=== PATIENT | female | born 1940 | race Caucasian/White ===

== ENCOUNTER 2018-10-09 09:47 | Emergency (ER) | payer OTHER ==
--- NOTE | 2018-10-09 10:52 | ER ---
Nurse's Notes [facility] Name: Holli Strickland Age: 77 yrs Sex: Female : 1940 Arrival Date: 10/09/2018 Time: 09:47 Bed 20 Private MD: Truman Chance Diagnosis: Fracture of forearm Presentation: 10/09 09:56 Presenting complaint: Patient states: last night, i fell and hurt my L wrist, denies hj hitting head and LOC; reports swelling; took advil last night and this AM; applied ice since last night;. Transition of care: patient was not received from another setting of care. Onset of symptoms was October 09, 2018. Risk Assessment: Do you want to hurt yourself or someone else? Patient reports no desire to harm self or others. Initial Sepsis Screen: Does the patient meet any 2 criteria? No. Patient's initial sepsis screen is negative. Does the patient have a suspected source of infection? No. Patient's initial sepsis screen is negative. Care prior to arrival: None. 09:56 Method Of Arrival: Ambulatory 09:56 Acuity: FREDRICK 4 hj Triage Assessment: 10:00 General: Appears in no apparent distress. uncomfortable, Behavior is calm, cooperative, hj appropriate for age. Pain: Complains of pain in L wrist. Historical: - Allergies: 09:59 PENICILLINS; hj - PMHx: 09:59 Hyperlipidemia; Hypertension; Diabetes - NIDDM; hj - PSHx: 09:59 None; hj - Immunization history:: Adult Immunizations up to date. - Social history:: Smoking status: Patient/guardian denies using tobacco, Patient/guardian denies using alcohol. - Ebola Screening: : Patient negative for fever greater than or equal to 101.5 degrees Fahrenheit, and additional compatible Ebola Virus Disease symptoms Patient denies exposure to infectious person Patient denies travel to an Ebola-affected area in the 21 days before illness onset. Screenin:00 Abuse screen: Denies threats or abuse. Denies injuries from another. Nutritional hj screening: No deficits noted. Tuberculosis screening: No symptoms or risk factors identified. Fall Risk None identified. Vital Signs: 10:00 BP 164 / 92; Pulse 82; Resp 18; Temp 98.0(O); Pulse Ox 95% on R/A; Weight 77.11 kg; hj Height 5 ft. 4 in. (162.56 cm); Pain 6/10; 11:12 BP 119 / 66; Pulse 82; Resp 18; Pulse Ox 100% on R/A; hj 10:00 Body Mass Index 29.18 (77.11 kg, 162.56 cm) ED Course: 09:47 Patient arrived in ED. as 09:47 Truman Chance MD is Private Physician. as 09:56 Kilo Ibanez, RN is Primary Nurse. hj 09:58 Triage completed. hj 10:01 Arm band placed on right wrist. hj 10:01 Patient has correct armband on for positive identification. Bed in low position. Call hj light in reach. Side rails up X 1. Adult w/ patient. 10:02 Martine Somers FNP-C is [facility]. kb 10:02 Priyank Raines MD is Attending Physician. kb 10:44 Wrist Left (3 View) XRAY In Process Unspecified. EDMS 10:44 Forearm Left XRAY In Process Unspecified. EDMS 10:49 Mkie Noe MD is Referral Physician. kb 11:20 Orthoglass splint: Sugar tong splint applied on left arm. Sling applied to left arm. mh5 11:23 No provider procedures requiring assistance completed. Patient did not have IV access hj during this emergency room visit. Administered Medications: No medications were administered Outcome: 10:51 Discharge ordered by . kb 11:23 Discharged to home ambulatory, with family. hj 11:23 Condition: stable 11:23 Discharge instructions given to patient, family, Instructed on discharge instructions, follow up and referral plans. medication usage, Demonstrated understanding of instructions, follow-up care, medications, Prescriptions given X 1. 11:23 Patient left the ED. Signatures: Dispatcher [employer] EDMS Martine Somers FNP-C FNP-Ckb Martinez, Amelia as Kilo Ibanez, RN RN Irene Agarwal [facility]
--- NOTE | 2018-10-09 10:52 | EDPHYS ---
Physician Documentation [facility] Name: Holli Strickland Age: 77 yrs Sex: Female : 1940 Arrival Date: 10/09/2018 Time: 09:47 Bed 20 Private MD: Truman Chance ED Physician Priyank Raines HPI: 10/09 10:47 This 77 yrs old Female presents to ER via Ambulatory with complaints of Wrist kb Pain. 10:47 The patient or guardian reports decreased range of motion, injury, pain, swelling, kb tenderness. The complaints affect the left wrist diffusely. Context: The problem was sustained outdoors, resulted from a fall, while walking, on an outstretched hand. Onset: The symptoms/episode began/occurred yesterday. Modifying factors: The symptoms are alleviated by nothing, the symptoms are aggravated by movement. Associated signs and symptoms: The patient has no apparent associated signs or symptoms. The patient has not experienced similar symptoms in the past. The patient has not recently seen a physician. 10:48 Compartment Syndrome negative for numbness, pain, tingling. kb Historical: - Allergies: 09:59 PENICILLINS; hj - PMHx: 09:59 Hyperlipidemia; Hypertension; Diabetes - NIDDM; hj - PSHx: 09:59 None; hj - Immunization history:: Adult Immunizations up to date. - Social history:: Smoking status: Patient/guardian denies using tobacco, Patient/guardian denies using alcohol. - Ebola Screening: : Patient negative for fever greater than or equal to 101.5 degrees Fahrenheit, and additional compatible Ebola Virus Disease symptoms Patient denies exposure to infectious person Patient denies travel to an Ebola-affected area in the 21 days before illness onset. ROS: 10:46 Constitutional: Negative for fever, chills, and weight loss, Cardiovascular: Negative kb for chest pain, palpitations, and edema, Respiratory: Negative for shortness of breath, cough, wheezing, and pleuritic chest pain, Abdomen/GI: Negative for abdominal pain, nausea, vomiting, diarrhea, and constipation, Skin: Negative for injury, rash, and discoloration, Neuro: Negative for headache, weakness, numbness, tingling, and seizure. 10:46 MS/extremity: Positive for injury or acute deformity, ecchymosis, pain, swelling, tenderness, of the left wrist. Exam: 10:46 Constitutional: This is a well developed, well nourished patient who is awake, alert, kb and in no acute distress. Head/Face: Normocephalic, atraumatic. ENT: Nares patent. No nasal discharge, no septal abnormalities noted. Tympanic membranes are normal and external auditory canals are clear. Oropharynx with no redness, swelling, or masses, exudates, or evidence of obstruction, uvula midline. Mucous membranes moist. Neck: Trachea midline, no thyromegaly or masses palpated, and no cervical lymphadenopathy. Supple, full range of motion without nuchal rigidity, or vertebral point tenderness. No Meningismus. Chest/axilla: Normal chest wall appearance and motion. Nontender with no deformity. No lesions are appreciated. Cardiovascular: Regular rate and rhythm with a normal S1 and S2. No gallops, murmurs, or rubs. Normal PMI, no JVD. No pulse deficits. Respiratory: Lungs have equal breath sounds bilaterally, clear to auscultation and percussion. No rales, rhonchi or wheezes noted. No increased work of breathing, no retractions or nasal flaring. Abdomen/GI: Soft, non-tender, with normal bowel sounds. No distension or tympany. No guarding or rebound. No evidence of tenderness throughout. Skin: Warm, dry with normal turgor. Normal color with no rashes, no lesions, and no evidence of cellulitis. Neuro: Awake and alert, GCS 15, oriented to person, place, time, and situation. Cranial nerves II-XII grossly intact. Motor strength 5/5 in all extremities. Sensory grossly intact. Cerebellar exam normal. Normal gait. 10:46 Musculoskeletal/extremity: Extremities: grossly normal except: noted in the left wrist: decreased ROM, ecchymosis, pain, swelling, tenderness, ROM: limited active range of motion, in the left wrist, Circulation is intact in all extremities. Sensation intact. Vital Signs: 10:00 BP 164 / 92; Pulse 82; Resp 18; Temp 98.0(O); Pulse Ox 95% on R/A; Weight 77.11 kg; hj Height 5 ft. 4 in. (162.56 cm); Pain 6/10; 11:12 BP 119 / 66; Pulse 82; Resp 18; Pulse Ox 100% on R/A; hj 10:00 Body Mass Index 29.18 (77.11 kg, 162.56 cm) Procedures: 11:20 Splinting: Splint applied to left arm using Orthoglass splint, applied by tech. kb Examined by me, post splint application: neurovascular intact, 2+ distal pulses palpable, brisk capillary refill noted, Patient tolerated well. MDM: 10:02 Patient medically screened. kb 10:45 Data reviewed: vital signs, nurses notes. Data interpreted: Pulse oximetry: on room air kb is 95 %. Interpretation: normal. Test interpretation: by ED physician or midlevel provider: plain radiologic studies, displaced fracture of radius. Counseling: I had a detailed discussion with the patient and/or guardian regarding: the historical points, exam findings, and any diagnostic results supporting the discharge/admit diagnosis, radiology results, the need for outpatient follow up, a orthopedic surgeon, to return to the emergency department if symptoms worsen or persist or if there are any questions or concerns that arise at home. 10/09 10:04 Order name: Wrist Left (3 View) XRAY; Complete Time: 11:10 kb 10/09 10:04 Order name: Forearm Left XRAY kb 10/09 10:49 Order name: Sugar Tong Forearm Splint; Complete Time: 11:06 kb 10/09 10:49 Order name: Sling; Complete Time: 11:06 kb Administered Medications: No medications were administered Disposition: 16:59 Co-signature as Attending Physician, Priyank Raines MD. rn Disposition: 10/09/18 10:51 Discharged to Home. Impression: Fracture of forearm. - Condition is Stable. - Discharge Instructions: Forearm Fracture, Pxvt-on-Ltvc. - Prescriptions for Tylenol- Codeine #3 300-30 mg Oral Tablet - take 1 tablet by ORAL route every 6 hours As needed; 15 tablet. - Medication Reconciliation Form, Thank You Letter, Antibiotic Education, Prescription Opioid Use form. - Follow up: Emergency Department; When: As needed; Reason: Worsening of condition. Follow up: Private Physician; When: 2 - 3 days; Reason: Recheck today's complaints, Continuance of care, Re-evaluation by your physician. Follow up: Mike Noe MD; When: 1 - 2 days; Reason: Recheck today's complaints, Continuance of care, Re-evaluation by your physician. Signatures: Dispatcher [employer] EDMartine Guzman, CRANE SERVICE TECHNICIAN-C CRANE SERVICE TECHNICIAN-Ckb Priyank Raines MD MD rn Joaquin, Henry, RN RN hj Corrections: (The following items were deleted from the chart) 11:23 10:51 10/09/2018 10:51 Discharged to Home. Impression: Fracture of forearm. Condition hj is Stable. Forms are Medication Reconciliation Form, Thank You Letter, Antibiotic Education, Prescription Opioid Use. Follow up: Emergency Department; When: As needed; Reason: Worsening of condition. Follow up: Private Physician; When: 2 - 3 days; Reason: Recheck today's complaints, Continuance of care, Re-evaluation by your physician. Follow up: Mike Noe; When: 1 - 2 days; Reason: Recheck today's complaints, Continuance of care, Re-evaluation by your physician. kb
--- NOTE | 2018-10-09 11:08 | RAD REPORT ---
EXAM DESCRIPTION: RAD - Wrist Left 3 View - 10/09/2018 10:43 am CLINICAL HISTORY: PAIN Fall, pain, trauma COMPARISON: None FINDINGS: Left forearm and left wrist - multiple projections are submitted Intra-articular distal radius fracture is seen. Subtle lucency in the ulnar styloid also seen likely nondisplaced fracture. The bones are demineralized. No dislocation is evident.
--- NOTE | 2018-10-09 11:32 | RAD REPORT ---
EXAM DESCRIPTION: RAD - Forearm Left - 10/09/2018 10:43 am CLINICAL HISTORY: PAIN Fall, pain, trauma COMPARISON: None FINDINGS: Left forearm and left wrist - multiple projections are submitted Intra-articular distal radius fracture is seen. Subtle lucency in the ulnar styloid also seen likely nondisplaced fracture. The bones are demineralized. No dislocation is evident.
== END 2018-10-09 11:23 | disposition home or self-care (01) ==
LOC: ER 09:47
PROC: 2W3DX1Z Immobilization of Left Lower Arm using Splint (ICD-10-PCS; principal; 2018-10-09)
DX: S52.502A Unspecified fracture of the lower end of left radius, initial encounter for closed fracture (principal); W01.0XXA Fall on same level from slipping, tripping and stumbling without subsequent striking against object, initial encounter; Y93.01 Activity, walking, marching and hiking; Z88.0 Allergy status to penicillin; E78.5 Hyperlipidemia, unspecified; I10 Essential (primary) hypertension; E11.9 Type 2 diabetes mellitus without complications
CPT/HCPCS: 99283

== ENCOUNTER 2019-05-17 16:51 | Inpatient (IN) | payer OTHER ==
--- OUTSIDE RECORDS SUMMARY | 2019-05-17 16:53 | XMS REPORT ---
:1940 [facility] Address [address] [place] [address] [address] [place] [address] Care Team Providers Name Role Phone Unavailable Unavailable Unavailable Problems This patient has no known problems. Allergies, Adverse Reactions, Alerts This patient has no known allergies or adverse reactions. Medications This patient has no known medications.
[2019-05-17] MEDS ORDERED: NA CHLORIDE 0.9% 2,000 ML ONE (17:24)
[2019-05-17 18:12] LABS: Calcium Oxalate Crystals- Ur PRESENT (NONE SEEN); Urine Bacteria >50 /HPF (<20); Urine Culture Reflex Order REFLEXED; Urine RBC NONE SEEN /HPF (NONE SEEN)
[2019-05-17 18:13] LABS: ALT/SGPT 25 U/L (12-78); AST/SGOT 28 U/L (15-37); Albumin 3.5 g/dL (3.4-5.0); Alkaline Phosphatase 49 U/L (45-117); BUN Blood Urea Nitrogen 19 mg/dL (7-18); Bicarbonate 22 mmol/L (21-32); Bilirubin Direct 0.4 mg/dL (0-0.2); CKMB Creatine Kinase MB < 1.0 ng/mL (0.3-3.6); Creatine Phosphokinase 116 U/L (26-192); Glucose Level 161 mg/dL (74-106); Lipase 46 U/L (73-393); Potassium 3.8 mmol/L (3.5-5.1); Protein, Total 7.2 g/dL (6.4-8.2); Sodium Level 134 mmol/L (136-145); Troponin (Emerg Dept Use Only) < 0.02 ng/mL (0.0-0.045)
[2019-05-17] MEDS ORDERED: Levofloxacin 750mg IV 750 MG/150 ML BAG IV ONE (18:24)
[2019-05-17 18:31] LABS: Urine Blood 1+ (NEG); Urine Glucose NEGATIVE (NEG); Urine Protein NEGATIVE (NEG); Urine pH 5.5 (5.0-7.0)
[2019-05-17 18:35] LABS: Absolute Lymphocytes (CBC) 0.1 K/uL (0.7-4.9); Basophils % 0.2 % (0-1.3); Hematocrit 31.9 % (36.0-45.0); Lymphocytes % 2.1 % (15.3-44.8); MPV 9.7 fL (7.6-11.3); RBC Red Blood Cell Count 3.44 M/uL (3.86-4.86)
[2019-05-17] MEDS ORDERED: NA CHLORIDE 0.9% 500 ML ONE (18:35)
--- NOTE | 2019-05-17 18:40 | RAD REPORT ---
EXAM DESCRIPTION: CT - CTHCSPWOC - 05/17/2019 6:12 pm CLINICAL HISTORY: Slip and fall, head and neck injury COMPARISON: None. TECHNIQUE: Axial 5 mm thick images of the head were obtained. Axial 2 mm thick images of the cervic al spine were obtained with sagittal and coronal reconstruction images generated and reviewed. All CT scans are performed using dose optimization technique as appropriate and may include automated exposure control or mA/KV adjustment according to patient size. FINDINGS: No intracranial hemorrhage, mass, edema or acute intracranial finding. No suspicion for acute infarct ion. No extra-axial fluid collections. Mastoid air cells and paranasal sinuses are clear. No globe or orbit abnormality seen. Mild atrophy and chronic ischemic changes are present. Ventricles are in pro portion to volume wounds. Cervical bodies are normal in height. Slight anterior subluxation of C3 on C4 and C4 on C5 noted seco ndary to degenerative change. Moderate C5-6 and C6-7 disc space narrowing with mild C4-5 disc space n arrowing. No fracture or acute bony abnormality. Facet joint degenerative change and uncovertebral garcía int hypertrophy are present in the cervical spine. Significant right foraminal stenosis present on th e right at C3-4 bilateral at C4-5, C5-6 and C6-7. No paraspinal mass or hematoma. Central canal detail is inherently limited. IMPRESSION: Mild atrophy and chronic ischemic changes are present. No acute intracranial finding. Cervical spine degenerative change as detailed. No fracture or acute finding.
[2019-05-17 18:41] LABS: Protime INR 1.33
--- NOTE | 2019-05-17 18:46 | RAD REPORT ---
EXAM DESCRIPTION: RAD - Chest Single View - 05/17/2019 6:06 pm CLINICAL HISTORY: Fever, fall COMPARISON: None. TECHNIQUE: AP portable chest image was obtained 1800 hours . FINDINGS: Lungs are clear. Heart and vasculature are normal. No measurable pleural effusion and no p neumothorax. No acute bony abnormality seen. No acute aortic findings suspected. IMPRESSION: No acute cardiopulmonary process.
[2019-05-17 19:27] LABS: Blood Morphology Comment NOT SEEN (NOT SEEN); Platelet Estimate ADEQ
[2019-05-17] MEDS ORDERED: ACETAMINOPHEN 500 MG TAB ONE (19:33)
--- NOTE | 2019-05-17 19:35 | ER ---
Nurse's Notes [facility] Name: Holli Strickland Age: 78 yrs Sex: Female : 1940 Arrival Date: 05/17/2019 Time: 17:01 Bed 18 Private MD: Diagnosis: Acute cystitis;Other sepsis;Fever, unspecified Presentation: 05/17 17:02 Presenting complaint: EMS states: called out for a slip and fall, denies any injury, em denies LOC or hitting head, vomited one time after the fall, family reports frequent falling and urinary frequency, pt denies pain at this time, VSS. Transition of care: patient was not received from another setting of care. Onset of symptoms was May 17, 2019. Risk Assessment: Do you want to hurt yourself or someone else? Patient reports no desire to harm self or others. Initial Sepsis Screen: Does the patient meet any 2 criteria? HR > 90 bpm. No. Patient's initial sepsis screen is negative. Does the patient have a suspected source of infection? Yes: Dysuria/Frequency/Urgency/UTI. Care prior to arrival: None. 17:02 Method Of Arrival: EMS: [facility] em 17:15 Acuity: FREDRICK 2 iw Historical: - Allergies: 17:08 PENICILLINS; em 17:08 Omnicef; em - Home Meds: 17:08 Aspirin Oral [Active]; Crestor oral oral [Active]; em - PMHx: 17:08 Diabetes - NIDDM; Hyperlipidemia; Hypertension; em - PSHx: 17:08 None; em - Immunization history:: Adult Immunizations unknown. - Social history:: Smoking status: unknown. - Ebola Screening: : Patient negative for fever greater than or equal to 101.5 degrees Fahrenheit, and additional compatible Ebola Virus Disease symptoms Patient denies exposure to infectious person Patient denies travel to an Ebola-affected area in the 21 days before illness onset No symptoms or risks identified at this time. Screenin:12 Abuse screen: no apparent signs noted. Nutritional screening: No deficits noted. em Tuberculosis screening: No symptoms or risk factors identified. Fall Risk None identified. Assessment: 17:12 General: Appears in no apparent distress. comfortable, Behavior is calm, cooperative, iw feels hot, family reports frequent falling and being more confused than normal. Pain: Denies pain. Neuro: Level of Consciousness is awake, alert, obeys commands, Oriented to person, place, time. Cardiovascular: Capillary refill < 3 seconds Patient's skin is warm and dry. Respiratory: Airway is patent Respiratory effort is even, unlabored, Respiratory pattern is regular, symmetrical. : Parent/caregiver report the patient having urinary frequency. Derm: Skin is intact, is fragile, Skin is dry, Skin is pink, Skin temperature is hot. Musculoskeletal: Capillary refill < 3 seconds, Range of motion: intact in all extremities. 17:14 Reassessment: Code Sepsis called. iw 18:11 Reassessment: currently in CT. em 18:17 Reassessment: returned from CT, will recollect labs. em 18:32 Reassessment: Patient appears in no apparent distress at this time. Patient and/or em family updated on plan of care and expected duration. Pain level reassessed. Patient is alert, oriented x 3, equal unlabored respirations, skin warm/dry/pink. 19:15 Reassessment: Patient appears in no apparent distress at this time. Patient and/or cc3 family updated on plan of care and expected duration. Pain level reassessed. Patient is alert, oriented x 3, equal unlabored respirations, skin warm/dry/pink. Received this female patient from morning shift [facility] as a case of fall injury and sepsis; with IV cannula gauge 22 at the right ACV with ongoing IV fluid bolus; another IV cannula gauge 22 at the right hand saline locked. Patient denies pain at this time. General: Appears in no apparent distress. comfortable, Behavior is calm, cooperative, appropriate for age. Pain: Denies pain. Neuro: Level of Consciousness is awake, alert, obeys commands, Oriented to person, place, time, situation, Appropriate for age. Cardiovascular: Denies chest pain, Heart tones S1 S2 present Capillary refill < 3 seconds in bilateral fingers Patient's skin is warm and dry. Respiratory: Airway is patent Respiratory effort is even, unlabored, Respiratory pattern is regular, symmetrical, Breath sounds are clear bilaterally. GI: Abdomen is round obese, Bowel sounds present X 4 quads. Abd is soft and non tender X 4 quads. : No signs and/or symptoms were reported regarding the genitourinary system. EENT: No signs and/or symptoms were reported regarding the EENT system. Derm: Skin is intact, is fragile, Skin is pink, warm \T\ dry. normal, Bruising that is green, on right leg. Musculoskeletal: Circulation, motion, and sensation intact. Range of motion: intact in all extremities. 19:27 Reassessment: Lab staff Wade called and relayed critical result of Band count of 15%, cc3 AUTHORIZATION COORDINATOR Cruz Mayorga informed. 20:18 Reassessment: Patient appears in no apparent distress at this time. Patient and/or cc3 family updated on plan of care and expected duration. Pain level reassessed. Patient is alert, oriented x 3, equal unlabored respirations, skin warm/dry/pink. 21:15 Reassessment: Patient appears in no apparent distress at this time. Patient and/or cc3 family updated on plan of care and expected duration. Pain level reassessed. Patient is alert, oriented x 3, equal unlabored respirations, skin warm/dry/pink. Room available in 420, report called and handed over to SOREN Guevara for continuity of care and management; repeat Lactate sent to lab. 21:40 Reassessment: Patient appears in no apparent distress at this time. Patient and/or cc3 family updated on plan of care and expected duration. Pain level reassessed. Patient is alert, oriented x 3, equal unlabored respirations, skin warm/dry/pink. Patient left ER for admission vitally stable by stretcher escorted by charge histotechnologistleroy Sylvester and the patient's family. No valuables left in the patient's room. Patient denies pain at this time. Patient states feeling better. Patient states symptoms have improved. Vital Signs: 17:12 BP 119 / 58; Pulse 95; Resp 20; Temp 100.6(O); Pulse Ox 95% on R/A; Pain 0/10; em 17:18 Weight 74.84 kg (R); Height 5 ft. 4 in. (162.56 cm) (R); em 17:53 BP 126 / 65; Pulse 98; Resp 20; Pulse Ox 96% on R/A; em 18:44 BP 107 / 53; Pulse 105; Resp 22; Temp 100.6(O); Pulse Ox 96% on R/A; em 19:25 BP 121 / 67; Pulse 100; Resp 21 S; Temp 101.2(O); Pulse Ox 99% on R/A; Pain 0/10; cc3 20:30 BP 115 / 75; Pulse 109; Resp 24 S; Pulse Ox 94% on 2 lpm NC; cc3 21:20 BP 103 / 64; Pulse 103; Resp 26 S; Temp 100(O); Pulse Ox 95% on 2 lpm NC; Pain 0/10; cc3 17:18 Body Mass Index 28.32 (74.84 kg, 162.56 cm) em ED Course: 17:01 Patient arrived in ED. em 17:02 Rodrigo Castañeda LVN is Primary Nurse. em 17:02 Cruz Mayorga FNP-C is PHCP. la1 17:02 James Cuba MD is Attending Physician. la1 17:08 Arm band placed on. em 17:12 Patient has correct armband on for positive identification. Placed in gown. Bed in low em position. Call light in reach. Adult w/ patient. Pulse ox on. NIBP on. 17:15 Triage completed. iw 17:15 Maintain EMS IV. Dressing intact. Good blood return noted. Site clean \T\ dry. Gauge \T\ iw site: 20 right hand. 17:29 Missed attempt(s): 22 gauge in right antecubital area. iw 18:07 Chest Single View XRAY In Process Unspecified. EDMS 18:12 CT completed. Patient tolerated procedure well. Patient moved back from CT. mw3 18:13 CT Head C Spine In Process Unspecified. EDMS 19:31 James Cuba MD is Hospitalizing Provider. la1 19:31 David Maurice MD is Hospitalizing Provider. la1 21:40 No provider procedures requiring assistance completed. Patient admitted, IV remains in cc3 place. Administered Medications: 17:25 Drug: NS 0.9% (30 ml/kg) 30 ml/kg Route: IV; Rate: bolus; Site: right hand; em 19:38 Follow up: Response: No adverse reaction; IV Status: Completed infusion; IV Intake: cc3 2250ml 18:28 Drug: LevaQUIN 750 mg Volume: 150 ml; Route: IVPB; Infused Over: 90 mins; Site: right iw antecubital; 20:00 Follow up: Response: No adverse reaction; IV Status: Completed infusion; IV Intake: cc3 150ml 19:30 Drug: Tylenol 1000 mg Route: PO; cc3 21:20 Follow up: Response: No adverse reaction; Temperature is decreased cc3 Intake: 19:38 IV: 2250ml; Total: 2250ml. cc3 20:00 IV: 150ml; Total: 2400ml. cc3 Outcome: 19:34 Decision to Hospitalize by Provider. la1 21:40 Admitted to Tele accompanied by tech, family with patient, via stretcher, room 420, cc3 with oxygen, with chart, Report called to SOREN Guevara 21:40 Condition: stable 21:40 Instructed on the need for admit, Demonstrated understanding of instructions. 21:41 Patient left the ED. cc3 Signatures: Dispatcher [employer] Rodrigo Norris, FRUIT HARVESTER FRUIT HARVESTER Stephanie Cuevas RN RN iw Cruz Mayorga, PRODUCT STEWARD-C PRODUCT STEWARD-Cla1 Duyen Bah mw3 Tomasa Mcelroy cc3 Corrections: (The following items were deleted from the chart) 22:08 19:30 Reassessment: cc3 cc3
--- NOTE | 2019-05-17 19:35 | EDPHYS ---
Physician Documentation [facility] Name: Holli Strickland Age: 78 yrs Sex: Female : 1940 Arrival Date: 05/17/2019 Time: 17:01 Bed 18 Private MD: ED Physician James Cuba HPI: 05/17 17:16 This 78 yrs old Female presents to ER via EMS with complaints of Fall Injury. la1 17:16 Details of fall: The patient fell from a supine position. Onset: The symptoms/episode la1 began/occurred just prior to arrival. Associated injuries: The patient sustained no obvious injury. Severity of symptoms: At their worst the symptoms were moderate. The patient has not experienced similar symptoms in the past. pt was walking out of bathroom and had an unwitnessed fall, found her on the floor. Pt with low grade fever in ED, has been taking AZO at home for lower abd pain, presents drowsy, oriented x4 but slow to respond and react. . Historical: - Allergies: 17:08 PENICILLINS; em 17:08 Omnicef; em - Home Meds: 17:08 Aspirin Oral [Active]; Crestor oral oral [Active]; em - PMHx: 17:08 Diabetes - NIDDM; Hyperlipidemia; Hypertension; em - PSHx: 17:08 None; em - Immunization history:: Adult Immunizations unknown. - Social history:: Smoking status: unknown. - Ebola Screening: : Patient negative for fever greater than or equal to 101.5 degrees Fahrenheit, and additional compatible Ebola Virus Disease symptoms Patient denies exposure to infectious person Patient denies travel to an Ebola-affected area in the 21 days before illness onset No symptoms or risks identified at this time. ROS: 17:20 Constitutional: + fever Eyes: Negative for injury, pain, redness, and discharge, ENT: la1 Negative for injury, pain, and discharge, Neck: Negative for injury, pain, and swelling, Cardiovascular: Negative for chest pain, palpitations, and edema, Respiratory: Negative for shortness of breath, cough, wheezing, and pleuritic chest pain, Abdomen/GI: + for vomiting Back: Negative for injury and pain, : + for lower abd pain which pt is taking AZO for Neuro: + for "mild" headache Psych: Negative for depression, anxiety, suicide ideation, homicidal ideation, and hallucinations. 17:20 Neuro: Positive for slow to respond. Exam: 17:21 Constitutional: This is a well developed, well nourished patient who is awake, alert, la1 and in no acute distress. Head/Face: Normocephalic, atraumatic. Eyes: Pupils equal round and reactive to light, extra-ocular motions intact. Periorbital areas with no swelling, redness, or edema. ENT: Mucous membranes moist. Neck: Trachea midline, , and no cervical lymphadenopathy. Supple, full range of motion without nuchal rigidity, or vertebral point tenderness. No Meningismus. Chest/axilla: Normal chest wall appearance and motion. Nontender with no deformity. No lesions are appreciated. Cardiovascular: Regular rate and rhythm with a normal S1 and S2. No gallops, murmurs, or rubs. Normal PMI, no JVD. No pulse deficits. Respiratory: Lungs have equal breath sounds bilaterally, clear to auscultation No rales, rhonchi or wheezes noted. No increased work of breathing, no retractions or nasal flaring. Abdomen/GI: Soft, non-tender, with normal bowel sounds. No distension or tympany. No guarding or rebound. No evidence of tenderness throughout. vomit present on clothing. Back: No spinal tenderness. No costovertebral tenderness. Full range of motion. 17:21 Neuro: Orientation: to person, place, time \\T\\ situation. Mentation: able to follow commands, slow to respond, Cranial nerves: CN I not tested, extraocular movements are intact, Facial palsy and sensory deficits are absent. Speech is clear and appropriate. Tongue strength is normal, Cerebellar function: normal finger to nose testing, Sensation: is normal. 22:37 ECG was reviewed by the Attending Physician. la1 Vital Signs: 17:12 BP 119 / 58; Pulse 95; Resp 20; Temp 100.6(O); Pulse Ox 95% on R/A; Pain 0/10; em 17:18 Weight 74.84 kg (R); Height 5 ft. 4 in. (162.56 cm) (R); em 17:53 BP 126 / 65; Pulse 98; Resp 20; Pulse Ox 96% on R/A; em 18:44 BP 107 / 53; Pulse 105; Resp 22; Temp 100.6(O); Pulse Ox 96% on R/A; em 19:25 BP 121 / 67; Pulse 100; Resp 21 S; Temp 101.2(O); Pulse Ox 99% on R/A; Pain 0/10; cc3 20:30 BP 115 / 75; Pulse 109; Resp 24 S; Pulse Ox 94% on 2 lpm NC; cc3 21:20 BP 103 / 64; Pulse 103; Resp 26 S; Temp 100(O); Pulse Ox 95% on 2 lpm NC; Pain 0/10; cc3 17:18 Body Mass Index 28.32 (74.84 kg, 162.56 cm) em MDM: 17:02 Patient medically screened. la1 19:34 Data reviewed: vital signs, nurses notes. Data interpreted: Pulse oximetry: on is 100 la1 %. Interpretation: normal. Counseling: I had a detailed discussion with the patient and/or guardian regarding: the historical points, exam findings, and any diagnostic results supporting the discharge/admit diagnosis, lab results, radiology results, the need for further work-up and treatment in the hospital. ED course: Pt mentation greatly improved after fluids and antibiotics discussed case with Dr. Maurice who will see patient in hospital. 05/17 17:14 Order name: Basic Metabolic Panel; Complete Time: 18:17 la1 05/17 17:14 Order name: Blood Culture Adult (2) la1 05/17 17:14 Order name: CBC with Diff la1 05/17 17:14 Order name: Ckmb; Complete Time: 18:17 la1 05/17 17:14 Order name: CPK; Complete Time: 18:17 la05/17 17:14 Order name: Lactate; Complete Time: 18:17 la05/17 17:14 Order name: LFT's; Complete Time: 18:17 la1 05/17 17:14 Order name: Lipase; Complete Time: 18:17 la1 05/17 17:14 Order name: Procalcitonin; Complete Time: 18:45 la1 05/17 17:14 Order name: Protime (+inr); Complete Time: 18:45 la1 05/17 17:14 Order name: Ptt, Activated; Complete Time: 18:45 la1 05/17 17:14 Order name: Troponin (emerg Dept Use Only); Complete Time: 18:17 la1 05/17 17:14 Order name: Urine Microscopic Only; Complete Time: 18:17 la1 05/17 17:52 Order name: Glucose, Ancillary Testing; Complete Time: 18:17 EDMS 05/17 18:14 Order name: Urine Culture EDMS 05/17 18:17 Order name: Urine Dipstick--Ancillary (enter results); Complete Time: 18:45 eb 05/17 18:42 Order name: Manual Differential EDMS 05/17 20:49 Order name: Lactate EDMS 05/17 20:49 Order name: Urinalysis EDMS 05/17 20:49 Order name: CBC with Automated Diff EDMS 05/17 20:49 Order name: CBC with Automated Diff EDMS 05/17 20:49 Order name: Comprehensive Metabolic Panel EDMS 05/17 20:49 Order name: Comprehensive Metabolic Panel EDMS 05/17 20:49 Order name: Lactate EDMS 05/17 20:49 Order name: Lactate EDMS 05/17 20:49 Order name: Magnesium EDMS 05/17 20:49 Order name: Magnesium EDMS 05/17 20:49 Order name: Procalcitonin EDMS 05/17 20:49 Order name: Procalcitonin EDMS 05/17 20:49 Order name: Phosphorus EDMS 05/17 17:14 Order name: Cath; Complete Time: 17:52 la1 05/17 17:14 Order name: Chest Single View XRAY; Complete Time: 18:53 la1 05/17 17:14 Order name: Accucheck; Complete Time: 17:40 la1 05/17 17:14 Order name: Cardiac monitoring; Complete Time: 17:40 pr1 05/17 17:14 Order name: EKG - Nurse/Tech; Complete Time: 17:52 la1 05/17 17:14 Order name: IV Saline Lock - Large Bore; Complete Time: 17:40 la1 05/17 17:15 Order name: Labs collected and sent; Complete Time: 17:40 la05/17 17:15 Order name: O2 Per Protocol; Complete Time: 17:40 la05/17 17:15 Order name: O2 Sat Monitoring; Complete Time: 17:19 la1 05/17 17:15 Order name: Urine Dipstick-Ancillary (obtain specimen); Complete Time: 18:13 la1 05/17 17:15 Order name: CT Head C Spine; Complete Time: 18:45 la1 05/17 18:20 Order name: Misc. Order: document total amount of fluid bolus given; Complete Time: iw 19:38 05/17 20:49 Order name: Regular EDMS 05/17 20:49 Order name: Phosphorus EDMS EC:37 Rate is 98 beats/min. Rhythm is irregular, Normal Sinus Rhythm with PACs. QRS Cadet is la1 Normal. VA interval is normal. QRS interval is normal. QT interval is normal. No Q waves. T waves are Normal. No ST changes noted. Interpreted by me. Reviewed by me. Administered Medications: 17:25 Drug: NS 0.9% (30 ml/kg) 30 ml/kg Route: IV; Rate: bolus; Site: right hand; em 19:38 Follow up: Response: No adverse reaction; IV Status: Completed infusion; IV Intake: cc3 2250ml 18:28 Drug: LevaQUIN 750 mg Volume: 150 ml; Route: IVPB; Infused Over: 90 mins; Site: right iw antecubital; 20:00 Follow up: Response: No adverse reaction; IV Status: Completed infusion; IV Intake: cc3 150ml 19:30 Drug: Tylenol 1000 mg Route: PO; cc3 21:20 Follow up: Response: No adverse reaction; Temperature is decreased cc3 Disposition: 05/18 08:59 Co-signature as Attending Physician, James Cuba MD I agree with the assessment and kdr plan of care. Disposition: 05/17/19 19:34 Hospitalization ordered by David Maurice for Observation. Preliminary diagnosis are Acute cystitis, Other sepsis, Fever, unspecified. - Bed requested for Telemetry/MedSurg (observation). - Status is Observation. cc3 - Condition is Stable. - Problem is new. - Symptoms have improved. UTI on Admission? Yes Signatures: Dispatcher [employer] EDPR James Cuba MD MD [facility] Rodrigo Castañeda, SUPERVISORY GEOGRAPHER SUPERVISORY GEOGRAPHER em Stephanie Gerardo RN RN iw Cruz Mayorga, UTILITY LOCATE TECHNICIAN-C UTILITY LOCATE TECHNICIAN-Cla1 Anabella Sky, RN RN Tomasa Mcelroy cc3 Corrections: (The following items were deleted from the chart) 05/17 17:26 17:16 Head Brain Wo Cont+CT.RAD.BRZ ordered. EDMS EDMS 20:54 19:34 Hospitalization Ordered by David Maurice MD for Observation. Preliminary cg diagnosis is Acute cystitis; Other sepsis; Fever, unspecified. Bed requested for Telemetry/MedSurg (observation). Status is Observation. Condition is Stable. Problem is new. Symptoms have improved. UTI on Admission? Yes. la1 21:41 20:54 05/17/2019 19:34 Hospitalization Ordered by David Maurice MD for Observation. cc3 Preliminary diagnosis is Acute cystitis; Other sepsis; Fever, unspecified. Bed requested for Telemetry/MedSurg (observation). Status is Observation. Condition is Stable. Problem is new. Symptoms have improved. UTI on Admission? Yes. cg
[2019-05-17] MEDS ORDERED: ALPRAZOLAM 0.25 MG TABLET PO PRN (20:37)
[2019-05-17] MEDS ORDERED: ONDANSETRON 4 MG/2 ML VIAL IV PRN (20:37)
[2019-05-17] MEDS ORDERED: CEFTRIAXONE 1 GM/NS 50 ML 1 GM/50 ML BAG IV SCH (21:00)
[2019-05-17] MEDS: NA CHLORIDE 0.9% 1,000 ML IV SCH (22:02)
[2019-05-17] MEDS: CEFTRIAXONE/SWI 1gm 1 GM/10 ML SYR IV SCH (22:02)
[2019-05-18] MEDS: NA CHLORIDE 0.9% 1,000 ML IV SCH (04:51)
[2019-05-18 05:53] LABS: Absolute Lymphocytes (CBC) 0.3 K/uL (0.7-4.9); Basophils % 0.1 % (0-1.3); Hematocrit 32.8 % (36.0-45.0); MPV 10.2 fL (7.6-11.3); RBC Red Blood Cell Count 3.55 M/uL (3.86-4.86)
[2019-05-18 06:09] LABS: Albumin 2.7 g/dL (3.4-5.0); Bilirubin Total 1.2 mg/dL (0.2-1.0); Phosphorus 3.1 mg/dL (2.5-4.9); Potassium 3.6 mmol/L (3.5-5.1); Protein, Total 5.6 g/dL (6.4-8.2)
[2019-05-18 06:10] LABS: Magnesium 1.5 mg/dL (1.8-2.4)
[2019-05-18] MEDS ORDERED: Magnesium Sulfate 2gm IVPB 2 G/50 ML BAG IV ONE ×2 (06:14→09:00)
[2019-05-18 07:40] LABS: Blood Morphology Comment NOT SEEN (NOT SEEN); Platelet Estimate DECR
[2019-05-18] MEDS: ACETAMINOPHEN 500 MG TAB PO PRN ×3 (08:40→20:22)
[2019-05-18] MEDS: CEFTRIAXONE/SWI 1gm 1 GM/10 ML SYR IV SCH ×2 (08:41→20:22)
--- NOTE | 2019-05-18 08:51 | P.HP ---
Certification for Inpatient Patient admitted to: Inpatient With expected LOS: >2 Midnights Patient will require the following post-hospital care: None Practitioner: I am a practitioner with admitting privileges, knowledge of patient current condition, hospital course, and medical plan of care. Services: Services provided to patient in accordance with Admission requirements found in Title 42 Section 412.3 of the Code of Federal Regulations Patient History Date of Service: 05/17/19 Reason for admission: Urinary tract infection/possible pyelonephritis/sepsis History of Present Illness: Patient is a 78-year-old female came to the hospital with fever, tachycardia, flank tenderness, and dysuria. Patient workup revealed a urinary tract infection with sepsis. Patient procalcitonin level was elevated. Lactate was also elevated. We hydrated patient aggressively. Patient's blood cultures and urine cultures are pending. Patient was given Levaquin and Rocephin in the ER. Will continue with Rocephin IV piggyback. Will await culture results. Patient at this time is most likely sepsis with the elevation in procalcitonin level. Will continue monitoring closely on the floor. If her vitals change and she becomes hemodynamically unstable we will transfer to ICU. Allergies Penicillins Allergy (Unknown, Verified 05/17/19 23:04) Hives/Rash Home Medications: Aspirin 81 mg PO DAILY 05/17/19 Bisoprolol/Hydrochlorothiazide [Bisoprolol-Hctz 2.5-6.25 mg Tb] 1 tab PO DAILY 05/17/19 Metformin HCl 500 mg PO DAILY 05/17/19 Rosuvastatin Calcium 10 mg PO BEDTIME 05/17/19 - Past Medical/Surgical History Has patient received pneumonia vaccine in the past: Yes Diabetic: Yes -: Type 2 diabetes -: HLD -: HTN Past Surgical History: Patient denies surgical history - Family History Father Family History: Reviewed- Non-Contributory - Social History Smoking Status: Former smoker Alcohol use: No CD- Drugs: No Caffeine use: Yes Place of Residence: Home Review of Systems 10-point ROS is otherwise unremarkable Physical Examination - Vital Signs Temperature: 99.5 F Blood Pressure: 129/61 Pulse: 96 Respirations: 18 Pulse Ox (%): 91 - Physical Exam General: Alert, In no apparent distress, Oriented x3 HEENT: Atraumatic, Normocephalic, PERRLA Neck: Supple, 2+ carotid pulse no bruit, JVD not distended Respiratory: Clear to auscultation bilaterally, Normal air movement Cardiovascular: No edema, Normal pulses, Regular rate/rhythm, Normal S1 S2, No murmurs Gastrointestinal: Normal bowel sounds, Hypoactive, Soft and benign, Non- distended, No tenderness Musculoskeletal: No clubbing, No swelling, No contractures, No erythema Integumentary: No rashes Neurological: Normal gait, Normal speech, Normal strength at 5/5 x4 extr, Normal tone, Sensation intact, Cranial nerves 3-12 intact - Studies Laboratory Data (last 24 hrs) 05/18/19 05:27: Sodium 143, Potassium 3.6, BUN 22 H, Creatinine 1.24, Glucose 86 , Phosphorus 3.1, Magnesium 1.5 L, Total Bilirubin 1.2 H, AST 31, ALT 21, Alkaline Phosphatase 32 L 05/18/19 05:27: WBC 16.8 H D, Hgb 11.1 L, Hct 32.8 L, Plt Count 88 L 05/17/19 18:28: PT 15.5 H, INR 1.33, APTT 30.9 05/17/19 18:28: WBC 6.4, Hgb 10.9 L, Hct 31.9 L, Plt Count 106 L 05/17/19 17:25: Sodium 134 L, Potassium 3.8, BUN 19 H, Creatinine 1.37 H, Glucose 161 H, Total Bilirubin 2.0 H, AST 28, ALT 25, Alkaline Phosphatase 49, Lipase 46 L Assessment & Plan - Problems (Diagnosis) (1) Urinary tract infection Current Visit: Yes Status: Acute (2) Sepsis Current Visit: Yes Status: Acute (3) Hypertension Current Visit: Yes Status: Acute (4) Type 2 diabetes mellitus Current Visit: Yes Status: Acute (5) Elevated procalcitonin Current Visit: Yes Status: Acute (6) High serum lactate Current Visit: Yes Status: Acute - Plan Plan: 1. Aggressive IV hydration 2. IV antibiotic therapy 3. Monitor her lactate and procalcitonin levels 4. Strict blood pressure-monitor hemodynamics closely- and blood sugar control 5. GI and DVT prophylaxis Discharge Plan: Home Plan to discharge in: Greater than 2 days - Advance Directives Does patient have a Living Will: No Does patient have a Durable POA for Healthcare: No - Code Status/Comfort Care Code Status Assessed: Yes Code Status: Full Code Critical Care: No Time Spent Managing PTS Care (In Minutes): 46
--- NOTE | 2019-05-18 08:54 | EKG ---
Test Date: 2019-05-17 Test Time: 17:50:30 Slab Grinder: JASSI MEASUREMENT RESULTS: Intervals: Rate: 98 CT: 184 QRSD: 74 QT: 310 QTc: 395 [place]: P: 49 CT: 184 QRS: 47 T: 53 INTERPRETIVE STATEMENTS: Sinus rhythm with premature atrial complexes Low voltage QRS Borderline ECG No previous ECG available for comparison Electronically Signed On 05-18-19 08:53:51 PLAYGROUND AIDE by Ja Juarez
[2019-05-18] MEDS ORDERED: FUROSEMIDE 20 MG/ 2ML VIAL IV ONE (08:57)
[2019-05-18] MEDS ORDERED: HYDROCORTISONE SUC 100 MG INJ IV ONE (08:59)
[2019-05-18] MEDS ORDERED: POTASSIUM CL SA 10 MEQ TAB PO ONE (09:00)
[2019-05-18] MEDS ORDERED: ENOXAPARIN 40 MG/0.4 ML SQ SCH (09:00)
--- NOTE | 2019-05-18 09:00 | P.PN ---
Date of Service: 05/18/19 Patient continues to show some improvement. She is clinically feeling much better. Awaiting lab testing this morning. She is willing to go home but have explained to her that she probably has bacteremia and will need to be in hospital for 2-3 days so that she can get IV antibiotics in the hospital. Sepsis Focused Assessment - Sepsis Screen Result Severe Sepsis: Positive - Evaluation Current stage of sepsis: Severe sepsis - Vital Signs Reviewed: Yes Temperature: 99.5 F Heart rate: 110 Blood Pressure: 129/61 Respiratory Rate: 18 O2 Sat by Pulse Oximetry: 91 - Examination Date exam was performed: 05/18/19 Time exam was performed: 02:00 Heart: Regular rate/rhythm Lungs: Clear bilaterally Peripheral pulses: 3+ Normal Peripheral pulse location: Radial Capillary refill: <2 Seconds Skin examination: Normal turgor
[2019-05-18] MEDS ORDERED: LEVALBUTEROL 0.63 MG/3 ML NEB NEB ONE (09:01)
[2019-05-18] MEDS ORDERED: LEVALBUTEROL 1.25 MG/3 ML NEB ONE (09:06)
[2019-05-18] MEDS: WATER FOR INJ,STERILE 10 ML ONE ×2 (09:08→20:22)
[2019-05-18] MEDS ORDERED: GLUCAGON 1 MG/VIAL IM PRN (09:43)
[2019-05-18] MEDS ORDERED: D50W 25 GM/50 ML SYRINGE/VIAL IV PRN (09:43)
--- NOTE | 2019-05-18 09:53 | P.PN ---
Subjective Date of Service: 05/18/19 Primary Care Provider: Dr. Chance Chief Complaint: Urinary tract infection/possible pyelonephritis/sepsis Subjective: Other (Patient having some respiratory distress. Patient with increased rigors and chills. Patient with tachypnea and tachycardia. Blood pressure stable. Code yellow called. Patient assess. Patient given 20 mg IV Lasix, 50 mg hydrocortisone IV, and Xopenex breathing treatment. Patient be transferred to ICU for further evaluation and treatment.) Physical Examination - Vital Signs Temperature: 99.5 F Blood Pressure: 129/61 Pulse: 110 Respirations: 18 Pulse Ox (%): 91 - Physical Exam General: Alert, Cooperative, Moderate distress HEENT: Atraumatic Neck: Supple Respiratory: Expiratory wheezes (Bilateral), Inspiratory wheezes (Bilateral) Cardiovascular: Abnormal pulses (Sinus tachycardia) Gastrointestinal: Normal bowel sounds, No ascites, No tenderness, No masses, No rebound, No guarding Musculoskeletal: No erythema, No tenderness, No warmth Integumentary: No erythema, No warmth, No cyanosis Neurological: Normal speech, Normal strength at 5/5 x4 extr, Normal tone, Normal affect - Studies Laboratory Data (last 24 hrs) 05/18/19 05:27: Sodium 143, Potassium 3.6, BUN 22 H, Creatinine 1.24, Glucose 86 , Phosphorus 3.1, Magnesium 1.5 L, Total Bilirubin 1.2 H, AST 31, ALT 21, Alkaline Phosphatase 32 L 05/18/19 05:27: WBC 16.8 H D, Hgb 11.1 L, Hct 32.8 L, Plt Count 88 L 05/17/19 18:28: PT 15.5 H, INR 1.33, APTT 30.9 05/17/19 18:28: WBC 6.4, Hgb 10.9 L, Hct 31.9 L, Plt Count 106 L 05/17/19 17:25: Sodium 134 L, Potassium 3.8, BUN 19 H, Creatinine 1.37 H, Glucose 161 H, Total Bilirubin 2.0 H, AST 28, ALT 25, Alkaline Phosphatase 49, Lipase 46 L Medications List Reviewed: Yes Assessment & Plan Discharge Plan: Home Plan to discharge in: Greater than 2 days Physician Review Additional Text: Impression: Acute respiratory failure with hypercapnia and hypoxia likely underlying COPD Severe sepsis secondary to UTI now with bacteremia Acute renal injury likely dehydration History of hypertension Hyperlipidemia Diabetes mellitus type 2 non-insulin dependent Anemia with thrombocytopenia likely related to above Plan: Acute respiratory failure with hypercapnia and hypoxia likely underlying COPD: Patient assessed. Patient given IV Lasix 20 mg, 50 mg hydrocortisone IV, and Xopenex breathing treatment. She seems to have improved. Respiratory failure likely related to severe sepsis, chills and rigors. Patient will be transferred to ICU for close monitoring. Chest x-ray obtained. Respiratory consulted to further maintain oxygen above 93%. Patient with history of tobacco abuse but no prior history of COPD. Will start COPD medication- Pulmicort, Xopenex and Atrovent. Pulmonary consulted to further evaluate. Will check echocardiogram. Continue severe sepsis protocol and treatment. Severe sepsis secondary to UTI now with bacteremia: Blood cultures now positive. Patient on Rocephin. Pharmacy to monitor and adjust appropriately. Await urine culture results. Patient be transferred to ICU for close monitoring. Mcfarlane catheter in place for close input and output. Continue sepsis protocol. Acute renal injury likely dehydration: Continue with IV fluid hydration. Nephrology consulted to further evaluate. Will adjust IV fluids. Electrolyte protocol in place. Hold metformin. Will adjust DVT prophylaxis-Lovenox. History of hypertension: Hold blood pressure medication at this time. Hyperlipidemia: Hold medication at this time. Diabetes mellitus type 2 non-insulin dependent: Hold metformin. Will provide insulin sliding scale. Will monitor Accu-Cheks. Anemia with thrombocytopenia likely related to above: Check LDH, haptoglobin, and peripheral smear. Will monitor lab closely. Time Spent Managing Pts Care (In Minutes): 60
[2019-05-18] MEDS ORDERED: NACHLORIDE 0.45% 1,000 ML IV SCH (10:00)
[2019-05-18 10:49] LABS: Arterial Blood Carboxyhemoglob 1.2 % (0-1.5); Blood Gas Oxyhemoglobin 99.2 % (94-97); Blood O2 Saturation 99.7 % (92-98.5)
[2019-05-18 11:19] LABS: Protime INR 1.7
[2019-05-18] MEDS: INSULIN -REGULAR HUMAN 50 UNIT/0.5 ML ML SQ SCH ×3 (11:30→20:40)
--- NOTE | 2019-05-18 11:51 | RAD REPORT ---
EXAM DESCRIPTION: Alejandrina Single View05/18/2019 9:38 am CLINICAL HISTORY: Wheezing COMPARISON: May 17, 2019 FINDINGS: The lungs appear clear of acute infiltrate. The heart is normal size IMPRESSION: No acute abnormalities displayed
[2019-05-18] MEDS ORDERED: NA CHLORIDE 0.9% 1,000 ML IV ONE (13:25)
[2019-05-18] MEDS: NACHLORIDE 0.45% 1,000 ML IV SCH ×2 (13:39→22:46)
--- NOTE | 2019-05-18 15:06 | ECHO ---
HEIGHT: 5 ft 4 in WEIGHT: 172 lb 3.2 oz DATE OF STUDY: 05/18/[address]: John Iyer DO 2-DIMENSIONAL: YES M.MODE: YES DOPPLER: YES COLOR FLOW: YES TDS: NO PORTABLE: YES DEFINITY: NO BUBBLE STUDY: NO DIAGNOSIS: SEVERE SEPSIS CARDIAC HISTORY: CATHERIZATION: NO SURGERY: NO PROSTHETIC VALVE: NO PACEMAKER: NO MEASUREMENTS (cm) DIASTOLIC (NORMALS) SYSTOLIC (NORMALS) IVSd 1.2 (0.6-1.2) LA Diam 4.3 (1.9-4.0) LVEF 76% LVIDd 4.4 (3.5-5.7) LVIDs 2.5 (2.0-3.5) %FS 44% LVPWd 1.1 (0.6-1.2) Ao Diam 2.7 (2.0-3.7) 2 DIMENSIONAL ASSESSMENT: RIGHT ATRIUM: NORMAL LEFT ATRIUM: DILATED RIGHT VENTRICLE: NORMAL LEFT VENTRICLE: NORMAL TRICUSPID VALVE: NORMAL MITRAL VALVE: MITRAL ANNULAR CALCIFICTION PULMONIC VALVE: NORMAL AORTIC VALVE: NORMAL PERICARDIAL EFFUSION: NONE AORTIC ROOT: NORMAL LEFT VENTRICULAR WALL MOTION: NORMAL DOPPLER/COLOR FLOW: MILD AORTIC, MITRAL AND TRICUSPID REGURGITATION. NORMAL RIGHT VENTRICULAR SYSTOLIC PRESSURE. COMMENTS: NORMAL LEFT VENTRICULAR EJECTION FRACTION. DILATED LEFT ATRIUM. MITRAL ANNULAR CALCIFICTION. MILD AORTIC, MITRAL AND TRICUSPID REGURGITATION. TECHNOLOGIST: Jefferson VALERA
[2019-05-18] MEDS ORDERED: NA CHLORIDE 0.9% 500 ML IV ONE (15:37)
[2019-05-18] MEDS ORDERED: NOREPINEPHRINE 4 MG in D5W 250 ML IV PRN (15:37)
[2019-05-18] MEDS: LEVALBUTEROL 0.63 MG/3 ML NEB NEB PRN (16:51)
[2019-05-18] MEDS: IPRATROPIUM BROM 0.5MG/2.5ML NEB PRN (16:51)
[2019-05-18] MEDS ORDERED: WATER FOR INJ,STERILE 10 ML ONE (20:19)
[2019-05-18] MEDS: BUDESONIDE 0.25 MG/2 ML NEB NEB SCH (20:20)
[2019-05-18] MEDS: Levofloxacin500mg IV 500 MG/100 ML BAG IV SCH (20:21)
[2019-05-18] MEDS: HYDROCORTISONE SUC 100 MG INJ IV SCH (20:22)
[2019-05-18] MEDS ORDERED: BUDESONIDE 0.5 MG/2 ML NEB ONE (20:24)
--- NOTE | 2019-05-19 02:11 | CON ---
Date of Consultation: 05/18/2019 Chief Complaint: Acute kidney injury, urinary tract infection, pyelonephritis, sepsis. History Of Present Illness: Patient developed acute kidney injury. Today, she was transferred from telemetry floor to ICU because of hypotension. Lab work revealed severe leukocytosis. White count was 16.8. Chemistry showed sodium 143, potassium 3.6, chloride 110, CO2 of 23, BUN 22, creatinine 1.24. Patient was found to have elevated lactic acid level up to 5.2. Patient is started on antibiotics for urosepsis. Renal ultrasound was done and bladder ultrasound is pending. Patient is a 78-year-old woman. She came primarily because of fever, tachycardia, flank tenderness, and dysuria. She denies renal colic and denies hematuria. Workup revealed urinary tract infection. Patient is treated for sepsis and is admitted to ICU. She is started on IV fluids for hydration. After she received IV fluids, she became dyspneic and was transferred to ICU. She was given Levaquin and Rocephin in the emergency room. Patient is on IV Rocephin and cultures are pending. Procalcitonin level is elevated lactic acid level was elevated. Review of Systems: General: Denies syncope. Has fever, chills. Eyes: Denies vision changes. Ears, Nose, Mouth and Throat: Denies sore throat, earache. Respiratory: Has some shortness of breath. Denies wheezing, cough. GI: Denies nausea, vomiting. : Denies dysuria, hematuria. Musculoskeletal: Denies muscle aches or joint swelling. All other systems reviewed and all are negative. Past Medical History: Diabetes mellitus, hypertension, hyperlipidemia. Social History: Denies tobacco, alcohol, or illicit drugs. Family History: No kidney disease in the family. Physical Examination: General: Patient is awake, alert, follows commands. Eyes: Anicteric sclerae. EOMI. Ears, Nose, Mouth and Throat: Oral mucosa moist. No pallor. Neck: Supple. No bruits. Lungs: Diminished breath sounds at bases. Heart: S1, S2. No pericardial friction rub. Abdomen: Soft, benign, nontender. No rebound. No guarding. No flank tenderness. Extremities: Slight ankle edema. No clubbing. No cyanosis. Neurological: Moving extremities. Cranial nerves intact. Psychiatric: Alert and oriented x3. Normal affect. Laboratory Data: Potassium 3.6, sodium 143, BUN 32, creatinine 1.24, glucose 86 , magnesium 1.5, AP 32. WBC 16.8, hemoglobin 11.1, hematocrit 32.8, platelet count 88,000. INR is 1.33, PTT 15.5. Impression And Plan: Urinary tract infection, urosepsis, respiratory distress, hypertension, acute kidney injury with prerenal azotemia, elevated procalcitonin , lactic acidosis. Patient will continue IV hydration with normal saline. Monitor electrolytes. Hypomagnesemia. Replacement is ordered according to lab results. Monitor lactate level and procalcitonin. Patient has urosepsis. Renal ultrasound is pending to rule hydronephrosis. Diabetes mellitus. Continue insulin. Renal function will be reevaluated in the morning. Monitor fluid balance and urine output. ARABELLA/JACQUES Voice ID: [id number] Report ID: [id number]
[2019-05-19] MEDS: NACHLORIDE 0.45% 1,000 ML IV SCH (06:00)
[2019-05-19 06:04] LABS: Magnesium 2.1 mg/dL (1.8-2.4)
[2019-05-19 06:27] LABS: Absolute Lymphocytes (CBC) 1.3 K/uL (0.7-4.9); Basophils % 0.1 % (0-1.3); Hematocrit 39.5 % (36.0-45.0); Lymphocytes % 12.1 % (15.3-44.8); RBC Red Blood Cell Count 4.16 M/uL (3.86-4.86)
--- NOTE | 2019-05-19 06:56 | RAD REPORT ---
EXAM DESCRIPTION: US - Renal Ultrasound-Complete - 05/18/2019 9:29 pm CLINICAL HISTORY: UTI, sepsis COMPARISON: None. FINDINGS: The right kidney measures 11.0 x 4.6.1 cm. The left kidney measures 10.9 x 5.5 x 4.4 cm. Renal cortical thickness and echogenicity are normal. No renal mass of either kidney identifiable. No left-sided hydronephrosis. Dilatation of the pelvis and calices noted on the right. This is presumptive evidence for an obstruct ing calculus. No prior imaging available to determine if this is chronic dilatation or acute. Bladder is evaluated in separately requested exam peer IMPRESSION: Proximal dilatation of the right renal collecting system possibly due to a obstructing s tone or ureteral mass. No prior imaging available to establish baseline appearance of the right colle cting system. No left-sided hydronephrosis. No solid mass of either kidney.
--- NOTE | 2019-05-19 06:56 | RAD REPORT ---
EXAM DESCRIPTION: US - Urinary Bladder - 05/18/2019 9:29 pm CLINICAL HISTORY: UTI, sepsis COMPARISON: None. FINDINGS: Bladder is contracted around a Mcfarlane catheter. This precludes any accurate assessment of mass, wall thickening or stone.
[2019-05-19] MEDS: INSULIN -REGULAR HUMAN 50 UNIT/0.5 ML ML SQ SCH ×4 (07:30→21:00)
[2019-05-19] MEDS ORDERED: FUROSEMIDE 40 MG/4 ML VIAL IV ONE (07:32)
[2019-05-19] MEDS: HYDROCORTISONE SUC 100 MG INJ IV SCH ×2 (08:07→20:10)
[2019-05-19] MEDS: CEFTRIAXONE/SWI 1gm 1 GM/10 ML SYR IV SCH (08:07)
[2019-05-19] MEDS: BUDESONIDE 0.25 MG/2 ML NEB NEB SCH ×2 (08:18→20:40)
[2019-05-19] MEDS: LEVALBUTEROL 0.63 MG/3 ML NEB NEB PRN ×2 (08:18→15:37)
[2019-05-19] MEDS: IPRATROPIUM BROM 0.5MG/2.5ML NEB PRN ×3 (08:18→20:39)
[2019-05-19] MEDS: WATER FOR INJ,STERILE 10 ML IV SCH ×2 (08:31→20:10)
--- NOTE | 2019-05-19 08:49 | P.CNS ---
Date of Consult: 05/19/19 Primary Care Provider: Dr. Chance Chief Complaint: Shortness of breath sepsis History of Present Illness: Patient is 78 years of age admitted with sepsis he has been short of breath apparently after a fall which happen over the weekend prior to that she was doing fine suffocating ambulatory developed some urinary tract symptoms on Saturday blood cultures and urine cultures positive having some shortness of breath former smoker no prior history of obstructive airways disease no history of any cardiac problems Allergies Penicillins Allergy (Unknown, Verified 05/17/19 23:04) Hives/Rash Home Medications: Aspirin 81 mg PO DAILY 05/17/19 Bisoprolol/Hydrochlorothiazide [Bisoprolol-Hctz 2.5-6.25 mg Tb] 1 tab PO DAILY 05/17/19 Metformin HCl 500 mg PO DAILY 05/17/19 Rosuvastatin Calcium 10 mg PO BEDTIME 05/17/19 - Past Medical/Surgical History Diabetic: Yes -: Type 2 diabetes -: HLD -: HTN - Family History Father Family History: Reviewed- Non-Contributory - Social History Smoking Status: Unknown if ever smoked Alcohol use: No CD- Drugs: No Caffeine use: Yes Place of Residence: Home Review of Systems 10-point ROS is otherwise unremarkable General: Weakness Respiratory: Shortness of Breath Physical Examination Temp Pulse Resp BP Pulse Ox 98.1 F 110 H 25 H 107/67 99 05/19/19 04:00 05/19/19 08:05 05/19/19 06:00 05/19/19 08:05 05/19/19 00:00 General: Alert, Oriented x3 Neck: Supple Respiratory: Expiratory wheezes Cardiovascular: No edema, Regular rate/rhythm, Normal S1 S2 Gastrointestinal: Normal bowel sounds, Soft and benign, Non-distended Laboratory Data (last 24 hrs) 05/18/19 05:27: WBC 16.8 H D, Hgb 11.1 L, Hct 32.8 L, Plt Count 88 L - Problems (1) Sepsis Current Visit: Yes Status: Acute Plan: Patient is 78 years of age admitted with sepsis most likely from a urinary tract blood cultures and urine cultures positive for gram-negative rods most likely E coli renal insufficiency not sure whether is acute or chronic chest x- rays clear patient has a metabolic acidosis also thrombocytopenic from sepsis patient is currently not on vasopressors patient's renal ultrasound is abnormal possible urolithiasis on the right side with some evidence of obstruction patient will need a urological consultation on Rocephin and Levaquin will await culture and sensitivities Qualifiers: Sepsis type: sepsis due to unspecified organism Severe sepsis acute organ dysfunction type: acute renal failure Acute renal failure type: unspecified Severe sepsis shock status: with septic shock
--- NOTE | 2019-05-19 08:57 | RAD REPORT ---
EXAM DESCRIPTION: RAD - Chest Single View - 05/19/2019 8:40 am CLINICAL HISTORY: Dyspnea COMPARISON: May 18 TECHNIQUE: AP portable chest image was obtained 0837 hours . FINDINGS: No new mass or consolidation. Interstitial pattern is stable. Heart and vasculature are no rmal. No measurable pleural effusion and no pneumothorax. No acute bony abnormality seen. No acute ao rtic findings suspected. IMPRESSION: Stable chest from May 18
[2019-05-19] MEDS ORDERED: ASPIRIN 81 MG CHEWABLE TABLET PO SCH (09:00)
[2019-05-19] MEDS ORDERED: ENOXAPARIN 30 MG/0.3 ML SQ SCH (09:00)
[2019-05-19 09:33] LABS: Toxic Granulation 1+
[2019-05-19 09:34] LABS: Blood Morphology Comment NOT SEEN (NOT SEEN); Dohle Bodies PRESENT; Platelet Estimate DECR
--- NOTE | 2019-05-19 09:53 | RAD REPORT ---
EXAM DESCRIPTION: CT - Stone Protocol - 05/19/2019 9:06 am CLINICAL HISTORY: UTI, sepsis, hydronephrosis on ultrasound COMPARISON: Ultrasound study May 18 TECHNIQUE: Axial 5 mm thick images were obtained without oral or IV contrast. The [id number] span s the entirety of the system partially obscuring uppermost abdomen and lung bases. All CT scans are performed using dose optimization technique as appropriate and may include automated exposure control or mA/KV adjustment according to patient size. FINDINGS: Mild right-sided hydroureter present with mild to moderate pelvic and calyx dilatation. Etienne ortiz has a 5 mm obstructing calculus at the right UVJ. No other obstructing or nonobstructing calcul i on the right. No suspicious renal masses. Isodense masses and pyelonephritis are not excluded on a stone protocol CT scan. Urinary bladder is contracted around a Mcfarlane catheter. No free bladder calcul i seen. Phleboliths are seen along the pelvic floor. No significant adrenal finding. Uterus and ovaries show no suspicious findings. 3 mm nonobstructing calculus present lower pole left kidney. Right kidney is edematous relative to the left. Imaged portions of the liver, spleen and pancreas show no suspicious findings on non-contrast imaging . No gallbladder or biliary tree abnormality identified. No suspicious bowel findings. No hernia, mass or bulky lymphadenopathy noted. No free air or pneumatosis. There is stranding in the right adnexal region along the course of the right ureter believed to be related to the obstruction. Tip of the appendix extends towards this region; however, appendicitis is not suspected. No acute bone finding. Degenerative changes are present. Arterial tree calcifications are present. Minimal left pleural effusion and small right pleural effusion are present. Atelectasis is present in the inferior aspect of each lower lobe. IMPRESSION: Mild right-sided hydroureter and mild to moderate dilatation of the pelvis and calices o n the right secondary to a 5 mm obstructing stone at the right UVJ. Bladder is contracted around a Mcfarlane catheter. No bladder calculi suspected. Stranding in the right adnexa is believed to be related to the ureter rather than an ovarian or bowel process. Isodense masses and pyelonephritis are not excluded on stone protocol technique.
[2019-05-19 10:38] LABS: Arterial Blood Carboxyhemoglob 1.1 % (0-1.5); Blood Gas Oxyhemoglobin 92.4 % (94-97)
[2019-05-19] MEDS ORDERED: NA CHLORIDE 0.9% 1,000 ML ONE (13:47)
[2019-05-19] MEDS ORDERED: GENTAMICIN 100 MG/100 ML BAG 100 ML IV ONE (13:50)
[2019-05-19] MEDS ORDERED: FENTANYL CITR 100 MCG/2 ML ONE (13:54)
[2019-05-19] MEDS ORDERED: propofoL 200 MG/20 ML VIAL IV ONE (13:54)
[2019-05-19] MEDS ORDERED: ONDANSETRON 4 MG/2 ML VIAL ONE (13:55)
[2019-05-19] MEDS ORDERED: ROCURONIUM 50 MG/5 ML VIAL IV ONE (14:00)
[2019-05-19] MEDS ORDERED: SUCCINYLCHOLINE 20 MG/ML (10 ML) IV ONE (14:03)
[2019-05-19] MEDS ORDERED: Phenylephrine HCl 10 MG/ML 1 ML VIAL ONE (14:30)
--- NOTE | 2019-05-19 15:38 | RAD REPORT ---
EXAM DESCRIPTION: RAD - Cystography - 05/19/2019 3:29 pm CLINICAL HISTORY: ICD N 20.0 FINDINGS: 19 fluoroscopic spot images obtained. Fluoroscopy time 2.2 minutes Right ureter was cannulated and contrast administered. Subsequently a right ureteral stent was placed . Examination was performed by
[2019-05-19 16:04] LABS: Urine Bacteria >50 /HPF (<20)
[2019-05-19 16:05] LABS: Urine RBC >50 /HPF (NONE SEEN)
[2019-05-19 16:06] LABS: Urine Culture Reflex Order REFLEXED
--- NOTE | 2019-05-19 17:11 | PN ---
Date of Progress Note: 05/19/2019 The patient was admitted with urosepsis, acute kidney injury secondary to toxic ATN, poor perfusion A TN, obstructive uropathy. Patient had hypotension, transferred to ICU, been started on aggressive hy dration with fluid resuscitation and blood pressure started to stabilize. The patient developed some sign of overvolume. Physical Examination: Vital Signs: When I saw the patient, blood pressure 142/85, pulse of 105. Patient had good urine ou tput of 2500. Chest: Crackles bilateral. Heart: S1, S2. Systolic murmur. Abdomen: Soft, nontender. Extremities: Trace edema. Laboratory Data: WBC 10.9, H and H 13.2/39.5, platelets 46 trending down. Sodium 140, potassium 4, bicarb 17, chloride 109, BUN 25, creatinine worsening 1.5, GFR of 32. T-sat of 3.8, ferritin 491. P rocalcitonin 43. Urinalysis wbc of 10. Culture is positive for Klebsiella pneumoniae, although resi stant to nitrofurantoin and ampicillin. Current Medications: The patient on include: 1.Ceftriaxone. 2.Levaquin. 3.Breathing treatment. 4.The patient received Lasix today. 5.Zofran. 6.Hydrocortisone 50 b.i.d. 7.Insulin. 8.Lasix 40 mg daily. 9.Magnesium sulfate. Assessment And Plan: 1.Acute kidney injury, multifactorial, obstructive uropathy, toxic acute tubular necrosis, poor perf usion acute tubular necrosis, nonoliguric. No hyperkalemia. Mild acidosis. Slightly on the over vo lume side. We will hold intravenous fluid. I agree with the single dose of Lasix. We will monitor input, output. I am going to start the patient on Flomax. We will consider urology evaluation and w e will follow up. 2.Hypertension with the presence of hypotension before. Hold all blood pressure medication except t he dose that of Lasix that was given and Flomax. 3.Complicated urinary tract infection with obstructive uropathy secondary to Klebsiella pneumoniae. Continue current antibiotic with Levaquin. No need for ceftriaxone for the time being. We will fol low up. We will consider urology evaluation as above because of the obstructive. 4.Septic shock under recovery. Continue antibiotic. We will follow up. 5.Congestive heart failure exacerbation. We will follow up with [facility]. QUEENIE/MODL Voice ID: [id number] Report ID: [id number]
[2019-05-19 17:30] LABS: RBC Red Blood Cell Count 3.42 M/uL (3.86-4.86)
[2019-05-19 17:35] LABS: Urine Bacteria >50 /HPF (<20); Urine RBC >50 /HPF (NONE SEEN)
[2019-05-19 17:36] LABS: Urine Culture Reflex Order NOT NEEDED
[2019-05-19 18:11] LABS: Protime INR 1.43
--- NOTE | 2019-05-19 18:24 | EKG ---
Test Date: 2019-05-19 Test Time: 09:02:55 Vascular Manager: SESAR MEASUREMENT RESULTS: Intervals: Rate: 109 WV: 216 QRSD: 82 QT: 340 QTc: 457 [place]: P: 43 WV: 216 QRS: 41 T: 49 INTERPRETIVE STATEMENTS: Sinus tachycardia with 1st degree AV block Low voltage QRS Cannot rule out Anterior infarct, age undetermined Abnormal ECG Compared to ECG 05/17/2019 17:50:30 First degree AV block now present Myocardial infarct finding now present Sinus rhythm no longer present Atrial premature complex(es) no longer present Electronically Signed On 05-19-19 18:22:15 DEPARTMENT OF SOCIOLOGY CHAIR by Sonny Keane
--- NOTE | 2019-05-19 18:59 | CON ---
History Of Present Illness: This is a pleasant 78-year-old lady who was admitted for urosepsis a few days ago. She had right hydronephrosis. She had a stone CAT scan this morning revealing a 5 mm sto ne in the right UVJ, causing right hydroureter and hydronephrosis, most likely the source of her infe ction. She is growing Klebsiella pneumoniae infection in her urine. She is currently on IV antibiot ics. Vital signs are stable now. The plan is to place a stent on the right side for drainage and th en later on, we could remove the stone. She is currently on Levaquin and tamsulosin. She has no pre vious history of kidney stones. Her CT did reveal a 5 mm obstructing stone in the right UVJ as well as a 3 mm nonobstructing stone in the left lower pole. The right kidney was edematous compared to th e left. Allergies: PENICILLIN CAUSES HIVES AND RASH. Home Medications: Aspirin, bisoprolol/hydrochlorothiazide, metformin, rosuvastatin calcium. Past Medical History: Type 2 diabetes, hyperlipidemia, and hypertension. Past Surgical History: Denies. Family History: Noncontributory. Social History: Former smoker. No alcohol use. No drug use. She does use caffeine. Resides at [facility]. Review of Systems: Ten-point review of systems otherwise unremarkable. Physical Examination: Vital Signs: Her BP now is 130/73, heart rate 111, respiratory rate stable. HEENT: Atraumatic, normocephalic. PERRLA. Neck: Supple. Chest: Clear. Cardiovascular: S1, S2. Skin: No rashes. Musculoskeletal: No clubbing. Laboratory Data: Laboratory studies show white count now is normal. White count is 10.9, down from 16.8, H and H are 13 and 39. Coagulation status shows PT 19.4 and INR 1.7. Chemistry: Sodium 138, potassium 4.0, chloride 109, carbon dioxide 14, BUN 25, creatinine 1.6, GFR 32. Urine cultures as me ntioned, Klebsiella pneumoniae. Sensitivity shows that it is sensitive to the following antibiotics: Bactrim, Augmentin, gentamicin, cefazolin, Levaquin, meropenem, Cipro. Assessment: A 5 mm right ureterovesical junction stone causing hydroureter, hydronephrosis, and uros epsis. Patient is now stable. Plan: Go ahead and place a cysto stent to drain the collecting system and then we can deal with the stone later, either on pulling the stent, the stone may come out or versus ureteroscopy stone extract ion later. All the general information, alternatives, and risks were given. Patient wishes to proceed. Case wa s discussed with Dr. Ghosh and also anesthesiologist. The patient had 100 cc of grape juice this morn ing, 100 cc of apple juice at noon, and she tried to swallow something, but it did not go down. RERE/JACQUES Voice ID: [id number] Report ID: [id number]
[2019-05-19] MEDS: TAMSULOSIN 0.4 MG SR CAP PO SCH (20:10)
[2019-05-19] MEDS: Levofloxacin500mg IV 500 MG/100 ML BAG IV SCH (20:10)
--- NOTE | 2019-05-20 00:24 | PN ---
Date of Progress Note: 05/19/2019 Subjective: This patient was seen for the first time during this hospital admission. Her primary ca re physician is Dr. Chance. She was brought into the emergency room on 05/17/2019 when she was found on the floor by family member and was very weak. She was having fever, chills after she was brought into emergency room. She was admitted to the hospital with urinary tract infection and sepsis. She was started on IV antibiotics, ceftriaxone. Yesterday afternoon, the patient's hospitalist, Dr. Hermann mehta, contacted me to inform me that patient and her family member requested for me to take over her c are and I agreed and I did go see her last yesterday evening. Patient was transferred to ICU by Dr. Iyer during daytime. Patient had received approximately 5 L of fluid and she did not have any vaso pressor medication. When I saw her, she was getting IV fluid. She did not have any other specific c omplaints. Denies any urinary complaints at all. Denies any abdominal pain, nausea, vomiting. When I saw her, her and daughter were present at bedside. I examine her yesterday and did not se e any abnormality on her exam, except very minimum wheezing noted yesterday, not in any respiratory d istress. I did add Levaquin 500 mg IV piggyback daily as of yesterday evening; and after I saw her, I also ordered renal and bladder ultrasound. This morning, I went back to ICU to see her. She was h aving tachypnea and some wheezing. She is not coughing up any mucus. She has prior history of smoki ng, but she has not smoked in last few to several years. Intake and output records reviewed. Objective: Vital signs: Reviewed. HEENT: Unremarkable. Lungs: Bilateral scattered wheezing noted and some rales in lower lung field. Heart: Heart sounds normal. Abdomen: Soft. Bowel sounds normal. No guarding, rigidity, tenderness, or distention. Extremities: No leg edema. Laboratory Data: This morning, white count 10.9, hemoglobin 13.2, platelets 46. Yesterday, platelet s were 88 and when she was admitted, platelets were 106. Chemistry today, sodium 140, potassium 4, c hloride 109, bicarb 17, BUN 25, creatinine 1.56, glucose 81, magnesium 2.1. Procalcitonin today 43.6 3, yesterday 37.08, upon admission 2.11. Ultrasound of kidney and bladder shows proximal dilatation of right renal collecting system, which is possible due to obstructing stone in the right ureter. CA T scan of abdomen per kidney stone protocol was done this morning after I looked at this result and C AT scan also showed evidence of 5 mm stone in the right ureter at the UV junction with resulting hydr onephrosis of the right side. Blood culture and urine culture growing gram-negative rods. Impression: 1.Sepsis, organism gram-negative rods. 2.Acute kidney injury. 3.Right-sided ureteric stone with hydronephrosis. 4.Thrombocytopenia. 5.Chronic obstructive pulmonary disease. Plan: After I saw the patient this morning, STAT chest x-ray was done and Lasix 40 mg IV was ordered x1 dose. IV fluid was discontinued. We will continue 2 different antibiotics. Follow up on cultur e results. Hopefully, by tomorrow we should have final report on the cultures and then we will decid e if we need to make any changes in antibiotics or not. Patient is hemodynamically stable today. Etienne ortiz was getting Lovenox for DVT prophylaxis, but due to thrombocytopenia, we will discontinue her L ovenox and consult cloth measurer. I have ordered HIT profile. SCD will be used for DVT prophylaxis. Patient will be kept in ICU today for close monitoring; and after I saw her, she was also evaluated by vacation planner, Dr. Alva. We will continue current nebulizer treatment, and Dr. Ruiz was cons ulted and I did talk to Dr. Ruiz couple of times once after he evaluated the patient and he recommen ded emergency surgery and second time after the surgery was done. He called me and informed me that he was able to put a stent in the right ureter with some difficulty, but he was able to put the stent and establish the drainage of the right collecting system and there was lot of pus coming out of the right ureter as he reported. Patient will need second surgery in next couple of weeks or so as Dr. Ruiz has suggested. Meanwhile, patient will be kept in ICU after her surgery as per my discussion w [facility] ICU nursing staff. She is doing much better, feeling much better, and I will see her tomorrow morning for followup. BLU/MODL Voice ID: [id number] Report ID: [id number]
[2019-05-20 05:01] LABS: Absolute Lymphocytes (CBC) 0.8 K/uL (0.7-4.9); Basophils % 0.2 % (0-1.3); Hematocrit 31.5 % (36.0-45.0); Lymphocytes % 5.3 % (15.3-44.8); MPV 11.6 fL (7.6-11.3); RBC Red Blood Cell Count 3.43 M/uL (3.86-4.86)
[2019-05-20 05:15] LABS: Magnesium 2.1 mg/dL (1.8-2.4); Potassium 3.6 mmol/L (3.5-5.1)
[2019-05-20] MEDS ORDERED: POTASSIUM 25 MEQ EFFERV TAB PO ONE ×2 (07:23→10:28)
[2019-05-20] MEDS: INSULIN -REGULAR HUMAN 50 UNIT/0.5 ML ML SQ SCH ×4 (07:30→20:48)
[2019-05-20] MEDS: WATER FOR INJ,STERILE 10 ML IV SCH ×2 (08:09→20:49)
[2019-05-20] MEDS: METOPROLOL XL 25 MG TAB PO SCH (08:24)
[2019-05-20] MEDS: BUDESONIDE 0.25 MG/2 ML NEB NEB SCH ×2 (08:30→20:25)
[2019-05-20] MEDS: IPRATROPIUM BROM 0.5MG/2.5ML NEB PRN ×3 (08:30→20:25)
[2019-05-20] MEDS: LEVALBUTEROL 0.63 MG/3 ML NEB NEB PRN ×2 (08:30→15:05)
--- NOTE | 2019-05-20 10:21 | RAD REPORT ---
EXAM DESCRIPTION: RAD - Abdomen 1 View (KUB) - 05/20/2019 9:55 am CLINICAL HISTORY: kidney stone Pain COMPARISON: Stone Protocol dated 05/19/2019; Cystography dated 05/19/2019 FINDINGS: The bowel gas pattern is non-obstructive. No evidence of free air or pneumatosis. Right do uble-J stent is in place. No stone is seen along the course of the stent.
[2019-05-20] MEDS ORDERED: FUROSEMIDE 20 MG/ 2ML VIAL IV ONE (10:28)
--- NOTE | 2019-05-20 18:28 | PN ---
Date of Progress Note: 05/20/2019 The patient was admitted with acute kidney injury, septic shock secondary to obstructive uropathy, toxic ATN. Patient, after fluid resuscitation, developed slight over volume yesterday, received single dose of Lasix. Patient underwent a stent by Dr. Ruiz. Patient tolerated the procedure very well. Patient feeling much better. Physical Examination: Vital Signs: When I saw the patient, blood pressure 106/60, pulse of 100. The patient had couple of SVT, started on beta jenae. Chest: Faint crackles at the base, more on the left base. Heart: S1, S2. Systolic murmur. Tachycardic. Abdomen: Soft, nontender. Extremities: Trace edema. Laboratory Data: WBC 13.2, H and H 11/31.5, platelets of 32. Sodium 143, potassium 3.6, bicarb 25, BUN 30, creatinine down to 1.1, GFR of 47, calcium 8.4 , phos 2.1. Procalcitonin 30. Current Medications: The patient on include: 1. Levaquin. 2. Flomax. 3. Metoprolol 25 b.i.d. 4. Breathing treatment. 5. Zofran. Assessment And Plan: 1. Acute kidney injury, multifactorial, secondary to obstructive uropathy, poor perfusion, toxic acute tubular necrosis, on the recovery phase, slightly on the wet side. I am going to start the patient on low dose of Lasix again today and we will monitor the patient. 2. Over volume. As above, we will give another dose of Lasix today. 3. Complicated urinary tract infection, urosepsis, secondary to Klebsiella pneumoniae. Continue on Levaquin. Follow up with Urology and Primary. 4. Obstructive uropathy. Continue Flomax. Status post stent. The patient okay to be transferred to the floor. RAVEN Voice ID: [id number] Report ID: [id number] [id number]
--- NOTE | 2019-05-20 20:43 | PN ---
Subjective: Ms. Strickland is doing well today. She is in ICU bed 1 being transferred to the floor. Her white count was 15,200. Her platelets are low at 32,000. Creatinine is down to 1.1. Stent is in place, I believe it is working well, there is improvement in her creatinine function. Her urine output is great, 1000 cc over the last shift. Her blood culture and urine culture both grew the same above bug, Klebsiella pneumoniae. So, continue antibiotic therapy. Address thrombocytopenia issues, most likely has to do with sepsis. We will leave the Mcfarlane catheter another day or so to drain out all the infection. Thank you very much. RERE/JACQUES Voice ID: [id number] Report ID: [id number]
[2019-05-20] MEDS: Levofloxacin500mg IV 500 MG/100 ML BAG IV SCH (20:46)
[2019-05-20] MEDS: TAMSULOSIN 0.4 MG SR CAP PO SCH (20:46)
--- NOTE | 2019-05-20 21:13 | CON ---
Date of Consultation: 05/19/2019 Reason For Consultation: Thrombocytopenia. History Of Present Illness: Ms. Strickland is a 78-year-old who was hospitalized on the May 18, for urosepsis and pyelonephritis. She was brought to the emergency room by her who found her on the floor passed out at home. They gave a history of dysuria and frequency of micturition for a month or two prior to this episode at home. She denies any fever, though has had chills at home for days now. They did not seek medical attention and it appears that she did not realize that she had a urinary tract infection until she actually passed out at home. Her brought her to the emergency room where the procalcitonin level was significantly elevated as was the lactate level. The sepsis protocol was activated. She was started on Rocephin and Levaquin and received fluid boluses and transferred to the ICU for further management. The platelet count was a 106,000 in the emergency room and had steadily dropped to 46,000 this morning, hence I was consulted. There is no history of low blood counts or low platelet count in the past. She denies any anorexia, nausea, vomiting, diarrhea, or weight loss. She did have the dysuria and frequency of micturition as noted above. When she was brought to the emergency room, she was confused and dazed as per her . There is no history of TIA or stroke in the past. She denies any chest pain, cough, sputum, or shortness of breath. There is no history of bleeding from the mouth , nose, gums, or rectum. No history of past transfusion. Review of Systems: Otherwise unremarkable. Past Medical History: Significant for: 1. Diabetes mellitus type 2. 2. Hypertension. 3. Hyperlipidemia. Past Surgical History: Not significant for any major surgery. Medications: Current medications are as follows: Acetaminophen 500 mg p.o. q.4 hours p.r.n. for fever, alprazolam 0.25 mg p.o. p.r.n. at bedtime for insomnia, Pulmicort 0.25 mg nebulizer b.i.d., insulin per sliding scale, Atrovent 0.5 mg nebulizer q.6 hours p.r.n. for shortness of breath, Xopenex 0.63 mg nebulizer q.6 hours p.r.n. for shortness of breath, levofloxacin 500 mg IV q.24 hours, metoprolol 25 mg p.o. daily, Flomax 0.4 mg p.o. at bedtime. Allergies: SHE IS ALLERGIC TO PENICILLIN. Social And Family History: Significant for heart disease and diabetes. She is a former smoker who quit 6 years ago. Has more than a 80-uskx-swho history of smoking. Denies any alcohol or drug use. She is and lives with her at home. Physical Examination: General: On examination, Ms. Strickland looks chronically ill. She was resting comfortably, reading through a mask. General physical examination reveals no pallor, cyanosis, clubbing, or icterus. Vital Signs: Reveal that she has been afebrile. T-max was a 101.5 at 8 p.m. on the May 18, temperature was 98.8 earlier today, pulse is 104, respirations 24 per minute, blood pressure 118/66, she was saturating at 98%. HEENT: Examination was unremarkable. There was no evidence of oral or mucosal bleeding. Skin: Showed no evidence of petechiae, bleeding, or bruising. Lymph Node Survey: Revealed no palpable lymphadenopathy in the neck, axilla, or groin. Chest: Clear to auscultation with normal vesicular breath sounds heard bilaterally. Heart: Sounds reveal tachycardia. No gallops or murmurs were noted. Abdomen: Soft and nontender. Liver and spleen were not palpable. Bowel sounds were present. Neurologic: She was alert and oriented with no evidence of focal deficits. Extremities: Showed no significant edema. Laboratory Data: CBC from earlier today showed a white count of 10,900, hemoglobin was 13.2 g/dL, platelet count was 46,000. A manual differential shows significant bandemia with left shift, which was confirmed by the smear review done in the night, which showed left shift with toxic changes and thrombocytopenia with rare platelet clumps seen. There was no evidence of schistocytes. PT/PTT done today revealed a prolonged ProTime of 16.6 seconds, INR of 1.43, PTT was prolonged at 41.5. Fibrinogen was elevated at 789 mg/dL. D-dimer was significantly elevated at 4222. Blood cultures and urine culture have resulted positive for Klebsiella pneumoniae. Assessment And Plan: Ms. Strickland is a 78-year-old who presents with acute sepsis due to Klebsiella pneumoniae. 1. Thrombocytopenia. This is most likely due to a blunted bone marrow response to acute sepsis and possibly subclinical consumptive coagulopathy. She appears to be responding clinically to the antibiotics and hence I would expect her platelet count to start rising in the next 24 to 48 hours. Would suggest to monitor her platelet count daily and transfuse platelets if her platelet count drops to below 10,000 or there is significant bleeding and the platelet count is less than 30,000. She is asymptomatic clinically at this time hence no immediate transfusion is warranted. 2. Acute sepsis due to Klebsiella pneumoniae. She is currently on levofloxacin, which is one of the antibiotics the bacteria is sensitive to. We will continue on that and further management as per her primary care physician. She was found to have a kidney stone, which is being addressed by Urology. Thank you for asking me to see Ms. Strickland. Please do not hesitate to call me if you have any other questions. LONA/MODMarlin Voice ID: [id number] Report ID: [id number] LUZ
--- NOTE | 2019-05-21 00:58 | PN ---
Date of Progress Note: 05/20/2019 Subjective: Patient was seen this morning for followup. No new complaints, problems reported by her . She is feeling much better. Denies any shortness of breath. No abdominal pain. No nausea, no vo miting. Objective: Vital Signs: Reviewed. Overnight, she has had intermittent episodes of supraventricular tachycardia. In fact, she had another such episode this morning when I saw her with heart rate in r audrey of 140-150 and she did convert to sinus rhythm with Valsalva maneuver. Intake-output records re viewed. Vital signs reviewed. HEENT: Unremarkable. Lungs: Clear to auscultation. No rhonchi. No rales. Cardiac: Heart sounds normal. Abdomen: Soft. Bowel sounds normal. No guarding, rigidity, tenderness, distention. Extremities: No leg edema. Laboratory Data: White count 15.2, hemoglobin 11, platelets 32. Sodium 143, potassium 3.6, chloride 111, bicarb 25, BUN 30, creatinine 1.13, glucose 100, magnesium 2.1. Patient's urine culture and bl ood culture growing Klebsiella and ceftriaxone is not listed on sensitivity list, but it is sensitive to Levaquin that the patient is currently on. Impression: 1.Sepsis, organism Klebsiella. 2.Acute pyelonephritis, organism Klebsiella. 3.Right ureter stone with hydronephrosis. 4.Thrombocytopenia. 5.Supraventricular tachycardia. Plan: We will go ahead and start the patient on metoprolol 25 mg p.o. daily as of this morning. Con tinue Levaquin. 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 Patient is medically stable for transfer out of ICU to regular room and there are no signs of any bleeding anywhere with thrombocytopenia. No nee d for any platelet transfusion at this point. We will repeat blood work tomorrow. Physical therapy to help ambulate the patient. Depending on her condition and progress, possible discharge to go home over this weekend or sometime beginning next week. Details and plan of treatment discussed with the patient and her who was at bedside. BLU/MODL Voice ID: [id number] Report ID: [id number]
[2019-05-21 05:39] LABS: Absolute Lymphocytes (CBC) 0.9 K/uL (0.7-4.9); Basophils % 0.3 % (0-1.3); Hematocrit 32.6 % (36.0-45.0); Lymphocytes % 9.4 % (15.3-44.8); RBC Red Blood Cell Count 3.59 M/uL (3.86-4.86)
[2019-05-21 05:56] LABS: Magnesium 1.9 mg/dL (1.8-2.4); Potassium 3.8 mmol/L (3.5-5.1)
[2019-05-21 06:52] VITALS: BMI 28.7
[2019-05-21] MEDS: INSULIN -REGULAR HUMAN 50 UNIT/0.5 ML ML SQ SCH ×4 (07:30→21:00)
[2019-05-21] MEDS: BUDESONIDE 0.25 MG/2 ML NEB NEB SCH ×2 (07:45→20:30)
[2019-05-21] MEDS: IPRATROPIUM BROM 0.5MG/2.5ML NEB PRN (07:45)
[2019-05-21] MEDS: LEVALBUTEROL 0.63 MG/3 ML NEB NEB PRN (07:45)
[2019-05-21] MEDS: WATER FOR INJ,STERILE 10 ML IV SCH ×2 (09:00→20:23)
[2019-05-21] MEDS: METOPROLOL XL 25 MG TAB PO SCH (09:14)
[2019-05-21] MEDS: Levofloxacin500mg IV 500 MG/100 ML BAG IV SCH (20:22)
[2019-05-21] MEDS: TAMSULOSIN 0.4 MG SR CAP PO SCH (20:22)
--- NOTE | 2019-05-22 01:30 | PN ---
Date of Progress Note: 05/21/2019 Subjective: The patient was seen this morning for followup. She was feeling much better. Her husba nd was present with her at bedside. Objective: Vital Signs: Reviewed. HEENT: Unremarkable. Lungs: Clear to auscultation. No rhonchi or rales. Heart: Heart sounds normal. Abdomen: Soft, bowel sounds normal. No guarding, rigidity, tenderness, or distention. Extremities: No leg edema. Laboratory Data: White count 9.1, hemoglobin 11.4, platelets 43. Sodium 140, potassium 3.8, chlorid e 108, bicarb 27, BUN 27, creatinine 0.80, glucose 92, magnesium 1.9. Impression: 1.Sepsis. 2.Acute pyelonephritis. 3.Kidney stone. 4.Thrombocytopenia. 5.Anemia. 6.Supraventricular tachycardia. 7.Chronic obstructive pulmonary disease. Plan: We will go ahead and continue current medications, continue current antibiotic, physical thera py to help ambulate the patient. We will remove Mcfarlane catheter if okay with Dr. Ruiz. Possible dis charge to go home over the weekend or beginning of next week. Details were discussed with the kenneth ramachandran. Upon discharge, patient will take oral antibiotic, which will be Levaquin. While in the hospital , we will continue IV antibiotics. Continue metoprolol and platelet count is improving and hopefully it should continue to improve now on a daily basis and will follow up. LBU/JACQUES Voice ID: [id number] Report ID: [id number]
--- NOTE | 2019-05-22 03:44 | PN ---
Date of Progress Note: 05/21/2019 Subjective: Patient was admitted with urosepsis, septic shock, found to have pyelonephritis, complic ated UTI with obstructive uropathy, status post stenting. Patient feeling better. Physical Examination: Vital Signs: Blood pressure 121/61, pulse of 100, afebrile. Chest: Faint crackles at the base. Heart: S1, S2 regular. Abdomen: Soft, nontender. Extremities: Trace edema. Laboratory Data: WBC 9.1, H and H 11.4/32.6, platelets of 43. Sodium 140, potassium 3.8, bicarb 27, BUN 27, creatinine 0.8, calcium 9.1, phosphorus 1.9. Current Medications: The patient is on include: 1.Levaquin. 2.Flomax. 3.Metoprolol. 4.Breathing treatment. Assessment And Plan: 1.Acute kidney injury secondary to toxic acute tubular necrosis, poor perfusion, acute tubular necro sis, superimposed with obstructive uropathy, recovered, resolved. 2.Hypertension, controlled optimal. 3.Over volume, status post diuresis. We will give another dose of Lasix. 4.Obstructive uropathy, status post stenting, recovered. We will follow up with Urology. 5.Complicated urinary tract infection with urosepsis secondary to Klebsiella pneumoniae. Continue c urrent antibiotic. 6.Bacteremia secondary to urinary tract infection. Continue current antibiotic. We will follow up with primary. RAVEN Voice ID: [id number] Report ID: [id number]
[2019-05-22 05:07] LABS: Absolute Lymphocytes (CBC) 0.8 K/uL (0.7-4.9); Basophils % 0.2 % (0-1.3); Hematocrit 30.6 % (36.0-45.0); Lymphocytes % 7.9 % (15.3-44.8); MPV 10.5 fL (7.6-11.3); RBC Red Blood Cell Count 3.41 M/uL (3.86-4.86)
[2019-05-22 05:21] LABS: Magnesium 1.7 mg/dL (1.8-2.4); Potassium 3.5 mmol/L (3.5-5.1)
[2019-05-22 05:43] LABS: Blood Morphology Comment NOT SEEN (NOT SEEN); Platelet Estimate DECR; Urine White Blood Cell Casts OK
[2019-05-22] MEDS: INSULIN -REGULAR HUMAN 50 UNIT/0.5 ML ML SQ SCH ×4 (07:30→20:48)
[2019-05-22] MEDS: BUDESONIDE 0.25 MG/2 ML NEB NEB SCH ×2 (08:00→20:30)
[2019-05-22] MEDS: METOPROLOL XL 25 MG TAB PO SCH (08:28)
[2019-05-22] MEDS: WATER FOR INJ,STERILE 10 ML IV SCH ×2 (08:28→20:51)
[2019-05-22 10:47] VITALS: O2SAT 93
[2019-05-22] MEDS ORDERED: MAGNESIUM SULFATE 1 gm IVPB 1 GM/100 ML BAG IV ONE (12:00)
[2019-05-22] MEDS ORDERED: POTASSIUM CL SA 10 MEQ TAB PO ONE (12:00)
--- NOTE | 2019-05-22 12:14 | PN ---
Date of Progress Note: 05/21/2019 The patient is doing well. Her white count is down to 9.1, platelets slightly up to 43,000. Creatin ine is down to 0.8. We will go ahead and discontinue her Mcfarlane catheter today. Our recommendation i s for 2 weeks of antibiotics at home and then follow up for ureteroscopy, stone removal. RERE/JACQUES Voice ID: [id number] Report ID: [id number]
[2019-05-22] MEDS: ENSURE ENLIVE 237 ML CAN PO SCH ×2 (12:35→20:50)
--- NOTE | 2019-05-22 12:56 | P.PN ---
Subjective Date of Service: 05/22/19 Primary Care Provider: Dr. Chance Chief Complaint: Shortness of breath sepsis Subjective: Improving Pt admitted with AMS due to urosepsis today Cr down to baseline Mcfarlane removed tachycardia, cont BB Plt stable Physical Examination - Vital Signs Temperature: 97.9 F Blood Pressure: 135/73 Pulse: 91 Respirations: 20 Pulse Ox (%): 96 - Physical Exam General: In no apparent distress, Oriented x3 HEENT: Atraumatic Neck: Supple, JVD not distended Respiratory: Clear to auscultation bilaterally, Normal air movement Cardiovascular: No edema, Regular rate/rhythm, Normal S1 S2 Gastrointestinal: Normal bowel sounds, Soft and benign, Non-distended Musculoskeletal: No swelling - Studies Medications List Reviewed: Yes Assessment And Plan - Plan RICH resolved possibly due to Septic ATN HTN controlled tachycardia hx of SVT cont BB urosepsis Cont Abx renal calculi urology on charlene W/U as an OP thrombocytopenia plt stable , no active bleeding hypomagnesemia Mg and K replaced
--- NOTE | 2019-05-22 16:41 | PN ---
Ms. Strickland is doing well. She is preparing to go home today. She is afebrile. Her vital signs are s table with temperature 97.8, pulse rate 114, respiratory rate 20, BP 117/67. She will be going home on Levaquin for total of 2 weeks, see me then in the office for the planned ureteroscopy, stent extra ction, stone extraction at that time. RERE/JACQUES Voice ID: [id number] Report ID: [id number]
--- NOTE | 2019-05-22 18:35 | PN ---
Date of Progress Note: 05/22/2019 Subjective: Patient was seen this morning for followup. No new complaints or problems reported by tiffanie villarreal. Her appetite is poor. Otherwise, she is feeling much better and tells me that she is ready to go home. No nausea. No vomiting. Objective: Vital Signs: Reviewed. HEENT: Unremarkable. Lungs: Clear to auscultation. No rhonchi. No rales. Heart: Sounds normal. Abdomen: Soft. Bowel sounds normal. No guarding, rigidity, tenderness, or distention. Extremities: No leg edema. Laboratory Data: White count 9.7, hemoglobin 10.9, platelets 42. Sodium 142, potassium 3.5, chlorid e 109, bicarb 27, BUN 18, creatinine 0.68, glucose 95, magnesium 1.9. Impression: 1.Sepsis. 2.Acute pyelonephritis. 3.Supraventricular tachycardia. 4.Hypomagnesemia. 5.Anemia. Plan: We will continue current antibiotics. Ambulation was encouraged. Patient was advised to eat her 3 meals regularly as much as she can and to use nutritional supplement like Ensure 2 to 3 times a day. Potential discharge tomorrow with oral antibiotics depending on her condition. I did talk to her and asked her to try to complete it as much as she can and take nutritional supplement. BLU/MODL Voice ID: [id number] Report ID: [id number]
[2019-05-22] MEDS: IPRATROPIUM BROM 0.5MG/2.5ML NEB PRN (20:30)
[2019-05-22] MEDS: Levofloxacin500mg IV 500 MG/100 ML BAG IV SCH (20:50)
[2019-05-22] MEDS: TAMSULOSIN 0.4 MG SR CAP PO SCH (20:50)
[2019-05-23 06:31] LABS: Absolute Lymphocytes (CBC) 0.9 K/uL (0.7-4.9); Basophils % 0.3 % (0-1.3); Hematocrit 30.1 % (36.0-45.0); Lymphocytes % 9.1 % (15.3-44.8); MPV 10.7 fL (7.6-11.3); RBC Red Blood Cell Count 3.35 M/uL (3.86-4.86)
[2019-05-23] MEDS: INSULIN -REGULAR HUMAN 50 UNIT/0.5 ML ML SQ SCH (07:30)
[2019-05-23] MEDS: BUDESONIDE 0.25 MG/2 ML NEB NEB SCH (08:10)
[2019-05-23] MEDS: METOPROLOL XL 25 MG TAB PO SCH (08:57)
[2019-05-23] MEDS: ENSURE ENLIVE 237 ML CAN PO SCH (08:58)
[2019-05-23] MEDS: WATER FOR INJ,STERILE 10 ML IV SCH (09:00)
[2019-05-23 09:30] LABS: Urine White Blood Cell Casts OK
[2019-05-23 09:31] LABS: Anisocytosis 1+; Blood Morphology Comment NOTED (NOT SEEN); Platelet Estimate DECR; Platelets, Giant FEW
[2019-05-23 13:13] VITALS: BP 123/72; TEMP 98.1
--- NOTE | 2019-05-24 00:55 | DS ---
Date of Discharge: 05/23/2019 Disposition: Discharged to go home. Physical Examination: HEENT: Unremarkable. Lungs: Clear to auscultation. Heart: Heart sounds normal. Abdomen: Soft, bowel sounds normal. No guarding, rigidity, tenderness, or distention. Extremities: No leg edema. Laboratory Data: Labs done during this hospitalization: Upon admission on 05/17/2019, white count 6 .4, hemoglobin 10.9, platelets 106, 15% bands. On 05/20/2019, her platelet count was lowest at 32,00 0. Subsequently, platelets started to come up and today her white count was 9.6, hemoglobin was 10.6 , and a platelet count of 67. The patient did not require any platelet transfusion or blood transfus ion. Her last chemistry from yesterday, sodium 142, potassium 3.5, chloride 109, bicarb 27, BUN 18, creatinine 0.68, glucose 95, magnesium 1.7. Her initial creatinine 1.37, highest creatinine 1.56, la st creatinine 0.68 for this admission. Her initial procalcitonin 2.11, highest procalcitonin 43.63, last procalcitonin 6.91. Her hemoglobin A1c was 6.0. Discharge Medications And Instructions: 1.New medication includes levofloxacin 500 mg p.o. daily for 15 days, metoprolol succinate 25 mg p.o . daily, and tamsulosin 0.4 mg p.o. daily at bedtime. Patient was advised to stop aspirin and to sto p bisoprolol/hydrochlorothiazide. Continue metformin 500 mg p.o. daily and rosuvastatin 10 mg p.o. a t bedtime. 2.Follow up at my office on 05/28/2019. Call office for appointment. 3.Follow up with Dr. Ruiz a week after next. Hospital Course: This is a 78-year-old female patient, who was seen during this hospital admission f or the first time and I took over her care as of 05/19/2019. Patient was admitted to the hospital wi th urinary tract infection. Please see H and P and my note for more details. The patient was diagno sed as having sepsis and acute pyelonephritis. She grew gram-negative rods and blood culture and uri ne culture and it came up to be Klebsiella. IV antibiotic was given. Initially she was on ceftriaxo ne and I added levofloxacin. White count had gone up, that is why I added levofloxacin and after add ing levofloxacin, she started improving. I ordered a renal ultrasound and bladder ultrasound. Renal ultrasound showed about 5 mm stone in the right UV junction with hydronephrosis and Dr. Ruiz was co nsulted. Dr. Ruiz took her to surgery and he was not able to remove the stone, but he did place a s tent and noted that lot of pus was coming out of the ureter. She was kept in ICU another night and arash arora was transferred out of ICU to regular room. Hemodynamically, she was stable. She had ep isodes of SVT while she was in ICU subsequently that has resolved. Metoprolol was started for that r rubio. Echocardiogram showed normal ejection fraction. She started tolerating diet very well. Phys ical therapy was consulted, started ambulating well, and she is feeling much better now. Has remaine d afebrile and Dr. Ruiz will see her in about 2 weeks and then he will perform another procedure for stone removal and removal of stent. Final Diagnoses: 1.Sepsis, organism Klebsiella. 2.Acute pyelonephritis, organism Klebsiella. 3.Acute kidney injury, resolved. 4.Right-sided ureteric stone with hydronephrosis. 5.Thrombocytopenia. 6.Chronic obstructive pulmonary disease. 7.Hypertension. 8.Hyperlipidemia. 9.Type 2 diabetes mellitus. BLU/MODL Voice ID: [id number] Report ID: [id number]
== END 2019-05-23 12:15 | disposition home or self-care (01) | DRG 853 ==
LOC: ER 16:51 → ERHOLD 20:37 → 4TH 21:28 → OBSVTOIN 05-18 06:43 → 3RD-ICU 05-18 09:40 → 2ND 05-20 16:00
PROVIDERS: ADMIT Internal Medicine; ATTEND Hospitalist
PROC: 0T768DZ Dilation of Right Ureter with Intraluminal Device, Via Natural or Artificial Opening Endoscopic (ICD-10-PCS; principal; 2019-05-19 15:00)
DX: A41.89 Other specified sepsis (principal); J96.02 Acute respiratory failure with hypercapnia; J96.01 Acute respiratory failure with hypoxia; R65.21 Severe sepsis with septic shock; N17.0 Acute kidney failure with tubular necrosis; E87.2 Acidosis; N13.2 Hydronephrosis with renal and ureteral calculous obstruction; N10 Acute pyelonephritis; I47.1 Supraventricular tachycardia; E11.9 Type 2 diabetes mellitus without complications; E78.5 Hyperlipidemia, unspecified; I10 Essential (primary) hypertension; Z87.891 Personal history of nicotine dependence; J44.9 Chronic obstructive pulmonary disease, unspecified; E86.0 Dehydration; D64.9 Anemia, unspecified; D69.6 Thrombocytopenia, unspecified; E83.42 Hypomagnesemia; B96.1 Klebsiella pneumoniae [K. pneumoniae] as the cause of diseases classified elsewhere
CPT/HCPCS: 36415; 51600; 70450; 71045; 72125; 74018; 74176; 74430; 76377; 76770; 76857; 80048; 80053; 80076; 81003; 81015; 82550; 82553; 82607; 82728; 82805; 82947; 83010; 83036; 83540; 83605; 83615; 83690; 83735; 84100; 84145; 84466; 84484; 85025; 85044; 85379; 85384; 85610; 85652; 85730; 86140; 87040; 87077; 87086; 87088; 87186; 87205; 93005; 93306; 94640; 96361; 96365; 97110; 97112; 97116; 97161; 97530; 99285; G0378; J0330; J0696; J1580; J1650; J1720; J1940; J2370; J2405; J2704; J3010; J3475; J7030; J7040; J7060

== ENCOUNTER 2022-10-22 13:32 | Observation (INO) | payer OTHER ==
--- OUTSIDE RECORDS SUMMARY | 2022-10-22 13:36 | XMS REPORT | Continuity of Care Document ---
:1940 Author Organization [facility] t Address [address] [place] [id number] Care Team Providers Name Role Phone Unavailable Unavailable Unavailable Problems This patient has no known problems. Allergies, Adverse Reactions, Alerts This patient has no known allergies or adverse reactions. Medications This patient has no known medications. Procedures This patient has no known procedures. Results This patient has no known results.
--- NOTE | 2022-10-22 14:49 | RAD REPORT ---
EXAM DESCRIPTION: RAD - Chest Single View - 10/22/2022 2:39 pm CLINICAL HISTORY: Generalized weakness Chest pain. COMPARISON: Chest Pa And Lat (2 Views) dated 06/05/2019; Abdomen 1 View (KUB) dated 06/05/2019; Abdo men 1 View (KUB) dated 05/20/2019; Chest Single View dated 05/19/2019 FINDINGS: Portable technique limits examination quality. Slightly prominent are social lung markings could indicate a viral infection. No focal infiltrate to suggest pneumonia. The heart is normal in size. No displaced fractures.
[2022-10-22] MEDS ORDERED: MORPHINE 2 MG/ML SYR ONE (15:13)
[2022-10-22 16:14] LABS: Absolute Lymphocytes (CBC) 0.9 K/uL (0.7-4.9); Hematocrit 33.5 % (36.0-45.0); Lymphocytes % 12.7 % (15.3-44.8); MCV 72.3 fL (80-100); RBC Red Blood Cell Count 4.64 M/uL (3.86-4.86)
[2022-10-22 16:30] LABS: Albumin 3.6 g/dL (3.4-5.0); Bilirubin Total 0.9 mg/dL (0.2-1.0); Potassium 3.5 mEq/L (3.5-5.1); Protein, Total 7.8 g/dL (6.4-8.2)
[2022-10-22 18:37] LABS: Specific Gravity 1.017 (1.005-1.030); Urine Bacteria 20-50 /HPF (<20); Urine Bilirubin NEGATIVE (Negative); Urine Blood Trace (Negative); Urine Clarity Turbid (Clear); Urine Color Yellow (Yellow); Urine Crystals Unidentified Few /HPF (None Seen); Urine Glucose NEGATIVE (Negative); Urine Mucus 1+ /HPF (None Seen); Urine Protein TRACE (Negative); Urine RBC <5 /HPF (None Seen); Urine Urobilinogen Normal (Normal); Urine WBC Clump Rare /HPF (None Seen); Urine pH 6.5 (5.0-7.0)
[2022-10-22 19:02] LABS: Protime INR 1.12
--- NOTE | 2022-10-22 19:02 | RAD REPORT ---
EXAM DESCRIPTION: CT - Head Brain Wo Cont - 10/22/2022 6:51 pm CLINICAL HISTORY: PAIN Headache, drowsiness COMPARISON: No comparisons TECHNIQUE: All CT scans are performed using dose optimization technique as appropriate and may inclu de automated exposure control or mA/KV adjustment according to patient size. FINDINGS: No intracranial hemorrhage, hydrocephalus or extra-axial fluid collection.Moderate general ized brain atrophy.No areas of brain edema or evidence of midline shift. The paranasal sinuses and mastoids are clear. The calvarium is intact. IMPRESSION: No acute intracranial abnormality.
--- NOTE | 2022-10-22 19:14 | EDPHYS ---
Physician Documentation [facility] Name: Holli Strickland Age: 81 yrs Sex: Female : 1940 Arrival Date: 10/22/2022 Time: 13:32 Bed 6 Private MD: Gabriel Ghosh C ED Physician Ted Gan HPI: 10/22 15:40 This 81 yrs old Female presents to ER via Ambulatory with complaints of Weakness. ms3 15:40 81-year-old female presents with her for generalized weakness that began last ms3 night. Patient did slide out of her bed and did not strike her head. Patient denies pain at this time. Patient's states patient had a temperature of 100 last night. Patient denies coughing, burning with urination. Patient's states patient had similar symptoms 3 weeks ago and was diagnosed with anemia.. Historical: - Allergies: 13:49 Omnicef; nj1 13:49 PENICILLINS; nj1 - Home Meds: 16:46 metformin 500 mg Oral Tablet, Extended Release 24 hr daily [Active]; omeprazole 40 mg jl7 Oral capsule,delayed release (e.c.) daily [Active]; Ferate 240 mg (27 mg iron) oral tablet daily [Active]; Crestor 10 mg oral tablet daily [Active]; metoprolol succinate 25 mg oral Capsule, Sprinkle Ext Rel 24hr Dose Pack daily [Active]; - PMHx: 13:49 Diabetes - NIDDM; Hyperlipidemia; Hypertension; nj1 - Immunization history:: Client reports receiving the 2nd dose of the Covid vaccine. - Social history:: Smoking status: Patient/guardian denies using tobacco, the patient reports quitting approximately 10 years ago. ROS: 15:40 Constitutional: Negative for fever, and chills. Neck: Negative for injury, pain, and ms3 swelling, Cardiovascular: Negative for chest pain, and palpitations. Respiratory: Negative for shortness of breath, cough, wheezing, and pleuritic chest pain, Abdomen/GI: Negative for abdominal pain, nausea, vomiting, diarrhea, and constipation. 15:40 Neuro: Positive for weakness. 15:40 All other systems are negative. Exam: 15:40 Constitutional: This is a well developed, well nourished patient who is awake, alert, ms3 and in no acute distress. Head/Face: Normocephalic, atraumatic. Neck: Trachea midline, no cervical lymphadenopathy. Supple, full range of motion without nuchal rigidity, or vertebral point tenderness. No Meningismus. Chest/axilla: Normal chest wall appearance and motion. Nontender with no deformity. Cardiovascular: Regular rate and rhythm with a normal S1 and S2. No gallops, murmurs, or rubs. Normal PMI, no JVD. No pulse deficits. Respiratory: Lungs have equal breath sounds bilaterally, clear to auscultation and percussion. No rales, rhonchi or wheezes noted. No increased work of breathing, no retractions or nasal flaring. Abdomen/GI: Soft, non-tender, with normal bowel sounds. No distension or tympany. No guarding or rebound. No evidence of tenderness throughout. Skin: Warm, dry with normal turgor. Normal color with no rashes, no lesions, and no evidence of cellulitis. 15:40 Neuro: Awake and alert, GCS 15, oriented to person, place, time, and situation. Cranial nerves II-XII grossly intact. Motor strength 5/5 in all extremities. Sensory grossly intact. Cerebellar exam normal. Normal gait. 15:40 Musculoskeletal/extremity: 16:33 ECG was reviewed by the Attending Physician. ms3 Vital Signs: 13:40 BP 128 / 76; Pulse 107; Resp 16; Temp 98.6; Pulse Ox 95% on R/A; Weight 68.49 kg; nj1 Height 5 ft. 4 in. ; Pain 0/10; 16:53 BP 143 / 72; Pulse 96; Resp 15; Pulse Ox 96% ; Pain 0/10; jl7 18:45 BP 147 / 89; Pulse 90; Resp 17; Pulse Ox 95% ; jl7 21:00 BP 133 / 68; Pulse 92; Resp 16; Pulse Ox 96% on R/A; jb4 13:40 Body Mass Index 25.92 (68.49 kg, 162.56 cm) nj1 13:40 Pain Scale: Adult nj1 16:53 Pain Scale: Adult jl7 MDM: 13:50 Patient medically screened. ms3 20:13 Data reviewed: vital signs, nurses notes, lab test result(s), EKG, radiologic studies, ms3 and as a result, I will admit patient. Consideration of Admission/Observation Patient was admitted/placed on observation. Management of patient was discussed with the following: Hospitalist: Dr. Ghosh. I considered the following discharge prescriptions or medication management in the emergency department. Independent interpretation of the following test(s) in the Emergency Department EKG: See my EKG interpretation above manager monitoring: rate is 90 beats/min, Rhythm is normal sinus rhythm, regular, with no ectopy, Interpretation: normal rate, normal rhythm. Historians other than the Patient: Spouse/Significant Other: Patient's . Counseling: I had a detailed discussion with the patient and/or guardian regarding: the historical points, exam findings, and any diagnostic results supporting the discharge/admit diagnosis, lab results, radiology results, the need for further work-up and treatment in the hospital. ED course: Discussed labs, imaging with patient and her . Discussed Dr. Ghosh's recommendation for observation. They understand and agree with plan. All questions were answered.. 10/22 13:54 Order name: Blood Culture Adult (2) ms3 10/22 13:54 Order name: CBC with Diff; Complete Time: 16:28 ms3 10/22 13:54 Order name: CMP; Complete Time: 17:16 ms3 10/22 13:54 Order name: Lactate w/ 2H reflex if indic.; Complete Time: 17:16 ms3 10/22 13:54 Order name: Protime (+inr); Complete Time: 19:12 ms3 10/22 13:54 Order name: Ptt, Activated; Complete Time: 19:12 ms3 10/22 13:54 Order name: Urinalysis w/ reflexes; Complete Time: 19:12 ms3 10/22 18:41 Order name: Urine Culture EDMS 10/22 20:20 Order name: Basic Metabolic Panel EDMS 10/22 20:20 Order name: Basic Metabolic Panel EDMS 10/22 20:20 Order name: CBC with Automated Diff EDMS 10/22 20:20 Order name: CBC with Automated Diff EDMS 10/22 13:54 Order name: Chest Single View XRAY; Complete Time: 14:57 ms3 10/22 18:36 Order name: CT Head Brain wo Cont; Complete Time: 19:12 ms3 10/22 13:54 Order name: EKG; Complete Time: 13:55 ms3 10/22 20:20 Order name: CONS Physician Consult EDMS 10/22 20:20 Order name: 60g Consistent Carbohydrate (ADA 1800/1999) EDMS 10/22 13:54 Order name: Accucheck; Complete Time: 19:52 ms3 10/22 13:54 Order name: Cardiac monitoring; Complete Time: 16:22 ms3 10/22 13:54 Order name: EKG - Nurse/Tech; Complete Time: 16:22 ms3 10/22 13:54 Order name: IV Saline Lock - Large Bore; Complete Time: 19:52 ms3 10/22 13:54 Order name: Labs collected and sent; Complete Time: 16:10 ms3 10/22 13:54 Order name: O2 Per Protocol; Complete Time: 16:10 ms3 10/22 13:54 Order name: O2 Sat Monitoring; Complete Time: 16:10 ms3 10/22 13:54 Order name: Vital Signs; Complete Time: 16:10 ms3 EC:33 Rate is 88 beats/min. Rhythm is regular. QRS [place] is Normal. MI interval is normal. QRS ms3 interval is normal. Clinical impression: NSR w/ Non-specific ST/T Changes. Interpreted by me. Reviewed by me. Administered Medications: No medications were administered Disposition Summary: 10/22/22 19:13 Hospitalization Ordered Hospitalization Status: Observation ms3 Provider: Gabriel Ghosh ms3 Location: Telemetry/[facility] (observation) ms3 Condition: Stable ms3 Problem: new ms3 Symptoms: are unchanged ms3 Bed/Room Type: [place] ms3 Room Assignment: 402(10/22/22 21:02) cg Diagnosis - Altered mental status, unspecified ms3 - Weakness ms3 - Anemia, unspecified ms3 Forms: - Medication Reconciliation Form ms3 - SBAR form ms3 Signatures: Dispatcher [employer] Anabella Conteh, RN RN cg Mckinley Walter RN RN jl7 Ted Gan DO DO ms3 Gunjan Lizama RN RN nj1 Corrections: (The following items were deleted from the chart) 21:02 19:13 ms3 cg
--- NOTE | 2022-10-22 19:14 | ER ---
Nurse's Notes [facility] Name: Holli Strickland Age: 81 yrs Sex: Female : 1940 Arrival Date: 10/22/2022 Time: 13:32 Bed 6 Private MD: Gabriel Ghosh C Diagnosis: Altered mental status, unspecified;Weakness;Anemia, unspecified Presentation: 10/22 13:40 Chief complaint: Had a fall about 6pm last night "slid off the bed and slept on the [facility] floor", generalized weakness. Patient denies pain. Fever last night "100". concerned she may be anemic again, had blood transfusions a few weeks ago. Initial Sepsis Screen: Does the patient meet any 2 criteria? HR > 90 bpm. No. Patient's initial sepsis screen is negative. Does the patient have a suspected source of infection? No. Patient's initial sepsis screen is negative. Risk Assessment: Do you want to hurt yourself or someone else? Patient reports no desire to harm self or others. Onset of symptoms was October 21, 2022 at 18:00. 13:40 Method Of Arrival: Ambulatory [facility] 13:40 Acuity: FREDRICK 3 [facility] 13:40 Coronavirus screen: Vaccine status: Patient reports receiving the 2nd dose of the covid nj1 vaccine. Ebola Screen: Patient denies travel to an Ebola-affected area in the 21 days before illness onset. Historical: - Allergies: 13:49 Omnicef; nj1 13:49 PENICILLINS; nj1 - Home Meds: 16:46 metformin 500 mg Oral Tablet, Extended Release 24 hr daily [Active]; omeprazole 40 mg jl7 Oral capsule,delayed release (e.c.) daily [Active]; Ferate 240 mg (27 mg iron) oral tablet daily [Active]; Crestor 10 mg oral tablet daily [Active]; metoprolol succinate 25 mg oral Capsule, Sprinkle Ext Rel 24hr Dose Pack daily [Active]; - PMHx: 13:49 Diabetes - NIDDM; Hyperlipidemia; Hypertension; nj1 - Immunization history:: Client reports receiving the 2nd dose of the Covid vaccine. - Social history:: Smoking status: Patient/guardian denies using tobacco, the patient reports quitting approximately 10 years ago. Screenin:00 [facility] ED Fall Risk Assessment (Adult) History of falling in the last 3 months, jl7 including since admission No falls in past 3 months (0 pts) Confusion or Disorientation No (0 pts) Intoxicated or Sedated No (0 pts) Impaired Gait No (0 pts) Mobility Assist Device Used No (0 pt) Altered Elimination No (0 pt) Score/Fall Risk Level 0 - 2 = Low Risk Oriented to surroundings, Maintained a safe environment. 16:00 Abuse screen: Denies threats or abuse. Denies injuries from another. Nutritional jl7 screening: No deficits noted. Tuberculosis screening: No symptoms or risk factors identified. Assessment: 16:00 General: Appears in no apparent distress. uncomfortable, Behavior is calm, cooperative, jl7 appropriate for age. Pain: Denies pain. Neuro: Level of Consciousness is awake, alert, obeys commands, Oriented to person, place, time, situation. Cardiovascular: Patient's skin is warm and dry. Rhythm is regular. Respiratory: Airway is patent Respiratory effort is even, unlabored, Respiratory pattern is regular, symmetrical. Derm: Skin is pink, warm \\T\\ dry. 17:00 Reassessment: Patient appears in no apparent distress at this time. No changes from jl7 previously documented assessment. Patient and/or family updated on plan of care and expected duration. Pain level reassessed. Patient is alert, oriented x 3, equal unlabored respirations, skin warm/dry/pink. 18:00 Reassessment: Patient appears in no apparent distress at this time. No changes from jl7 previously documented assessment. Patient and/or family updated on plan of care and expected duration. Pain level reassessed. Pt is agitated, does not want to be admitted but reports she will stay. 19:00 Reassessment: Patient appears in no apparent distress at this time. Patient and/or jb4 family updated on plan of care and expected duration. Pain level reassessed. Patient is alert, oriented x 3, equal unlabored respirations, skin warm/dry/pink. 20:00 Reassessment: Patient appears in no apparent distress at this time. Patient and/or jb4 family updated on plan of care and expected duration. Pain level reassessed. Patient is alert, oriented x 3, equal unlabored respirations, skin warm/dry/pink. 21:00 Reassessment: Patient appears in no apparent distress at this time. Patient and/or jb4 family updated on plan of care and expected duration. Pain level reassessed. Patient is alert, oriented x 3, equal unlabored respirations, skin warm/dry/pink. Vital Signs: 13:40 BP 128 / 76; Pulse 107; Resp 16; Temp 98.6; Pulse Ox 95% on R/A; Weight 68.49 kg; nj1 Height 5 ft. 4 in. ; Pain 0/10; 16:53 BP 143 / 72; Pulse 96; Resp 15; Pulse Ox 96% ; Pain 0/10; jl7 18:45 BP 147 / 89; Pulse 90; Resp 17; Pulse Ox 95% ; jl7 21:00 BP 133 / 68; Pulse 92; Resp 16; Pulse Ox 96% on R/A; jb4 13:40 Body Mass Index 25.92 (68.49 kg, 162.56 cm) nj1 13:40 Pain Scale: Adult nj1 16:53 Pain Scale: Adult jl7 ED Course: 13:33 Patient arrived in ED. rg4 13:33 Gabriel Ghosh MD is Private Physician. rg4 13:36 Ted Gan DO is Attending Physician. ms3 13:47 Triage completed. nj1 13:50 Arm band placed on right wrist. nj1 14:40 Chest Single View XRAY In Process Unspecified. EDMS 15:08 Mckinley Walter, RN is Primary Nurse. jl7 16:00 Patient has correct armband on for positive identification. Placed in gown. Bed in low jl7 position. Call light in reach. Side rails up X2. Client placed on continuous cardiac and pulse oximetry monitoring. NIBP monitoring applied. Warm blanket given. 16:00 Missed attempt(s): 22 gauge in left forearm. Bleeding controlled, band aid applied, jl7 catheter tip intact. 16:05 Missed attempt(s): 22 gauge in left forearm. Bleeding controlled, band aid applied, jl7 catheter tip intact. 16:10 Missed attempt(s): 22 gauge in left forearm. Bleeding controlled, band aid applied, jl7 catheter tip intact. 16:15 Missed attempt(s): 22 gauge in left hand. Bleeding controlled, band aid applied, jl7 catheter tip intact. 16:23 EKG done, by ED staff, reviewed by Ted Gan DO. em1 18:53 CT Head Brain wo Cont In Process Unspecified. EDMS 19:13 Gabriel Ghosh MD is Hospitalizing Provider. ms3 19:20 Inserted saline lock: 20 gauge in right antecubital area, using aseptic technique. jb4 Blood collected. 19:20 First set of blood cultures drawn by nv. jb4 19:38 Primary Nurse role handed off by Mckinley Walter, SOREN jl7 22:57 Marco A Ledesma, RN is Primary Nurse. jb4 22:58 No provider procedures requiring assistance completed. Patient admitted, IV remains in jb4 place. Administered Medications: No medications were administered Medication: 16:53 VIS not applicable for this client. jl7 Outcome: 19:13 Decision to Hospitalize by Provider. ms3 22:58 Admitted to Tele accompanied by tech, via wheelchair, room 402, with chart. jb4 22:58 Condition: stable 22:58 Discharge instructions given to patient, family, Instructed on the need for admit, Demonstrated understanding of instructions. 22:58 Patient left the ED. jb4 Signatures: Dispatcher [employer] EDMS Zander Garces em1 Debbie Sky rg4 Marco A Ledesma, SOREN DOTY jb4 Mckinley Walter RN RN jl7 Ted Gan DO DO ms3 Gunjan Lizama, RN RN nj1 Corrections: (The following items were deleted from the chart) 13:49 13:40 Chief complaint: Had a fall about 6pm last night "slid off the bed and slept on nj1 the floor", generalized weakness. Patient denies pain. Fever last night "100". nj1 13:49 13:40 BP 128 / 76; Pulse 107bpm; Resp 16bpm; Pulse Ox 95% RA; Temp 98.6F; Pain 0/10, nj1 Adult; nj1
[2022-10-22] MEDS ORDERED: ONDANSETRON 4 MG (ODT) TAB PO PRN (20:16)
[2022-10-22] MEDS ORDERED: ACETAMINOPHEN 500 MG TAB PO PRN (20:16)
[2022-10-22] MEDS ORDERED: NA CHLORIDE 0.9% 1,000 ML IV SCH (21:00)
[2022-10-22 23:08] VITALS: O2SAT 96
[2022-10-23] MEDS ORDERED: GLUCAGON 1 MG/VIAL IM PRN (05:01)
[2022-10-23] MEDS ORDERED: D50W 25 GM/50 ML SYRINGE IV PRN (05:01)
[2022-10-23] MEDS ORDERED: D10W 125 ML IV PRN (05:07)
[2022-10-23] MEDS ORDERED: METOPROLOL XL 25 MG TAB PO SCH (06:00)
[2022-10-23] MEDS ORDERED: Levofloxacin500mg IV 500 MG/100 ML BAG IV SCH (06:00)
[2022-10-23 06:27] LABS: Absolute Lymphocytes (CBC) 0.8 K/uL (0.7-4.9); Hematocrit 32.1 % (36.0-45.0); Lymphocytes % 14.8 % (15.3-44.8); MCV 72.8 fL (80-100); MPV 8.7 fL (7.6-11.3); RBC Red Blood Cell Count 4.41 M/uL (3.86-4.86)
[2022-10-23 06:39] LABS: Potassium 3.2 mEq/L (3.5-5.1)
[2022-10-23 06:51] VITALS: BMI 25.9
[2022-10-23] MEDS: INSULIN -REGULAR HUMAN 50 UNIT/0.5 ML ML SQ SCH ×3 (07:30→16:29)
--- NOTE | 2022-10-23 07:47 | EKG ---
Test Date: 2022-10-22 Test Time: 16:21:01 Quality Assurance Assistant: GIOVANNI MEASUREMENT RESULTS: Intervals: Rate: 88 W[place]: 204 QRSD: 78 QT: 332 QTc: 401 [place]: P: 72 W[place]: 204 QRS: 55 T: 67 INTERPRETIVE STATEMENTS: Normal sinus rhythm Normal ECG Compared to ECG 06/05/2019 10:33:53 No significant changes Electronically Signed On 10-23-22 07:45:42 CDT by Sonny Keane
[2022-10-23] MEDS ORDERED: METFORMIN HCL 500 MG TAB PO SCH (08:00)
[2022-10-23 08:35] LABS: Anisocytosis 3+; Blood Morphology Comment NOTED (NOT SEEN); Hypochromasia 1+; Platelet Estimate DECR; White Blood Cell Scan OK (OK)
[2022-10-23 08:56] VITALS: TEMP 97.8
[2022-10-23] MEDS ORDERED: ENOXAPARIN 40 MG/0.4 ML SQ SCH (09:00)
[2022-10-23 16:26] VITALS: BP 146/78
[2022-10-23] MEDS ORDERED: ROSUVASTATIN 10 MG TAB PO SCH (21:00)
--- NOTE | 2022-10-23 21:15 | CON ---
Reason For Consultation: Consultation called by Dr. Ghosh because of weakness and altered mental stat us. History Of Present Illness: Ms. Strickland is an 81-year-old right-handed patient with diabetes mellitus, dyslipidemia, and hypertension who comes to [facility] after sliding out of bed a nd her says she kind of rolled out of bed, but did not impact anywhere, such as her head and had some difficulty getting up from the floor. She did have a low-grade fever up to 100, but had no apparent cough or burning with urination or discharge. The patient's noted that she had a si milar episode with severe anemia and required about 3 units of packed red blood cells at her last vis it. At the current visit, urinalysis was positive for urinary tract infection with 500 esterase, whi te blood cells greater than 50, bacteria 20 to 50, occasional budding yeast, trace protein, 2+ nitrit e, 2+ ketones and it was turbid. Her electrolytes showed hyponatremia, sodium 132, otherwise essenti ally unremarkable except for glucose 107. Liver function studies were normal. White blood cell coun t normal, hemoglobin slightly low at 10.2, and platelets slightly low at 121. INR normal at 1.12. H er head CT scan showed no acute ischemic or hemorrhagic change. There was moderate generalized brain atrophy. Since admission to the hospital, the patient has had IV fluids. She has received antibiot ics, Levaquin 500 mg every 24 hours and treated for her diabetes and dyslipidemia, as well as DVT pro phylaxis. The patient's and the patient note she was able to get up and get to the bathroom and she actually ambulated with physical therapy covering 500 feet. At the time of my evaluation, sloan begum was able to walk around in the room without an assistive device independently without loss of lisa ce. She had good emiliano, arm swing, and stride length. Allergies: OMNICEF AND PENICILLIN. Medications: Metformin 500 mg every 24 hours, omeprazole 40 mg daily, Ferate 240 mg daily, Crestor 1 0 mg daily, and metoprolol 25 mg daily. Past Medical History: As noted, noninsulin-dependent diabetes mellitus, hypertension, and dyslipidem ia. Family History: Noncontributory. Social History: No alcohol, tobacco, or IV drug use. Review of Systems: Aside from the episode of confusion and mild low-grade fever, there is no nausea or vomiting. No henry lgias or arthralgias. Despite the findings of the urinary tract infection, she had no burning or dis charge. No other positives on the systems review. Physical Examination: Vital Signs: Blood pressure 137/71, pulse 80, respiratory rate 15, temperature 97.8, and oxygen satu ration 95% on room air. Weight 151 pounds and height 5 feet 4 inches. General: Ms. Strickland is resting comfortably in bed. Her is at bedside. HEENT: She is normocephalic, atraumatic. Sclerae anicteric. Oropharynx is pink and moist. Neck: Supple. Chest: Clear. Heart: Regular. Extremities: No clubbing, cyanosis, or edema. Neurologic: She is alert and oriented to person, place, time, and situation. Follows commands appro priately. Cranial nerves show no focal deficits. Her motor, sensory, coordination, and reflex exam showed no focal deficits. Gait with good stance and right arm swing. No deficits there. Assessment: Ms. Strickland is an 81-year-old patient with [id number] diabetes mellitus, dyslip idemia, and hypertension that are controlled. She had a urinary tract infection and possibly contrib uting factor is generalized weakness and mild confusion, which has resolved. Plan: 1.Per Dr. Ghosh, she will continue with antibiotics for urinary tract infection. 2.She should continue with management of her diabetes, dyslipidemia, and hypertension per Dr. Augie giraldo nd she may benefit from an aspirin 81 mg daily. 3.After discharge, follow up with Dr. Rai in clinic in 1 month. RANDI/JACQUES Voice ID: [id number] Report ID: [id number]
--- NOTE | 2022-10-24 01:03 | SS ---
Date of Admission: 10/23/2022 Date of Discharge: 10/23/2022 Chief Complaint: Feeling weak and confusion. History Of Present Illness: This is an 81-year-old female patient who lives at home with her and was brought into emergency room yesterday by the patient's with complaints of generalized weakness and some confusion. The patient's says that yesterday she had fallen down once at home because she was weak and noted that she was a little bit confused, so he brought her to emergency room. After she was evaluated in the ER, she was admitted to the hospital. While she was in the emergency room, she still had some confusion and told her that she wanted to get out of the emergency room and go home and as she tried to get up, she fell down on the floor again. No obvious injuries. With all this, decision was made to admit her to the hospital. Allergies: TO PENICILLIN, DETAILS UNKNOWN. Medications: Metformin 500 mg daily, metoprolol succinate 25 mg p.o. daily, rosuvastatin 10 mg p.o. daily. Review of Systems: Constitutional: As mentioned above. DRY WALL SPRAYER: As mentioned above. All other systems reviewed and negative. Past Medical History: Significant for type 2 diabetes mellitus, hypertension, hyperlipidemia, COPD and anemia. Past Surgical History: Negative. Family History: Not pertinent. Social History: Negative for alcohol use, prior history of smoking, not at present time. Physical Examination: Vital Signs: This morning temperature 98.8, pulse 92, respiratory rate 16, blood pressure 157/78, and oxygen saturation 98%. Height 5 feet 4 inches, weight 151 pounds. General: Awake, alert, oriented, not in distress. HEENT: Head atraumatic, normocephalic. Conjunctivae nonerythematous. Sclerae white. Mouth, no thrush or edema noted. Ears/Nose, no mass, lesion, discharge noted. Neck: Supple. No JVD, lymph nodes, bruit, thyromegaly noted. Lungs: Bilateral good equal air entry. Clear to auscultation. No rhonchi. No rales. Heart: Normal heart sounds, no murmur or gallop. Abdomen: Soft, bowel sounds normal. No guarding, rigidity, tenderness, mass, hepatosplenomegaly, distention, or bruit noted. Extremities: No leg edema. No calf tenderness. Skin: No rash, ulcer, cellulitis. Lymphatics: No lymph node enlargement in neck, supraclavicular, infraclavicular region. Neuro: No focal neurological deficit. Chest: Unremarkable. External Genitalia: Deferred. Rectal: Deferred. Laboratory Data: Yesterday white count was 7.4, hemoglobin 10.7, and platelets 144. Today white count 5.2, hemoglobin 10.2, and platelets 121. Yesterday sodium was 132, potassium 3.5, chloride 103, bicarb 25, BUN 13, creatinine 0.78, and glucose 107. Liver function tests unremarkable. Lactic acid 1.8. Today sodium is 134, potassium 3.2, chloride 105, bicarb 27, BUN 10, creatinine 0.57, and glucose 100. Urinalysis: Leukocyte esterase 500, WBC more than 50, bacteria 20 to 50, and 2+, nitrites. Chest x-ray with prominent interstitial markings. CAT scan of the head with no acute intracranial changes. Hospital Course: After the patient was admitted to the hospital, she was started on IV fluids and IV antibiotic Levaquin was started. She got her first dose this morning and Physical Therapy was consulted and the patient ambulated very well with the physical therapy. There was no neurological deficit on exam. Dr. Rai from Neurology was consulted and Dr. Rai evaluated her and contacted me and he did not recommend any further intervention and from his point of view, the patient was ready for discharge and I did inform the patient and the patient's this morning that depending on her condition today, we can potentially discharge her to go home and if they are ready to go home day, they should go ahead and request discharge this evening and after I talked to Dr. Rai, I communicated with the nursing staff and the patient as well as her and they were ready to go home. The patient's weakness and confusion have resolved today. Discharge Medications And Instructions: 1. Continue all prior home medication. 2. Take Levaquin 500 mg daily for 1 week and prescription was sent to her pharmacy from my office. 3. Follow up at my office day after tomorrow on , which is 10/25/2022. 4. We will follow up on urine culture results and if we need to change antibiotics then we will consider to do. Final Diagnoses: 1. Toxic encephalopathy. 2. Urinary tract infection. 3. Hypokalemia. 4. Anemia. 5. Hypertension. 6. Type 2 diabetes mellitus. 7. Chronic obstructive pulmonary disease. 8. Hyperlipidemia. BLU/MODL Voice ID: [id number] Report ID: [id number]
== END 2022-10-23 16:55 | disposition home or self-care (01) ==
LOC: ER 13:32 → ERHOLD 20:58 → 4TH 22:15
PROVIDERS: ADMIT Internal Medicine; ATTEND Internal Medicine
DX: G92.9 Unspecified toxic encephalopathy (principal); N39.0 Urinary tract infection, site not specified; E87.6 Hypokalemia; D64.9 Anemia, unspecified; I10 Essential (primary) hypertension; E11.9 Type 2 diabetes mellitus without complications; J44.9 Chronic obstructive pulmonary disease, unspecified; E78.5 Hyperlipidemia, unspecified
CPT/HCPCS: 93005; 87040 ×2; 87088; 85025 ×2; 81001; 87086; 80048; 36415; 85610; 82947 ×2; 83605; 85730; 80053; 70450; 71045; 97161; 99285; J1650; J2270; J7030; G0378

== ENCOUNTER 2023-06-12 08:19 | Inpatient (IN) | payer OTHER ==
--- OUTSIDE RECORDS SUMMARY | 2023-06-12 08:22 | XMS REPORT | Continuity of Care Document ---
Author Name Unknown Address [address] [facility]. [address] [place] [address] [facility] thconnect Address [address] [facility]. [address] [place] [address] Care Team Providers Care Manager Massage Department Name Role Phone Carrie Rodríguez Attending Clinician Unavailable Payers Payer Name Policy Type Policy Number Effective Date Expirati on Date Source Allergies, Adverse Reactions, Alerts Allergy Name Allergy Type Status Severity Reaction(s) Onset Date Inactive Date Treating Clinician Comments Source Penicill ins DA Active SV RASH, HIVES 11-12 00:00: 00 [facility] are [facility] Encounters Start Date/Time End Date/Time Encounter Type Admission Type Attending Clinicians Care Facility Care Department Encounter ID Source 2022-11-14 08:48:00 2022-11-14 08:48:00 Outpatient Carrie Rodríguez HCAN REF [id number] [facility] are [facility] Results Test Description Test Time Test Comments Results Result Co mments Source FOLIC [id number] 11:31:00* Test Item Value Reference Range Interpretation Comme nts FOLIC ACID (test code = FOL) 22.45 ng/ml 6.59-20.0 H
--- NOTE | 2023-06-12 09:38 | RAD REPORT ---
EXAM DESCRIPTION: RAD - Pelvis - 06/12/2023 9:18 am CLINICAL HISTORY: Left hip pain COMPARISON: Cystography dated 05/19/2019; Abdomen 1 View (KUB) dated 06/05/2019 TECHNIQUE: Single AP view of the pelvis. FINDINGS: Mildly displaced fracture at the base of the left superior pubic ramus. Mildly displaced f racture along the mid aspect of the left inferior pubic ramus. Cortical irregularity along the superi or aspect of the humerus as well, may relate to over shadowing bowel gas or mildly displaced comminut ed fracture components. No other suspicious osseous lesions. Mild bilateral hip joint degenerative ch anges. Other pelvic joints are unremarkable. Visualized aspects of the abdomen and soft tissues are u nremarkable. IMPRESSION: Mildly displaced left superior and inferior pubic ramus fractures. Suggestion of mildly displaced fracture components of the pubic bone superiorly as well.
--- NOTE | 2023-06-12 09:39 | RAD REPORT ---
EXAM DESCRIPTION: RAD - Hip Left 2 View - 06/12/2023 9:18 am CLINICAL HISTORY: PAIN COMPARISON: No comparisons TECHNIQUE: Left hip, AP and frogleg views of the left hip. FINDINGS: There is no left hip fracture or dislocation. Left superior and inferior pubic ramus fract ures as better described on the accompanying pelvis radiographs. Sequelae of longstanding enthesopath y or trochanteric bursitis. IMPRESSION: Left superior and inferior pubic ramus fractures as better described on the accompanying pelvis radiographs.
--- NOTE | 2023-06-12 09:43 | RAD REPORT ---
EXAM DESCRIPTION: RAD - Knee Left 3 View - 06/12/2023 9:18 am CLINICAL HISTORY: PAIN COMPARISON: No comparisons TECHNIQUE: Left knee, 3 views. FINDINGS: Cortical irregularity along the lateral tibial plateau seen on the AP view only. Proximal tibial fusion plate and screws in satisfactory alignment otherwise. Moderate tricompartmental osteoar thritic changes of the knee. No Dislocation or periosteal reaction.No joint effusion seen. No suspicious soft tissue abnormality. IMPRESSION: Dye cortical irregularity of the lateral tibial plateau seen on the AP view only, may relate to sequelae of healed fracture and prior fusion, although incomplete healing or nonunion canno t be excluded.
--- NOTE | 2023-06-12 10:49 | EDPHYS ---
Physician Documentation [facility] Name: Holli Strickland Age: 82 yrs Sex: Female : 1940 Arrival Date: 06/12/2023 Time: 08:19 Bed 18 Private MD: ED Physician James Cuba HPI: 06/12 09:10 This 82 yrs old Female presents to ER via EMS with complaints of Hip Pain. kdr 09:11 Patient presents after multiple falls in the last few weeks. Patient states that she kdr has been off balance and falling. She complains of pain to her left knee and left hip. She otherwise has no complaints. The patient's is with her and also confirms the above findings and complaints.. He did not add any new information. Patient does have a ecchymotic area on her left forehead. This the patient's states is several weeks old after she fell and hit her head on the corner of a table. Patient is otherwise alert and oriented and nontoxic in not requiring emergent intervention on initial presentation. Onset: The symptoms/episode began/occurred gradually, 3 day(s) ago, at an unknown time. Patient is vague about her fall history but states the last few days she has had the pain in her left hip and knee. Severity of symptoms: At their worst the symptoms were mild in the emergency department the symptoms are unchanged. The patient has not experienced similar symptoms in the past. The patient has not recently seen a physician. Historical: - Allergies: 08:25 Omnicef; ll1 08:25 PENICILLINS; ll1 - PMHx: 08:25 Diabetes - NIDDM; Hyperlipidemia; Hypertension; ll1 - PSHx: 08:25 L knee replacement; ll1 - Immunization history:: Adult Immunizations up to date. - Social history:: Smoking status: Patient denies any tobacco usage or history of. ROS: 09:11 Constitutional: Negative for fever, chills, and weight loss, Eyes: Negative for injury, kdr pain, redness, and discharge, ENT: Negative for injury, pain, and discharge, Neck: Negative for injury, pain, and swelling, Cardiovascular: Negative for chest pain, palpitations, and edema, Respiratory: Negative for shortness of breath, cough, wheezing, and pleuritic chest pain, Abdomen/GI: Negative for abdominal pain, nausea, vomiting, diarrhea, and constipation, Back: Negative for injury and pain, : Negative for injury, bleeding, discharge, and swelling, Skin: Negative for injury, rash, and discoloration, Neuro: Negative for headache, weakness, numbness, tingling, and seizure activity. Psych: Negative for depression, anxiety, suicide ideation, homicidal ideation, and hallucinations, Allergy/Immunology: Negative for hives, rash, and allergies, Endocrine: Negative for neck swelling, polydipsia, polyuria, polyphagia, and marked weight changes, Hematologic/Lymphatic: Negative for swollen nodes, abnormal bleeding, and unusual bruising, 09:11 MS/extremity: Positive for injury or acute deformity, decreased range of motion, pain, tenderness, of the left hip and left knee, :11 Skin: Positive for ecchymosis, of the left knee, kdr Exam: :11 Constitutional: This is a well developed, well nourished patient who is awake, alert, kdr and in no acute distress. Eyes: Pupils equal round and reactive to light, extra-ocular motions intact. Lids and lashes normal. Conjunctiva and sclera are non-icteric and not injected. Cornea within normal limits. Periorbital areas with no swelling, redness, or edema. Neck: Trachea midline, no thyromegaly or masses palpated, and no cervical lymphadenopathy. Supple, full range of motion without nuchal rigidity, or vertebral point tenderness. No Meningismus. Chest/axilla: Normal chest wall appearance and motion. Nontender with no deformity. No lesions are appreciated. Cardiovascular: Regular rate and rhythm with a normal S1 and S2. No gallops, murmurs, or rubs. Normal PMI, no JVD. No pulse deficits. Respiratory: Lungs have equal breath sounds bilaterally, clear to auscultation and percussion. No rales, rhonchi or wheezes noted. No increased work of breathing, no retractions or nasal flaring. Abdomen/GI: Soft, non-tender, with normal bowel sounds. No distension or tympany. No guarding or rebound. No evidence of tenderness throughout. Back: No spinal tenderness. No costovertebral tenderness. Full range of motion. Skin: Warm, dry with normal turgor. Normal color with no rashes, no lesions, and no evidence of cellulitis. Neuro: Awake and alert, GCS 15, oriented to person, place, time, and situation. Cranial nerves II-XII grossly intact. Motor strength 5/5 in all extremities. Sensory grossly intact. Cerebellar exam normal. Normal gait. Psych: Awake, alert, with orientation to person, place and time. Behavior, mood, and affect are within normal limits. 09:11 Head/face: Noted is ecchymosis, that is mild, of the top of head and forehead, Vital Signs: 08:25 BP 168 / 95; Pulse 92; Resp 17; Temp 98.1; Pulse Ox 96% ; Weight 63.5 kg; Height 5 ft. ll1 4 in. ; Pain 9/10; 11:51 BP 131 / 86; Pulse 88; Resp 16 S; Pulse Ox 96% on R/A; kc6 08:25 Body Mass Index 24.03 (63.50 kg, 162.56 cm) ll1 08:25 Pain Scale: Adult ll1 MDM: 09:11 Data reviewed: vital signs, nurses notes, lab test result(s), radiologic studies. kdr 10:48 Patient medically screened. kdr 06/12 10:49 Order name: CBC with Diff kdr 06/12 10:49 Order name: CMP kdr 06/12 12:02 Order name: Basic Metabolic Panel EDMS 06/12 12:02 Order name: Basic Metabolic Panel EDMS 06/12 12:02 Order name: CBC with Automated Diff EDMS 06/12 12:02 Order name: CBC with Automated Diff EDMS 06/12 08:35 Order name: Pelvis XRAY; Complete Time: 09:47 kdr 06/12 08:35 Order name: Hip Left 2 View XRAY; Complete Time: 09:47 kdr 06/12 08:35 Order name: Knee Left 3 View XRAY; Complete Time: 09:47 kdr 06/12 10:49 Order name: CT Head C Spine kdr 06/12 12:02 Order name: Physical Therapy Consult EDMS 06/12 12:02 Order name: Social Service Consult EDMS Administered Medications: No medications were administered Disposition Summary: 06/12/23 10:48 Hospitalization Ordered Notes: Hospitalization Status: Observation kdr Provider: Jarocho Ghosh Condition: Fair kdr Problem: an ongoing problem kdr Symptoms: are unchanged kdr Bed/Room Type: Standard kdr Location: Telemetry/MedSurg (observation)(06/12/23 19:47) cg Room Assignment: 415(06/12/23 19:47) cg Diagnosis - Fracture of other parts of pelvis kdr - Fall on same level from slipping, tripping and stumbling with subsequent striking kdr against object Forms: - Medication Reconciliation Form kdr - SBAR form kdr - Leadership Thank You Letter kdr Signatures: Dispatcher [employer] EDMS James Cuba MD MD kdr Anabella Sky RN RN cg Gaurang Holcomb RN RN ll1 Coreen Montana RN RN kb3 Corrections: (The following items were deleted from the chart) 13:21 10:48 Telemetry/MedSurg (observation) kdr kb3 13:21 10:48 kdr kb3 19:47 13:21 RUST ER HOLD kb3 cg 19:47 13:21 ERHOLD- kb3 cg
--- NOTE | 2023-06-12 10:49 | ER ---
Nurse's Notes [facility] Name: Holli Strickland Age: 82 yrs Sex: Female : 1940 Arrival Date: 06/12/2023 Time: 08:19 Bed 18 Private MD: Diagnosis: Fracture of other parts of pelvis;Fall on same level from slipping, tripping and stumbling with subsequent striking against object Presentation: 06/12 08:25 Chief complaint: Patient states: Multiple falls over the past few days. Old bruising ll1 noted to forehead, L arm, and L knee. Reports hip pain for a few days. Coronavirus screen: Vaccine status: Patient reports receiving the 2nd dose of the covid vaccine. Client denies travel out of the [place] in the last 14 days. At this time, the client does not indicate any symptoms associated with coronavirus-19. Ebola Screen: Patient denies travel to an Ebola-affected area in the 21 days before illness onset. Initial Sepsis Screen: Does the patient meet any 2 criteria? No. Patient's initial sepsis screen is negative. Does the patient have a suspected source of infection? No. Patient's initial sepsis screen is negative. Risk Assessment: Do you want to hurt yourself or someone else? Patient reports no desire to harm self or others. Onset of symptoms was June 09, 2023. 08:25 Method Of Arrival: EMS ll1 08:25 Acuity: FREDRICK 3 ll1 Historical: - Allergies: 08:25 Omnicef; ll1 08:25 PENICILLINS; ll1 - PMHx: 08:25 Diabetes - NIDDM; Hyperlipidemia; Hypertension; ll1 - PSHx: 08:25 L knee replacement; ll1 - Immunization history:: Adult Immunizations up to date. - Social history:: Smoking status: Patient denies any tobacco usage or history of. Screenin:30 [facility] ED Fall Risk Assessment (Adult) History of falling in the last 3 months, kc6 including since admission Yes- fall prone (multiple falls) (3 pts) Confusion or Disorientation No (0 pts) Intoxicated or Sedated No (0 pts) Impaired Gait Yes (1 pt) Mobility Assist Device Used Yes (1 pt) Altered Elimination No (0 pt) Score/Fall Risk Level 3 or more points = High Risk. Abuse screen: Denies threats or abuse. Denies injuries from another. Nutritional screening: No deficits noted. Tuberculosis screening: No symptoms or risk factors identified. Assessment: 08:51 General: Appears in no apparent distress. comfortable, well groomed, well developed, kc6 Behavior is calm, cooperative, appropriate for age. Pain: Complains of pain in face and left leg left hip. Neuro: Level of Consciousness is awake, alert, obeys commands, Oriented to person, place, time, situation, Appropriate for age. Cardiovascular: Capillary refill < 3 seconds. Respiratory: Airway is patent Trachea midline Respiratory effort is even, unlabored, Respiratory pattern is regular, symmetrical. GI: No signs and/or symptoms were reported involving the gastrointestinal system. : No signs and/or symptoms were reported regarding the genitourinary system. EENT: No signs and/or symptoms were reported regarding the EENT system. Derm: Skin is pink, warm \T\ dry. Bruising that is dark purple, on face and left knee. Musculoskeletal: No signs and/or symptoms reported regarding the musculoskeletal system. Circulation, motion, and sensation intact. Capillary refill < 3 seconds, Range of motion: intact in all extremities. 09:50 Reassessment: Patient appears in no apparent distress at this time. No changes from kc6 previously documented assessment. Patient and/or family updated on plan of care and expected duration. Pain level reassessed. Patient is alert, oriented x 3, equal unlabored respirations, skin warm/dry/pink. 10:50 Reassessment: Patient appears in no apparent distress at this time. No changes from kc6 previously documented assessment. Patient and/or family updated on plan of care and expected duration. Pain level reassessed. Patient is alert, oriented x 3, equal unlabored respirations, skin warm/dry/pink. 11:50 Reassessment: Patient appears in no apparent distress at this time. No changes from kc6 previously documented assessment. Patient and/or family updated on plan of care and expected duration. Pain level reassessed. Patient is alert, oriented x 3, equal unlabored respirations, skin warm/dry/pink. 12:50 Reassessment: Patient appears in no apparent distress at this time. No changes from kc6 previously documented assessment. Patient and/or family updated on plan of care and expected duration. Pain level reassessed. Patient is alert, oriented x 3, equal unlabored respirations, skin warm/dry/pink. Vital Signs: 08:25 BP 168 / 95; Pulse 92; Resp 17; Temp 98.1; Pulse Ox 96% ; Weight 63.5 kg; Height 5 ft. ll1 4 in. ; Pain 9/10; 11:51 BP 131 / 86; Pulse 88; Resp 16 S; Pulse Ox 96% on R/A; kc6 08:25 Body Mass Index 24.03 (63.50 kg, 162.56 cm) ll1 08:25 Pain Scale: Adult ll1 ED Course: 08:23 Patient arrived in ED. kc6 08:25 Arm band placed on Patient placed in an exam room, on a stretcher. ll1 08:26 James Cuba MD is Attending Physician. kdr 08:28 Triage completed. ll1 08:29 Cindy Garcias, SOREN is Primary Nurse. kc6 08:30 Patient maintains SpO2 saturation greater than 95% on room air. kc6 08:31 Patient has correct armband on for positive identification. Bed in low position. Call kc6 light in reach. Side rails up X2. Adult w/ patient. Client placed on continuous cardiac and pulse oximetry monitoring. NIBP monitoring applied. 09:20 Pelvis XRAY In Process Unspecified. EDMS 09:20 Hip Left 2 View XRAY In Process Unspecified. EDMS 09:20 Knee Left 3 View XRAY In Process Unspecified. EDMS 10:45 Jarocho Ghosh MD is Hospitalizing Provider. kdr 11:32 Inserted saline lock: 20 gauge in right antecubital area, using aseptic technique. kc6 Blood collected. 11:46 CT Head C Spine In Process Unspecified. EDMS 12:50 No provider procedures requiring assistance completed. Patient admitted, IV remains in kc6 place. Administered Medications: No medications were administered Medication: 12:51 VIS not applicable for this client. kc6 Outcome: 10:48 Decision to Hospitalize by Provider. kdr 12:51 Admitted to ER Hold. Please see [facility] for further documentation. kc6 12:51 Condition: good 12:51 Instructed on the need for admit, 21:12 Admitted to Med/surg accompanied by tech, via stretcher, room 418, Report called to vc1 Paola< RN 21:13 Patient left the ED. vc1 Signatures: Dispatcher [employer] EDMS James Cuba, MD MD kdr Zhang, Lynsay, RN RN ll1 Beryl Lackey RN RN vc1 Cindy Garcias RN RN kc6
[2023-06-12 11:33] LABS: Absolute Lymphocytes (CBC) 0.7 K/uL (0.7-4.9); Hematocrit 42.2 % (36.0-45.0); Lymphocytes % 8.1 % (15.3-44.8); MCV 90.4 fL (80-100); MPV 9.1 fL (7.6-11.3); Platelets 123 thou/uL (152-406); RBC Red Blood Cell Count 4.66 M/uL (3.86-4.86)
[2023-06-12 11:54] LABS: Albumin 3.7 g/dL (3.4-5.0); Bilirubin Total 1.3 mg/dL (0.2-1.0); Potassium 3.8 mEq/L (3.5-5.1); Protein, Total 7.9 g/dL (6.4-8.2)
[2023-06-12] MEDS ORDERED: ONDANSETRON 4 MG/2 ML VIAL IV PRN (11:56)
--- NOTE | 2023-06-12 12:52 | RAD REPORT ---
EXAM DESCRIPTION: CT - CTHCSPWOC - 06/12/2023 11:44 am CLINICAL HISTORY: head injury COMPARISON: Head C Spine Mpr Wo Con dated 05/17/2019; Head Brain Wo Cont dated 10/22/2022 TECHNIQUE: Axial thin cut noncontrast CT images of the head were obtained. Axial thin cut noncontrast CT images of the cervical spine were obtained. Multiplanar reformatted images were generated and reviewed. All CT scans are performed using dose optimization technique as appropriate and may include automated exposure control or mA/KV adjustment according to patient size. FINDINGS: CT HEAD WITHOUT CONTRAST: No acute hemorrhage, hydrocephalus or extra-axial collection is identified.Stable ventricular caliber with mild diffuse parenchymal atrophic changes.No areas of brain edema or midline shift. The paranasal sinuses and mastoids are clear.The calvarium is intact. CT CERVICAL SPINE WITHOUT CONTRAST: No fracture or subluxation.Mild degenerative changes with minimal multilevel spondylolisthesis, and m ild disc height loss at C5-6 and C6-7. Endplate and uncovertebral joint spurring contribute to up to moderate degrees of foraminal narrowing most pronounced bilaterally at C5-6.No prevertebral soft tiss ues swelling is identified. At least 2 somewhat irregular solid right upper lobe nodules, largest me asuring 7 mm. IMPRESSION: No acute traumatic intracranial or cervical spine findings. Incidentally noted solid right upper lobe nodules, largest measuring 7 mm. These deserve additional e valuation by dedicated CT of the chest which can be performed on an outpatient basis. Otherwise stable chronic findings as above.
[2023-06-12] MEDS ORDERED: QUETIAPINE 25 MG TAB PO ONE (17:00)
[2023-06-12 19:23] VITALS: BMI 30.5
[2023-06-12] MEDS ORDERED: HALOPERIDOL LACT 5 MG/ML INJ IV PRN (19:37)
[2023-06-12] MEDS ORDERED: ONDANSETRON 4 MG (ODT) TAB PO PRN (19:38)
[2023-06-13 06:49] LABS: Hematocrit 38.5 % (36.0-45.0); Lymphocytes % 13.1 % (15.3-44.8); MCV 90.2 fL (80-100); MPV 9.5 fL (7.6-11.3); Platelets 117 thou/uL (152-406); RBC Red Blood Cell Count 4.27 M/uL (3.86-4.86)
--- NOTE | 2023-06-13 07:07 | HP ---
Date of Admission: 06/12/2023 Chief Complaint: Pelvis pain and multiple falls. History Of Present Illness: This is an 82-year-old female patient who had 3 falls in last 2 weeks and was brought into emergency room today by the patient's and has been complaining of pain in the left pelvis region since she fell down. After she was evaluated, she was diagnosed as having fracture of the left superior and inferior pubic rami and I was contacted from ER, decision was made to admit her to the hospital. Review of Systems: Musculoskeletal: As mentioned above. OPERATOR HELPER: The patient has impaired memory problem. All other systems reviewed and negative. Allergies: TO PENICILLIN, DETAILS OF REACTION NOT KNOWN. Medications: Metformin 500 mg daily, metoprolol succinate 25 mg p.o. daily, rosuvastatin 10 mg p.o. daily. Past Medical History: Significant for type 2 diabetes mellitus, hypertension, COPD, hyperlipidemia, and colon cancer. Past Surgical History: Partial resection of colon due to colon cancer, done on November 12, 2022. Family History: Sister has diabetes, hypertension, and dementia. Social history: Negative for smoking and alcohol use. Physical Examination: Vital Signs: Temperature 97.9, pulse 89, respiratory rate 17, blood pressure 189/80, oxygen saturation 100%. Height 5 feet 2 inches, weight 167 pounds. General: Awake, alert, oriented, not in distress. HEENT: Head atraumatic, normocephalic. Conjunctivae nonerythematous. Sclerae white. Mouth, no thrush or edema noted. Ears/Nose, no mass, lesion, discharge noted. Neck: Supple. No JVD, lymph nodes, bruit, thyromegaly noted. Lungs: Bilateral good equal air entry. Clear to auscultation. No rhonchi. No rales. Heart: Normal heart sounds, no murmur or gallop. Abdomen: Soft, bowel sounds normal. No guarding, rigidity, tenderness, mass, hepatosplenomegaly, distention, or bruit noted. Extremities: No leg edema. No calf tenderness. Skin: Left anterior knee has small area of skin that appears few days old, 1 to 2 cm in size. There is no open wound. Range of motion at left is normal. There is no tenderness over the left knee. Lymphatics: No lymph node enlargement in neck, supraclavicular, infraclavicular region. Neuro: No focal neurological deficit. Chest: Unremarkable. External Genitalia: Deferred. Rectal: Deferred. Laboratory Data: White count 8.7, hemoglobin 14.4, platelets 123. Sodium 137, potassium 3.8, chloride 104, bicarb 28, BUN 15, creatinine 0.89, glucose 123. Liver function tests unremarkable except total bilirubin 1.3. X-ray of the hip and pelvis shows left superior and inferior pubic rami fracture. There is no evidence of any femur fracture. Knee x-ray shows cortical irregularity of the lateral tibial plateau seen on the AP view only. This might be due to result of healed fracture and prior fusion although incomplete healing or nonunion cannot be ruled out. Presence of fusion plate and screws with satisfactory alignment. CAT scan of the head/cervical spine: No acute intracranial or cervical spine abnormality. Impression: 1. Fracture of left superior and inferior pubic rami. 2. Left knee contusion. 3. Type 2 diabetes mellitus. 4. Hypertension. 5. Hyperlipidemia. 6. Chronic obstructive pulmonary disease. 7. Overactive bladder. 8. Urge incontinence. 9. Colon cancer, transverse colon. 10. Senile dementia. Plan: We will admit the patient to the hospital for further evaluation and management of this problem. The patient is appropriate for inpatient and is expected to spend 2 midnights in the hospital. DVT prophylaxis will be given per order. We will go ahead and give pain medication for pain control. Today, after she was admitted, she had a significant episode of anxiety and agitation, and wanted to get up and get out of the hospital, but unfortunately she is not safe to go home with this recurrent multiple falls. Seroquel 25 mg p.o. x1 dose was ordered and if that does not help, then to use Haldol 1 mg IV x1 dose. It appears that after the patient took Seroquel, she responded very well and by the time I saw her in the emergency room, she was very calm and was with her at bedside, who also reported a positive response to the medication from her Seroquel. We will continue Seroquel and Haldol per order. Starting tomorrow, we will have Physical Therapy start to help ambulate her. We will try to see if we can get the patient to inpatient rehab and if she is not able to go there, then we will have to discuss different options. Obviously, the patient had multiple falls at home in last 2 weeks, so her safety is a big concern for us. All these details were discussed with the patient and the patient's . For her hypertension, we will continue metoprolol. For her diabetes management, we will continue metformin. For her hyperlipidemia, we will continue rosuvastatin. No need for further intervention on chronic medical problems, that seems to be stable at this time. Advance directive was discussed with the patient and the patient's . They have not made any decision, but they will think about it, but until different decision is made, the patient will remain Full Code. BLU/JACQUES Voice ID: [id number]
[2023-06-13 07:12] LABS: Potassium 3.8 mEq/L (3.5-5.1)
[2023-06-13] MEDS: METOPROLOL XL 25 MG TAB PO SCH (08:05)
[2023-06-13] MEDS: METFORMIN HCL 500 MG TAB PO SCH (08:05)
[2023-06-13] MEDS: HYDROCODONE/APAP 5/325 MG TAB PO PRN ×2 (12:29→17:54)
[2023-06-13] MEDS: ROSUVASTATIN 10 MG TAB PO SCH (19:59)
[2023-06-13] MEDS: QUETIAPINE 25 MG TAB PO SCH (20:01)
--- NOTE | 2023-06-14 07:19 | PN ---
Date of Progress Note: 06/13/2023 Subjective: The patient was seen this morning for followup. Her was with her at bedside. S he slept good overnight. No new complaints or problems reported. No agitation overnight and the pat ient slept well. Objective: Vital Signs: Reviewed. HEENT: Unremarkable. Lungs: Clear to auscultation. Heart: Sounds normal. Abdomen: Soft. Bowel sounds normal. No guarding, rigidity, tenderness, distention. Extremities: No leg edema. Impression: 1.Fracture, left superior and inferior pubic rami. 2.Hypertension. 3.Hyperlipidemia. 4.Type 2 diabetes mellitus. Plan: We will go ahead and continue current medications. Continue pain medication per order. Physi sharmila Therapy to work with the patient. Details were discussed with Social Service. We will try to ge t approval from insurance company for the patient to go to inpatient rehab. The patient has dementia problem and the details were discussed with , and he would like for us to see if we can get h er to inpatient rehab if insurance approves it. BLU/MODL Voice ID: [id number] Report ID: [id number]
[2023-06-14] MEDS: METFORMIN HCL 500 MG TAB PO SCH (08:38)
[2023-06-14] MEDS: ENOXAPARIN 40 MG/0.4 ML SQ SCH (08:38)
[2023-06-14] MEDS: METOPROLOL XL 25 MG TAB PO SCH (08:39)
[2023-06-14] MEDS: HYDROCODONE/APAP 5/325 MG TAB PO PRN (20:07)
[2023-06-14] MEDS: ROSUVASTATIN 10 MG TAB PO SCH (20:07)
[2023-06-14] MEDS: QUETIAPINE 25 MG TAB PO SCH (20:07)
[2023-06-15] MEDS: METOPROLOL XL 25 MG TAB PO SCH (08:18)
[2023-06-15] MEDS: ENOXAPARIN 40 MG/0.4 ML SQ SCH (08:18)
[2023-06-15] MEDS: METFORMIN HCL 500 MG TAB PO SCH (08:18)
--- NOTE | 2023-06-15 12:36 | PN ---
Date of Progress Note: 06/14/2023 Subjective: Patient was seen this morning for followup. No new complaints or problems reported by h er. She was lying in her bed, not in any distress. Her was with her at bedside. Objective: Vital Signs: Reviewed. HEENT: Unremarkable. Lungs: Clear to auscultation. Heart: Sounds normal. Abdomen: Soft. Bowel sounds normal. No guarding, rigidity, tenderness, distention. Extremities: No leg edema. Laboratory Data: No new labs today. Impression: 1.Fracture, left superior and inferior pubic rami. 2.Hypertension. 3.Hyperlipidemia. 4.Type 2 diabetes mellitus. 5.Senile dementia. Plan: We will go ahead and continue current medication. Physical Therapy to continue to work with t he patient. We will continue current home medications and pain medications per order. We are awaiti ng on insurance company's approval for patient to go to inpatient rehab and if for some reason she ge ts denied, then would like for her to go to [facility] and he has been communicating with Social Service regarding this. I will see her tomorrow for followup. BLU/MODL Voice ID: [id number] Report ID: [id number]
--- NOTE | 2023-06-15 12:51 | PN ---
Date of Progress Note: 06/15/2023 Subjective: Patient was seen this morning for followup. No new complaints or problems reported. He r was with her at bedside. Yesterday, she ambulated with Physical Therapy short distance and her pain in the left pelvis area is better. When I saw her, she was trying to exercise using her hever th legs while lying in the bed. No nausea or vomiting. No abdominal pain. Patient did not have any bowel movement since Saturday, but after I saw her, she did have 1 bowel movement as our nurse repo rted to me, after I saw her. Objective: Vital Signs: Reviewed. HEENT: Unremarkable. Lungs: Clear to auscultation. Heart: Sounds normal. Abdomen: Soft. Bowel sounds normal. No guarding, rigidity, tenderness, distention. Extremities: No leg edema. Impression: 1.Fracture, left superior and inferior pubic rami. 2.Senile dementia. 3.Hypertension. 4.Hyperlipidemia. 5.Type 2 diabetes mellitus. Plan: We will go ahead and continue current pain medication. Continue current blood pressure and ch olesterol medications per order. Patient to continue to work with Physical Therapy and we are awaiti ng on insurance company's decision regarding approval for inpatient rehab, and for some reason, if that gets denied, then wants her to go [facility]. BLU/MODL Voice ID: [id number] Report ID: [id number]
[2023-06-15] MEDS: ROSUVASTATIN 10 MG TAB PO SCH (20:46)
[2023-06-15] MEDS: QUETIAPINE 25 MG TAB PO SCH (20:46)
[2023-06-15] MEDS: ACETAMINOPHEN 500 MG TAB PO PRN (20:47)
[2023-06-16] MEDS: METOPROLOL XL 25 MG TAB PO SCH (08:45)
[2023-06-16] MEDS: METFORMIN HCL 500 MG TAB PO SCH (08:45)
[2023-06-16] MEDS: ENOXAPARIN 40 MG/0.4 ML SQ SCH (08:47)
--- NOTE | 2023-06-16 12:25 | PN ---
Date of Progress Note: 06/16/2023 Subjective: The patient was seen this morning for followup. She was lying in bed, not in distress. Her was with her at bedside. Denies any new complaints this morning. Yesterday, she did am bulate very well with physical therapy and did lot better yesterday than day before yesterday. She d id have bowel movement yesterday after I saw her. Objective: Vital Signs: Reviewed. HEENT: Unremarkable. Lungs: Clear to auscultation. Heart: Sounds normal. Abdomen: Soft. Bowel sounds normal. No guarding, rigidity, tenderness, distention. Extremities: No leg edema. Laboratory Data: There are no new labs for today. Impression: 1.Fracture, left superior and inferior pubic rami. 2.Senile dementia. 3.Hypertension. 4.Hyperlipidemia. Plan: We will continue current medications. Continue current pain medication, which is tramadol for pain control. Continue Tylenol for pain. We will continue Seroquel 25 mg at bedtime as it has help ed her very well to sleep and once she started getting adequate amount of sleep at night, her mental confusion has improved also. Have Physical Therapy continue to work with her and our plan is to poss ibly discharge her to go to inpatient rehab if the patient's insurance company will provide approval for t hat and we are waiting on it. BLU/MODL Voice ID: [id number] Report ID: [id number]
[2023-06-16] MEDS: QUETIAPINE 25 MG TAB PO SCH (20:44)
[2023-06-16] MEDS: ROSUVASTATIN 10 MG TAB PO SCH (20:44)
[2023-06-17 06:57] LABS: Hematocrit 39.2 % (36.0-45.0); Lymphocytes % 16.2 % (15.3-44.8); MCV 90.5 fL (80-100); Platelets 166 thou/uL (152-406); RBC Red Blood Cell Count 4.33 M/uL (3.86-4.86)
[2023-06-17 07:20] LABS: Albumin 3.2 g/dL (3.4-5.0); Bilirubin Total 1.8 mg/dL (0.2-1.0); Potassium 3.8 mEq/L (3.5-5.1); Protein, Total 7.2 g/dL (6.4-8.2); Thyroid Stimulating Hormone 0.809 uIU/mL (0.358-3.740)
[2023-06-17] MEDS: METOPROLOL XL 25 MG TAB PO SCH (08:11)
[2023-06-17] MEDS: ENOXAPARIN 40 MG/0.4 ML SQ SCH (08:11)
[2023-06-17] MEDS: METFORMIN HCL 500 MG TAB PO SCH (08:12)
[2023-06-17] MEDS: ACETAMINOPHEN 500 MG TAB PO PRN (08:12)
[2023-06-17] MEDS: QUETIAPINE 25 MG TAB PO SCH (20:18)
[2023-06-17] MEDS: ROSUVASTATIN 10 MG TAB PO SCH (20:18)
--- NOTE | 2023-06-18 06:16 | PN ---
Date of Progress Note: 06/17/2023 Subjective: The patient was seen this morning for followup. No new complaints or problems reported by the patient. She was lying in bed, not in any distress. Objective: Vital Signs: Reviewed. HEENT: Unremarkable. Lungs: Clear to auscultation. Heart: Sounds normal. Abdomen: Soft. Bowel sounds normal. No guarding, rigidity, tenderness, distention. Extremities: No leg edema. Impression: 1.Fracture, left superior and inferior pubic rami. 2.Hypertension. 3.Hyperlipidemia. 4.Senile dementia. Plan: We will go ahead and continue current medications for her blood pressure and cholesterol probl em. Vital signs are stable. The patient is participating well with physical therapy and has shown i mprovement with her ability to ambulate with physical therapy. We are waiting on insurance company's approval for the patient to go to inpatient rehab. If insurance company denies that, then the [facility] has selected [facility] as an alternate option. We will continue to wor k with addiction social worker on this. I will see her tomorrow for followup. BLU/MODL Voice ID: [id number] Report ID: [id number]
[2023-06-18] MEDS: ENOXAPARIN 40 MG/0.4 ML SQ SCH (07:34)
[2023-06-18] MEDS: METFORMIN HCL 500 MG TAB PO SCH (07:35)
[2023-06-18] MEDS: METOPROLOL XL 25 MG TAB PO SCH (07:36)
[2023-06-18] MEDS: TRAMADOL HCL 50 MG TAB PO PRN ×2 (07:37→15:33)
--- NOTE | 2023-06-18 20:39 | PN ---
Date of Progress Note: 06/18/2023 Subjective: The patient was seen this morning for followup. No new complaints or problems reported by the patient. She was lying in bed, not in any distress. Her was with her at bedside. [facility] is participating well with physical therapy and ambulating longer distance on a daily basis with ph ysical therapy. Her pain from pelvis fracture has improved and only uses Tylenol on a p.r.n. basis. Objective: Vital Signs: Reviewed. HEENT: Unremarkable. Lungs: Clear to auscultation. Heart: Sounds normal. Abdomen: Soft. Bowel sounds normal. No guarding, rigidity, tenderness, distention. Extremities: No leg edema. Impression: 1.Fracture, left superior and inferior pubic ramus. 2.Hypertension. 3.Hyperlipidemia. 4.Senile dementia. Plan: Considering the patient ambulating much better than before, I did discuss with the patient reg arding options of going home with Home Health and Home Physical Therapy or Outpatient Physical Therap y if insurance denied inpatient rehab, and does not feel comfortable taking her home and is r equesting shelter facility, [facility] in case if insurance denies inpatient rehab, so we will go ahead and continue to work with Social Service as after I saw her today during t he course of day today, Social Service notified me that insurance company has refused for her to go t o inpatient rehab, so we will go ahead and try to place her in a shelter facility of family's choice. I will see her tomorrow for followup. The patient is stable for discharge as soon as she is accepted to go to this facility. BLU/MODL Voice ID: [id number] Report ID: [id number]
[2023-06-18] MEDS: QUETIAPINE 25 MG TAB PO SCH (20:40)
[2023-06-18] MEDS: ROSUVASTATIN 10 MG TAB PO SCH (20:40)
[2023-06-18] MEDS: ACETAMINOPHEN 500 MG TAB PO PRN (20:41)
[2023-06-19] MEDS: METFORMIN HCL 500 MG TAB PO SCH (08:33)
[2023-06-19] MEDS: ENOXAPARIN 40 MG/0.4 ML SQ SCH (08:33)
[2023-06-19] MEDS: METOPROLOL XL 25 MG TAB PO SCH (08:33)
[2023-06-19] MEDS ORDERED: HALOPERIDOL LACT 5 MG/ML INJ IV PRN (12:43)
[2023-06-19] MEDS: QUETIAPINE 25 MG TAB PO SCH (21:18)
[2023-06-19] MEDS: ROSUVASTATIN 10 MG TAB PO SCH (21:18)
[2023-06-19] MEDS: ACETAMINOPHEN 500 MG TAB PO PRN (21:18)
[2023-06-19] MEDS: TRAMADOL HCL 50 MG TAB PO PRN (22:21)
[2023-06-19 22:47] VITALS: O2SAT 99
--- NOTE | 2023-06-20 06:34 | PN ---
Date of Progress Note: 06/19/2023 Subjective: The patient was seen this morning for followup. No new complaints or problems reported by the patient or her who was at bedside. Objective: Vital Signs: Reviewed. HEENT: Unremarkable. Lungs: Clear to auscultation. Heart: Sounds normal. Abdomen: Soft. Bowel sounds normal. No guarding, rigidity, tenderness, distention. Extremities: No leg edema. Laboratory Data: There were no new labs today. Impression: 1.Fracture, left superior and inferior pubic rami. 2.Hypertension. 3.Mild dementia. 4.Hyperlipidemia. 5.Type 2 diabetes mellitus. Plan: We will go ahead and have Physical Therapy continue to work with the patient. Continue Tyleno l as needed for pain, which seems to be helping her and she is not requiring any narcotic pain medica tion now. Social Service is working with insurance company to get approval for the patient to go to [facility]. As soon as that is arranged, the patient will be discharged. The patient is medically stable for discharge. BLU/MODL Voice ID: [id number] Report ID: [id number]
[2023-06-20] MEDS: ENOXAPARIN 40 MG/0.4 ML SQ SCH (08:39)
[2023-06-20] MEDS: ACETAMINOPHEN 500 MG TAB PO PRN (08:39)
[2023-06-20] MEDS: METOPROLOL XL 25 MG TAB PO SCH (08:40)
[2023-06-20] MEDS: METFORMIN HCL 500 MG TAB PO SCH (08:40)
[2023-06-20 12:58] VITALS: BP 128/61; TEMP 97.3
--- NOTE | 2023-06-21 00:28 | DS ---
Date of Discharge: 06/20/2023 Disposition: Discharged to go to [facility]. Physical Examination: HEENT: Unremarkable. Lungs: Clear to auscultation. Heart: Sounds normal. Abdomen: Soft. Bowel sounds normal. No guarding, rigidity, tenderness, distention. Extremities: No leg edema. Hospital Course: This is an 82-year-old pleasant female patient, who was admitted to the hospital af ter she had fallen down at home. Please see dictated H and P for more information. The patient was admitted to the hospital with fracture of left superior and inferior pubic rami. Physical Therapy wa s consulted. Initially, the patient did require some narcotic pain medication. Subsequently, it was discontinued and only Tylenol was ordered for pain control. She has done very well with physical th erapy, started to participate well. The patient's had expressed desire for her to go to [facility] rehab and Social Service was consulted. Inpatient Rehab was consulted and we did put a request for insurance company to provide approval for inpatient rehab and after few days of wait time, the [facility]'s insurance company did provide a denial for inpatient rehab benefit. So at that time, the [facility] wanted us to make arrangements for her to go to snf facility because he i nformed me that he is not able to take care of her at home and is requesting for her to go to a skill ed nursing facility for some more improvement. So, Social Service did initiate the process of skille nursing facility placement and once that got improved, today she was discharged in stable condition . Her usual home medications were continued and her chronic medical problems remained stable. Final Diagnoses: 1.Superior and inferior pubic rami. 2.Left knee contusion. 3.Type 2 diabetes mellitus. 4.Hypertension. 5.Hyperlipidemia. 6.Chronic obstructive pulmonary disease. 7.Overactive bladder. 8.Urge incontinence. 9.Colon cancer, transverse colon. 10.Senile dementia. Laboratory Data: Last blood work on June 17, 2023, sodium 135, potassium 3.8, chloride 102, bicarb 28, BUN 20, creatinine 0.88, glucose 114, total bilirubin 1.8. Rest of the liver function tests unr emarkable. Her TSH is 0.809. Last CBC from June 17, 2023, white count 6.1, hemoglobin 13.3, plate lets 166. Her initial blood work upon admission reviewed. Discharge Medications And Instructions: 1.Metformin 500 mg p.o. daily. 2.Metoprolol succinate 25 mg p.o. daily. 3.Rosuvastatin 10 mg p.o. daily. 4.Seroquel 25 mg p.o. daily at bedtime. 5.Fall precautions. 6.Consult Physical Therapy and Occupational Therapy. 7.Tylenol 500 mg 4 times a day as needed for pain. 8.Follow up at my office within 1 week after discharge from [facility]. 9.Diet: 2 g sodium, 1800 calorie ADA diet. BLU/MODL Voice ID: [id number] Report ID: [id number]
== END 2023-06-20 15:13 | disposition swing bed (61) | DRG 536 ==
LOC: ER 08:19 → ERHOLD 11:54 → OBSVTOIN 19:27 → 4TH 20:35
PROVIDERS: ADMIT Internal Medicine; ATTEND Internal Medicine
DX: S32.512A Fracture of superior rim of left pubis, initial encounter for closed fracture (principal); C18.4 Malignant neoplasm of transverse colon; S32.592A Other specified fracture of left pubis, initial encounter for closed fracture; S80.02XA Contusion of left knee, initial encounter; F03.A0 Unspecified dementia, mild, without behavioral disturbance, psychotic disturbance, mood disturbance, and anxiety; I10 Essential (primary) hypertension; E11.9 Type 2 diabetes mellitus without complications; J44.9 Chronic obstructive pulmonary disease, unspecified; N32.81 Overactive bladder; N39.41 Urge incontinence; W19.XXXA Unspecified fall, initial encounter; Y92.009 Unspecified place in unspecified non-institutional (private) residence as the place of occurrence of the external cause
CPT/HCPCS: 36415; 70450; 72125; 72170; 80048; 80053; 80061; 83735; 84443; 85025; 97110; 97116; 97161; 97165; 97530; 99285; G0378; J1650

== ENCOUNTER 2023-07-04 19:10 | Inpatient (IN) | payer OTHER ==
--- OUTSIDE RECORDS SUMMARY | 2023-07-04 19:17 | XMS REPORT | Continuity of Care Document ---
Author Name Unknown Address [address] [facility] [place] [address] [facility] Address [address] [facility] [place] [address] Care Team Providers Care Environmental Monitoring Technician Name Role Phone Zander Arambula Attending Clinician Unavailable Margarita Zhong Attending Clinician Unavailable Zander Arambula Admitting Clinician Unavailable Margarita Zhong Admitting Clinician Unavailable Payers Payer Name Policy Type Policy Number Effective Date Expirati on Date Source Allergies, Adverse Reactions, Alerts Allergy Name Allergy Type Status Severity Reaction(s) Onset Date Inactive Date Treating Clinician Comments Source Penicill ins DA Active SV RASH, HIVES 605 00:00: 00 [facility] Procedures Procedure Date / Time Performed Performing Clinicia n Source [id number] 2022-11-14 00:00:00 [facility]02 [facility] [id number] 2022-11-14 00:00:00 [facility]ESH[facility]02 [facility] [id number] 2022-11-14 00:00:00 CHESH[facility]02 [facility] Encounters Start Date/Time End Date/Time Encounter Type Admission Type Attending Clinicians Care Facility Care Department Encounter ID Source 2022-11-14 12:00:00 Inpatient Zander Castillo [facility] DAYS [id number] 3 82 [facility] 2022-11-14 12:00:00 Inpatient Zander Arambula [facility] [id number] 27 [facility] 2022-11-12 17:21:00 2022-11-17 17:13:00 Inpatient Margarita Huddleston [facility] MED [id number] [facility] are [facility] 2022-11-12 17:21:00 2022-11-17 17:13:00 Inpatient Margarita Huddleston [facility] [id number] [facility] 2022-11-14 08:48:00 2022-11-14 08:48:00 [facility] [id number] [facility] are [facility] Results Test Description Test Time Test Comments Results Result Co mments Source [id number] 04:07:00* Test Item Value Reference Range Interpretation Comme nts MAGNESIUM (test code = MAG) 1.7 mg/dL 1.6-2.6 N CBC W/MANUAL [id number] 03:47:00* Test Item Value Reference Range Interpretation Comme nts WHITE BLOOD CELL (test code = WBC) 7.5 x10 3/uL 4.8-10.8 N RED BLOOD CELL (test code = RBC) 3.69 x10 6/uL 4.20-5.40 L HEMOGLOBIN (test code = HGB) 9.3 g/dL 12.0-16.0 L HEMATOCRIT (test code = HCT) 29.7 % 37.0-47.0 L MEAN CELL VOLUME (test code = MCV) 80.5 fL 81.0-99.0 L MEAN CELL HGB (test code = MCH) 25.2 pg 27-31 L MEAN CELL HGB CONCENTRATION (test code = MCHC) 31.3 G/DL 33-36.5 L RED CELL DISTRIBUTION WIDTH (test code = RDW) 24.9 % 12.9-16.9 H PLATELET COUNT (test code = PLT) 116 x10 3/uL 150-440 L MEAN PLATELET VOLUME (test code = MPV) Test not performed fL 8.9-12.4 NEUTROPHIL % (test code = NT%) 81.7 % 42.2-75.2 H LYMPHOCYTE % (test code = LY%) 10.7 % 20.5-51.1 L MONOCYTE % (test code = MO%) 6.3 % 1.7-9.3 N EOSINOPHIL % (test code = EO%) 0.5 % 0.0-7.0 N BASOPHIL % (test code = BA%) 0.1 % 0-2.5 N NEUTROPHIL # (test code = NT#) 6.10 x10 3/uL 1.80-7.70 N LYMPHOCYTE # (test code = LY#) 0.80 x10 3/uL 1.00-4.80 L MONOCYTE # (test code = MO#) 0.47 x10 3/uL 0.00-0.80 N EOSINOPHIL # (test code = EO#) 0.04 x10 3/uL 0.00-0.45 N BASOPHIL # (test code = BA#) 0.01 x10 3/uL 0.0-0.20 N TOTAL CELLS COUNTED (test code = TCC) 100 #CELLS SEGMENTED NEUTROPHILS (test code = SEG) % 49-71 LYMPHOCYTE (test code = LYMPH) % 20-40 CBC W/AUTO [id number] 13:25:00* Test Item Value Reference Range Interpretation Comme nts WHITE BLOOD CELL (test code = WBC) 10.3 x10 3/uL 4.8-10.8 N RED BLOOD CELL (test code = RBC) 3.37 x10 6/uL 4.20-5.40 L HEMOGLOBIN (test code = HGB) 8.5 g/dL 12.0-16.0 L HEMATOCRIT (test code = HCT) 27.3 % 37.0-47.0 L MEAN CELL VOLUME (test code = MCV) 81.0 fL 81.0-99.0 N MEAN CELL HGB (test code = MCH) 25.2 pg 27-31 L MEAN CELL HGB CONCENTRATION (test code = MCHC) 31.1 G/DL 33-36.5 L RED CELL DISTRIBUTION WIDTH (test code = RDW) 27.0 % 12.9-16.9 H PLATELET COUNT (test code = PLT) 118 x10 3/uL 150-440 L NEUTROPHIL % (test code = NT%) 87.0 % 42.2-75.2 H LYMPHOCYTE % (test code = LY%) 6.8 % 20.5-51.1 L MONOCYTE % (test code = MO%) 5.4 % 1.7-9.3 N EOSINOPHIL % (test code = EO%) 0.0 % 0.0-7.0 N BASOPHIL % (test code = BA%) 0.1 % 0-2.5 N NEUTROPHIL # (test code = NT#) 8.97 x10 3/uL 1.80-7.70 H LYMPHOCYTE # (test code = LY#) 0.70 x10 3/uL 1.00-4.80 L MONOCYTE # (test code = MO#) 0.56 x10 3/uL 0.00-0.80 N EOSINOPHIL # (test code = EO#) 0.00 x10 3/uL 0.00-0.45 N BASOPHIL # (test code = BA#) 0.01 x10 3/uL 0.0-0.20 N BASIC METABOLIC [id number] 05:25:00* Test Item Value Reference Range Interpretation Comme nts SODIUM (test code = NA) 143 mmol/L 136-145 N POTASSIUM (test code = K) 3.5 mmol/L 3.5-5.1 N CHLORIDE (test code = CL) 110 mmol/l 98-107 H CARBON DIOXIDE (test code = CO2) 24 mmol/L 20-31 N GLUCOSE (test code = GLU) 109 ng/dL 74-106 H BLOOD UREA NITROGEN (test code = BUN) 6 mg/dL 9-23 L GLOMERULAR FILTRATION RATE (test code = GFR) >=60 max estimate mL/min >60 The Glomerular Filtration Rate is a calculated parameterbased on serum Creatinine, patient age and sex. GFR valuesless than 60 mL/min/1.73 square meters are indicative ofChronic Kidney Disease. Values less than 15 mL/min/1.73square meters indicate Kidney failure. The calculation forGFR is based on the CKD-EPI (2020) calculation. This formulais race indifferent and is the recommended formula for GFRby the National Kidney Foundation for Adults.The GFR will not calculate if the sex is unknown or if thepatient's age is <18 years. CREATININE (test code = CREAT) 0.40 mg/dL 0.55-1.02 L CALCIUM (test code = CA) 7.9 mg/dL 8.7-10.4 L [id number] 05:25:00* Test Item Value Reference Range Interpretation Comme nts MAGNESIUM (test code = MAG) 1.6 mg/dL 1.6-2.6 N CBC W/AUTO [id number] 05:10:00* Test Item Value Reference Range Interpretation Comme nts WHITE BLOOD CELL (test code = WBC) 9.5 x10 3/uL 4.8-10.8 N RED BLOOD CELL (test code = RBC) 3.32 x10 6/uL 4.20-5.40 L HEMOGLOBIN (test code = HGB) 8.3 g/dL 12.0-16.0 L HEMATOCRIT (test code = HCT) 27.1 % 37.0-47.0 L MEAN CELL VOLUME (test code = MCV) 81.6 fL 81.0-99.0 N MEAN CELL HGB (test code = MCH) 25.0 pg 27-31 L MEAN CELL HGB CONCENTRATION (test code = MCHC) 30.6 G/DL 33-36.5 L RED CELL DISTRIBUTION WIDTH (test code = RDW) 26.7 % 12.9-16.9 H PLATELET COUNT (test code = PLT) 110 x10 3/uL 150-440 L NEUTROPHIL % (test code = NT%) 86.6 % 42.2-75.2 H LYMPHOCYTE % (test code = LY%) 7.1 % 20.5-51.1 L MONOCYTE % (test code = MO%) 5.4 % 1.7-9.3 N EOSINOPHIL % (test code = EO%) 0.0 % 0.0-7.0 N BASOPHIL % (test code = BA%) 0.1 % 0-2.5 N NEUTROPHIL # (test code = NT#) 8.22 x10 3/uL 1.80-7.70 H LYMPHOCYTE # (test code = LY#) 0.67 x10 3/uL 1.00-4.80 L MONOCYTE # (test code = MO#) 0.51 x10 3/uL 0.00-0.80 N EOSINOPHIL # (test code = EO#) 0.00 x10 3/uL 0.00-0.45 N BASOPHIL # (test code = BA#) 0.01 x10 3/uL 0.0-0.20 N CBC W/MANUAL [id number] 08:10:00* Test Item Value Reference Range Interpretation Comme nts WHITE BLOOD CELL (test code = WBC) 12.3 x10 3/uL 4.8-10.8 H RED BLOOD CELL (test code = RBC) 3.69 x10 6/uL 4.20-5.40 L HEMOGLOBIN (test code = HGB) 9.3 g/dL 12.0-16.0 L HEMATOCRIT (test code = HCT) 30.4 % 37.0-47.0 L MEAN CELL VOLUME (test code = MCV) 82.4 fL 81.0-99.0 N MEAN CELL HGB (test code = MCH) 25.2 pg 27-31 L MEAN CELL HGB CONCENTRATION (test code = MCHC) 30.6 G/DL 33-36.5 L RED CELL DISTRIBUTION WIDTH (test code = RDW) 26.5 % 12.9-16.9 H PLATELET COUNT (test code = PLT) 126 x10 3/uL 150-440 L MEAN PLATELET VOLUME (test code = MPV) Test not performed fL 8.9-12.4 ANALYZER NOT ABLE TO CALCULATE RESULTS NEUTROPHIL % (test code = NT%) 90.8 % 42.2-75.2 H LYMPHOCYTE % (test code = LY%) 3.2 % 20.5-51.1 L MONOCYTE % (test code = MO%) 5.6 % 1.7-9.3 N EOSINOPHIL % (test code = EO%) 0.0 % 0.0-7.0 N BASOPHIL % (test code = BA%) 0.1 % 0-2.5 N NEUTROPHIL # (test code = NT#) 11.18 x10 3/uL 1.80-7.70 H LYMPHOCYTE # (test code = LY#) 0.40 x10 3/uL 1.00-4.80 L MONOCYTE # (test code = MO#) 0.69 x10 3/uL 0.00-0.80 N EOSINOPHIL # (test code = EO#) 0.00 x10 3/uL 0.00-0.45 N BASOPHIL # (test code = BA#) 0.01 x10 3/uL 0.0-0.20 N TOTAL CELLS COUNTED (test code = TCC) 100 #CELLS SEGMENTED NEUTROPHILS (test code = SEG) 84 % 49-71 H LYMPHOCYTE (test code = LYMPH) 5 % 20-40 L PLATELET ESTIMATE (test code = PLTEST) SLIGHTLY DECREASED ADEQUATE A PLATELET MORPHOLOGY (test code = PLTMORPH) NORMAL NORMAL BAND NEUTROPHIL (test code = BAND) 5 % 0-5 N MONOCYTE (test code = MON) 5 % 3-8 N METAMYELOCYTE (test code = META) 1 % 0-0 H ANISOCYTOSIS (test code = ANISO) 1+ NONE SEEN A MICROCYTOSIS (test code = MICR) 1+ NONE SEEN A - XR CHEST 1 [id number] 08:04:00 [facility] : 1940 Sex: FPatient Name: KIMBERLY STRICKLAND Unit No: [id number] EXAMS: CPT CODE: [id number] XR CHEST 1 V 55375 CHEST, SINGLE VIEW LOCATION: A1 HISTORY: Acute respiratory failure. A single view of the chest at 7:09 AM was compared to a prior exam from November 12, 2022. FINDINGS: The lungs are clear and the heart size is within normal limits. No acute findings are seen. IMPRESSION: No acute thoracic abnormality. at 0804 Reported and signed by: Jamari Buckner Jr, MD CC: Fina Garcia MD; Margarita Zhong MD; Zander Arambula MD Technologist: Tin Morocho Time: DAP (Gy m2): Air Kerma (mGy): Trscr Dt/Tm: 11/15/2022 (0804) by:Hansa Printed Date/Time: 11/15/2022 (806) Name: KIMBERLY STRICKLAND [facility] Phys: Fina Cutler MD [address] : 1940 Age: 81 Sex: [place] [address] Loc: P.0215 1 Exam Date: 11/15/2022 Status: ADM IN PH: FAX: PAGE 1 Signed Report- XR CHEST 1 [id number] 08:04:00 [facility] : 1940 Sex: FPatient Name: KIMBERLY STRICKLAND Unit No: [id number] EXAMS: CPT CODE: [id number] XR CHEST 1 V 00842 CHEST, SINGLE VIEW LOCATION: A1 HISTORY: Acute respiratory failure. A single view of the chest at 7:09 AM was compared to a prior exam from November 12, 2022. FINDINGS: The lungs are clear and the heart size is within normal limits. No acute findings are seen. IMPRESSION: No acute thoracic abnormality. at 0804 Reported and signed by: Jamari Buckner Jr, MD CC: Fina Garcia MD; Margarita Zhong MD; Zander Arambula MD Technologist: Tin Foreman Fluoro Time: DAP (Gy m2): Air Kerma (mGy): Trscr Dt/Tm: 11/15/2022 (0804) by:Hansa Printed Date/Time: 01/07/2023 (173) Name: KIMBERLY STRICKLAND [facility] Phys: Fina Flores MD [address] : 1940 Age: 81 Sex: [place] [address] [id number] Loc: P.0928 1 Exam Date: 11/15/2022 Status: DIS IN PH: FAX: PAGE 1 Signed ReportVENOUS BLOOD [id number] 06:39:00* Test Item Value Reference Range Interpretation Comme nts VENOUS BLOOD GAS PH (test code = PHV) 7.36 7.35-7.45 N VENOUS BLOOD GAS PCO2 (test code = PCO2V) 36.4 mmHg See_Comment [Automated messa ge] The system which generated this result transmitted reference range: 46. The reference range was not used to interpret this result as normal/abnormal. VENOUS BLOOD GAS PO2 (test code = PO2V) 48.5 mmHg See_Comment [Automated messa ge] The system which generated this result transmitted reference range: 40. The reference range was not used to interpret this result as normal/abnormal. VBG HCO3 (test code = HCO3V) 20 meq/L VBG BASE EXCESS (test code = FORTUNATO) -4.7 MMOL/L VENOUS BLOOD GAS O2 SAT (test code = O2SATV) 83 % See_Comment [Automated messa ge] The system which generated this result transmitted reference range: 75. The reference range was not used to interpret this result as normal/abnormal. VENOUS BLOOD GAS TYPE (test code = TYPEV) Venous VENOUS BLOOD GAS FIO2 (test code = FIO2V) 25.0 % VBG VENT MODE (test code = MODEV) BIPAP BASIC METABOLIC [id number] 06:33:00* Test Item Value Reference Range Interpretation Comme nts SODIUM (test code = NA) 142 mmol/L 136-145 N POTASSIUM (test code = K) 3.9 mmol/L 3.5-5.1 N CHLORIDE (test code = CL) 110 mmol/l 98-107 H CARBON DIOXIDE (test code = CO2) 25 mmol/L 20-31 N GLUCOSE (test code = GLU) 153 ng/dL 74-106 H BLOOD UREA NITROGEN (test code = BUN) 8 mg/dL 9-23 L GLOMERULAR FILTRATION RATE (test code = GFR) >=60 max estimate mL/min >60 The Glomerular Filtration Rate is a calculated parameterbased on serum Creatinine, patient age and sex. GFR valuesless than 60 mL/min/1.73 square meters are indicative ofChronic Kidney Disease. Values less than 15 mL/min/1.73square meters indicate Kidney failure. The calculation forGFR is based on the CKD-EPI (2020) calculation. This formulais race indifferent and is the recommended formula for GFRby the National Kidney Foundation for Adults.The GFR will not calculate if the sex is unknown or if thepatient's age is <18 years. CREATININE (test code = CREAT) 0.70 mg/dL 0.55-1.02 N CALCIUM (test code = CA) 7.8 mg/dL 8.7-10.4 L [id number] 06:33:00* Test Item Value Reference Range Interpretation Comme nts MAGNESIUM (test code = MAG) 1.7 mg/dL 1.6-2.6 N [id number] 21:51:00* Test Item Value Reference Range Interpretation Comme nts GLUBED (test code = GLUBED) 196 MG/DL 70-105 H BLOOD GAS [id number]/[id number] 21:50:00* Test Item Value Reference Range Interpretation Comme nts ARTERIAL BLOOD GAS PH (test code = PHA) 7.27 7.35-7.45 L ARTERIAL BLOOD GAS PCO2 (test code = PCO2A) 42.4 mmHg 35.0-45.0 N ARTERIAL BLOOD GAS PO2 (test code = PO2A) 121.4 mmHg 80.0-95.0 H BICARBONATE TOTAL HCO3 (test code = HCO3) 19.0 mmol/L 22.0-24.0 L BASE EXCESS (test code = DEMI) -7.4 mmol/L See_Comment L [Automated message] The system which generated this result transmitted reference range: (+/-)2.0. The reference range was not used to interpret this result as normal/abnormal. ABG O2 SATURATION (test code = SATA) 97.6 % 95.0-100.0 N ARTERIAL FIO2 (test code = FIO2A) 50.0 % ABG VENT MODE (test code = MODEA) BIPAP ALLENS TEST (test code = ALLENS) No SODIUM (POC) (test code = NA/ABG) 140 mmol/L 135-147 N POTASSIUM (POC) (test code = K/ABG) 3.57 mmol/L 3.6-5.2 L CHLORIDE (ARTERIAL) (test code = CL/ABG) 112 mmol/L 98-108 H GLUCOSE (test code = GLU/ABG) 196 mg/dL 70-104 H IONIZED CALCIUM (test code = CAIABG) 1.09 mmol/L 1.12-1.32 L POC LACTIC ACID (test code = POCLAC) 1.73 mmol/L 0.5-2.2 N TOTAL HGB (test code = THB) 9.5 g/dL 12.0-16.0 L OXYHEMOGLOBIN (test code = OOHGBT) 97.0 % 92.0-98.0 N CARBOXYHEMOGLOBIN (test code = HOHGBT) 0.3 % 0-5.0 N METHEMOGLOBIN (test code = METHGB) <0.8 % 0-1.5 N HHb (test code = HHB) 2.4 % TCO2 ARTERIAL (test code = TCO2A) 20.3 MMOL/L 24-30 L [id number] 15:14:00* Test Item Value Reference Range Interpretation Comme nts GLUBED (test code = GLUBED) 97 MG/DL 70-105 N - XR CHEST 1 [id number] 13:04:00 [facility] : 1940 Sex: FPatient Name: KIMBERLY STRICKLAND Unit No: [id number] EXAMS: CPT CODE: [id number] XR CHEST 1 V 74418 CHEST, SINGLE VIEW LOCATION: A1 HISTORY: Preoperative evaluation. A single view of the chest was obtained at 9:41 AM. No prior exams are available for comparison. FINDINGS: The lungs are clear of acute infiltrate or mass. The heart and pulmonary vasculature are within normal limits. No pleural effusion is present. No free air is identified under the diaphragm. No acute skeletal abnormality is seen. IMPRESSION: No acute thoracic abnormality. at 1304 Reported and signed by: Jamari Buckner Jr, MD CC: Zander Arambula MD Technologist: Santana Morocho Time: DAP (Gy m2): Air Kerma (mGy): Trscr Dt/Tm: 11/14/2022 (1304) by:WeslyFAMPrinted Date/Time: 11/14/2022 (1307) [facility]ander Benites MD [address] : 1940 Age: 81 Sex: [place] [address] Loc:P.SRG Exam Date: 11/14/2022 Status: PRE IN PH: FAX: PAGE 1 Signed ReportVITAMIN [id number] 11:32:00* Test Item Value Reference Range Interpretation Comme [facility] VIT[facility] B12 (test code = VITB12) 462 pg/ml 180-914 FOLIC [id number] 11:32:00* Test Item Value Reference Range Interpretation Comme [facility] FOLIC ACID (test code = FOL) 22.45 ng/ml 6.59-20.0 H VITAMIN [id number] 11:31:00* Test Item Value Reference Range Interpretation Comme [facility] VITAMIN B12 (test code = VITB12) 462 pg/ml 180-914 N FOLIC [id number] 11:31:00* Test Item Value Reference Range Interpretation Comme nts FOLIC ACID (test code = FOL) 22.45 ng/ml 6.59-20.0 H BASIC METABOLIC [id number] 06:11:00* Test Item Value Reference Range Interpretation Comme nts SODIUM (test code = NA) 141 mmol/L 136-145 N POTASSIUM (test code = K) 3.6 mmol/L 3.5-5.1 CHLORIDE (test code = CL) 107 mmol/l 98-107 N CARBON DIOXIDE (test code = CO2) 26 mmol/L 20-31 N GLUCOSE (test code = GLU) 116 ng/dL 74-106 H BLOOD UREA NITROGEN (test code = BUN) 5 mg/dL 9-23 L GLOMERULAR FILTRATION RATE (test code = GFR) >=60 max estimate mL/min >60 The Glomerular Filtration Rate is a calculated parameterbased on serum Creatinine, patient age and sex. GFR valuesless than 60 mL/min/1.73 square meters are indicative ofChronic Kidney Disease. Values less than 15 mL/min/1.73square meters indicate Kidney failure. The calculation forGFR is based on the CKD-EPI (2020) calculation. This formulais race indifferent and is the recommended formula for GFRby the National Kidney Foundation for Adults.The GFR will not calculate if the sex is unknown or if thepatient's age is <18 years. CREATININE (test code = CREAT) 0.50 mg/dL 0.55-1.02 L CALCIUM (test code = CA) 8.4 mg/dL 8.7-10.4 L FE W/TOTAL IRON BINDING [id number] 06:10:00* Test Item Value Reference Range Interpretation Comme nts IRON (test code = IRON) 19 mcg/dL 50-175 L TOTAL IRON BINDING CAPACITY (test code = TIBC) 340 mcg/dL 250-425 N IRON SATURATION (test code = FESAT) 6 % 15-50 L [id number] 06:10:00* Test Item Value Reference Range Interpretation Comme nts FERRITIN (test code = MARCELLUS) 16.7 ng/mL 10.0-291.0 N CBC W/AUTO [id number] 05:47:00* Test Item Value Reference Range Interpretation Comme nts WHITE BLOOD CELL (test code = WBC) 4.0 x10 3/uL 4.8-10.8 L RED BLOOD CELL (test code = RBC) 4.12 x10 6/uL 4.20-5.40 L HEMOGLOBIN (test code = HGB) 10.2 g/dL 12.0-16.0 L HEMATOCRIT (test code = HCT) 32.9 % 37.0-47.0 L MEAN CELL VOLUME (test code = MCV) 79.9 fL 81.0-99.0 L MEAN CELL HGB (test code = MCH) 24.8 pg 27-31 L MEAN CELL HGB CONCENTRATION (test code = MCHC) 31.0 G/DL 33-36.5 L RED CELL DISTRIBUTION WIDTH (test code = RDW) 27.1 % 12.9-16.9 H PLATELET COUNT (test code = PLT) 146 x10 3/uL 150-440 L NEUTROPHIL % (test code = NT%) 65.0 % 42.2-75.2 N LYMPHOCYTE % (test code = LY%) 23.6 % 20.5-51.1 N MONOCYTE % (test code = MO%) 9.8 % 1.7-9.3 H EOSINOPHIL % (test code = EO%) 0.5 % 0.0-7.0 N BASOPHIL % (test code = BA%) 0.8 % 0-2.5 N NEUTROPHIL # (test code = NT#) 2.59 x10 3/uL 1.80-7.70 N LYMPHOCYTE # (test code = LY#) 0.94 x10 3/uL 1.00-4.80 L MONOCYTE # (test code = MO#) 0.39 x10 3/uL 0.00-0.80 N EOSINOPHIL # (test code = EO#) 0.02 x10 3/uL 0.00-0.45 N BASOPHIL # (test code = BA#) 0.03 x10 3/uL 0.0-0.20 N RETIC [id number] 05:47:00* Test Item Value Reference Range Interpretation Comme nts RETIC CT AUTOMATED (test cod e = RETICA) 1.24 % 0.50-1.[address] ABSOLUTE (test code = RET#) 51.10 x10 3/uL 20.00-90.00 N CBC W/AUTO [id number] 12:19:00* Test Item Value Reference Range Interpretation Comme nts WHITE BLOOD CELL (test code = WBC) 4.2 x10 3/uL 4.8-10.8 L RED BLOOD CELL (test code = RBC) 4.46 x10 6/uL 4.20-5.40 N HEMOGLOBIN (test code = HGB) 11.1 g/dL 12.0-16.0 L HEMATOCRIT (test code = HCT) 35.5 % 37.0-47.0 L MEAN CELL VOLUME (test code = MCV) 79.6 fL 81.0-99.0 L MEAN CELL HGB (test code = MCH) 24.9 pg 27-31 L MEAN CELL HGB CONCENTRATION (test code = MCHC) 31.3 G/DL 33-36.5 L RED CELL DISTRIBUTION WIDTH (test code = RDW) 27.1 % 12.9-16.9 H PLATELET COUNT (test code = PLT) 152 x10 3/uL 150-440 N MEAN PLATELET VOLUME (test code = MPV) Test not performed fL 8.9-12.4 ANALYZER NOT ABLE TO CALCULATE RESULTS NEUTROPHIL % (test code = NT%) 60.2 % 42.2-75.2 N LYMPHOCYTE % (test code = LY%) 28.2 % 20.5-51.1 N MONOCYTE % (test code = MO%) 10.4 % 1.7-9.3 H EOSINOPHIL % (test code = EO%) 0.5 % 0.0-7.0 N BASOPHIL % (test code = BA%) 0.5 % 0-2.5 N NEUTROPHIL # (test code = NT#) 2.50 x10 3/uL 1.80-7.70 N LYMPHOCYTE # (test code = LY#) 1.17 x10 3/uL 1.00-4.80 N MONOCYTE # (test code = MO#) 0.43 x10 3/uL 0.00-0.80 N EOSINOPHIL # (test code = EO#) 0.02 x10 3/uL 0.00-0.45 N BASOPHIL # (test code = BA#) 0.02 x10 3/uL 0.0-0.20 N - CT CHEST [id number] 20:09:00 [facility] STR[place] : 1940 Sex: FPatient Name: KIMBERLY STRICKLAND Unit No: [id number] EXAMS: CPT CODE: [id number] CT CHEST W/CO NTRAST [id number] EXAMINATION: - CT ABD PELVIS W/CONT, - CT CHEST W/CONTRAST INDICATION: colon mass/tumor, staging COMPARISON: None available at time of dictation LOCATION: H96 TECHNIQUE: CT chest, abdomen, and pelvis was performed with IV contrast. Sagittal and coronal reformatted images were created.This exam was performed according to our departmental dose optimization program, which includes automated exposure control, adjustment of the mA and/or kV according to patient size, and/or use of iterative reconstruction technique. Unless otherwise specified, incidental findings do not require dedicated imaging follow-up. FINDINGS: CHEST: Mild centrilobular emphysema. Multiple bilateral round cir cumscribed solid lung nodules. Reference right lower lobe nodule on image 82 of series 2 measures 1.0 cm. Reference nodule in superior segment of left lower lobe on image 29 of series 2 measures 0.8 cm. No acute pulmonary abnormality, pleural effusion, or pneumothorax. Patent central airways. Mild cardiomegaly. Heavily calcified coronary arteries. Normal caliber thoracic aorta and main pulmonary artery without obvious acute abnormality on non-CTA study. No enlarged thoracic lymphadenopathy. Noacute or aggressive appearing osseous abnormality. ABDOMEN AND PELVIS: Benign hepatic cysts measure up to 1.7 cm. There are also a few subcentimeter low-attenuation lesions which are too small to characterize. Liver does not exhibit gross morphologic features of cirrhosis. Unremarkable gallbladder, pancreas, spleen, and adrenal glands. Severe multifocal scarring of right kidney. Bilateral renal calculi, largest located in the inferior left renal pole measuring 0.6 cm. No solid-appearing renal lesion or hydronephrosis. Unremarkable urinary bladder. No obvious ovarian mass. Name: KIMBERLY STRICKLAND [facility] Phys: Ashu Noe [id number] : 1940 Age: 81 Sex: [place] [id number] Loc: [id number] 1 Exam Date: 11/12/2022 Status: DIS INPH: FAX: PAGE 1 Signed Report (CONTINUED) Patient Name: KIMBERLY STRICKLAND Unit No: [id number] EXAMS: CPT CODE: [id number] CT CHEST W/CONTRAST 16519 (Continued) Appendix not visualized. Moderate severity sigmoid diverticulosis without evidence of acute diverticulitis. Focal irregular wall thickening of cecum at ileocecal valve with associated wall thickening of the terminal ileum. A few adjacent soft tissue nodules measuring up to 1.0 cm. No evidence of small bowel obstruction, ascites, or pneumoperitoneum. Normal caliber abdominal aorta. No acute or aggressive appearing osseous abnormalityidentified. IMPRESSION: Irregular wall thickening of cecum and adjacent terminal ileum may correspond to history of colon cancer. There are a few adjacent soft tissue nodules are concerning for nodalmetastatic disease. A few low-attenuation liver lesions. Largest of these are cysts. Other lesions are too small to characterize. Multiple bilateral lung nodules concerning for metastatic disease. Other findings above. at 2008 Reported and signed by: Steven Urbina M.D. CC: Technologist: Nalini Lewis CTDI: DLP: Trscr Dt/Tm: 11/12/2022 (2008) by:[email or web address] Printed Date/Time: 01/07/2023 (1730) Name: NEELKIMBERLY RASHMI [facility] Phys: Ashu Noe [address] : 1940 Age: 81 Sex: F [place], [place] [id number] Loc: P.0928 1 Exam Date: 11/12/2022 Status: DIS IN PH: FAX: PAGE 2 Signed Report- CT CHEST W/[id number] 20:09:00 [facility] KIM[facility] STR[facility] RASHMI : 1940 Sex: FPatient Name: KIMBERLY STRICKLAND Unit No: [id number] EXAMS: CPT CODE: [id number] CT CHEST W/CO NTRAST 59322 EXAMINATION: - CT ABD PELVIS W/CONT, - CT CHEST W/CONTRAST INDICATION: colon mass/tumor, staging COMPARISON: None available at time of dictation LOCATION: H96 TECHNIQUE: CT chest, abdomen, and pelvis was performed with IV contrast. Sagittal and coronal reformatted images were created.This exam was performed according to our departmental dose optimization program, which includes automated exposure control, adjustment of the mA and/or kV according to patient size, and/or use of iterative reconstruction technique. Unless otherwise specified, incidental findings do not require dedicated imaging follow-up. FINDINGS: CHEST: Mild centrilobular emphysema. Multiple bilateral round circ umscribed solid lung nodules. Reference right lower lobe nodule on image 82 of series 2 measures 1.0 cm. Reference nodule in superior segment of left lower lobe on image 29 of series 2 measures 0.8 cm. No acute pulmonary abnormality, pleural effusion, or pneumothorax. Patent central airways. Mild cardiomegaly. Heavily calcified coronary arteries. Normal caliber thoracic aorta and main pulmonary artery without obvious acute abnormality on non-CTA study. No enlarged thoracic lymphadenopathy. No acute or aggressive appearing osseous abnormality. ABDOMEN AND PELVIS: Benign hepatic cysts measure up to 1.7 cm. There are also a few subcentimeter low-attenuation lesions which are too small to characterize. Liver does not exhibit gross morphologic features of cirrhosis. Unremarkable gallbladder, pancreas, spleen, and adrenal glands. Severe multifocal scarring of right kidney. Bilateral renal calculi, largest located in the inferior left renal pole measuring 0.6 cm. No solid-appearing renal lesion or hydronephrosis. Unremarkable urinary bladder. No obvious ovarian mass. Name: KIMBERLY STRICKLAND [facility] Phys: Ashu Noe [address] : 1940 Age: 81Sex: [place] [address] Loc: P.0728 1 Exam Date: 11/12/2022 Status: ADM IN PH: FAX: PAGE 1 Signed Report (CONTINUED) Patient Name: KIMBERLY STRICKLAND Unit No: [id number] EXAMS: CPT CODE: [id number] CT CHEST W/CONTRAST 14818 (Continued) Appendix not visualized. Moderate severity sigmoid diverticulosis without evidence of acute diverticulitis. Focal irregular wall thickening of cecum at ileocecal valve with associated wall thickening of the terminal ileum. A few adjacent soft tissue nodules measuring up to 1.0 cm. No evidence of small bowel obstruction, ascites, or pneumoperitoneum. Normal caliber abdominal aorta. No acute or aggressive appearing osseous abnormality identified. IMPRESSION: Irregular wall thickening of cecum and adjacent terminal ileum may correspondto history of colon cancer. There are a few adjacent soft tissue nodules are concerning for milagro metastatic disease. A few low-attenuation liver lesions. Largest of these are cysts. Other lesions are too small to characterize. Multiple bilateral lung nodules concerning for metastatic disease. Other findings above. at 2008 Reported and signed by: Steven Urbina M.D. CC: Technologist: Nalini Lewis CTDI: DLP: Trscr Dt/Tm: 11/12/2022 (2008) by:[email or web address] Printed Date/Time: 11/12/2022 (2011) Name: KIMBERLY STRICKLAND [facility] Phys: Ashu Noe [address] : 1940 Age: 81 Sex: [place] [address] Loc: P.0728 1 Exam Date: 11/12/2022 Status: ADM IN PH: FAX: PAGE 2 Signed Report- CT ABD PELVIS W/[id number] 20:09:00 [facility] KIM[facility]LY STRICK[facility] RASHMI : 1940 Sex: FPatient Name: KIMBERLY STRICKLAND Unit No: [id number] EXAMS: CPT CODE: [id number] CT ABD PELVIS W/CONT 12205 EXAMINATION: - CT ABD PELVIS W/CONT, - CT CHEST W/CONTRAST INDICATION: colon mass/tumor, staging COMPARISON: None available at time of dictation LOCATION: 6 TECHNIQUE: CT chest, abdomen, and pelvis was performed with IV contrast. Sagittal and coronal reformatted images were created.This exam was performed according to our departmental dose optimization program, which includes automated exposure control, adjustment of the mA and/or kV according to patient size, and/or use of iterative reconstruction technique. Unless otherwise specified, incidental findings do not require dedicated imaging follow-up. FINDINGS: CHEST: Mild centrilobular emphysema. Multiple bilateral round circ umscribed solid lung nodules. Reference right lower lobe nodule on image 82 of series 2 measures 1.0 cm. Reference nodule in superior segment of left lower lobe on image 29 of series 2 measures 0.8 cm. No acute pulmonary abnormality, pleural effusion, or pneumothorax. Patent central airways. Mild cardiomegaly. Heavily calcified coronary arteries. Normal caliber thoracic aorta and main pulmonary artery without obvious acute abnormality on non-CTA study. No enlarged thoracic lymphadenopathy. No acute or aggressive appearing osseous abnormality. ABDOMEN AND PELVIS: Benign hepatic cysts measure up to 1.7 cm. There are also a few subcentimeter low-attenuation lesions which are too small to characterize. Liver does not exhibit gross morphologic features of cirrhosis. Unremarkable gallbladder, pancreas, spleen, and adrenal glands. Severe multifocal scarring of right kidney. Bilateral renal calculi, largest located in the inferior left renal pole measuring 0.6 cm. No solid-appearing renal lesion or hydronephrosis. Unremarkable urinary bladder. No obvious ovarian mass. Name: KIMBERLY STRICKLAND [facility] Phys: Ashu Noe [address] : 1940 Age: 81 Sex: [place] [address] Loc: P.0728 1 Exam Date: 11/12/2022 Status: ADM IN PH: FAX: PAGE 1 Signed Report (CONTINUED) Patient Name: KIMBERLY STRICKLAND Unit No: [id number] EXAMS:CPT CODE: [id number] CT ABD PELVIS W/CONT 21074 (Continued) Appendix not visualized. Moderate severit y sigmoid diverticulosis without evidence of acute diverticulitis. Focal irregular wall thickening of cecum at ileocecal valve with associated wall thickening of the terminal ileum. A few adjacent soft tissue nodules measuring up to 1.0 cm. No evidence of small bowel obstruction, ascites, or pneumop eritoneum. Normal caliber abdominal aorta. No acute or aggressive appearing osseous abnormality identified. IMPRESSION: Irregular wall thickening of cecum and adjacent terminal ileum may correspond to history of colon cancer. There are a few adjacent soft tissue nodules are concerning for milagro metastatic disease. A few low-attenuation liver lesions. Largest of these are cysts. Other lesions aretoo small to characterize. Multiple bilateral lung nodules concerning for metastatic disease. Other findings above. at 2008 Reported and signed by: Steven Urbina M.D. CC: Technologist: Nalini Lewis CTDI: 8.45 DLP: 603 Trscr Dt/Tm: 11/12/2022 (2008) by:[email or web address] Printed Date/Time: 11/12/2022 (2011) Name: KIMBERLY STRICKLAND [facility] Phys: Ashu Noe [address] : 1940 Age: 81 Sex: F [place], [place] [address] [id number] Loc: P.0728 1 Exam Date: 11/12/2022 Status: ADM IN PH: FAX: PAGE 2 Signed Report- CT ABD PELVIS W/[id number] 20:09:00 [facility] : 1940 Sex: FPatient Name: KIMBERLY STRICKLAND Unit No: [id number] EXAMS: CPT CODE: [id number] CT ABD PELVI S W/CONT 66054 EXAMINATION: - CT ABD PELVIS W/CONT, - CT CHEST W/CONTRAST INDICATION: colon mass/tumor, staging COMPARISON: None available at time of dictation LOCATION: H96 TECHNIQUE: CT chest, abdomen, and pelvis was performed with IV contrast. Sagittal and coronal reformatted images were created. This exam was performed according to our departmental dose optimization program, which includes automated exposure control, adjustment of the mA and/or kV according to patient size, and/or use of iterative reconstruction technique. Unless otherwise specified, incidental findings do not require dedicated imaging follow-up. FINDINGS: CHEST: Mild centrilobular emphysema. Multiple bilateral round circumscribed solid lung nodules. Reference right lower lobe nodule on image 82 of series 2 measures 1.0 cm. Reference nodule in superior segment of left lower lobe on image 29 of series 2 measures 0.8cm. No acute pulmonary abnormality, pleural effusion, or pneumothorax. Patent central airways. Mild cardiomegaly. Heavily calcified coronary arteries. Normal caliber thoracic aorta and main pulmonaryartery without obvious acute abnormality on non-CTA study. No enlarged thoracic lymphadenopathy. Noacute or aggressive appearing osseous abnormality. ABDOMEN AND PELVIS: Benign hepatic cysts measureup to 1.7 cm. There are also a few subcentimeter low-attenuation lesions which are too small to eduardo acterize. Liver does not exhibit gross morphologic features of cirrhosis. Unremarkable gallbladder,pancreas, spleen, and adrenal glands. Severe multifocal scarring of right kidney. Bilateral renal calculi, largest located in the inferior left renal pole measuring 0.6 cm. No solid-appearing renal lesion or hydronephrosis. Unremarkable urinary bladder. No obvious ovarian mass. Name: SHAVON STRICKLAND [facility] Phys: Ashu Noe [address] : 1940 Age: 81 Sex: [place] [address] Loc: P.0928 1 Exam Date: 11/12/2022 Status: DIS INPH: FAX: PAGE 1 Signed Report (CONTINUED) Patient Name: KIMBERLY STRICKLAND Unit No: [id number] EXAMS: CPT CODE: [id number] CT ABD PELVIS W/CONT 62578 (Continued) Appendix not visualized. Moderate severity sigmoid diverticulosis without evidence of acute diverticulitis. Focal irregular wall thickening of cecum at ileocecal valve with associated wall thickening of the terminal ileum. A few adjacent soft tissue nodules measuring up to 1.0 cm. No evidence of small bowel obstruction, ascites, or pneumoperitoneum. Normal caliber abdominal aorta. No acute or aggressive appearing osseous abnormality identified. IMPRESSION: Irregular wall thickening of cecum and adjacent terminal ileum may correspond to history of colon cancer. There are a few adjacent soft tissue nodules are concerning for milagro metastatic disease. A few low-attenuation liver lesions. Largest of these are cysts. Other lesions are too small to characterize. Multiple bilateral lung nodules concerning for metastatic disease. Other findings above. at 2008 Reported and signed by: Steven Urbina M.D. CC: Technologist: Nalini Lewis CTDI: 8.45 DLP: 603 Trscr Dt/Tm: 11/12/2022 (2008) by:[email or web address] Printed Date/Time: 01/07/2023 (914) Name: KIMBERLY STRICKLAND [facility] Phys: Ashu Noe [address] : 1940 Age: 81 Sex:[place] [address] Loc: P.0928 1 Exam Date: 11/12/2022 Status: DIS IN PH: FAX: PAGE 2 Signed ReportCBC W/AUTO [id number] 18:49:00* Test Item Value Reference Range Interpretation Comme nts WHITE BLOOD CELL (test code = WBC) 5.6 x10 3/uL 4.8-10.8 N RED BLOOD CELL (test code = RBC) 4.80 x10 6/uL 4.20-5.40 N HEMOGLOBIN (test code = HGB) 11.9 g/dL 12.0-16.0 L HEMATOCRIT (test code = HCT) 38.7 % 37.0-47.0 N MEAN CELL VOLUME (test code = MCV) 80.6 fL 81.0-99.0 L MEAN CELL HGB (test code = MCH) 24.8 pg 27-31 L MEAN CELL HGB CONCENTRATION (test code = MCHC) 30.7 G/DL 33-36.5 L RED CELL DISTRIBUTION WIDTH (test code = RDW) 27.4 % 12.9-16.9 H PLATELET COUNT (test code = PLT) 175 x10 3/uL 150-440 N MEAN PLATELET VOLUME (test code = MPV) Test not performed fL 8.9-12.4 NEUTROPHIL % (test code = NT%) 64.1 % 42.2-75.2 N LYMPHOCYTE % (test code = LY%) 24.5 % 20.5-51.1 N MONOCYTE % (test code = MO%) 9.5 % 1.7-9.3 H EOSINOPHIL % (test code = EO%) 1.1 % 0.0-7.0 N BASOPHIL % (test code = BA%) 0.4 % 0-2.5 N NEUTROPHIL # (test code = NT#) 3.59 x10 3/uL 1.80-7.70 N LYMPHOCYTE # (test code = LY#) 1.37 x10 3/uL 1.00-4.80 N MONOCYTE # (test code = MO#) 0.53 x10 3/uL 0.00-0.80 N EOSINOPHIL # (test code = EO#) 0.06 x10 3/uL 0.00-0.45 N BASOPHIL # (test code = BA#) 0.02 x10 3/uL 0.0-0.20 N ANISOCYTOSIS (test code = ANISO) 3+ NONE SEEN A BASIC METABOLIC [id number] 17:50:00* Test Item Value Reference Range Interpretation Comme nts SODIUM (test code = NA) 138 mmol/L 136-145 N POTASSIUM (test code = K) 5.2 mmol/L 3.5-5.1 H CHLORIDE (test code = CL) 104 mmol/l 98-107 N CARBON DIOXIDE (test code = CO2) 23 mmol/L 20-31 N GLUCOSE (test code = GLU) 101 ng/dL 74-106 N BLOOD UREA NITROGEN (test code = BUN) 10 mg/dL 9-23 N GLOMERULAR FILTRATION RATE (test code = GFR) >=60 max estimate mL/min >60 The Glomerular Filtration Rate is a calculated parameterbased on serum Creatinine, patient age and sex. GFR valuesless than 60 mL/min/1.73 square meters are indicative ofChronic Kidney Disease. Values less than 15 mL/min/1.73square meters indicate Kidney failure. The calculation forGFR is based on the CKD-EPI (2020) calculation. This formulais race indifferent and is the recommended formula for GFRby the National Kidney Foundation for Adults.The GFR will not calculate if the sex is unknown or if thepatient's age is <18 years. CREATININE (test code = CREAT) 0.90 mg/dL 0.55-1.02 N CALCIUM (test code = CA) 9.1 mg/dL 8.7-10.4 N LIVER FUNCTION [id number] 17:50:00* Test Item Value Reference Range Interpretation Comme nts TOTAL PROTEIN (test code = PROT) 8.2 mg/dL 5.7-8.2 N ALBUMIN (test code = ALB) 4.8 mg/dL 3.2-4.8 N BILIRUBIN TOTAL (test code = BILT) 0.8 mg/mL 0.3-1.2 N BILIRUBIN DIRECT (test code = BILD) 0.2 mg/dL <0.3 N SGOT/AST (test code = AST) 59 I/U <34 H SGPT/ALT (test code = ALT) 15 U/L 10-49 N ALKALINE PHOSPHATASE (test c ode = ALKP) 48.0 U/L 46-116 N [id number] 17:50:00* Test Item Value Reference Range Interpretation Comme nts LIPASE (test code = LIP) 57 U/L 12-53 H PROTHROMBIN [id number] 17:48:00* Test Item Value Reference Range Interpretation Comme nts PROTHROMBIN TIME PATIENT (test code = PTP) 12.5 SECONDS 10.3-12.9 N INTERNATIONAL NORMAL RATIO (test code = INR) 1.06 INR UNIT 0.9-1.11 N The INR is usefu l only for monitoring anticoagulant therapy.It may be unreliable in the initial phase of antigoagulationand in unstable patients. Indication for Anticoagulation Recommended INR 1. Prevention of venous thomboembolism 2.0-3.0in high-risk patients; treatment of venousthrombosis and pulmonary embolism aftera course of heparin; prevention of systemicembolism in a variety of conditions, including atrial fibrillation and prothetic tissue heart valves, 2. Prosthetic mechanical heart valves; 2.5-3.5recurrent systemic embolism. THROMBOPLASTIN TIME [id number] 17:48:00* Test Item Value Reference Range Interpretation Comme nts THROMBOPLASTIN TIME PARTIAL (test code = PTT) 34.2 SECONDS 23.8-34.8 N INTERPRETATIVE DATA:Therapeutic range: Unfractionated heparin:55 - 80 seconds Argatroban:1.5 to 3 times the baseline PTT - XR CHEST 1 [id number] 17:07:00 [facility] STR[facility] : 1940 Sex: FPatient Name: KIMBERLY STRICKLAND Unit No: [id number] EXAMS: CPT CODE: [id number] XR CHEST 1 V 72532 EXAMINATION: - XR CHEST 1 V INDICATION: preop COMPARISON: None available at time of dictation LOCATION: H96 FINDINGS: Clear lungs. No visible pleural fluid or pneumothorax. Normal cardiac silhouette. IMPRESSION: No acute radiographic abnormality. at 1707 Reported and signed by: Steven Urbina M.D. CC: Technologist: Ajit Crenshaw Fluoro Time: DAP (Gy m2): Air Kerma (mGy): Trscr Dt/Tm: 11/12/2022 (1707) by:[email or web address] Printed Date/Time: 01/07/2023 (2228) Name: KIMBERLY STRICKLAND [facility] Phys: Ashu Noe [address] : 1940 Age: 81 Sex: [place] [address] Loc: P.0928 1 Exam Date: 11/12/2022 Status: DIS IN PH: FAX: PAGE 1 Signed Report- XR CHEST 1 [id number] 17:07:00 [facility] KIMBERLY STR[facility] : 1940 Sex: FPatient Name: KIMBERLY STRICKLAND Unit No: [id number] EXAMS: CPT CODE: [id number] XR CHEST 1 V 11684 EXAMINATION: - XR CHEST 1 V INDICATION: preop COMPARISON: None available at time of dictation LOCATION: H96 FINDINGS: Clear lungs. No visible pleural fluid or pneumothorax. Normal cardiac silhouette. IMPRESSION: No acute radiographic abnormality. at 1707 Reported and signed by: Steven Urbina M.D. CC: Technologist: Ajit Morocho Time: DAP (Gy m2): Air Kerma (mGy): Trscr Dt/Tm: 11/12/2022 (1707) by:[email or web address] Printed Date/Time: 11/12/2022 (4481) Name: KIMBERLY STRICKLAND [facility] Phys: Ashu Noe [address] : 1940 Age: 81 Sex: [place] [address] Loc: P.ERS Exam Date: 11/12/2022 Status: REG ER PH: FAX: PAGE 1 Signed Report Notes Date/Time Note Provider Source 2022-12-23 22:50:00 [id number] d4+udpTSeBmbRCGg/rXGjXAS5ruq5 [id number]33:50:38029 9-0462 [facility] [address] [place] [address] PATIENT NAME: KIMBERLY STRICKLAND ADMIT DATE: 11/12/22ACCOUNT NO: [id number] ROOM NO: [facility] AGE: 82 REPORT TYPE: 360 - QUERY RESPONSE DOCUMENT SEX: F ADMITTING PHYSICIAN:Margarita Zhong MD ATTENDING PHYSICIAN:Margarita Zhong MD Provider Query QUERY TEXT: Condition General 360MD Query related questions should be directed to: Query Helpline [phone] Based on your clinical judgement, can you further clarify/ confirm acute respiratory failure, postoperative?acute respiratory distress, postoperative?Other more appropriate diagnosis? The patient's Clinical Indicators include:81 yr old female patient with colon cancer - presents for (R) hemicolectomy. Care Consult 11/15#Acute Respiratory Failure:- hx of COPD but imaging and bedside spirometry not consistent with COPD- acute respiratory distress post-operatively likely related to fluid shiftsand abdominal insufflation- ABG on BiPAP acceptable- cont BiPAP support for tonight- transition to NC in AM once mentation better- cont bronchodilators- pulmonary following Pulm PN 11/15-Patient was transferred to ICU last night after surgery due to agitation/delirium.She was put on BIPAP due to concern for hypercapnea; however ABG at the PACUshowed a PaCO2 of only 42 mmHg.She had moderate metabolic acidosis with HCO3of 19, BE (-.4). SpO2 96% on room air during my visit.She ambulated 3 laps around the nursing station.Incentive spirometry: 750 ml.CXR today: Clear. Options provided:-- Respond - Create new note now-- Dismiss - Not applicable / Not valid-- Dismiss - Clinically unable to determine / Unknown-- Assign to another provider QUERY RESPONSE: Acute Respiratory Failure, post-operative. Query created by: Liza Holcomb on 12/19/2022 1:04 PM at 2250 PATIENT NAME: KIMBERLY STRICKLAND noteP.[id number] for patient dgpxKYKRRDTLCNNDVU6320-72-19Z65:46:49 [facility] 2022-11-25 15:51:00 [id number] T+nH0hnP+yrDcBpssiNnkuxwudNfR YadIQr9evVDk7l+MMmb1UNx5eGg9600-39-73T99:51:88587 8-0041 [facility] [address] [place] [address] PATIENT NAME: KIMBERLY STRICKLAND ADMIT DATE: 11/12/22ACCOUNT NO: [id number] ROOM NO: P.0928 AGE: 81 REPORT TYPE: OPERATIVE REPORT SEX: F ADMITTING PHYSICIAN:Margarita Zhong MD ATTENDING PHYSICIAN:Margarita Zhong MD OPERATION DATE: 11/14/2022 PREOPERATIVE DIAGNOSIS: Mass of the ascending colon. POSTOPERATIVE DIAGNOSIS: Mass of the ascending colon. PROCEDURES PERFORMED:1. Laparoscopic-assisted robotic oncologic right hemicolectomy with extensivelymph node dissection and primary resection and anastomosis.2. Omentectomy. COLORECTAL SURGEON: Zander Arambula MD ANESTHESIA: General endotracheal anesthesia. SPECIMENS:1. Right colon.2. Lymph nodes.3. Omentum. INDICATIONS AND FINDINGS: The patient presents with a lesion consistent withmalignancy in the right colon, warranting surgical intervention. This was anoncologic resection with extensive resection and lymph node dissection,extensive in nature into the retroperitoneum off the tributaries of theperiaortic area. The omentum was wrapped around the area of the surgery andrequired an omentectomy as well in order to remove the disease in the omentumand ensured no evidence of malignancy in this tissue. Procedure was performedrobotic-assisted laparoscopic approach. The surgical first coat operator was presentand required to complete the procedure in a safe and minimally invasive fashion. She tolerated the procedure well without complications. DESCRIPTION OF PROCEDURE: She was taken to the operating room and afterinduction of anesthesia, placed in position, she was prepped and draped in sterile fashion. Laparoscopic access was gained with optical entry port and a total of three 8 mm robotic ports were placed and one 12 mm robotic port in the suprapubic area, which was later used for an extraction incision. Examination was performed with no evidence of metastatic disease; however, we performed an extensive lymph node dissection around the tributaries of the periaortic area into the retroperitoneum. We began at the level of the ileocolic artery, swept all the lymph nodes up off the retroperitoneum, taking care to identify and preserve the duodenum and the critical structures around that region. Wecontinued to sweep the lymph nodes off the greater curvature of the duodenum and PATIENT NAME: KIMBERLY STRICKLAND mesenteric root along the pancreatic head to the level of the ileocolicbranches, including right branch of the middle colic, sweeping all the lymphnodes off. Once that was performed, we divided the base of the ileocolic arterywith the robotic stapler. We divided the right branch of middle colic with theVessel Sealer Extend. We took the proximal dissection to the ileocolic regionacross the mesentery in addition along the transverse colon. Next, we took downthe hepatic flexure white line of Toldt and completed the completeretroperitoneal dissection. Next, we introduced the stapler, we dividedproximal across the bowel and then distal across the bowel. We resected ourspecimen with the lymph nodes. Next, we performed an intracorporealanastomosis, but it should be noted that the omentum was wrapped around thelevel of the ascending colon, required an omentectomy using the Vessel SealerExtend. We took the omentum from the greater curvature of the stomach and thenwe took it through along the gastrocolic ligament along the transverse colon.We removed this and sent as a separate specimen, called the omentum. Next, wehad to perform an intracorporeal anastomosis for bowel continuity. We alignedthe bowel in an isoperistaltic fashion. Anastomosis was initiated by makingantimesenteric enterotomies. We aligned the bowel cqgp-od-kdga and performedthe common channel of our anastomosis using one firing of the robotic staplerwith a blue load. Next to complete the anastomosis, we did a 2-layer closurewith 3-0 V-Loc suture robotically. The anastomosis was intact, tension free andviable. No evidence of any leak. Therefore, we were ready to complete ourprocedure. Next, pneumoperitoneum was released. The ports were removed. The12 mm port site was extended to the fascia and peritoneum in order to allow usto extract the omentum in order to allow us to extract the bowel and the lymphnodes. Next, we closed this with #1 PDS suture, 4-0 Monocryl and Dermabond. Needle, instrument, laparotomy count was performed and was correct. The patienttolerated the procedure well and was extubated and taken to recovery room ingood condition. Dictated By: Zander Arambula MD Date Dictated: 11/25/2022 15:51:54Date Transcribed: 11/25/2022 17:00:04MADHURI/CONSTANZA/iNkkie #: [id number] ID: [id number] and Edited by Zander Arambula MD On 11/28/22 3:58:02 PM at 0359 PATIENT NAME: KIMBERLY STRICKLAND wekiii4730-47-80R04:00:00P.[id number] lable for patient ikkgBNWZPSNOMZMPNX5703-73-50F16:59:47 [facility] 2022-11-17 14:30:00 [id number] t2PcfxzwDPlK+Cd2CI5zR4y2wDDty PFh6ln/QlSsNjkhsZiaKG25Z6g37734-07-16S93:30:00 [facility] ([facility]) Hospitalist D/C Summary REPORT #: [id number] REPORT STATUS: Signed DATE: 11/17/22 TIME: 1430 PATIENT: KIMBERLY STRICKLAND UNIT #: [id number] #: [id number] ROOM #: P.0928 BED: 1 : 40 AGE: 81 SEX: F ATTEND: Margarita Zhong MD ADM AUTHOR: Margarita Zhong MD ATTENTION EDITS and/or ADDENDA must be made in Patient Keeper for this note. Edits and ammendments created in [employer] are not visible in Patient Keeper or the legal medical record (HPF). -- PROBLEMS/PROCEDURES -- ADMISSION DATE:11/12/22 ADMITTING DIAGNOSES: - Colonic mass - Coronary artery disease - Diabetes mellitus - DVT prophylaxis - Gastroesophageal reflux disease - Hyperlipidemia - Hypertension - Hypokalemia - Hypomagnesemia - Iron deficiency anemia - Multiple lung nodules on CT DISCHARGE DATE:11/17/22 DISCHARGE DIAGNOSES: - Colonic mass - Coronary artery disease - Diabetes mellitus - DVT prophylaxis - Gastroesophageal reflux disease - Hyperlipidemia - Hypertension - Hypokalemia - Hypomagnesemia - Iron deficiency anemia - Multiple lung nodules on CT -- HOSPITAL COURSE -- HOSPITAL COURSE:Patient is an 81 year old woman with history of diabetes, hypertension,hyperlipidemia, who reports having some intermittent right sided abdomen pain.Patient states that she had a bowel movement two days ago. She reports episodesof hematochezia approximately 1 month ago, and required blood transfusions. Shehad a colonoscopy and GI workup in [place]. Patient was told she had anobstructing colon mass that was believed to be cancer. She was referred to Dr. Arambula for colorectal surgery. CT scan revealed heavily calcified coronaryarteries, soft tissue nodules concerning for milagro metastatic disease, andmultiple bilateral lung nodules concerning for metastatic disease. She reportsremote tobacco use, but denies problems with her lungs. Patient underwentrobotic assisted right hemicolectomy. Patient did well during course ofhospitalizaton. She was cleared by sx. Patient will be discharged in stablecondition. Total time spent with patient was 32 minutes. Problems:1. Colonic massA/P: Dr. Arambula consulted.s/p robotic assisted right hemicolectomyContinue postoperative care per Dr. Benjamin silveira - Scheduled po Tylenol. Celebrex prn, Tramadol prnClear liquid diet until flatusContinue IV hydration until tolerating oral intake well.2. Coronary artery diseaseA/P: CT revealed heavily calcified coronary arteries.cardiac evaluation per Dr. Cook 55-60%, Normal ECGNo additional cardiovascular testing needed.Continue beta blocker3. Multiple lung nodules on CTA/P: Dr. Butler consulted for pulmonary evaluation.CT-guided lung biopsy recommended after colon surgery.4. HypertensionA/P: Continue metoprolol xl 25 mg daily5. HyperlipidemiaA/P: Continue Rosuvastatin 10 mg daily6. Diabetes mellitusA/P: Stopped taking metforminGlucose is controlledMonitor7. Gastroesophageal reflux diseaseA/P: Continue PPI8. Iron deficiency anemiaA/P: Continue ferrous gluconate after recovery from surgeryNo IV iron supplements per CRSRepeat Hgb at noon.9. HypomagnesemiaA/P: Replete Mag Sulfate 2 gm IV x 110. HypokalemiaA/P: Replete KCl 40 meq IV x 1 Problems:1. Colonic massA/P: Dr. Arambula consulted.s/p robotic assisted right hemicolectomyfollow up with Dr. Benjamin silveira - tylenol prn Tramadol prntolerating diet 2. Coronary artery diseaseA/P: CT revealed heavily calcified coronary arteries.cardiac evaluation per Dr. Cook 55-60%, Normal ECGNo additional cardiovascular testing needed.Continue beta jenae 3. Multiple lung nodules on CTA/P: Dr. Butler consulted for pulmonary evaluation.CT-guided lung biopsy recommended after colon surgery-patient declined furthertesting. 4. HypertensionA/P: Continue metoprolol xl 25 mg daily 5. HyperlipidemiaA/P: Continue Rosuvastatin 10 mg daily 6. Diabetes mellitusA/P: Stopped taking metforminGlucose is controlled 7. Gastroesophageal reflux diseaseA/P: Continue PPI8. Iron deficiency anemiaA/P: Continue ferrous gluconate after recovery from surgeryNo IV iron supplements per CRSRepeat Hgb at noon.9. HypomagnesemiaA/P: Repleted Mag Sulfate 2 gm IV x 110. HypokalemiaA/P: Repleted KCl 40 meq IV x 1 -- DISCHARGE MEDICATIONS -- ALLERGIES:Penicillins (Severe - Allergy) -- DISCHARGE INSTRUCTIONS -- ADDTIONAL DISCHARGE INSTRUCTIONS:Emergency Instructions: The patient was instructed to present to the [facility] Department or call 911 should their symptoms return or worsen.; -- OBJECTIVE -- VITALS (11/17 06:46 - 11/18 06:46):Temperature C: 36.7Temperature source: OralPulse Rate 102 Respiratory rate: 12BP: 147/75 I/Os (11/16 07:00 - 11/17 07:00):Net 1,050.00Intake 2,450.00Output 1,400 -EXAM- GENERAL: Physical examination: General: Alert and responsive. HEENT: [place] conjunctivae, anicteric sclerae, negative jugular venous distension. Upper and lower dental implants, Mallampatic class 2, mild erythema on the pharynx and uvula. Chest: Decreased breath sounds. Heart: Regular rate and rhythm, S1 and S2 normal. Abdomen: Soft, non-distended, non-tender, normoactive bowel sounds. Extremities: No edema, no cyanosis, no tenderness. Neurologic: No gross motor or sensory deficits. Skin: No rash. Signed in PatientKeeper by Margarita Zhong MD on 11/28/22 at 14:01 at 1401ATTENTION EDITS and/or ADDENDA must be made in Patient Keeper for this note. Edits and ammendments created in [facility] are not visible in Patient Keeper or the legal medical record (HPF). [facility] #: [id number] OF REPORTDSDischarge axgnbfw4213-94-01B46:30:00P.JK-[id number] VAvailable for patient avieASARVACZUWDRCS9401-65-74W58:02:04 [facility] 2022-11-17 14:25:00 [id number] N3Ua/dm1BCQO4KCzkn8B05FAu+B/8 C3CgJ9k1ULr7Ti52V4TtsupArCH0550-52-48C68:25:00 [facility] ([facility]) Med Order Sheet REPORT #: [id number] REPORT STATUS: Signed DATE: 11/17/22 TIME: 1424 PATIENT: KIMBERLY STRICKLAND UNIT #: [id number] #: [id number] ROOM #: [facility]28 BED: 1 : 40 AGE: 81 SEX: F ATTEND: Margarita Zhong MD ADM AUTHOR: Margarita hZong MD ATTENTION EDITS and/or ADDENDA must be made in Patient Keeper for this note. Edits and ammendments created in [facility] are not visible in Patient Keeper or the legal medical record (HPF). Discharge Medication Reconciliation Hosp: traMADol Tab (Ultram Tab) Dose: 50 MG PO Q6H PRN pain/cramps, Disp: 20 tablet, Refills: 0Hosp: Discontinue: traMADol Tab (Ultram Tab) Dose: 50MG PO Q4H PRN pain scale 4-6, Disp: 30 tablet, Refills: 0 STOPPED HOSPITAL MEDICATIONSDc'd: traMADol Tab (Ultram Tab) 50MG PO Q4H PRN pain scale4-6 :25 at 1425ATTENTION EDITS and/or ADDENDA must be made in Patient Keeper for this note. Edits and ammendments created in [facility] are not visible in Patient Keeper or the legal medical record (HPF). RPT #: [id number] OF REPORTCLClinical wisz4391-13-03B23:25:00P.US-[id number] ailable for patient npokWJNSCLROOSEAUR3475-83-60R34:25:55 [facility] 2022-11-17 14:23:00 [id number] gECCoQPtAB9wl8YqFAeoixl0hi8Ly HOvRRiBJZzVnD/i3RmirGBjeizJ0665-25-99U64:23:00 [facility] ([facility]) Med Order Sheet REPORT #: [id number] REPORT STATUS: Signed DATE: 11/17/22 TIME: 1422 PATIENT: KIMBERLY STRICKLAND UNIT #: [id number] #: [id number] ROOM #: P.0928 BED: 1 : 40 AGE: 81 SEX: F ATTEND: Margarita Zhong MD ADM AUTHOR: Margarita Zhong MD ATTENTION EDITS and/or ADDENDA must be made in Patient Keeper for this note. Edits and ammendments created in [facility] are not visible in Patient Keeper or the legal medical record (HPF). Discharge Medication Reconciliation DISCHARGE MEDICATION LISTferrous gluconate tablet Dose: OralmetFORMIN Tab (Glucophage Tab) Dose: 500 MG PO DAILYMetoprolol Succinate XL Tab (Toprol XL Tab) Dose: 25 MG PO DAILYomeprazole capsule,delayed release Dose: 40 MG PO DAILYRosuvastatin Tab (Crestor Tab) Dose: 10 MG PO DAILYAcetaminophen Tab (Tylenol Tab) Dose: 650MG PO Q6HR PRN pain - not to exceed 4000 mg dailytraMADol Tab (Ultram Tab) Dose: 50MG PO Q4H PRN pain scale 4-6, Disp: 30 tablet, Refills: 0 STOPPED HOSPITAL MEDICATIONSDc'd: Acetaminophen Tab (Tylenol Tab) 650MG PO Q4H PRN pain (1-3) ortemp>100.4Dc'd: Albuterol/Ipratrop Neb Soln (Duoneb Neb Soln) 3ML Neb [id number] shortness of breath/congestionDc'd: Albuterol/Ipratrop Neb Soln (DuonebNeb Soln) 3ML Neb VUI4YJq'd: Celecoxib Cap (CeleBREX Cap) 200MG PO Q12H PRN pain scale 4-6Dc'd: Enoxaparin 40 mg/0.4 ml Inj (Lovenox 40 mg/0.4 ml Inj)40MG SubQ DAILY@0600Dc'd: Lactated Ringers 1000mL (LR 1000mL) 1000ML KVO IV Dc'd: Melatonin 3MG PO BEDTIME PRN insomniaDc'd:Ondansetron Inj (Zofran Inj) 4MG IV Q8H PRN nausea and vomitingDc'd:Simethicone Chew Tab (Mylanta Gas Chew Tab) 80MG PO Q6H PRN gasDc'd: SodiumChloride 0.9% (NS) 500ML 20 MLS/HR IV at 1423ATTENTION EDITS and/or ADDENDA must be made in Patient Keeper for this note. Edits and ammendments created in [employer] are not visible in Patient Keeper or the legal medical record (HPF). RPT #: [id number] OF REPORTCLClinical lhjn2461-56-40F11:23:00P.MV-[id number] ailable for patient jpkvPJNMEEKVLSBCJX9855-83-00F15:23:35 [facility] 2022-11-17 10:01:00 [id number] o3c8dviBdRBRouoQqZKrr0+79IWFn lzZsNUfyFc7sbEMNPKOeqqt0B7H4389-39-29F29:01:00 [facility] ([facility]) Pulmonology Progress Note REPORT #: [id number] REPORT STATUS: Signed DATE: 11/17/22 TIME: 1001 PATIENT: KIMBERLY STRICKLAND UNIT #: [id number] #: [id number] ROOM #: P.0928 BED: 1 : 40 AGE: 81 SEX: F ATTEND: Margarita Zhong MD ADM AUTHOR: Emilie Butler MD ATTENTION EDITS and/or ADDENDA must be made in Patient Keeper for this note. Edits and ammendments created in [employer] are not visible in Patient Keeper or the legal medical record (HPF). -- ASSESSMENT AND PLAN -- GENERAL ASSESSMENT:PULMONARY MEDICINE PROGRESS NOTE No SOB or cough.She remained on room air.Incentive spirometry: 750 ml. (+) Flatus this am.She will start soft diet today. ASSESSMENT AND PLAN:1. Colon cancer, s/p surgery (11/14/2022).Follow-up final operative report -> not in the computer yet as of today(11/17/2022).Awaits pathology report.Continue pain control. 2. Chronic obstructive pulmonary disease, emphysema.History of heavy tobacco use. Bedside spirometry (11/13/2022):FEV1/ FVC: 83%.FEV1 1.04 (54% predicted).FVC 1.25 L (48% predicted).Impression: No obstruction. Decreased FVC suggestive of restriction, but notconfirmed by lung volume studies. Continue Duoneb q 4 hours prn and q 6 hours scheduled.Continue incentive spirometry and acapella. 3. Bilateral pulmonary nodules, probably metastatic.I asked patient on 11/16/2022 (in the presence of her ) if she wanted topursue CT-guided lung biopsy of the pulmonary nodules.Patient declined lung biopsy at this time.She is aware that the pulmonary nodules could be malignant and could get biggerif they were malignant. 4. Essential hypertension, chronic diastolic congestive heart failure, coronaryartery disease (on CT chest) .No previous history of congestive heart failure or coronary artery disease. EKG (11/12/2022): Normal sinus rhythm. Nonspecific ST and T wave abnormality. Echo (11/13/2022):1. Left ventricle: The cavity size is normal. There is mild concentrichypertrophy. Systolic function is normal. The estimated ejection fraction is55-60%. Wall motion is normal; there are no regional wall motion abnormalities.Doppler parameters are consistent with abnormal left ventricular relaxation(grade 1 diastolic dysfunction).2. Right ventricle: The RV pressure during systole by Doppler is 23 mm Hg.3. Mitral valve: The annulus is severely calcified and moderately thickened. Continue Metoprolol po.Continue to monitor blood pressure and heart rate. 5. Anemia due to gastrointestinal blood loss from bleeding colon cancer,chronic iron deficiency anemia.Labs (11/14/2022): Fe 19, TIBC 340, Fe sat 6%, ferritin 16.7, folate 22.45,vitamin B12 462. Continue to monitor Hb and transfuse as needed.Continue IV Fe (11/16/2022). 6. Acute debility.Continue PT/ OT. 7. Continue Enoxaparin for deep venous thrombosis prophylaxis. 8. Care coordinated with RN. -- SUBJECTIVE -- PATIENT NARRATIVE:No SOB or cough.She remained on room air.Incentive spirometry: 750 ml. (+) Flatus this am.She will start soft diet today. -- OBJECTIVE -- VITALS (11/16 10:01 - 11/17 10:01):Temperature C: 36.7 (36.5 - 36.8)Temperature source: OralPulse Rate 102 (84 - 102)Respiratory rate: 12 (12 - 19)BP: 147/75 (124/70 - 159/83) I/Os (11/16 07:00 - 11/17 07:00):Net 1,050.00Intake 2,450.00Output 1,400 -EXAM- GENERAL: Physical examination: General: Alert and responsive. HEENT: [place] conjunctivae, anicteric sclerae, negative jugular venous distension. Upper and lower dental implants, Mallampatic class 2, mild erythema on the pharynx and uvula. Chest: Decreased breath sounds. Heart: Regular rate and rhythm, S1 and S2 normal. Abdomen: Soft, non-distended, non-tender, normoactive bowel sounds. Extremities: No edema, no cyanosis, no tenderness. Neurologic: No gross motor or sensory deficits. Skin: No rash. -- DATA -- MEDICATIONS SIMETHICONE 80 MG PO Q6H PRNENOXAPARIN SODIUM 40 MG SUBQ DAILY@0600ACETAMINOPHEN 650 MG PO Q4H PRNCELECOXIB 200 MG PO Q12H PRNPANTOPRAZOLE 40 MG PO DAILYIPRATROPIUM/ALBUTEROL SULFATE 3 ML NEB RTQ4H PRNMETOPROLOL SUCCINATE 25 MG PO DAILYSODIUM CHLORIDE 0.9% 500 ML IV .[id number] 650 MG PO [id number] CALCIUM 10 MG PO BEDTIMEtraMADol HCL 50 MG PO Q4H PRNRINGERS, LACTATED 1000 ML IV .R19MGZV FERRIC GLUC COMPLX/SUCROSE with/in SODIUM CHLORIDE 100 mL BAG 125 MG IVDAILYIPRATROPIUM/ALBUTEROL SULFATE 3 ML NEB [id number] 3 MG PO BEDTIME PRNONDANSETRON HCL/PF 4 MG IV Q8H PRN LABS CBC W/MANUAL DIFF (11/17/22 02:05)WHITE BLOOD CELL 7.5RED BLOOD CELL 3.69 LHEMOGLOBIN 9.3L LHEMATOCRIT 29.7L LMEAN CELL VOLUME 80.5 LMEAN CELL HGB 25.2 LMEAN CELL HGB CONCENTRATION 31.3 LRED CELL DISTRIBUTION WIDTH 24.9 HPLATELET COUNT 116L LMEAN PLATELET VOLUME TNPNEUTROPHIL % 81.7 HLYMPHOCYTE % 10.7 LMONOCYTE % 6.3EOSINOPHIL % 0.5BASOPHIL % 0.1NEUTROPHIL # 6.10LYMPHOCYTE # 0.80 LMONOCYTE # 0.47EOSINOPHIL # 0.04BASOPHIL # 0.01TOTAL CELLS COUNTED 100 MAG (11/17/22 02:05)MAGNESIUM 1.7 CBC W/AUTO DIFF (06/09/23 13:10)WHITE BLOOD CELL 10.3RED BLOOD CELL 3.37 LHEMOGLOBIN 8.5L LHEMATOCRIT 27.3L LMEAN CELL VOLUME 81.0MEAN CELL HGB 25.2 LMEAN CELL HGB CONCENTRATION 31.1 LRED CELL DISTRIBUTION WIDTH 27.0 HPLATELET COUNT 118L LNEUTROPHIL % 87.0 HLYMPHOCYTE % 6.8 LMONOCYTE % 5.4EOSINOPHIL % 0.0BASOPHIL % 0.1NEUTROPHIL # 8.97 HLYMPHOCYTE # 0.70 LMONOCYTE # 0.56EOSINOPHIL # 0.00BASOPHIL # 0.01 Signed in PatientKeeper by EMILIE BUTLER MD on 11/17/22 at 13:14 at 1314ATTENTION EDITS and/or ADDENDA must be made in Patient Keeper for this note. Edits and ammendments created in [facility] are not visible in Patient Keeper or the legal medical record (HPF). [facility] #: [id number] OF REPORTPRProgress ewly6537-38-81O75:01:00P.JE-[id number] ailable for patient sfkzNHEAYWAVYHAKKA0776-07-55O29:15:14 [facility] 2022-11-17 07:10:00 [id number] OcYuRkEvSmhVp30eJdm4fIaEkrmYM I5aQ0jQ4WZ2gDeoSsTK24DsRbv91014-97-79R01:10:00 [facility] ([facility]) Progress Note REPORT #: [id number] REPORT STATUS: Signed DATE: 11/17/22 TIME: 709 PATIENT: KIMBERLY STRICKLAND UNIT #: [id number] #: [id number] ROOM #: P.0928 BED: 1 : 40 AGE: 81 SEX: F ATTEND: Margarita Zhong MD ADM AUTHOR: Andrei Cisneros MD ATTENTION EDITS and/or ADDENDA must be made in Patient Keeper for this note. Edits and ammendments created in [employer] are not visible in Patient Keeper or the legal medical record (HPF). -- ASSESSMENT AND PLAN -- GENERAL ASSESSMENT:She reports "feeling good". She denies nausea. She denies pain. No flatus orBM yet reported. VSS, labs reveiwedHb 8.5 to 9.3 after 1U PRBC yesterday.Abdomen: nondistended, soft, appropriately tender to palpation, incisionsclean/dry/intact A/PPOD #3 from RAL right hemicolectomy1. Continue CLD until she has return of bowel function. Once passing flatus canadvance to soft diet.2. Ambulate in hallways 10x per day.3. Appropriate response to transfusion. Recheck Hgb in AM. Monitor vitals.Avoid iron supplementation in the early postoperative period.4. Anticipate discharge home once tolerating a soft diet and having bowelfunction. -- OBJECTIVE -- VITALS (11/16 07:10 - 11/17 07:10):Temperature C: 36.7 (36.5 - 36.9)Temperature source: OralPulse Rate 93 (84 - 96)Respiratory rate: 19 (12 - 19)BP: 159/77 (124/67 - 159/83) I/Os (11/16 07:00 - 11/17 07:00):Net 1,050.00Intake 2,450.00Output 1,400 -- DATA -- MEDICATIONS SIMETHICONE 80 MG PO Q6H PRNENOXAPARIN SODIUM 40 MG SUBQ DAILY@0600ACETAMINOPHEN 650 MG PO Q4H PRNCELECOXIB 200 MG PO Q12H PRN PANTOPRAZOLE 40 MG PO DAILYIPRATROPIUM/ALBUTEROL SULFATE 3 ML NEB RTQ4H PRNMETOPROLOL SUCCINATE 25 MG PO DAILYSODIUM CHLORIDE 0.9% 500 ML IV .[id number] 650 MG PO U4SQJCIJIOFRPXPU CALCIUM 10 MG PO BEDTIMEtraMADol HCL 50 MG PO Q4H PRNRINGERS, LACTATED 1000 ML IV .O48GOKZ FERRIC GLUC COMPLX/SUCROSE with/in SODIUM CHLORIDE 100 mL BAG 125 MG IVDAILYIPRATROPIUM/ALBUTEROL SULFATE 3 ML NEB OFQ9NGXDRMPSUS 3 MG PO BEDTIME PRNONDANSETRON HCL/PF 4 MG IV Q8H PRN LABS CBC W/MANUAL DIFF (11/17/22 02:05)WHITE BLOOD CELL 7.5RED BLOOD CELL 3.69 LHEMOGLOBIN 9.3L LHEMATOCRIT 29.7L LMEAN CELL VOLUME 80.5 LMEAN CELL HGB 25.2 LMEAN CELL HGB CONCENTRATION 31.3 LRED CELL DISTRIBUTION WIDTH 24.9 HPLATELET COUNT 116L LMEAN PLATELET VOLUME TNPNEUTROPHIL % 81.7 HLYMPHOCYTE % 10.7 LMONOCYTE % 6.3EOSINOPHIL % 0.5BASOPHIL % 0.1NEUTROPHIL # 6.10LYMPHOCYTE # 0.80 LMONOCYTE # 0.47EOSINOPHIL # 0.04BASOPHIL # 0.01TOTAL CELLS COUNTED 100 MAG (11/17/22 02:05)MAGNESIUM 1.7 CBC W/AUTO DIFF (11/16/22 13:10)WHITE BLOOD CELL 10.3RED BLOOD CELL 3.37 LHEMOGLOBIN 8.5L LHEMATOCRIT 27.3L LMEAN CELL VOLUME 81.0MEAN CELL HGB 25.2 LMEAN CELL HGB CONCENTRATION 31.1 LRED CELL DISTRIBUTION WIDTH 27.0 HPLATELET COUNT 118L LNEUTROPHIL % 87.0 HLYMPHOCYTE % 6.8 LMONOCYTE % 5.4EOSINOPHIL % 0.0BASOPHIL % 0.1NEUTROPHIL # 8.97 HLYMPHOCYTE # 0.70 LMONOCYTE # 0.56 EOSINOPHIL # 0.00BASOPHIL # 0.01 Signed in PatientKeeper by Andrei Cisneros MD on 11/17/22 at 07:13 at 0713ATTENTION EDITS and/or ADDENDA must be made in Patient Keeper for this note. Edits and ammendments created in [employer] are not visible in Patient Keeper or the legal medical record (HPF). [facility] #: [id number] OF REPORTPRProgress oqel2925-02-63A58:10:00P.PA-[id number] ailable for patient sawrNSKQDITVFHZWMO5979-13-61B71:14:28 [facility] 2022-11-16 10:10:00 [id number]/Adebayo +Yl1MkMQB/s7KfPLtDuR73BeJlpYB favvda+dZ1e+D3sQXkK+vFEhoPW1077-89-96H78:10:00 [facility] ([facility]) Pulmonology Progress Note REPORT #: [id number] REPORT STATUS: Signed DATE: 11/16/22 TIME: 1010 PATIENT: KIMBERLY STRICKLAND UNIT #: [id number] #: [id number] ROOM #: P.0928 BED: 1 : 40 AGE: 81 SEX: F ATTEND: Margarita Zhong MD ADM AUTHOR: Emilie Butler MD ATTENTION EDITS and/or ADDENDA must be made in Patient Keeper for this note. Edits and ammendments created in [employer] are not visible in Patient Keeper or the legal medical record (HPF). -- ASSESSMENT AND PLAN -- GENERAL ASSESSMENT:PULMONARY MEDICINE PROGRESS NOTE Patient was on room air during my visit.She ambulated 400 feet today.Incentive spirometry: 750 ml. Tolerating clear liquid diet.No flatus yet.She complained of abdominal soreness, but no nausea or vomiting. ASSESSMENT AND PLAN:1. Colon cancer, s/p surgery (11/14/2022).Follow-up final operative report.Awaits biopsy report.Continue pain control. 2. Chronic obstructive pulmonary disease, emphysema.History of heavy tobacco use. Bedside spirometry (11/13/2022):FEV1/ FVC: 83%.FEV1 1.04 (54% predicted).FVC 1.25 L (48% predicted).Impression: No obstruction. Decreased FVC suggestive of restriction, but notconfirmed by lung volume studies. Continue Duoneb q 4 hours prn and q 6 hours scheduled.Continue incentive spirometry and acapella. 3. Bilateral pulmonary nodules, probably metastatic.I asked patient today (in the presence of her ) if she wanted to pursueCT-guided lung biopsy of the pulmonary nodules.Patient declined lung biopsy at this time.She is aware that the pulmonary nodules could be malignant and could get biggerif they were malignant. 4. Essential hypertension, chronic diastolic congestive heart failure, coronaryartery disease (on CT chest) .No previous history of congestive heart failure or coronary artery disease. EKG (11/12/2022): Normal sinus rhythm. Nonspecific ST and T wave abnormality. Echo (11/13/2022):1. Left ventricle: The cavity size is normal. There is mild concentrichypertrophy. Systolic function is normal. The estimated ejection fraction is55-60%. Wall motion is normal; there are no regional wall motion abnormalities.Doppler parameters are consistent with abnormal left ventricular relaxation(grade 1 diastolic dysfunction).2. Right ventricle: The RV pressure during systole by Doppler is 23 mm Hg.3. Mitral valve: The annulus is severely calcified and moderately thickened. Continue Metoprolol po.Continue to monitor blood pressure and heart rate. 5. Anemia due to gastrointestinal blood loss from bleeding colon cancer,chronic iron deficiency anemia.Labs (11/14/2022): Fe 19, TIBC 340, Fe sat 6%, ferritin 16.7, folate 22.45,vitamin B12 462. Continue to monitor Hb and transfuse as needed.Patient never received the IV Fe (11/14/2022). I don't know why. I will re-order. 6. Continue Enoxaparin for deep venous thrombosis prophylaxis. 7. Care coordinated with RN. -- SUBJECTIVE -- PATIENT NARRATIVE:Patient was on room air during my visit.She ambulated 400 feet today.Incentive spirometry: 750 ml. Tolerating clear liquid diet.No flatus yet.She complained of abdominal soreness, but no nausea or vomiting. -- OBJECTIVE -- VITALS (11/15 10:10 - 11/16 10:10):Temperature F: 98.2Temperature C: 36.9 (36.7 - 37.1)Temperature source: OralPulse Rate 92 (81 - 96)Respiratory rate: 14 (14 - 32)BP: 130/67 (109/55 - 131/73)Blood pressure source: Monitor I/Os (11/15 07:00 - 11/16 07:00):Net 435.00Intake 2,550.00Output 2,115 -EXAM- GENERAL: Physical examination: General: Alert and responsive. HEENT: [place] conjunctivae, anicteric sclerae, negative jugular venous distension. Upper and lower dental implants, Mallampatic class 2, mild erythema on the pharynx and uvula. Chest: Decreased breath sounds. Heart: Regular rate and rhythm, S1 and S2 normal. Abdomen: Soft, non-distended, non-tender, normoactive bowel sounds. Extremities: No edema, no cyanosis, no tenderness. Neurologic: No gross motor or sensory deficits. Skin: No rash. -- DATA -- CLINCAL NOTES PT: Gait Training (11/16/22) by Joseph aCmpos Ambulation Distance: 400'...Effects of Treatment: MUCH MOBILE TODAY NO LOB PLEASANT AND HIGHLY MOTIVATED... Gait Cmt: ALSO STARTED WITH FUNCTIONAL GAIT AND BALANCE EXERCISES serves as the dischargesummary: Y Start Time: 643 Stop Time: 722 Treatment Time:(minutes) 0:39 Completed by: Joseph Campos MEDICATIONS SIMETHICONE 80 MG PO Q6H PRNENOXAPARIN SODIUM 40 MG SUBQ DAILY@0600ACETAMINOPHEN 650 MG PO Q4H PRNCELECOXIB 200 MG PO Q12H PRNPANTOPRAZOLE 40 MG PO DAILYMETOPROLOL SUCCINATE 25 MG PO DAILYACETAMINOPHEN 650 MG PO P2UZMDHHALMVYIVS CALCIUM 10 MG PO BEDTIMEtraMADol HCL 50 MG PO Q4H PRNRINGERS, LACTATED 1000 ML IV .F72RKFQJSGSASEZ/ALBUTEROL SULFATE 3 ML NEB IGL5ACQVSWVJIK 3 MG PO BEDTIME PRNONDANSETRON HCL/PF 4 MG IV Q8H PRN LABS MAG (11/16/22 03:07)MAGNESIUM 1.6 WHITE BLOOD CELL 11/16/22 13:10 10.3 11/16/22 03:07 9.5 11/15/22 04:51 12.3 11/14/22 04:22 4.0 11/13/22 11:40 4.2 11/12/22 17:22 5.6HEMOGLOBIN 11/16/22 13:10 8.5 11/16/22 03:07 8.3 11/15/22 04:51 9.3 11/14/22 04:22 10.2 11/13/22 11:40 11.1 11/12/22 17:22 11.9PLATELET COUNT 11/16/22 13:10 118 11/16/22 03:07 110 11/15/22 04:51 126 11/14/22 04:22 146 11/13/22 11:40 152 11/12/22 17:22 175 SODIUM 11/16/22 03:07 143 11/15/22 04:51 142 11/14/22 04:22 141 11/12/22 17:22 138POTASSIUM 11/16/22 03:07 3.5 11/15/22 04:51 3.9 11/14/22 04:22 3.6 11/12/22 17:22 5.2CHLORIDE 11/16/22 03:07 110 11/15/22 04:51 110 11/14/22 04:22 107 11/12/22 17:22 104CARBON DIOXIDE 11/16/22 03:07 24 11/15/22 04:51 25 11/14/22 04:22 26 11/12/22 17:22 23GLUCOSE 11/16/22 03:07 109 11/15/22 04:51 153 11/14/22 04:22 116 11/12/22 17:22 101BLOOD UREA NITROGEN 11/16/22 03:07 6 11/15/22 04:51 8 11/14/22 04:22 5 11/12/22 17:22 10GLOMERULAR FILTRATION RATE 11/16/22 03:07 >=60 max estimate 11/15/22 04:51 >=60 max estimate 11/14/22 04:22 >=60 max estimate 11/12/22 17:22 >=60 max estimateCREATININE 11/16/22 03:07 0.40 11/15/22 04:51 0.70 11/14/22 04:22 0.50 11/12/22 17:22 0.90CALCIUM 11/16/22 03:07 7.9 11/15/22 04:51 7.8 11/14/22 04:22 8.4 11/12/22 17:22 9.1 Signed in PatientKeeper by EMILIE BUTLER MD on 11/16/22 at 16:55 at 1655ATTENTION EDITS and/or ADDENDA must be made in Patient Keeper for this note. Edits and ammendments created in [facility] are not visible in Patient Keeper or the legal medical record (HPF). RPT #: [id number] OF REPORTPRProgress uyky4629-17-17G93:10:00P.IJ-[id number] ailable for patient knbkVYRSTKZGJDNSFO8925-45-02T15:56:13 [facility] 2022-11-16 10:04:00 [id number] 8hCgV7gxlLat9BwVcByDYckiDxZNc oUvPgvWFY6UTBbUoQi6mBEl7QD07765-60-70T01:04:00 [facility] ([facility]) Internal Med. Progress Note REPORT #: [id number] REPORT STATUS: Signed DATE: 11/16/22 TIME: 1004 PATIENT: KIMBERLY STRICKLAND UNIT #: [id number] #: [id number] ROOM #: P.0928 BED: 1 : 40 AGE: 82 SEX: F ATTEND: Margarita Zhong MD ADM AUTHOR: Fito Gerardo APRN ATTENTION EDITS and/or ADDENDA must be made in Patient Keeper for this note. Edits and ammendments created in [employer] are not visible in Patient Keeper or the legal medical record (HPF). -- CO-SIGNATURE -- COMMENTS:Patient seen and examined at bedside.Plan of care discussed with patient, all questions answered.Agree with the findings as detailed by Fito Gerardo APRN.Plans for the acute medical problems are enumerated below.Total time spent coordinating care > 35 mins. Signed in PatientKeeper by MARGARITA ZHONG MD on 12/29/22 at 05:53 -- ASSESSMENT AND PLAN -- PROBLEMS: 1: Colonic massA/P: Dr. Arambula consulted.s/p robotic assisted right hemicolectomyContinue postoperative care per Dr. Alexander control - Scheduled po Tylenol. Celebrex prn, Tramadol prnClear liquid diet until flatusContinue IV hydration until tolerating oral intake well. 2: Coronary artery diseaseA/P: CT revealed heavily calcified coronary arteries.cardiac evaluation per Dr. RosasEF 55-60%, Normal ECGNo additional cardiovascular testing needed.Continue beta jenae 3: Multiple lung nodules on CTA/P: Dr. Butler consulted for pulmonary evaluation.CT-guided lung biopsy recommended after colon surgery. 4: HypertensionA/P: Continue metoprolol xl 25 mg daily 5: HyperlipidemiaA/P: Continue Rosuvastatin 10 mg daily 6: Diabetes mellitusA/P: Stopped taking metforminGlucose is controlled Monitor 7: Gastroesophageal reflux diseaseA/P: Continue PPI 8: Iron deficiency anemiaA/P: Continue ferrous gluconate after recovery from surgeryNo IV iron supplements per CRSRepeat Hgb at noon. 9: HypomagnesemiaA/P: Replete Mag Sulfate 2 gm IV x 1 10: HypokalemiaA/P: Replete KCl 40 meq IV x 1 11: DVT prophylaxisA/P: Lovenox/ ambulate -- SUBJECTIVE -- PATIENT NARRATIVE:Feels well. Eager to go home.Ambulating in hallways.Tolerating clear liquid dietStill no flatusHgb decreased. Repeat level at noon. -- OBJECTIVE -- VITALS (11/15 10:04 - 11/16 10:04):Temperature F: 98.2Temperature C: 36.9 (36.7 - 37.1)Temperature source: OralPulse Rate 92 (81 - 96)Respiratory rate: 14 (14 - 32)BP: 130/67 (109/55 - 131/73)Blood pressure source: Monitor I/Os (11/15 07:00 - 11/16 07:00):Net 435.00Intake 2,550.00Output 2,115 -EXAM- GENERAL: alert and cooperative, appears comfortable. In no distress.HEAD: Normocephalic, atraumatic.EYES: PERRL, EOM intact, conjunctiva and sclera clear, without nystagmus, lids normal.EARS: normal canals, grossly normal hearing.NOSE: No deformity, no discharge, no inflammation, no lesions.MOUTH: Oropharynx without deformities or lesions, normal mucosa.NECK: No masses, no thyromegaly, no abnormal cervical nodes, trachea midline.CHEST: Grossly normal appearance.BREAST: deferred LUNGS: Clear bilaterally with normal respiratory effort.HEART: Regular rate and rhythm, normal S1, S2, no murmurs, no rubs, no gallops, no clicks.ABDOMEN: Soft, minimally tender, incisions clean and dry. Hypoactive bowel sounds.MUSCULOSKELETAL: No deformity, no scoliosis noted of thoracic or lumbar spine, joint ROM grossly normalEXTREMITIES: No clubbing, no cyanosis, no edema.NEUROLOGICAL: No focal deficits, cranial nerves II-XII grossly intact, normal sensation, normal coordination, normal muscle strength, normal tone.PULSES: Pulses normal in all extremities.RECTAL: deferredGENITOURINARY: Cobb with clear yellow urineSKIN: Intact without significant lesions, or rashes.LYMPH NODES: No significant node adenopathy.PSYCHIATRIC: Alert and oriented to time, person, place. Normal mood and affect, intact judgment and insight. -- DATA -- MEDICATIONS SIMETHICONE 80 MG PO Q6H PRNENOXAPARIN SODIUM 40 MG SUBQ DAILY@0600ACETAMINOPHEN 650 MG PO Q4H PRNCELECOXIB 200 MG PO Q12H PRNPANTOPRAZOLE 40 MG PO DAILYMETOPROLOL SUCCINATE 25 MG PO DAILYACETAMINOPHEN 650 MG PO [id number] CALCIUM 10 MG PO BEDTIMEtraMADol HCL 50 MG PO Q4H PRNRINGERS, LACTATED 1000 ML IV .Y87GRROQXDYXSAS/ALBUTEROL SULFATE 3 ML NEB DUS3ORIMSMYNNA 3 MG PO BEDTIME PRNONDANSETRON HCL/PF 4 MG IV Q8H PRN LABS BASIC METABOLIC PANEL (11/16/22 03:07)SODIUM 143POTASSIUM 3.5CHLORIDE 110H HCARBON DIOXIDE 24GLUCOSE 109H HBLOOD UREA NITROGEN 6L LGLOMERULAR FILTRATION RATE >=60 max estimateCREATININE 0.40L LCALCIUM 7.9 L MAG (11/16/22 03:07)MAGNESIUM 1.6 CBC W/AUTO DIFF (11/16/22 03:07)WHITE BLOOD CELL 9.5RED BLOOD CELL 3.32 LHEMOGLOBIN 8.3L LHEMATOCRIT 27.1L LMEAN CELL VOLUME 81.6 MEAN CELL HGB 25.0 LMEAN CELL HGB CONCENTRATION 30.6 LRED CELL DISTRIBUTION WIDTH 26.7 HPLATELET COUNT 110L LNEUTROPHIL % 86.6 HLYMPHOCYTE % 7.1 LMONOCYTE % 5.4EOSINOPHIL % 0.0BASOPHIL % 0.1NEUTROPHIL # 8.22 HLYMPHOCYTE # 0.67 LMONOCYTE # 0.51EOSINOPHIL # 0.00BASOPHIL # 0.01 Signed in PatientKeeper by Fito Gerardo APRN on 11/16/22 at 10:10 Cosigned by MARGARITA ZHONG MD on 12/29/22 at 05:53 at 0553 at 0553ATTENTION EDITS and/or ADDENDA must be made in Patient Keeper for this note. Edits and ammendments created in [employer] are not visible in Patient Keeper or the legal medical record ([facility]). RPT #: [id number] OF REPORTPRProgress [id number]:04:00P.LU-[id number] ailable for patient tcmwKQPNBBNCEQANPU2848-23-20B81:54:08 [facility] 2022-11-16 06:37:00 [id number] muOufec61xTUZWbPVvBZ6IGegySr9 0jZgeVMw4WlGl4mH4bonIhpezCx2445-55-98R55:37:00 [facility] ([facility]) General Surg. Clinical Note REPORT #: [id number] REPORT STATUS: Signed DATE: 11/16/22 TIME: 636 PATIENT: KIMBERLY STRICKLAND UNIT #: [id number] #: [id number] ROOM #: P.0928 BED: 1 : 40 AGE: 81 SEX: F ATTEND: Margarita Zhong MD ADM AUTHOR: Whitney Enriquez DO ATTENTION EDITS and/or ADDENDA must be made in Patient Keeper for this note. Edits and ammendments created in [employer] are not visible in Patient Keeper or the legal medical record ([facility]). -- NOTATION -- NOTATION:She is doing well this morning. She is tolerating clear liquids without anynausea/emesis. She is ambulating in the hallways and pain is controlled. Shehas not passed flatus or had any bm yet. VSS, labs reveiwed, Hb 8.3 today from 9.3 yesterdayAbdomen: mildly distended, soft, appropriately tender to palpation, incisionsclean/dry/intact A/PPOD #2 from right hemicolectomy1. Continue CLD until she has return of bowel function. Once passing flatus canadvance to soft diet.2. Ambulate in hallways 10x per day.3. Hb 8.3. No IV iron supplements as they can cause paralytic ileus during theperioperative period. We will recheck today at noon and consider bloodtransfusion if it continues to drop.4. Anticipate discharge home once tolerating a soft diet and having bowelfunction. Whitney Enriquez DO Signed in PatientKeeper by Whitney Enriquez DO on 11/16/22 at 06:40 at 0640ATTENTION EDITS and/or ADDENDA must be made in Patient Keeper for this note. Edits and ammendments created in [facility] are not visible in Patient Keeper or the legal medical record (HPF). [facility] #: [id number] OF REPORTCLClinical qwna6116-99-71X86:37:00P.JI-[id number] ailable for patient rlohVSOTXUMQXPKCAP7967-03-68J62:41:33 [facility] 2022-11-15 14:48:00 [id number] x1Q/76k0S3GJnRQuIeQjWFpLu+Tayler 9Fm5EDCzVeAhZXiA8eRZ/4G9aef1629-52-56O80:48:00 [facility] ([facility]) Pulmonology Progress Note REPORT #: [id number] REPORT STATUS: Signed DATE: 11/15/22 TIME: 1448 PATIENT: KIMBERLY STRICKLAND UNIT #: [id number] #: [id number] ROOM #: [facility] BED: 1 : 40 AGE: 81 SEX: F ATTEND: Margarita Zhong MD ADM AUTHOR: Emilie Butler MD ATTENTION EDITS and/or ADDENDA must be made in Patient Keeper for this note. Edits and ammendments created in [facility] are not visible in Patient Keeper or the legal medical record (HPF). -- ASSESSMENT AND PLAN -- GENERAL ASSESSMENT:PULMONARY MEDICINE PROGRESS NOTE Patient was transferred to ICU last night after surgery due to agitation/delirium.She was put on BIPAP due to concern for hypercapnea; however ABG at the PACUshowed a PaCO2 of only 42 mmHg. She had moderate metabolic acidosis with HCO3of 19, BE (-.4). SpO2 96% on room air during my visit.She ambulated 3 laps around the nursing station.Incentive spirometry: 750 ml.CXR today: Clear. She had been started on clear liquid diet. ASSESSMENT AND PLAN:1. Colon cancer, s/p surgery (11/14/2022).Follow-up operative report.Continue pain control. 2. Chronic obstructive pulmonary disease, emphysema.History of heavy tobacco use. Bedside spirometry (11/13/2022):FEV1/ FVC: 83%.FEV1 1.04 (54% predicted).FVC 1.25 L (48% predicted).Impression: No obstruction. Decreased FVC suggestive of restriction, but notconfirmed by lung volume studies. Continue Duoneb q 4 hours prn and q 6 hours scheduled.Continue incentive spirometry and acapella. 3. Bilateral pulmonary nodules, probably metastatic.I discussed with patient the need to do CT-guided lung biopsy after she hadcolon surgery.I explained the risks and benefits of doing the lung biopsy.Patient will think about it. 4. Essential hypertension, chronic diastolic congestive heart failure, coronaryartery disease (on CT chest) .No previous history of congestive heart failure or coronary artery disease. EKG (11/12/2022): Normal sinus rhythm. Nonspecific ST and T wave abnormality. Echo (11/13/2022):1. Left ventricle: The cavity size is normal. There is mild concentrichypertrophy. Systolic function is normal. The estimated ejection fraction is55-60%. Wall motion is normal; there are no regional wall motion abnormalities.Doppler parameters are consistent with abnormal left ventricular relaxation(grade 1 diastolic dysfunction).2. Right ventricle: The RV pressure during systole by Doppler is 23 mm Hg.3. Mitral valve: The annulus is severely calcified and moderately thickened. Continue Metoprolol po.Continue to monitor blood pressure and heart rate. 5. Anemia due to gastrointestinal blood loss from bleeding colon cancer,chronic iron deficiency anemia.Labs (11/14/2022): Fe 19, TIBC 340, Fe sat 6%, ferritin 16.7, folate 22.45,vitamin B12 462. Continue to monitor Hb and transfuse as needed.Continue IV Fe (11/14/2022). 6. Continue sequential compression device for deep venous thrombosisprophylaxis. 7. Care coordinated with RN. -- SUBJECTIVE -- PATIENT NARRATIVE:SpO2 96% on room air during my visit.She ambulated 3 laps around the nursing station.Incentive spirometry: 750 ml.CXR today: Clear. She had been started on clear liquid diet. -- OBJECTIVE -- VITALS (11/14 14:48 - 11/15 14:48):Temperature F: 98.2 (97.6 - 98.2)Temperature source: OralPulse Rate 91 (60 - 104)Respiratory rate: 28 (15 - 36)BP: 115/55 (96/52 - 138/80)Blood pressure source: Monitor I/Os (11/14 07:00 - 11/15 07:00):Net -580.40Intake 274.60Output 855 -EXAM- GENERAL: Physical examination: General: Alert and responsive. HEENT: [place] conjunctivae, anicteric sclerae, negative jugular venous distension. Upper and lower dental implants, Mallampatic class 2, mild erythema on the pharynx and uvula. Chest: Decreased breath sounds. Heart: Regular rate and rhythm, S1 and S2 normal. Abdomen: Soft, non-distended, non-tender, normoactive bowel sounds. Extremities: No edema, no cyanosis, no tenderness. Neurologic: No gross motor or sensory deficits. Skin: No rash. -- DATA -- MEDICATIONS CELECOXIB 200 MG PO Q12H PRNtraMADol HCL 50 MG PO Q4H PRNRINGERS, LACTATED 1000 ML IV .C47CZMDIRRALDUM/ALBUTEROL SULFATE 3 ML NEB [id number] 3 MG PO BEDTIME PRNSIMETHICONE 80 MG PO Q6H PRNENOXAPARIN SODIUM 40 MG SUBQ DAILY@0600ACETAMINOPHEN 650 MG PO Q4H PRNPANTOPRAZOLE 40 MG PO DAILYMETOPROLOL SUCCINATE 25 MG PO DAILYACETAMINOPHEN 650 MG PO [id number] CALCIUM 10 MG PO BEDTIMEONDANSETRON HCL/PF 4 MG IV Q8H PRN LABS VENOUS BLOOD GAS (11/15/22 06:37)VENOUS BLOOD GAS PH 7.36VENOUS BLOOD GAS PCO2 36.4VENOUS BLOOD GAS PO2 48.5VBG HCO3 20VBG BASE EXCESS -4.7VENOUS BLOOD GAS O2 SAT 83VENOUS BLOOD GAS TYPE VenousVENOUS BLOOD GAS FIO2 25.0VBG VENT MODE BIPAP MAG (11/15/22 04:51)MAGNESIUM 1.7 BASIC METABOLIC PANEL (11/15/22 04:51)SODIUM 142POTASSIUM 3.9CHLORIDE 110H HCARBON DIOXIDE 25GLUCOSE 153H HBLOOD UREA NITROGEN 8L LGLOMERULAR FILTRATION RATE >=60 max estimateCREATININE 0.70 CALCIUM 7.8 L CBC W/MANUAL DIFF (11/15/22 04:51)WHITE BLOOD CELL 12.3H HRED BLOOD CELL 3.69 LHEMOGLOBIN 9.3L LHEMATOCRIT 30.4L LMEAN CELL VOLUME 82.4MEAN CELL HGB 25.2 LMEAN CELL HGB CONCENTRATION 30.6 LRED CELL DISTRIBUTION WIDTH 26.5 HPLATELET COUNT 126L LMEAN PLATELET VOLUME TNPNEUTROPHIL % 90.8 HLYMPHOCYTE % 3.2 LMONOCYTE % 5.6EOSINOPHIL % 0.0BASOPHIL % 0.1NEUTROPHIL # 11.18 HLYMPHOCYTE # 0.40 LMONOCYTE # 0.69EOSINOPHIL # 0.00BASOPHIL # 0.01TOTAL CELLS COUNTED 100SEGMENTED NEUTROPHILS 84 HBAND NEUTROPHIL 5LYMPHOCYTE 5 LMONOCYTE 5METAMYELOCYTE 1 HANISOCYTOSIS 1+ HMICROCYTOSIS 1+ HPLATELET ESTIMATE SLIGHTLY DECREASED LPLATELET MORPHOLOGY NORMAL BLOOD GAS W/ELECTROLYTES (11/14/22 21:48)ARTERIAL BLOOD GAS PH 7.27 LARTERIAL BLOOD GAS PCO2 42.4ARTERIAL BLOOD GAS PO2 121.4 HBICARBONATE TOTAL HCO3 19.0 LBASE EXCESS -7.4 LABG O2 SATURATION 97.6ARTERIAL FIO2 50.0ABG VENT MODE BIPAPALLENS TEST NoSODIUM (POC) 140POTASSIUM (POC) 3.57 LCHLORIDE (ARTERIAL) 112 HGLUCOSE 196 HIONIZED CALCIUM 1.09 LPOC LACTIC ACID 1.73TOTAL HGB 9.5 LOXYHEMOGLOBIN 97.0CARBOXYHEMOGLOBIN 0.3METHEMOGLOBIN <0.8HHb 2.4TCO2 ARTERIAL 20.3 L GLU BED (11/14/22 21:40)GLUBED 196 H GLU BED (11/14/22 15:03)GLUBED 97 Signed in PatientKeeper by EMILIE BUTLER MD on 11/15/22 at 17:13 at 1713ATTENTION EDITS and/or ADDENDA must be made in Patient Keeper for this note. Edits and ammendments created in [facility] are not visible in Patient Keeper or the legal medical record (HPF). RPT #: [id number] OF REPORTPRProgress [id number]:48:00P.QL-[id number] ailable for patient uspqYTPKTVHVASLOVZ9925-37-66A57:14:43 [facility] 2022-11-15 09:11:00 [id number]/Tge/ NwKxCvL5qMyFpw7tO/EW7SB1GXcmn 7FmogF5g0iB/CDjkEb5x+iw5e1D8899-34-52V67:11:00 [facility] ([facility]) Internal Med. Progress Note REPORT #: [id number] REPORT STATUS: Signed DATE: 11/15/22 TIME: 910 PATIENT: KIMBERLY STRICKLAND UNIT #: [id number] #: [id number] ROOM #: P.0928 BED: 1 : 40 AGE: 82 SEX: F ATTEND: Margarita Zhong MD ADM AUTHOR: Fito Gerardo APRN ATTENTION EDITS and/or ADDENDA must be made in Patient Keeper for this note. Edits and ammendments created in [employer] are not visible in Patient Keeper or the legal medical record (HPF). -- CO-SIGNATURE -- COMMENTS:Patient seen and examined at bedside.Plan of care discussed with patient, all questions answered.Agree with the findings as detailed by Fito Gerardo APRN.Plans for the acute medical problems are enumerated below.Total time spent coordinating care > 35 mins. Signed in PatientKeeper by MARGARITA ZHONG MD on 12/29/22 at 05:52 -- ASSESSMENT AND PLAN -- PROBLEMS: 1: Colonic massA/P: Dr. Arambula consulted.s/p robotic assisted right hemicolectomyContinue postoperative care per Dr. Alexander control - Scheduled po Tylenol. Celebrex prn, Tramadol prnClear liquid diet until flatusContinue IV hydration until tolerating oral intake well. 2: Coronary artery diseaseA/P: CT revealed heavily calcified coronary arteries.cardiac evaluation per Dr. RosasEF 55-60%, Normal ECGNo additional cardiovascular testing needed.Continue beta jenae 3: Multiple lung nodules on CTA/P: Dr. Butler consulted for pulmonary evaluation.CT-guided lung biopsy recommended after colon surgery. 4: HypertensionA/P: Continue metoprolol xl 25 mg daily 5: HyperlipidemiaA/P: Continue Rosuvastatin 10 mg daily 6: Diabetes mellitusA/P: Stopped taking metforminGlucose is controlled Monitor 7: Gastroesophageal reflux diseaseA/P: Continue PPI 8: Iron deficiency anemiaA/P: Continue ferrous gluconate after recovery from surgery 9: HypomagnesemiaA/P: Replete Mag Sulfate 2 gm IV x 1 10: DVT prophylaxisA/P: Lovenox/ ambulate -- SUBJECTIVE -- PATIENT NARRATIVE:POD#1 s/p robotic right hemicolectomyDoing better. No agitation. Off BiPAPPain is controlled.Tolerating clear liquidsNo flatus yet. -- OBJECTIVE -- VITALS (11/14 09:11 - 11/15 09:11):Temperature F: 97.6 (97.6 - 97.7)Temperature source: AxillaryPulse Rate 74 (60 - 104)Respiratory rate: 18 (17 - 29)BP: 106/56 (106/56 - 138/80)Blood pressure source: Monitor I/Os (/ 07:00 - 11/15 07:00):Net -580.40Intake 274.60Output 855 -EXAM- GENERAL: alert and cooperative, appears comfortable. In no distress.HEAD: Normocephalic, atraumatic.EYES: PERRL, EOM intact, conjunctiva and sclera clear, without nystagmus, lids normal.EARS: normal canals, grossly normal hearing.NOSE: No deformity, no discharge, no inflammation, no lesions.MOUTH: Oropharynx without deformities or lesions, normal mucosa.NECK: No masses, no thyromegaly, no abnormal cervical nodes, trachea midline.CHEST: Grossly normal appearance.BREAST: deferredLUNGS: Clear bilaterally with normal respiratory effort.HEART: Regular rate and rhythm, normal S1, S2, no murmurs, no rubs, no gallops, no clicks.ABDOMEN: Soft, minimally tender, incisions clean and dry. Normoactive bowel sounds. MUSCULOSKELETAL: No deformity, no scoliosis noted of thoracic or lumbar spine, joint ROM grossly normalEXTREMITIES: No clubbing, no cyanosis, no edema.NEUROLOGICAL: No focal deficits, cranial nerves II-XII grossly intact, normal sensation, normal coordination, normal muscle strength, normal tone.PULSES: Pulses normal in all extremities.RECTAL: deferredGENITOURINARY: Cobb with clear yellow urineSKIN: Intact without significant lesions, or rashes.LYMPH NODES: No significant node adenopathy.PSYCHIATRIC: Alert and oriented to time, person, place. Normal mood and affect, intact judgment and insight. -- DATA -- MEDICATIONS CELECOXIB 200 MG PO Q12H PRNACETAMINOPHEN 1000 MG IV V7SJrzgXKHuw HCL 50 MG PO Q4H PRNRINGERS, LACTATED 1000 ML IV .D14USUOTFUHIFIH/ALBUTEROL SULFATE 3 ML NEB [id number] 3 MG PO BEDTIME PRNIPRATROPIUM/ALBUTEROL SULFATE 3 ML NEB PACU ONCE PRNERTAPENEM SODIUM with/in SODIUM CHLORIDE 50 mL BAG 1 GM IV PREOP ONCESIMETHICONE 80 MG PO Q6H PRNENOXAPARIN SODIUM 40 MG SUBQ DAILY@0600ACETAMINOPHEN 650 MG PO Q4H PRNPANTOPRAZOLE 40 MG PO DAILYMETOPROLOL SUCCINATE 25 MG PO DAILYACETAMINOPHEN 650 MG PO [id number] CALCIUM 10 MG PO BEDTIMEdexmedeTOMidine HCL with/in SODIUM CHLORIDE 0.9% 1000 MCG IV TITRATEONDANSETRON HCL/PF 4 MG IV Q8H PRN LABS VENOUS BLOOD GAS (11/15/22 06:37)VENOUS BLOOD GAS PH 7.36VENOUS BLOOD GAS PCO2 36.4VENOUS BLOOD GAS PO2 48.5VBG HCO3 20VBG BASE EXCESS -4.7VENOUS BLOOD GAS O2 SAT 83VENOUS BLOOD GAS TYPE VenousVENOUS BLOOD GAS FIO2 25.0VBG VENT MODE BIPAP MAG (11/15/22 04:51)MAGNESIUM 1.7 BASIC METABOLIC PANEL (11/15/22 04:51)SODIUM 142POTASSIUM 3.9CHLORIDE 110H HCARBON DIOXIDE 25GLUCOSE 153H HBLOOD UREA NITROGEN 8L LGLOMERULAR FILTRATION RATE >=60 max estimate CREATININE 0.70CALCIUM 7.8 L CBC W/MANUAL DIFF (11/15/22 04:51)WHITE BLOOD CELL 12.3H HRED BLOOD CELL 3.69 LHEMOGLOBIN 9.3L LHEMATOCRIT 30.4L LMEAN CELL VOLUME 82.4MEAN CELL HGB 25.2 LMEAN CELL HGB CONCENTRATION 30.6 LRED CELL DISTRIBUTION WIDTH 26.5 HPLATELET COUNT 126L LMEAN PLATELET VOLUME TNPNEUTROPHIL % 90.8 HLYMPHOCYTE % 3.2 LMONOCYTE % 5.6EOSINOPHIL % 0.0BASOPHIL % 0.1NEUTROPHIL # 11.18 HLYMPHOCYTE # 0.40 LMONOCYTE # 0.69EOSINOPHIL # 0.00BASOPHIL # 0.01TOTAL CELLS COUNTED 100SEGMENTED NEUTROPHILS 84 HBAND NEUTROPHIL 5LYMPHOCYTE 5 LMONOCYTE 5METAMYELOCYTE 1 HANISOCYTOSIS 1+ HMICROCYTOSIS 1+ HPLATELET ESTIMATE SLIGHTLY DECREASED LPLATELET MORPHOLOGY NORMAL BLOOD GAS W/ELECTROLYTES (11/14/22 21:48)ARTERIAL BLOOD GAS PH 7.27 LARTERIAL BLOOD GAS PCO2 42.4ARTERIAL BLOOD GAS PO2 121.4 HBICARBONATE TOTAL HCO3 19.0 LBASE EXCESS -7.4 LABG O2 SATURATION 97.6ARTERIAL FIO2 50.0ABG VENT MODE BIPAPALLENS TEST NoSODIUM (POC) 140POTASSIUM (POC) 3.57 LCHLORIDE (ARTERIAL) 112 HGLUCOSE 196 HIONIZED CALCIUM 1.09 LPOC LACTIC ACID 1.73TOTAL HGB 9.5 LOXYHEMOGLOBIN 97.0CARBOXYHEMOGLOBIN 0.3METHEMOGLOBIN <0.8HHb 2.4TCO2 ARTERIAL 20.3 L GLU BED (11/14/22 21:40)GLUBED 196 H GLU BED (11/14/22 15:03)GLUBED 97 Signed in PatientKeeper by Fito Gerardo APRN on 11/15/22 at 09:25 Cosigned by MARGARITA ZHONG MD on 12/29/22 at 05:52 at 0552 at 0552ATTENTION EDITS and/or ADDENDA must be made in Patient Keeper for this note. Edits and ammendments created in [facility] are not visible in Patient Keeper or the legal medical record (HPF). [facility] #: [id number] OF REPORTPRProgress hynl7309-87-43Q08:11:00P.QC-[id number] ailable for patient zhidSMOKBKMTDKSHDR2140-23-62V67:53:09 [facility] 2022-11-15 07:22:00 [id number] Gb8PCg9digwKSEBFEXOVuj634/w9b kcZXf2t0qTAmBLzPw8Tpf8/rdZb4333-00-41P20:22:00 [facility] ([facility]) General Surg. Clinical Note REPORT #: [id number] REPORT STATUS: Signed DATE: 11/15/22 TIME: 721 PATIENT: KIMBERLY STRICKLAND UNIT #: [id number] #: [id number] ROOM #: P.0215 BED: 1 : 40 AGE: 81 SEX: F ATTEND: Margarita Zhong MD ADM AUTHOR: Whitney Enriquez DO ATTENTION EDITS and/or ADDENDA must be made in Patient Keeper for this note. Edits and ammendments created in [facility] are not visible in Patient Keeper or the legal medical record ([facility]). -- NOTATION -- NOTATION:She is doing better today. She is not confused this morning and not restrained.She is currently on BIPAP and has no respiratory distress. She has not had anyliquids yet and is not passing flatus. She has not ambulated since surgery. VSS, labs reviewedHEENT: on BIPAP, tolerating wellAbdomen: soft, nontender, nondistended, incisions clean/dry/intactGU: cobb in place with clear yellow urine in bag A/PPOD#1 from robotic right hemicolectomy1. Discontinue BIPAP and wean oxygen as tolerated. Avoid BIPAP in future.Appreciate pulmonology and critical care recommendations.2. Discontinue cobb catheter. Void check in 6 hours.3. CLD. Await return of bowel function to advance.4. Avoid narcotics where possible.5. Ambulate in hallways 10x per day.6. Anticipate discharge in 24-48hrs. Whitney Enriquez DO Signed in PatientKeeper by Whitney Enriquez DO on 11/15/22 at 07:26 at 0726ATTENTION EDITS and/or ADDENDA must be made in Patient Keeper for this note. Edits and ammendments created in [facility] are not visible in Patient Keeper or the legal medical record (HPF). [facility] #: [id number] OF REPORTCLClinical [id number]:22:00P.GM-[id number] ailable for patient vceuPVQPLIJICERTEA6420-43-07Q46:27:11 [facility] 2022-11-15 00:35:00 [id number] [id number] lE+D31nfEjJkRiGrTZcIxdeVw4l4308-11-09A10:35:00 [facility] Consultation REPORT #: [id number] REPORT STATUS: Signed DATE: 11/15/22 TIME: 34 PATIENT: KIMBERLY STRICKLAND UNIT #: [id number] #: [id number] ROOM #: P.0215 BED: 1 : 40 AGE: 81 SEX: F ATTEND: Margarita Zhong MD ADM AUTHOR: Ayush Brumfield MD ATTENTION EDITS and/or ADDENDA must be made in Patient Keeper for this note. Edits and ammendments created in [employer] are not visible in Patient Keeper or the legal medical record (HPF). -- ASSESSMENT AND PLAN -- GENERAL ASSESSMENT:81 y/o female with PMHx of DM2, HTN, HLD, reported hx of COPD who was recentlydiagnosed with right colonic obstructing mass consistent with colon CA. Patientapparently was having symptoms of constipation and subsequently developed GIbleed. She underwent colonoscopy which showed colonic mass and she was referredto Dr. Arambula for surgical evaluation. She presented to ER at [facility] with rightlower quadrant abdominal pain and further evaluation of colonic mass. AdmissionHb was 11.9, PLTs: 175, no electrolyte or LFT abnormalities. Noted to have lowIron levels and reduced % saturation. She was admitted to the hospitalistservice by Dr. Zhong and Dr. Arambula consulted. CT of chest, abdomen and Pelviswas performed. CT showed calcified coronary arteries, lung nodules (consistentwith metastatic disease) and right ileo-cecal mass. She underwent cardiac andpulmonary evaluation pre-operatively and was not felt to be high risk forsurgery. Today, she underwent robotic assisted right hemicolectomy. EBL was 250mL, goodUOP and received 2500mL of crystalloids. No blood transfusion needs. She wasextubated and transferred to PACU. She was placed on BiPAP empiricallysecondary to concerns for CO2 retention post-procedure. She was also noted nadiya very restless and agitated. She was given a bolus dosing of precedex forcontrol of agitation. ICU admission was requested for ongoing agitation andneed for precedex. ABG showed 7.27/42/121 on BiPAP in PACU. PLAN: NEURO:# Acute Encephalopathy:- likely effect of anesthetics- no focal deficits- cont precedex for agitation control- gradually wean down as tolerated- monitor neuro status- CT brain if neuro status does not improve CVS:# CAD- based on imaging- tolerated surgery without significant hemodynamic effects- monitor vitals RESP: # Acute Respiratory Failure:- hx of COPD but imaging and bedside spirometry not consistent with COPD- acute respiratory distress post-operatively likely related to fluid shiftsand abdominal insufflation- ABG on BiPAP acceptable- cont BiPAP support for tonight- transition to NC in AM once mentation better- cont bronchodilators- pulmonary following GI:- S/p partial colectomy with end to end anastomosis- keep NPO- follow surgical recommendations for timing of starting oral intake /RENAL:- no acute issues- good UOP- keep fluids KVO for now- monitor and replace lytes PRN ENDO:- follow sugars- SSI coverage HEME/ID:- CBC within limits- no transfusion requirements- valery-op abx per surgical team- follow cbc CODE STATUS: FULLPOA: HusbandMedications reviewed PROPHY:VTE: SCDs and LovenoxGI: PPI Care plan d/w at bedside. ICU care for patient requiring BiPAP andprecedex. -- HISTORY -- CONSULT REQUESTED BY:Margarita Zhong MD DATE/TIME AT BEDSIDE:2022-11-15 00:15 REASON FOR CONSULT:post-operative agitation CHIEF COMPLAINT:colonic mass HPI:Patient is a 81 y/o female with PMHx of DM2, HTN, HLD, reported hx of COPD whowas recently diagnosed with right colonic obstructing mass consistent withcolon CA. Patient apparently was having symptoms of constipation and subsequently developed GI bleed. She underwent colonoscopy which showed colonicmass and she was referred to Dr. Arambula for surgical evaluation. She presented toER at [facility] with right lower quadrant abdominal pain and further evaluationof colonic mass. Admission Hb was 11.9, PLTs: 175, no electrolyte or LFTabnormalities. Noted to have low Iron levels and reduced % saturation. She wasadmitted to the hospitalist service by Dr. Zhong and Dr. Arambula consulted. CTof chest, abdomen and Pelvis was performed. CT showed calcified coronaryarteries, lung nodules (consistent with metastatic disease) and rightileo-cecal mass. She underwent cardiac and pulmonary evaluation pre-operativelyand was not felt to be high risk for surgery. Today, she underwent robotic assisted right hemicolectomy. EBL was 250mL, goodUOP and received 2500mL of crystalloids. No blood transfusion needs. She wasextubated and transferred to PACU. She was placed on BiPAP empiricallysecondary to concerns for CO2 retention post-procedure. She was also noted nadiya very restless and agitated. She was given a bolus dosing of precedex forcontrol of agitation. ICU admission was requested for ongoing agitation andneed for precedex. ABG showed 7.27/42/121 on BiPAP in PACU. On arrival to ICU, patient is restless but redirectable. She is started onPrecedex gtts with good response an remained on BiPAP. No additional historyfrom patient due to restlessness. Unable to provide ROS. at bedside. PAST MEDICAL HISTORY:diabetes, hypertension, hyperlipidemia PAST SURGICAL HISTORY:L leg ORIF with bone graft FAMILY HISTORY:Unable to obtain due to mental status -SOCIAL HISTORY- -TOBACCO USE- DETAILS/COMMENTS:Remote tobacco use -VAPING/INHALED SOLVENTS- DETAILS/COMMENTS:None -ALCOHOL USE- DETAILS/COMMENTS:None -DRUG USE- DETAILS/COMMENTS:None MARITAL STATUS: -- SUBJECTIVE -- -REVIEW OF SYSTEMS- COMMENT: ROS is limited by patient being somnolent and on BiPAP -- OBJECTIVE -- VITALS (11/14 00:35 - 11/15 00:35):Temperature C: 36.3 (36.3 - 36.5)Temperature source: OralPulse Rate 74 (74 - 104)Respiratory rate: 20 (17 - 26)BP: 124/58 (123/58 - 138/87)Blood pressure source: Monitor I/Os (11/13 07:00 - 11/14 07:00):Net 348.00Intake 650.00Output 302 -EXAM- GENERAL: Well developed, obese, elderly female on BiPAP. SomnolentHEAD: Normocephalic, atraumatic.EYES: PERRL, conjunctiva and sclera clear, without nystagmus, lids normal.NOSE: No deformity, no dischargeMOUTH: BiPAP mask in place.NECK: No masses, no thyromegaly, no abnormal cervical nodes, trachea midline.LUNGS: Clear bilaterally with normal respiratory effort.HEART: Regular rate and rhythm, normal S1, S2, no murmurs, no rubs, no gallops, no clicks.ABDOMEN: Surgical scars noted. Abdomen is soft, non-tender, no masses noted.MUSCULOSKELETAL: No deformity.EXTREMITIES: No clubbing, no cyanosis, no edema.NEUROLOGICAL: Somnolent. Moving all extremities equally.PULSES: Pulses normal in all extremities.SKIN: Intact without significant lesions, or rashes.LYMPH NODES: No significant cervical node adenopathy. -- DATA -- MEDICATIONS CELECOXIB 200 MG PO Q12H PRNACETAMINOPHEN 1000 MG IV [id number] HCL 50 MG PO Q4H PRNRINGERS, LACTATED 1000 ML IV .T08GSOEDDFT, LACTATED 1000 ML IV .[id number]/ALBUTEROL SULFATE 3 ML NEB RTQ4H PRNIPRATROPIUM/ALBUTEROL SULFATE 3 ML NEB [id number] 3 MG PO BEDTIME PRNIPRATROPIUM/ALBUTEROL SULFATE 3 ML NEB PACU ONCE PRNERTAPENEM SODIUM with/in SODIUM CHLORIDE 50 mL BAG 1 GM IV PREOP ONCESIMETHICONE 80 MG PO Q6H PRNENOXAPARIN SODIUM 40 MG SUBQ DAILY@0600 ACETAMINOPHEN 650 MG PO Q4H PRNPANTOPRAZOLE 40 MG PO DAILYSOD FERRIC GLUC COMPLX/SUCROSE with/in SODIUM CHLORIDE 100 mL BAG 125 MG IVDAILY@1700METOPROLOL SUCCINATE 25 MG PO DAILYACETAMINOPHEN 650 MG PO [id number] CALCIUM 10 MG PO BEDTIMEdexmedeTOMidine HCL with/in SODIUM CHLORIDE 0.9% 1000 MCG IV TITRATEONDANSETRON HCL/PF 4 MG IV Q8H PRN LABS BLOOD GAS W/ELECTROLYTES (11/14/22 21:48)ARTERIAL BLOOD GAS PH 7.27 LARTERIAL BLOOD GAS PCO2 42.4ARTERIAL BLOOD GAS PO2 121.4 HBICARBONATE TOTAL HCO3 19.0 LBASE EXCESS -7.4 LABG O2 SATURATION 97.6ARTERIAL FIO2 50.0ABG VENT MODE BIPAPALLENS TEST NoSODIUM (POC) 140POTASSIUM (POC) 3.57 LCHLORIDE (ARTERIAL) 112 HGLUCOSE 196 HIONIZED CALCIUM 1.09 LPOC LACTIC ACID 1.73TOTAL HGB 9.5 LOXYHEMOGLOBIN 97.0CARBOXYHEMOGLOBIN 0.3METHEMOGLOBIN <0.8HHb 2.4TCO2 ARTERIAL 20.3 L GLU BED (11/14/22 21:40)GLUBED 196 H GLU BED (11/14/22 15:03)GLUBED 97 FERRITIN (11/14/22 04:22)FERRITIN 16.7 RETIC COUNT (11/14/22 04:22)HEMATOCRIT 32.[address] AUTOMATED 1.24RETIC [address] ABSOLUTE 51.10 FE W/TOTAL IRON BINDING CAP (11/14/22 04:22)IRON 19 LTOTAL IRON BINDING CAPACITY 340IRON SATURATION 6 L BASIC METABOLIC PANEL (11/14/22 04:22)SODIUM 141POTASSIUM 3.6D DCHLORIDE 107CARBON DIOXIDE 26GLUCOSE 116H H BLOOD UREA NITROGEN 5L LGLOMERULAR FILTRATION RATE >=60 max estimateCREATININE 0.50L LCALCIUM 8.4 L CBC W/AUTO DIFF (11/14/22 04:22)WHITE BLOOD CELL 4.0L LRED BLOOD CELL 4.12 LHEMOGLOBIN 10.2L LHEMATOCRIT 32.9L LMEAN CELL VOLUME 79.9 LMEAN CELL HGB 24.8 LMEAN CELL HGB CONCENTRATION 31.0 LRED CELL DISTRIBUTION WIDTH 27.1 HPLATELET COUNT 146L LNEUTROPHIL % 65.0LYMPHOCYTE % 23.6MONOCYTE % 9.8 HEOSINOPHIL % 0.5BASOPHIL % 0.8NEUTROPHIL # 2.59LYMPHOCYTE # 0.94 LMONOCYTE # 0.39EOSINOPHIL # 0.02BASOPHIL # 0.03 FOLIC ACID (11/14/22 04:21)FOLIC ACID 22.45 H VITB12 (11/14/22 04:21)VITAMIN B12 462 VITB12 (11/14/22 04:21)VITAMIN B12 462 FOLIC ACID (11/14/22 04:21)FOLIC ACID 22.45 H TEST RESULTS XR CHEST 1 V (11/12/22 17:00)FINDINGS: Clear lungs. No visible pleural fluid or pneumothorax. Normal cardiac silhouette. CT CHEST W/CONTRAST (11/12/22 19:30)IMPRESSION: Irregular wall thickening of cecum and adjacent terminal ileum maycorrespond to history of colon cancer. There are a few adjacent softtissue nodules are concerning for milagro metastatic disease. A few low-attenuation liver lesions. Largest of these are cysts.Other lesions are too small to characterize. Multiple bilateral lung nodules concerning for metastatic disease. Other findings above. -- QUALITY -- -ADVANCED CARE PLAN >65- PATIENT HAS AN ADVANCE CARE PLAN:No PATIENT HAS A SURROGATE DECISION MAKER:Yes -VTE PROPHYLAXIS -GENERAL- Yes TYPE OF VTELovenox -- ATTESTATION -- TIME SPENT ON PATIENT CARE: - Critical care: time spent apart from any procedure 35 minutes Signed in PatientKeeper by Ayush Brumfield MD on 11/15/22 at 01:42 at 0142ATTENTION EDITS and/or ADDENDA must be made in Patient Keeper for this note. Edits and ammendments created in [employer] are not visible in Patient Keeper or the legal medical record (HPF). RPT #: [id number] OF REPORTTALlyzjiepfrlj3353-46-74X68:35:00P.PK-NO [id number] for patient egmmZJTKTUTGFKXMOH2933-73-35G44:43:03 [facility] 2022-11-14 23:01:00 [id number]/Al AnoE7rjonHxdSGc6tINvQFwZ+AXBk 1rUC9du3lGyevAJI+Oad4GYhei33080-77-27C27:01:00 [facility] ([facility])Anesthesia Progress NoteREPORT#:[id number] REPORT STATUS: SignedDATE:11/14/22 TIME: 2301 PATIENT: KIMBERLY STRICKLAND UNIT #: [id number]#: [id number] ROOM: [facility] BED: 1DOB: [birth year] AGE: 81 SEX: F ATTEND: Margarita Zhong AUTHOR: Kellie Cerda MD * ALL edits or amendments must be made on the electronic/computer document * Anesthesia Progress NoteFree Text A P:PT WITH MULTIPLE COMORBIDITY FROM CARDIAC AND PULMONARY STAND POINTS.FVC IS 1.25 L(48%), FEV 1 .04 L(54%). HX OF REMOTE HEAVY SMOKER, MULTIPLE PULMONARY NODULES.CALCIFICATION OF CORONARY ARTERY, HTN, DM. DIFFICULT INTUBATION IN OR WITH MULTIPLE ATTEMPTS PT COMBATIVE IN PACU, ALERT TO PLACE , BUT NOT ANYTHING ELSE. WOULD ATTEMPT TO PULL OFF MONITORS. WAS PLACED ON BIPAP TO PREVENT HYPERCAPNIA. PRECEDEX 20/10/10 MCG, HALDOL 2 MG, VERSED 2 MG FAIL TO CALM PT DOWN. ABG RULED OUT REVERSIBLE ORGANIC CAUSES. DISCUSSED WITH PRIMARY CARE / REGIONAL CRA . GIVEN HER AGE AND MULTIPLE COMORBIDITIES . ADMIT HER TO ICU FOR CLOSE MONITORNING SINCE SHE COULD DETERIORATE QUICKLY. Urinary cath status: day 1 at 2311 RPT #:[id number] OF REPORTPRProgress [id number]:01:00P.[id number] able for patient eviwDUENHLTKESBLVO1715-73-29L89:12:04 [facility] 2022-11-14 10:03:00 [id number] 23Tf1kL2OIakF1hTEbrV2yGSt3O5D VqP3xMqyFc8aOl9ag+6We/jU61r5704-24-51R36:03:00 [facility] ([facility]) Internal Med. Progress Note REPORT #: [id number] REPORT STATUS: Signed DATE: 11/14/22 TIME: 1003 PATIENT: KIMBERLY STRICKLAND UNIT #: [id number] #: [id number] ROOM #: P.0928 BED: 1 : 40 AGE: 82 SEX: F ATTEND: Margarita Zhong MD ADM AUTHOR: Fito Gerardo APRN ATTENTION EDITS and/or ADDENDA must be made in Patient Keeper for this note. Edits and ammendments created in [employer] are not visible in Patient Keeper or the legal medical record (HPF). -- CO-SIGNATURE -- COMMENTS:Patient seen and examined at bedside.Plan of care discussed with patient, all questions answered.Agree with the findings as detailed by Fito Gerardo APRN.Plans for the acute medical problems are enumerated below.Total time spent coordinating care > 35 mins. Signed in PatientKeeper by MARGARITA ZHONG MD on 12/29/22 at 05:51 -- ASSESSMENT AND PLAN -- PROBLEMS: 1: Colonic massA/P: Dr. Arambula consulted.Plan for robotic assisted right hemicolectomy, possible ostomy today. 2: Coronary artery diseaseA/P: CT revealed heavily calcified coronary arteries.cardiac evaluation per Dr. RosasEF 55-60%, Normal ECGNo additional cardiovascular testing needed.Continue beta jenae 3: Multiple lung nodules on CTA/P: Dr. Butelr consulted for pulmonary evaluation.CT-guided lung biopsy recommended after colon surgery. 4: HypertensionA/P: Continue metoprolol xl 25 mg daily 5: HyperlipidemiaA/P: Continue Rosuvastatin 10 mg daily 6: Diabetes mellitusA/P: Stopped taking metforminGlucose is controlledMonitor 7: Gastroesophageal reflux diseaseA/P: Continue PPI 8: Iron deficiency anemiaA/P: Continue ferrous gluconate after recovery from surgery 9: DVT prophylaxisA/P: SCDs/Lovenox after surgery, once hemostasis is achieved. -- SUBJECTIVE -- PATIENT NARRATIVE:No new complaints.Iron studies low.Seen by cardiology. No further CV testing needed.Plan for robotic assisted right hemicolectomy, possible ostomy today. -- OBJECTIVE -- VITALS (11/13 10:03 - 11/14 10:03):Temperature C: 36.3 (36.3 - 36.8)Temperature source: OralPulse Rate 81 (79 - 94)Respiratory rate: 17 (17 - 18)BP: 138/87 (117/71 - 146/87) I/Os (11/13 07:00 - 11/14 07:00):Net 348.00Intake 650.00Output 302 -EXAM- GENERAL: alert and cooperative, appears comfortable. In no distress.HEAD: Normocephalic, atraumatic.EYES: PERRL, EOM intact, conjunctiva and sclera clear, without nystagmus, lids normal.EARS: normal canals, grossly normal hearing.NOSE: No deformity, no discharge, no inflammation, no lesions.MOUTH: Oropharynx without deformities or lesions, normal mucosa..NECK: No masses, no thyromegaly, no abnormal cervical nodes, trachea midline.CHEST: Grossly normal appearance.BREAST: deferredLUNGS: Clear bilaterally with normal respiratory effort.HEART: Regular rate and rhythm, normal S1, S2, no murmurs, no rubs, no gallops, no clicks.ABDOMEN: Soft, non-tender, no organomegaly, no masses noted.MUSCULOSKELETAL: No deformity, no scoliosis noted of thoracic or lumbar spine, joint ROM grossly normal, normal gait and station.EXTREMITIES: No clubbing, no cyanosis, no edema.NEUROLOGICAL: No focal deficits, cranial nerves II-XII grossly intact, normal sensation, normal coordination, normal muscle strength, normal tone.PULSES: Pulses normal in all extremities.RECTAL: deferredGENITOURINARY: deferred SKIN: Intact without significant lesions, or rashes.LYMPH NODES: No significant node adenopathy.PSYCHIATRIC: Alert and oriented to time, person, place. Normal mood and affect, intact judgment and insight. -- DATA -- MEDICATIONS SIMETHICONE 80 MG PO Q6H PRNACETAMINOPHEN 650 MG PO Q4H PRNIPRATROPIUM/ALBUTEROL SULFATE 3 ML NEB RTQ4H PRNPANTOPRAZOLE 40 MG PO DAILYIPRATROPIUM/ALBUTEROL SULFATE 3 ML NEB KXE1MCNATKSASM 3 MG PO BEDTIME PRNMETOPROLOL SUCCINATE 25 MG PO DAILYROSUVASTATIN CALCIUM 10 MG PO BEDTIMEONDANSETRON HCL/PF 4 MG IV Q6H PRNRINGERS, LACTATED 1000 ML IV .Q10H LABS FERRITIN (11/14/22 04:22)FERRITIN 16.7 RETIC COUNT (11/14/22 04:22)HEMATOCRIT 32.[address] AUTOMATED [address].24RET[address] ABSOLUTE 51.10 FE W/TOTAL IRON BINDING CAP (11/14/22 04:22)IRON 19 LTOTAL IRON BINDING CAPACITY 340IRON SATURATION 6 L BASIC METABOLIC PANEL (11/14/22 04:22)SODIUM 141POTASSIUM 3.6D DCHLORIDE 107CARBON DIOXIDE 26GLUCOSE 116H HBLOOD UREA NITROGEN 5L LGLOMERULAR FILTRATION RATE >=60 max estimateCREATININE 0.50L LCALCIUM 8.4 L CBC W/AUTO DIFF (11/14/22 04:22)WHITE BLOOD CELL 4.0L LRED BLOOD CELL 4.12 LHEMOGLOBIN 10.2L LHEMATOCRIT 32.9L LMEAN CELL VOLUME 79.9 LMEAN CELL HGB 24.8 LMEAN CELL HGB CONCENTRATION 31.0 LRED CELL DISTRIBUTION WIDTH 27.1 HPLATELET COUNT 146L LNEUTROPHIL % 65.0LYMPHOCYTE % 23.6MONOCYTE % 9.8 HEOSINOPHIL % 0.5 BASOPHIL % 0.8NEUTROPHIL # 2.59LYMPHOCYTE # 0.94 LMONOCYTE # 0.39EOSINOPHIL # 0.02BASOPHIL # 0.03 CBC W/AUTO DIFF (11/13/22 11:40)WHITE BLOOD CELL 4.2L LRED BLOOD CELL 4.46HEMOGLOBIN 11.1L LHEMATOCRIT 35.5L LMEAN CELL VOLUME 79.6 LMEAN CELL HGB 24.9 LMEAN CELL HGB CONCENTRATION 31.3 LRED CELL DISTRIBUTION WIDTH 27.1 HPLATELET COUNT 152MEAN PLATELET VOLUME TNPNEUTROPHIL % 60.2LYMPHOCYTE % 28.2MONOCYTE % 10.4 HEOSINOPHIL % 0.5BASOPHIL % 0.5NEUTROPHIL # 2.50LYMPHOCYTE # 1.17MONOCYTE # 0.43EOSINOPHIL # 0.02BASOPHIL # 0.02 Signed in PatientKeeper by Fito Gerardo APRN on 11/14/22 at 14:42 Cosigned by MARGARITA ZHONG MD on 12/29/22 at 05:51 at 0551 at 0551ATTENTION EDITS and/or ADDENDA must be made in Patient Keeper for this note. Edits and ammendments created in [facility] are not visible in Patient Keeper or the legal medical record (HPF). RPT #: [id number] OF REPORTPRProgress cxyk6276-35-32L15:03:00P.QQ-[id number] ailable for patient nuiqUWLAFTMDDTHNSH6042-95-43A61:51:38 [facility] 2022-11-14 08:58:00 [id number] RLoMNYVKNDHjS2xaFKrjw4c1lIsSK iP4nISKbXmqBUsI9191NNAUIht59369-71-62L12:58:00 [facility] ([facility]) Pulmonology Progress Note REPORT #: [id number] REPORT STATUS: Signed DATE: 11/14/22 TIME: 857 PATIENT: KIMBERLY STRICKLAND UNIT #: [id number] #: [id number] ROOM #: P.0730 BED: 1 : 40 AGE: 81 SEX: F ATTEND: Margarita Zhong MD ADM AUTHOR: Emilie Butler MD ATTENTION EDITS and/or ADDENDA must be made in Patient Keeper for this note. Edits and ammendments created in [employer] are not visible in Patient Keeper or the legal medical record (HPF). -- ASSESSMENT AND PLAN -- GENERAL ASSESSMENT:PULMONARY MEDICINE PROGRESS NOTE SpO2 99% on room air.She and her wanted to know what time is her surgery.Unfortunately, I did not know the answer. ASSESSMENT AND PLAN:1. Colon cancer.For surgical intervention today. 2. Chronic obstructive pulmonary disease, emphysema.History of heavy tobacco use. Bedside spirometry (11/13/2022):FEV1/ FVC: 83%.FEV1 1.04 (54% predicted).FVC 1.25 L (48% predicted).Impression: No obstruction. Decreased FVC suggestive of restriction, but notconfirmed by lung volume studies. Continue Duoneb q 4 hours prn and q 6 hours scheduled.Continue incentive spirometry and acapella. 3. Bilateral pulmonary nodules, probably metastatic.I discussed with patient the need to do CT-guided lung biopsy after she hadcolon surgery.I explained the risks and benefits of doing the lung biopsy.Patient will think about it. 4. Essential hypertension, chronic diastolic congestive heart failure, coronaryartery disease (on CT chest) .No previous history of congestive heart failure or coronary artery disease. EKG (11/12/2022): Normal sinus rhythm. Nonspecific ST and T wave abnormality. Echo (11/13/2022):1. Left ventricle: The cavity size is normal. There is mild concentrichypertrophy. Systolic function is normal. The estimated ejection fraction is 55-60%. Wall motion is normal; there are no regional wall motion abnormalities.Doppler parameters are consistent with abnormal left ventricular relaxation(grade 1 diastolic dysfunction).2. Right ventricle: The RV pressure during systole by Doppler is 23 mm Hg.3. Mitral valve: The annulus is severely calcified and moderately thickened. Continue Metoprolol po.Continue to monitor blood pressure and heart rate. 5. Anemia due to gastrointestinal blood loss from bleeding colon cancer,chronic iron deficiency anemia.Labs (11/14/2022): Fe 19, TIBC 340, Fe sat 6%, ferritin 16.7, folate 22.45,vitamin B12 462. Continue to monitor Hb and transfuse as needed.Start IV Fe (11/14/2022). 6. Continue sequential compression device for deep venous thrombosisprophylaxis. 7. Care coordinated with RN. -- SUBJECTIVE -- PATIENT NARRATIVE:SpO2 99% on room air.She and her wanted to know what time is her surgery.Unfortunately, I did not know the answer. -- OBJECTIVE -- VITALS (11/13 08:58 - 11/14 08:58):Temperature C: 36.3 (36.3 - 36.8)Temperature source: OralPulse Rate 81 (79 - 94)Respiratory rate: 17 (17 - 18)BP: 138/87 (117/71 - 146/87) I/Os (11/13 07:00 - 11/14 07:00):Net 348.00Intake 650.00Output 302 -EXAM- GENERAL: Physical examination: General: Alert and responsive. HEENT: [place] conjunctivae, anicteric sclerae, negative jugular venous distension. Upper and lower dental implants, Mallampatic class 2, mild erythema on the pharynx and uvula. Chest: Decreased breath sounds. Heart: Regular rate and rhythm, S1 and S2 normal. Abdomen: Soft, non-distended, non-tender, normoactive bowel sounds. Extremities: No edema, no cyanosis, no tenderness. Neurologic: No gross motor or sensory deficits. Skin: No rash. -- DATA -- MEDICATIONS SIMETHICONE 80 MG PO Q6H PRNACETAMINOPHEN 650 MG PO Q4H PRNIPRATROPIUM/ALBUTEROL SULFATE 3 ML NEB RTQ4H PRNPANTOPRAZOLE 40 MG PO DAILYIPRATROPIUM/ALBUTEROL SULFATE 3 ML NEB FEP7ICAXWVYLOG 3 MG PO BEDTIME PRNMETOPROLOL SUCCINATE 25 MG PO DAILYROSUVASTATIN CALCIUM 10 MG PO BEDTIMEONDANSETRON HCL/PF 4 MG IV Q6H PRNRINGERS, LACTATED 1000 ML IV .Q10H LABS FERRITIN (11/14/22 04:22)FERRITIN 16.7 RETIC COUNT (11/14/22 04:22)HEMATOCRIT 32.[address] AUTOMATED [address] ABSOLUTE 51.10 FE W/TOTAL IRON BINDING CAP (11/14/22 04:22)IRON 19 LTOTAL IRON BINDING CAPACITY 340IRON SATURATION 6 L BASIC METABOLIC PANEL (11/14/22 04:22)SODIUM 141POTASSIUM 3.6D DCHLORIDE 107CARBON DIOXIDE 26GLUCOSE 116H HBLOOD UREA NITROGEN 5L LGLOMERULAR FILTRATION RATE >=60 max estimateCREATININE 0.50L LCALCIUM 8.4 L CBC W/AUTO DIFF (11/14/22 04:22)WHITE BLOOD CELL 4.0L LRED BLOOD CELL 4.12 LHEMOGLOBIN 10.2L LHEMATOCRIT 32.9L LMEAN CELL VOLUME 79.9 LMEAN CELL HGB 24.8 LMEAN CELL HGB CONCENTRATION 31.0 LRED CELL DISTRIBUTION WIDTH 27.1 HPLATELET COUNT 146L LNEUTROPHIL % 65.0LYMPHOCYTE % 23.6MONOCYTE % 9.8 HEOSINOPHIL % 0.5BASOPHIL % 0.8NEUTROPHIL # 2.59 LYMPHOCYTE # 0.94 LMONOCYTE # 0.39EOSINOPHIL # 0.02BASOPHIL # 0.03 CBC W/AUTO DIFF (11/13/22 11:40)WHITE BLOOD CELL 4.2L LRED BLOOD CELL 4.46HEMOGLOBIN 11.1L LHEMATOCRIT 35.5L LMEAN CELL VOLUME 79.6 LMEAN CELL HGB 24.9 LMEAN CELL HGB CONCENTRATION 31.3 LRED CELL DISTRIBUTION WIDTH 27.1 HPLATELET COUNT 152MEAN PLATELET VOLUME TNPNEUTROPHIL % 60.2LYMPHOCYTE % 28.2MONOCYTE % 10.4 HEOSINOPHIL % 0.5BASOPHIL % 0.5NEUTROPHIL # 2.50LYMPHOCYTE # 1.17MONOCYTE # 0.43EOSINOPHIL # 0.02BASOPHIL # 0.02 Signed in PatientKeeper by EMILIE BUTLER MD on 11/14/22 at 21:57 at 2157ATTENTION EDITS and/or ADDENDA must be made in Patient Keeper for this note. Edits and ammendments created in [facility] are not visible in Patient Keeper or the legal medical record (HPF). [facility] #: [id number] OF REPORTPRProgress [id number]:58:00P.RC-[id number] ailable for patient jkbvQFKRPNXBKFNQAQ9420-80-04G76:58:42 [facility] 2022-11-14 08:27:00 [id number] FpMdqhL5yuYzpqaR4Sya4HBJdPj/F ZQ/khX5699xYVlmowUL5SBHdO1D1544-77-62T72:27:00 [facility] ([facility]) Cardiology Progress Notes REPORT #: [id number] REPORT STATUS: Signed DATE: 11/14/22 TIME: 826 PATIENT: KIMBERLY STRICKLAND UNIT #: [id number] #: [id number] ROOM #: [facility]30 BED: 1 : 40 AGE: 81 SEX: F ATTEND: Margarita Zhong MD ADM AUTHOR: Rickey Rosas MD ATTENTION EDITS and/or ADDENDA must be made in Patient Keeper for this note. Edits and ammendments created in [employer] are not visible in Patient Keeper or the legal medical record (HPF). -- ASSESSMENT AND PLAN -- HOSPITAL COURSE TO DATE:She requires surgery to address an obstructing colon mass. At 81, she hasevidence of calcific CAD for which she is treated medically. She has no anginaor heart failure with acceptable functional capacity, a normal cardiac exam cristofer normal ECG. She has chronic disease that is stable and controlled with amedical regimen that includes a beta jenae. Therefore, she has no increasedrisk of cardiovascular complication after surgery/GETA. There is no indicationto delay surgery for additional cardiovascular testing or change in medicalmanagement. GENERAL ASSESSMENT:I reviewed her echocardiogram. 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 She has hypertensive heart disease and is wellcompensated. No change in recommendations and I will follow up as needed.Rickey [id number] -- SUBJECTIVE -- CHIEF COMPLAINT:81 woman planning hemicolectomy -- OBJECTIVE -- VITALS (11/13 08:27 - 11/14 08:27):Temperature C: 36.3 (36.3 - 36.8)Temperature source: OralPulse Rate 81 (79 - 94)Respiratory rate: 17 (16 - 18)BP: 138/87 (117/71 - 146/87) I/Os (11/13 07:00 - 11/14 07:00):Net 348.00Intake 650.00Output 302 -- DATA -- MEDICATIONS SIMETHICONE 80 MG PO Q6H PRNACETAMINOPHEN 650 MG PO Q4H PRNIPRATROPIUM/ALBUTEROL SULFATE 3 ML NEB RTQ4H PRNPANTOPRAZOLE 40 MG PO DAILYIPRATROPIUM/ALBUTEROL SULFATE 3 ML NEB VAL0YOBIHXZXSA 3 MG PO BEDTIME PRNMETOPROLOL SUCCINATE 25 MG PO DAILYROSUVASTATIN CALCIUM 10 MG PO BEDTIMEONDANSETRON HCL/PF 4 MG IV Q6H PRNRINGERS, LACTATED 1000 ML IV .Q10H LABS FERRITIN (11/14/22 04:22)FERRITIN 16.7 RETIC COUNT (11/14/22 04:22)HEMATOCRIT 32.[address]24RET[address] ABSOLUTE 51.10 FE W/TOTAL IRON BINDING CAP (11/14/22 04:22)IRON 19 LTOTAL IRON BINDING CAPACITY 340IRON SATURATION 6 L BASIC METABOLIC PANEL (11/14/22 04:22)SODIUM 141POTASSIUM 3.6D DCHLORIDE 107CARBON DIOXIDE 26GLUCOSE 116H HBLOOD UREA NITROGEN 5L LGLOMERULAR FILTRATION RATE >=60 max estimateCREATININE 0.50L LCALCIUM 8.4 L CBC W/AUTO DIFF (11/14/22 04:22)WHITE BLOOD CELL 4.0L LRED BLOOD CELL 4.12 LHEMOGLOBIN 10.2L LHEMATOCRIT 32.9L LMEAN CELL VOLUME 79.9 LMEAN CELL HGB 24.8 LMEAN CELL HGB CONCENTRATION 31.0 LRED CELL DISTRIBUTION WIDTH 27.1 HPLATELET COUNT 146L LNEUTROPHIL % 65.0LYMPHOCYTE % 23.6MONOCYTE % 9.8 HEOSINOPHIL % 0.5BASOPHIL % 0.8NEUTROPHIL # 2.59LYMPHOCYTE # 0.94 LMONOCYTE # 0.39EOSINOPHIL # 0.02BASOPHIL # 0.03 CBC W/AUTO DIFF (11/13/22 11:40)WHITE BLOOD CELL 4.2L L RED BLOOD CELL 4.46HEMOGLOBIN 11.1L LHEMATOCRIT 35.5L LMEAN CELL VOLUME 79.6 LMEAN CELL HGB 24.9 LMEAN CELL HGB CONCENTRATION 31.3 LRED CELL DISTRIBUTION WIDTH 27.1 HPLATELET COUNT 152MEAN PLATELET VOLUME TNPNEUTROPHIL % 60.2LYMPHOCYTE % 28.2MONOCYTE % 10.4 HEOSINOPHIL % 0.5BASOPHIL % 0.5NEUTROPHIL # 2.50LYMPHOCYTE # 1.17MONOCYTE # 0.43EOSINOPHIL # 0.02BASOPHIL # 0.02 Signed in PatientKeeper by Rickey Rosas MD on 11/14/22 at 08:29 at 0829ATTENTION EDITS and/or ADDENDA must be made in Patient Keeper for this note. Edits and ammendments created in [facility] are not visible in Patient Keeper or the legal medical record (HPF). [facility] #: [id number] OF REPORTPRProgress qeee2589-97-45M40:27:00P.II-[id number] ailable for patient frgrDEQSCIDAKXGJNM5664-19-11Y48:30:16 [facility] 2022-11-14 07:04:00 [id number] aaSTfKhYm9h1yxhTvASBTxez6TMjJ 5HdRpXgT+JrCo1PnDs/VVznF/K80548-80-68D38:04:00 [facility] ([facility]) General Surg. Clinical Note REPORT #: [id number] REPORT STATUS: Signed DATE: 11/14/22 TIME: 703 PATIENT: KIMBERLY STRICKLAND UNIT #: [id number] #: [id number] ROOM #: [facility]30 BED: 1 : 40 AGE: 81 SEX: F ATTEND: Margarita Zhong MD ADM AUTHOR: Whitney Enriquez DO ATTENTION EDITS and/or ADDENDA must be made in Patient Keeper for this note. Edits and ammendments created in [facility] are not visible in Patient Keeper or the legal medical record ([facility]). -- NOTATION -- NOTATION:She is doing well this morning. She had some bowel movements yesterday and ispassing flatus. She denies any nausea/emesis and has not had any rectalbleeding. She was seen by cardiology and they stated that she needed no furtherworkup in order to undergo surgery. ECHO showed EF of 55-60%. VSS, labs reviewedAbdomen: soft, nontender, nondistended, no rebound, no guarding A/P1. 81 yo F with obstructing cecal mass. Plan is for surgery today for roboticassisted right hemicolectomy, possible ostomy.2. All questions about surgery were answered for the patient and her . Whitney Enriquez DO Signed in PatientKeeper by Whitney Enriquez DO on 11/14/22 at 07:07 at 0707ATTENTION EDITS and/or ADDENDA must be made in Patient Keeper for this note. Edits and ammendments created in [employer] are not visible in Patient Keeper or the legal medical record (HPF). [facility] #: [id number] OF REPORTCLClinical tmyp4788-68-04I38:04:00P.PJ-[id number] ailable for patient abweNEUQVXNCCNBDVS0407-14-00O60:07:46 [facility] 2022-11-13 16:48:00 [id number]+xE Ih5VLgOnwPpC7HTcONTfSqviR9aaL Y0VvasHGhzEJGxwWy3eI4lNqhry0226-82-56T96:48:93111 6-[address] [address]RMHWFOR NAME: KIMBERLY STRICKLAND ADMIT DATE: 11/12/22ACCOUNT NO: [id number] ROOM NO: P.0728 AGE: 81 REPORT TYPE: eECHOCARDIOGRAM REPORT SEX: F ADMITTING PHYSICIAN: Margarita Zhong MD ATTENDING PHYSICIAN: Margarita Zhong MD *[facility] [place], [place] [address]Xewqe Transthoracic Echocardiogram Patient: Kimberly StricklandStudy Date: 11/13/2022 BP: 131 / 69 Location: [facility]: [id number] : 1940 Age: 81 Height: 64 in / 162.6 cmAccession#: [id number] Gender: F Weight: 144.7 lb / 65.8 kgBMI/BSA: 24.9 kg/m 2 / 1.71 m 2 *Ordering Physician: * Margarita ZhongInterpreting Physician: Norma Rosas M.D. Indications: Preop cardiac evaluation. Study data: Transthoracic echocardiogram. Procedure:Transthoracic echocardiography was performed. Images were obtainedusing a New[employer] E 90 Portable cardiac ultrasound machine. Imagequality was good. Complete 2D, complete spectral Doppler, andcolor Doppler. Location: Bedside. Patient status: Inpatient.Patient room number: 728. Study status: Routine. Rhythm: Normalsinus rhythm. Findings Left ventricle: The cavity size is normal. There is mildconcentric hypertrophy. Systolic function is normal. The estimatedejection fraction is 55-60%. Wall motion is normal; there are noregional wall motion abnormalities. Doppler parameters areconsistent with abnormal left ventricular relaxation (grade 1 PATIENT NAME: KIMBERLY STRICKLAND diastolic dysfunction).Right ventricle: The cavity size is normal. Systolic function isnormal.Ventricular septum: The outflow septum has a sigmoid appearance.Left atrium: The atrium is at the upper limits of normal in size.Right atrium: The atrium is normal in size.Aorta: Aortic root: The aortic root is normal in size.Aortic valve: The valve is structurally normal. The valve istrileaflet. There is no evidence of stenosis. There is noregurgitation.Mitral valve: The annulus is severely calcified and moderatelythickened. There is no evidence of stenosis. There is noregurgitation.Tricuspid valve: The valve is structurally normal. There is noregurgitation.Pulmonic valve: The valve is structurally normal. There is noregurgitation.Pericardium: There is no pericardial effusion.Pulmonary arteries:The main pulmonary artery is normal-sized.Systemic veins:Inferior vena cava: The vessel is normal in size. Measurements Left ventricle Value Ref CHRIS, LAX 4.9 cm 3.8 - 5.2 ESD, LAX 2.5 cm 2.2 - 3.5 ESD/bsa, LAX 1.4 cm/m 2 1.3 - 2.1 FS, LAX 49 % 27 - 45 PW, ED 1.0 cm 0.6 - 0.9 PW, ES 1.8 cm ------- IVS/PW, ED 1.18 ------- PW/ID, ED 0.2 ------- Mass 191 g 66 - 150 Mass/bsa 112 g/m 2 44 - 88 E', lat greg, TDI 4.9 cm/sec >=10.0 E/e', lat greg, TDI 14 ------- E', med greg, TDI 3.8 cm/sec >=7.0 E/e', med greg, TDI 18 ------- E', avg, TDI 4.4 cm/sec ------- E/e', avg, TDI 15 <=14 LVOT Value Ref Diam, S 1.94 cm ------- Area 2.9 cm 2 ------- Peak tiki, S 1.06 m/sec ------- Mean tiki, S 0.7 m/sec ------- PATIENT NAME: KIMBERLY STRICKLAND VTI, S 25.2 cm ------- SV 74 ml ------- SV/bsa 43 ml/m 2 ------- Ventricular septum Value Ref IVS, ED 1.1 cm 0.6 - 0.9 IVS, ES 1.8 cm ------- Right ventricle Value Ref CHRIS, LAX 3.2 cm ------- Pressure, S 23 mm Hg ------- Left atrium Value Ref AP dim ES, LAX 5.1 cm 2.7 - 3.8 Vol, ES, 2-p 58 ml ------- Vol/bsa, ES, 2-p 34 ml/m 2 16 - 34 LA/Ao root ratio 1.63 ------- Aortic valve Value Ref Peak v, S 1.42 m/sec ------- Mean v, S 0.99 m/sec ------- VTI, S 30.3 cm ------- Mean grad, S 4.5 mm Hg ------- Peak grad, S 8.1 mm Hg ------- LVOT/AV, VTI ratio 0.83 ------- ELIZABETH, VTI 2.45 cm 2 ------- LVOT/AV, Vpeak 0.75 ------- ratio Mitral valve Value Ref Peak E 0.67 m/sec ------- Peak A 1.24 m/sec ------- Mean v, D 0.73 m/sec ------- VTI leaflet coapt 39.4 cm ------- Decel time 352 ms ------- PHT 102 ms ------- Mean grad, D 2.6 mm Hg ------- Peak grad, D 1.8 mm Hg ------- Peak E/A ratio 0.54 ------- Pulmonic valve Value Ref OH peak v 1.2 m/sec ------- Tricuspid valve Value Ref TR peak v 2.24 m/sec <=2.8 Peak RV-RA grad, S 20 mm Hg ------- Max TR tiki 2.24 m/sec ------- Aortic root Value Ref Root diam 3.1 cm <3.9 Root diam, ED MM 5.13 cm ------- PATIENT NAME: KIMBERLY STRICKLAND Pulmonary artery Value Ref Pressure, S 23.1 mm Hg ------- Systemic veins Value Ref Estimated CVP 3 mm Hg ------- Conclusions Summary: 1. Left ventricle: The cavity size is normal. There is mild concentric hypertrophy. Systolic function is normal. The estimated ejection fraction is 55-60%. Wall motion is normal; there are no regional wall motion abnormalities. Doppler parameters are consistent with abnormal left ventricular relaxation (grade 1 diastolic dysfunction).2. Right ventricle: The RV pressure during systole by Doppler is 23 mm Hg.3. Mitral valve: The annulus is severely calcified and moderately thickened. Impressions: Hypertensive heart disease. Prepared andelectronically signed by Rickey Rosas M.D.11/13/2022 16:48 at 1648 PATIENT NAME: KIMBERLY STRICKLAND :48:0 0P.[id number] for patient vckwIEWYSKEWUBIBON8003-40-54Q54:49:29 [facility] 2022-11-13 15:56:00 [id number] MI6bmmiRSGs8+ltKEVT2MuVMqQD7B CE9G3p4eDunKRNoI2iRHd4uszSH7656-84-16C72:56:00 [facility] ([facility]) Cardiology Consultation REPORT #: [id number] REPORT STATUS: Signed DATE: 11/13/22 TIME: 1555 PATIENT: KIMBERLY STRICKLAND UNIT #: [id number] #: [id number] ROOM #: P.0728 BED: 1 : 40 AGE: 81 SEX: F ATTEND: Margarita Zhong MD ADM AUTHOR: Rickey Rosas MD ATTENTION EDITS and/or ADDENDA must be made in Patient Keeper for this note. Edits and ammendments created in [facility] are not visible in Patient Keeper or the legal medical record ([facility]). -- ASSESSMENT AND PLAN -- GENERAL ASSESSMENT:She requires surgery to address an obstructing colon mass. At 81, she hasevidence of calcific CAD for which she is treated medically. She has no anginaor heart failure with acceptable functional capacity, a normal cardiac exam cristofer normal ECG. She has chronic disease that is stable and controlled with amedical regimen that includes a beta jenae. Therefore, she has no increasedrisk of cardiovascular complication after surgery/GETA. There is no indicationto delay surgery for additional cardiovascular testing or change in medicalmanagement. Rickey [id number] -- HISTORY -- CHIEF COMPLAINT:81 woman HPI:She experienced melena, saw her PCP and had a Hgb of 5.8. She had no angina.Evaluation found an obstructing colon mass that was believed to be cancer. Shewas referred to Dr. Arambula for colorectal surgery. Until very recently, sheparticipated in mowing her yard and engaged in >4 MET activity withoutlimitation or angina.she has no history of heart disease or cardiac murmur. She smoked about 20py,quitting about 10 years ago. PAST MEDICAL HISTORY:diabetes, hypertension, hyperlipidemia PAST SURGICAL HISTORY:L leg ORIF with bone graft -- ALLERGIES/HOME MEDS -- ALLERGIES:Penicillins (Severe - Allergy) HOME MEDICATIONS: ferrous gluconate tablet OralmetFORMIN Tab (Glucophage Tab) 500 MG PO DAILYMetoprolol Succinate XL Tab (Toprol XL Tab) 25 MG PO DAILYomeprazole capsule,delayed release 40 MG PO DAILYRosuvastatin Tab (Crestor Tab) 10 MG PO DAILY -- SUBJECTIVE -- -REVIEW OF SYSTEMS- COMMENT: a 12 point review of systems was completed with all pertinent change included in the HPI. -- OBJECTIVE -- VITALS (11/12 15:56 - 11/13 15:56):Temperature F: 98.5 (97.3 - 98.5)Temperature C: 36.7 (36.6 - 36.9)Temperature source: OralPulse Rate 87 (67 - 89)Respiratory rate: 16 (16 - 17)BP: 135/81 (123/75 - 167/86)Blood pressure source: Monitor I/Os (11/12 07:00 - 11/13 07:00):Net 1,050.00Intake 1,050.00 -EXAM- OTHER: General: adult, in bed comfortable HNT: normal head anatomy.no cataracts, normal sclerae, pupils are equal and normal. normal oral mucosae with old tooth fractures at the gum line. Normal external ears and hair distribution. Neck: No lymphadenopathy or mass. airway midline with thyroid normal Chest: Chest wall is normal. Breath sounds are diminished left base with scant rales but no wheezing. Back: mild kyphosis. No scoliosis. Cardiovascular: Rhythm is regular JVP normal height Pulses Carotid pulses are normal without bruit Radial pulses are normal without subclavian bruit Foot pulses are DPx2 PMI The PMI is impalpable. Valve sounds The first sound is normal. The second sound is single Murmur There is no murmur Filling sound No filling sound is present Abdomen The abdomen is obese, soft and not tender.. Bowel sounds are normal. There is no palpable organomegaly. Extrem. There is no edema. Joints are normal. There is no adenopathy. Skin There is no rash or skin change. Varices are absent. Normal skin texture. Neuro In a limited exam, Oriented to person, place and time. Speech and understanding are normal. . Psych Cooperative -- DATA -- MEDICATIONS morphine SULFATE 4 MG IV Q4H PRNSIMETHICONE 80 MG PO Q6H PRNACETAMINOPHEN 650 MG PO Q4H PRNMAGNESIUM HYDROXIDE 60 ML PO ONCEPANTOPRAZOLE 40 MG PO DAILYMETOPROLOL SUCCINATE 25 MG PO DAILYROSUVASTATIN CALCIUM 10 MG PO BEDTIMERINGERS, LACTATED 1000 ML IV .[id number]/ALBUTEROL SULFATE 3 ML NEB RTQ4H PRNIPRATROPIUM/ALBUTEROL SULFATE 3 ML NEB [id number] 3 MG PO BEDTIME PRNONDANSETRON HCL/PF 4 MG IV Q6H PRN LABS CBC W/AUTO DIFF (11/13/22 11:40)WHITE BLOOD CELL 4.2L LRED BLOOD CELL 4.46HEMOGLOBIN 11.1L LHEMATOCRIT 35.5L LMEAN CELL VOLUME 79.6 LMEAN CELL HGB 24.9 LMEAN CELL HGB CONCENTRATION 31.3 LRED CELL DISTRIBUTION WIDTH 27.1 HPLATELET COUNT 152MEAN PLATELET VOLUME TNPNEUTROPHIL % 60.2LYMPHOCYTE % 28.2MONOCYTE % 10.4 HEOSINOPHIL % 0.5BASOPHIL % 0.5NEUTROPHIL # 2.50LYMPHOCYTE # 1.17MONOCYTE # 0.43EOSINOPHIL # 0.02BASOPHIL # 0.02 CBC W/AUTO DIFF (11/12/22 17:22)WHITE BLOOD CELL 5.6RED BLOOD CELL 4.80HEMOGLOBIN 11.9L LHEMATOCRIT 38.7MEAN CELL VOLUME 80.6 LMEAN CELL HGB 24.8 LMEAN CELL HGB CONCENTRATION 30.7 LRED CELL DISTRIBUTION WIDTH 27.4 HPLATELET COUNT 175MEAN PLATELET VOLUME TNPNEUTROPHIL % 64.1LYMPHOCYTE % 24.5 MONOCYTE % 9.5 HEOSINOPHIL % 1.1BASOPHIL % 0.4NEUTROPHIL # 3.59LYMPHOCYTE # 1.37MONOCYTE # 0.53EOSINOPHIL # 0.06BASOPHIL # 0.02ANISOCYTOSIS 3+ H BASIC METABOLIC PANEL (11/12/22 17:22)SODIUM 138POTASSIUM 5.2H HCHLORIDE 104CARBON DIOXIDE 23GLUCOSE 101BLOOD UREA NITROGEN 10GLOMERULAR FILTRATION RATE >=60 max estimateCREATININE 0.90CALCIUM 9.1 LIP (11/12/22 17:22)LIPASE 57 H LIVER FUNCTION PANEL (11/12/22 17:22)TOTAL PROTEIN 8.2ALBUMIN 4.8BILIRUBIN TOTAL 0.8BILIRUBIN DIRECT 0.2SGOT/AST 59 HSGPT/ALT 15ALKALINE PHOSPHATASE 48.0 PTT (11/12/22 17:22)THROMBOPLASTIN TIME PARTIAL 34.2 PROTHROMBIN TIME (11/12/22 17:22)PROTHROMBIN TIME PATIENT 12.5INTERNATIONAL NORMAL RATIO 1.06 Signed in PatientKeeper by Rickey Rosas MD on 11/13/22 at 16:17 at 1617ATTENTION EDITS and/or ADDENDA must be made in Patient Keeper for this note. Edits and ammendments created in [employer] are not visible in Patient Keeper or the legal medical record (HPF). RPT #: [id number] OF REPORTHQXjagosucejas4435-48-59F48:56:00P.PK-NO [id number] for patient jicxCKOFFJORBSPTVC4273-47-54F30:17:58 [facility] 2022-11-13 15:37:00 [id number]/RT kMGNhby1qxAVdzL+TlbdA6uNTRnUE 2RGJ+yELHUMpEkaY4ysA1ygast48892-17-11T66:37:00 [facility] ([facility] Pulmonology Clinical Note REPORT #: [id number] REPORT STATUS: Signed DATE: 11/13/22 TIME: 1537 PATIENT: KIMBERLY STRICKLAND UNIT #: [id number] #: [id number] ROOM #: P.0728 BED: 1 : 40 AGE: 81 SEX: F ATTEND: Margarita Zhong MD ADM AUTHOR: Emilie Butler MD ATTENTION EDITS and/or ADDENDA must be made in Patient Keeper for this note. Edits and ammendments created in [facility] are not visible in Patient Keeper or the legal medical record (HPF). -- DATA -- ADDITIONAL COMMENTS:Bedside spirometry (11/13/2022):FEV1/ FVC: 83%.FEV1 1.04 (54% predicted).FVC 1.25 L (48% predicted). Impression: No obstruction. Decreased FVC suggestive of restriction, but notconfirmed by lung volume studies. Patient was complaining that she did not want to do the above test. ABG pending. Patient does not have significant COPD based on her spirometry. Signed in PatientKeeper by EMILIE BUTLER MD on 11/13/22 at 15:42 at 1542ATTENTION EDITS and/or ADDENDA must be made in Patient Keeper for this note. Edits and ammendments created in [employer] are not visible in Patient Keeper or the legal medical record (HPF). RPT #: [id number] OF REPORTCLClinical mwjy4632-25-74K11:37:00P.JR-[id number] ailable for patient hcswADANBHRMPDGZXY8630-76-02X39:43:44 [facility] 2022-11-13 11:44:00 [id number] jEscGRuN61xxPqDUSyhzseF3VCNfc hTW4PnvKVw5EzUShx1s8ghnsEcE6230-90-87Y13:44:00 [facility] ([facility]) Pulmonology Consultation REPORT #: [id number] REPORT STATUS: Signed DATE: 11/13/22 TIME: 1144 PATIENT: KIMBERLY STRICKLAND UNIT #: [id number] #: [id number] ROOM #: P.0728 BED: 1 : 40 AGE: 81 SEX: F ATTEND: Margarita Zhong MD ADM AUTHOR: Emilie Butler MD ATTENTION EDITS and/or ADDENDA must be made in Patient Keeper for this note. Edits and ammendments created in [employer] are not visible in Patient Keeper or the legal medical record (HPF). -- ASSESSMENT AND PLAN -- GENERAL ASSESSMENT:PULMONARY MEDICINE CONSULTATION NOTE SpO2 99% on room air. ASSESSMENT AND PLAN:1. Colon cancer.For surgical intervention tomorrow. 2. Chronic obstructive pulmonary disease, emphysema.History of heavy tobacco use. I ordered arterial blood gas and pulmonary function test.Patient has very good exercise capacity at baseline. Her risk for pulmonarycomplication with surgery is most likely mild to moderate.I will start her on Duoneb q 4 hours prn and q 6 hours scheduled.Start incentive spirometry and acapella. 3. Bilateral pulmonary nodules, probably metastatic.I discussed with patient the need to do CT-guided lung biopsy after she hadcolon surgery.I explained the risks and benefits of doing the lung biopsy.Patient will think about it. 4. Essential hypertension, coronary artery disease (on CT chest) .No previous history of congestive heart failure or coronary artery disease. EKG (11/12/2022): Normal sinus rhythm. Nonspecific ST and T wave abnormality. Continue Metoprolol po.Continue to monitor blood pressure and heart rate.Echo pending. 5. Anemia due to gastrointestinal blood loss from bleeding colon cancer, irondeficiency anemia.Continue to monitor Hb and transfuse as needed.Continue ferrous gluconate.I will check Fe, B12, and folate. 6. Continue sequential compression device for deep venous thrombosis prophylaxis. 7. Care coordinated with RN and RT. -- HISTORY -- HPI:This is an 81-year-old female with diabetes, hypertension, who was recentlydiagnosed with colon cancer by colonoscopy. She was admitted to [facility] for surgical intervention by Dr. Zander Arambula. We are consulted forpulmonary evaluation. Patient denied having been diagnosed with asthma or chronic obstructivepulmonary disease. She was a heavy smoker and quit 10 years ago. She hadbeen a very physically active person up until two months ago, when she hadhematochezia leading to a drop of her hemoglobin to 5.8 g/dL, requiring 3 unitsof packed red blood cell transfusion. She was independent on all activities ofdaily living. She was mowing her lawn up until two months ago. She could dohousehold chores and her laundry. She denied chronic cough or chest pain. Her CT scan of the chest with contrast (11/12/2022) showed:Mild centrilobular emphysema.Multiple bilateral round circumscribed solid lung nodules (measuring up to 1cm), concerning for metastatic disease.No acute pulmonary abnormality, pleural effusion, or pneumothorax.Patent central airways.Mild cardiomegaly. Heavily calcified coronary arteries. Normal caliber thoracicaorta and main pulmonary artery without obvious acute abnormality on non-CTAstudy.No enlarged thoracic lymphadenopathy.No acute or aggressive appearing osseous abnormality. PAST MEDICAL HISTORY: Colon cancer (diagnosed 09/2022).Diabetes.Essential hypertension.Hypercholesterolemia.She denied any history of congestive heart failure or coronary artery disease.Her previous colonoscopy was > 10 years ago. It was negative at that time.Bilateral cataract. PAST SURGICAL HISTORY: Left leg surgery for left leg injury after a fall ( 10 years ago). She wastaking down the [place]. When she climbed down the ladder, she missedthe last step and fell. IMMUNIZATION STATUS:She received Pfizer COVID vaccine and booster. She is up-to-date with fluvaccine and pneumovaccine. FAMILY HISTORY:Diabetes and hypertension. -SOCIAL HISTORY- -TOBACCO USE- DETAILS/COMMENTS:She started smoking cigarettes when she was a teenager. She smoked 1-2 packsper day. She quit tobacco more than 10 years ago. 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 Shelives with her . Two children. One son at age 27, when he [place]by [place] [employer] [place]. -- ALLERGIES/HOME MEDS -- ALLERGIES:Penicillins (Severe - Allergy) HOME MEDICATIONS:ferrous gluconate tablet OralmetFORMIN Tab (Glucophage Tab) 500 MG PO DAILYMetoprolol Succinate XL Tab (Toprol XL Tab) 25 MG PO DAILYomeprazole capsule,delayed release 40 MG PO DAILYRosuvastatin Tab (Crestor Tab) 10 MG PO DAILY -- SUBJECTIVE -- -REVIEW OF SYSTEMS- GENERAL: Negative for fever. Positive 10-15 lbs weight loss since September 10-15 lbs. No loss of appetite. She denied fatigue and malaise. In fact, she said she has trouble staying in bed. "I am always active."EYES: Negative for blurry vision. No diplopia. She wears contact lens (not today).EARS/NOSE/THROAT: Negative for sore throat. No otalgia. No rhinorrhea.RESPIRATORY: Negative for dyspnea or wheeze. No cough.CARDIOVASCULAR: Negative for chest pain or palpitations. No extremity swelling.GASTROINTESTINAL: Positive for intermittent right sided abdominal discomfort. Negative for nausea. No emesis. No diarrhea. Positive constipation. positive hematochezia. No heartburn.GENITOURINARY: Negative for dysuria, frequency, or urgency. No gross hematuria.MUSCULOSKELETAL: Negative for joint stiffness, pain, or arthralgias.SKIN: Negative for rashes. No pruritus.NEUROLOGICAL: Negative for headache. No vertigo. Denies paresthesias.PSYCHIATRIC: Negative for specific complaints.ENDOCRINE: Negative for cold intolerance, heat intolerance, polyphagia, polydipsia, polyuria.HEMATALOGIC / LYMPHORETICULAR: Negative for excessive bleeding, unusual masses.ALLERGIC / IMMUNOLOGIC: positive sinus congestion once in a while. -- OBJECTIVE -- VITALS (11/12 11:44 - 11/13 11:44):Temperature F: 98.5 (97.3 - 98.5)Temperature C: 36.7 (36.6 - 36.9)Temperature source: Oral Pulse Rate 87 (67 - 89)Respiratory rate: 16 (16 - 17)BP: 135/81 (123/75 - 167/86)Blood pressure source: Monitor I/Os (11/12 07:00 - 11/13 07:00):Net 1,050.00Intake 1,050.00 -EXAM- GENERAL: Physical examination: General: Alert and responsive. HEENT: [place] conjunctivae, anicteric sclerae, negative jugular venous distension. Upper and lower dental implants, Mallampatic class 2, mild erythema on the pharynx and uvula. Chest: Decreased breath sounds. Heart: Regular rate and rhythm, S1 and S2 normal. Abdomen: Soft, non-distended, non-tender, normoactive bowel sounds. Extremities: No edema, no cyanosis, no tenderness. Neurologic: No gross motor or sensory deficits. Skin: No rash. -- DATA -- MEDICATIONS morphine SULFATE 4 MG IV Q4H PRNSIMETHICONE 80 MG PO Q6H PRNACETAMINOPHEN 650 MG PO Q4H PRNMAGNESIUM HYDROXIDE 60 ML PO ONCEPANTOPRAZOLE 40 MG PO DAILYMETOPROLOL SUCCINATE 25 MG PO DAILYROSUVASTATIN CALCIUM 10 MG PO BEDTIMEIPRATROPIUM/ALBUTEROL SULFATE 3 ML NEB RTQ4H PRNIPRATROPIUM/ALBUTEROL SULFATE 3 ML NEB [id number] 3 MG PO BEDTIME PRNONDANSETRON HCL/PF 4 MG IV Q6H PRN LABS CBC W/AUTO DIFF (11/12/22 17:22)WHITE BLOOD CELL 5.6RED BLOOD CELL 4.80HEMOGLOBIN 11.9L LHEMATOCRIT 38.7MEAN CELL VOLUME 80.6 LMEAN CELL HGB 24.8 LMEAN CELL HGB CONCENTRATION 30.7 LRED CELL DISTRIBUTION WIDTH 27.4 HPLATELET COUNT 175MEAN PLATELET VOLUME TNPNEUTROPHIL % 64.1LYMPHOCYTE % 24.5MONOCYTE % 9.5 H EOSINOPHIL % 1.1BASOPHIL % 0.4NEUTROPHIL # 3.59LYMPHOCYTE # 1.37MONOCYTE # 0.53EOSINOPHIL # 0.06BASOPHIL # 0.02ANISOCYTOSIS 3+ H BASIC METABOLIC PANEL (11/12/22 17:22)SODIUM 138POTASSIUM 5.2H HCHLORIDE 104CARBON DIOXIDE 23GLUCOSE 101BLOOD UREA NITROGEN 10GLOMERULAR FILTRATION RATE >=60 max estimateCREATININE 0.90CALCIUM 9.1 LIP (11/12/22 17:22)LIPASE 57 H LIVER FUNCTION PANEL (11/12/22 17:22)TOTAL PROTEIN 8.2ALBUMIN 4.8BILIRUBIN TOTAL 0.8BILIRUBIN DIRECT 0.2SGOT/AST 59 HSGPT/ALT 15ALKALINE PHOSPHATASE 48.0 PTT (11/12/22 17:22)THROMBOPLASTIN TIME PARTIAL 34.2 PROTHROMBIN TIME (11/12/22 17:22)PROTHROMBIN TIME PATIENT 12.5INTERNATIONAL NORMAL RATIO 1.[address] ABD amp;PELVIS W/CONT (11/12/22 19:30)IMPRESSION: Irregular wall thickening of cecum and adjacent terminal ileum maycorrespond to history of colon cancer. There are a few adjacent softtissue nodules are concerning for milagro metastatic disease. A few low-attenuation liver lesions. Largest of these are cysts.Other lesions are too small to characterize. Multiple bilateral lung nodules concerning for metastatic disease. Other findings above. CT CHEST W/CONTRAST (11/12/22 19:30)IMPRESSION: Irregular wall thickening of cecum and adjacent terminal ileum maycorrespond to history of colon cancer. There are a few adjacent softtissue nodules are concerning for milagro metastatic disease. A few low-attenuation liver lesions. Largest of these are cysts.Other lesions are too small to characterize. Multiple bilateral lung nodules concerning for metastatic disease. Other findings above. Signed in PatientKeeper by EMILIE BUTLER MD on 11/13/22 at 15:25 at 1525ATTENTION EDITS and/or ADDENDA must be made in Patient Keeper for this note. Edits and ammendments created in [employer] are not visible in Patient Keeper or the legal medical record (HPF). RPT #: [id number] OF REPORTKPZysqknaupwev5933-14-62K78:44:00P.PK-NO [id number] for patient pasfCCDLXVHOCDHZIQ0737-66-11R07:25:54 [facility] 2022-11-13 10:50:00 [id number] KbZZHGx+UxiGJrYK+ngKEL9luZZKc 7TUnK0QfCdY6m52Mw7116hNfT3Q8289-63-38X97:50:00 [facility] ([facility]) Med Order Sheet REPORT #: [id number] REPORT STATUS: Signed DATE: 11/13/22 TIME: 1050 PATIENT: KIMBERLY STRICKLAND UNIT #: [id number] #: [id number] ROOM #: P.0728 BED: 1 : 40 AGE: 81 SEX: F ATTEND: Margarita Zhong MD ADM AUTHOR: Fito Gerardo APRN ATTENTION EDITS and/or ADDENDA must be made in Patient Keeper for this note. Edits and ammendments created in [facility] are not visible in Patient Keeper or the legal medical record (HPF). Admission Medication Reconciliation -- CONTINUED / CHANGED HOME MEDICATIONS -- Home: Metoprolol Succinate XL Tab (Toprol XL Tab) 25 MG PO DAILYHosp: Metoprolol Succinate XL Tab (Toprol XL Tab) 25 MG PO DAILY Home: omeprazole capsule,delayed release 40 MG PO DAILYHosp: omeprazole capsule,delayed release 40 MG PO DAILY Home: Rosuvastatin Tab (Crestor Tab) 10 MG PO DAILYHosp: Rosuvastatin Tab (Crestor Tab) 10 MG PO DAILY -- STOPPED HOME MEDICATIONS -- Home: ferrous gluconate tablet Oral Home: metFORMIN Tab (Glucophage Tab) 500 MG PO DAILY at 1050ATTENTION EDITS and/or ADDENDA must be made in Patient Keeper for this note. Edits and ammendments created in [employer] are not visible in Patient Keeper or the legal medical record (HPF). RPT #: [id number] OF REPORTCLClinical vgrr0737-30-78G24:50:00P.AO-[id number] ailable for patient ifdiDOWPHUNEERWFOR7812-21-42F41:50:34 [facility] 2022-11-13 09:54:00 [id number] x/vZhzRZn3Hdf/NzixdfWThFRyeue wv4x0WymGNI1dzWxK1924QzYMef2566-44-83A55:54:00 [facility] ([facility]) Internal Med. H P REPORT #: [id number] REPORT STATUS: Signed DATE: 11/13/22 TIME: 953 PATIENT: KIMBERLY STRICKLAND UNIT #: [id number] #: [id number] ROOM #: P.0928 BED: 1 : 40 AGE: 82 SEX: F ATTEND: Margarita Zhong MD ADM AUTHOR: Fito Gerardo APRN ATTENTION EDITS and/or ADDENDA must be made in Patient Keeper for this note. Edits and ammendments created in [employer] are not visible in Patient Keeper or the legal medical record (HPF). -- CO-SIGNATURE -- COMMENTS:Patient seen and examined at bedside.Plan of care discussed with patient, all questions answered.Agree with the findings as detailed by Fito Gerardo APRN.Plans for the acute medical problems are enumerated below.Total time spent coordinating care > 35 mins. Signed in PatientKeeper by MARGARITA ZHONG MD on 12/29/22 at 06:36 -- HISTORY -- ADMISSION DATE:2022-11-12 PRIMARY CARE PROVIDER:Zander Arambula MD CHIEF COMPLAINT:medical management HPI:Patient is an 81 year old woman with history of diabetes, hypertension,hyperlipidemia, who reports having some intermittent right sided abdomen pain.Patient states that she had a bowel movement two days ago. She reports episodesof hematochezia approximately 1 month ago, and required blood transfusions. Shehad a colonoscopy and GI workup in [place]. Patient was told she had anobstructing colon mass that was believed to be cancer. She was referred to for colorectal surgery. CT scan revealed heavily calcified coronaryarteries, soft tissue nodules concerning for milagro metastatic disease, andmultiple bilateral lung nodules concerning for metastatic disease. She reportsremote tobacco use, but denies problems with her lungs. Patient is admitted forfurther evaluation prior to planned surgery tomorrow. PAST MEDICAL HISTORY:diabetes, hypertension, hyperlipidemia, PAST SURGICAL HISTORY:denies FAMILY HISTORY:Diabetes, hypertension. Denies familial history of cancer -SOCIAL HISTORY- MARITAL STATUS: ADDITIONAL SOCIAL HISTORY:Remote tobacco use. Denies alcohol or illicit drug use. -- ALLERGIES/HOME MEDS -- ALLERGIES:Penicillins (Severe - Allergy) HOME MEDICATIONS:ferrous gluconate tablet OralmetFORMIN Tab (Glucophage Tab) 500 MG PO DAILYMetoprolol Succinate XL Tab (Toprol XL Tab) 25 MG PO DAILYomeprazole capsule,delayed release 40 MG PO DAILYRosuvastatin Tab (Crestor Tab) 10 MG PO DAILY -- SUBJECTIVE -- -REVIEW OF SYSTEMS- GENERAL: Negative for fever, malaise, fatigue.EYES: Negative for blurry vision. No diplopia.EARS/NOSE/THROAT: Negative for sore throat. No otalgia. No rhinorrhea.RESPIRATORY: Negative for dyspnea or wheeze. No cough.CARDIOVASCULAR: Negative for chest pain or palpitations. No extremity swelling.GASTROINTESTINAL: Positive for intermittent abdominal pain. No nausea. No emesis. Positive for constipation. Positive to GI bleeding 1 month ago.GENITOURINARY: Negative for dysuria, frequency, or urgency. No gross hematuria.MUSCULOSKELETAL: Negative for joint stiffness, pain, or arthralgias.SKIN: Negative for rashes. No pruritus.NEUROLOGICAL: Negative for headache. No vertigo. Denies paresthesias.PSYCHIATRIC: Negative for specific complaints.ENDOCRINE: Negative for cold intolerance, heat intolerance, polyphagia, polydipsia, polyuria, weight change, fatigue.HEMATALOGIC / LYMPHORETICULAR: Negative for excessive bleeding at present, but GI bleeding 1 month ago.ALLERGIC / IMMUNOLOGIC: Negative for heat/cold intolerance, polydipsia, or polyuria. -- OBJECTIVE -- VITALS (11/12 09:54 - 11/13 09:54):Temperature F: 98.5 (97.3 - 98.5)Temperature C: 36.7 (36.6 - 36.9)Temperature source: OralPulse Rate 87 (67 - 89)Respiratory rate: 16 (16 - 17)BP: 135/81 (123/75 - 167/86)Blood pressure source: Monitor I/Os (11/12 07:00 - 11/13 07:00): Net 1,050.00Intake 1,050.00 -EXAM- GENERAL: alert and cooperative, appears comfortable. In no distress.HEAD: Normocephalic, atraumatic.EYES: PERRL, EOM intact, conjunctiva and sclera clear, without nystagmus, lids normal.EARS: normal canals, grossly normal hearing.NOSE: No deformity, no discharge, no inflammation, no lesions.MOUTH: Oropharynx without deformities or lesions, normal mucosa..NECK: No masses, no thyromegaly, no abnormal cervical nodes, trachea midline.CHEST: Grossly normal appearance.BREAST: deferredLUNGS: Clear bilaterally with normal respiratory effort.HEART: Regular rate and rhythm, normal S1, S2, no murmurs, no rubs, no gallops, no clicks.ABDOMEN: Soft, non-tender, no organomegaly, no masses noted.MUSCULOSKELETAL: No deformity, no scoliosis noted of thoracic or lumbar spine, joint ROM grossly normal, normal gait and station.EXTREMITIES: No clubbing, no cyanosis, no edema.NEUROLOGICAL: No focal deficits, cranial nerves II-XII grossly intact, normal sensation, normal coordination, normal muscle strength, normal tone.PULSES: Pulses normal in all extremities.RECTAL: deferredGENITOURINARY: deferredSKIN: Intact without significant lesions, or rashes.LYMPH NODES: No significant node adenopathy.PSYCHIATRIC: Alert and oriented to time, person, place. Normal mood and affect, intact judgment and insight. -- DATA -- LABS CBC W/AUTO DIFF (11/12/22 17:22)WHITE BLOOD CELL 5.6RED BLOOD CELL 4.80HEMOGLOBIN 11.9L LHEMATOCRIT 38.7MEAN CELL VOLUME 80.6 LMEAN CELL HGB 24.8 LMEAN CELL HGB CONCENTRATION 30.7 LRED CELL DISTRIBUTION WIDTH 27.4 HPLATELET COUNT 175MEAN PLATELET VOLUME TNPNEUTROPHIL % 64.1LYMPHOCYTE % 24.5MONOCYTE % 9.5 HEOSINOPHIL % 1.1BASOPHIL % 0.4NEUTROPHIL # 3.59 LYMPHOCYTE # 1.37MONOCYTE # 0.53EOSINOPHIL # 0.06BASOPHIL # 0.02ANISOCYTOSIS 3+ H BASIC METABOLIC PANEL (11/12/22 17:22)SODIUM 138POTASSIUM 5.2H HCHLORIDE 104CARBON DIOXIDE 23GLUCOSE 101BLOOD UREA NITROGEN 10GLOMERULAR FILTRATION RATE >=60 max estimateCREATININE 0.90CALCIUM 9.1 LIP (11/12/22 17:22)LIPASE 57 H LIVER FUNCTION PANEL (11/12/22 17:22)TOTAL PROTEIN 8.2ALBUMIN 4.8BILIRUBIN TOTAL 0.8BILIRUBIN DIRECT 0.2SGOT/AST 59 HSGPT/ALT 15ALKALINE PHOSPHATASE 48.0 PTT (11/12/22 17:22)THROMBOPLASTIN TIME PARTIAL 34.2 PROTHROMBIN TIME (11/12/22 17:22)PROTHROMBIN TIME PATIENT 12.5INTERNATIONAL NORMAL RATIO 1.06 -- ASSESSMENT AND PLAN -- PROBLEMS: 1: Colonic massA/P: Dr. Arambula consulted.Surgery planned tomorrow. 2: Coronary artery diseaseA/P: CT revealed heavily calcified coronary arteries.Consult Dr. Rosas for preop cardiac evaluation 3: Multiple lung nodules on CTA/P: Consult Dr. Butler for pulmonary evaluation. 4: HypertensionA/P: Continue metoprolol xl 25 mg daily 5: HyperlipidemiaA/P: Continue Rosuvastatin 10 mg daily 6: Diabetes mellitusA/P: Stopped taking metforminGlucose is controlled Monitor 7: Gastroesophageal reflux diseaseA/P: Continue PPI 8: DVT prophylaxisA/P: SCDs Signed in PatientKeeper by Fito Gerardo APRN on 11/13/22 at 10:48 Cosigned by MARGARITA ZHONG MD on 12/29/22 at 06:36 at 0636 at 0636ATTENTION EDITS and/or ADDENDA must be made in Patient Keeper for this note. Edits and ammendments created in [employer] are not visible in Patient Keeper or the legal medical record (HPF). [facility] #: [id number] OF REPORTHPHistory and physical wzbqqvzwthe8668-94-63V79:54:00P.XE-[id number] 079AVAvailable for patient kfoaMUQSDYNWUOQBMF2460-69-35V57:36:59 [facility] 2022-11-13 07:02:00 [id number]7qW ckP2CgwmH5+tzi0F998+JAVqE2g8182-94-66A06:02:00 [facility] ([facility]) General Surg. Clinical Note REPORT #: [id number] REPORT STATUS: Signed DATE: 11/13/22 TIME: 07 PATIENT: KIMBERLY STRICKLAND UNIT #: [id number] #: [id number] ROOM #: P.0728 BED: 1 : 40 AGE: 81 SEX: F ATTEND: Margarita Zhong MD ADM AUTHOR: Whitney Enriqeuz DO ATTENTION EDITS and/or ADDENDA must be made in Patient Keeper for this note. Edits and ammendments created in [facility] are not visible in Patient Keeper or the legal medical record (HPF). -- NOTATION -- NOTATION:She is doing well today. She states that she had a bowel movement two days agoand is passing flatus. She has some pain on the right side of her abdomen, butit is tolerable. She denies an extensive smoking history or problems with herlungs. She is tolerating clear liquids without any nausea/emesis. VSS, labs reviewedAbdomen: soft, nontender, nondistended, no rebound, no guarding A/P1. She has a right sided obstructing colon mass. Will review CT with radiologytoday and plan for surgery tomorrow.2. Cardiology consult for cardiac clearance before surgery tomorrow.3. CLD today, npo [place]. 2 doses of milk of magnesia at 1700 today for prep.4. Appreciate medicine team recommendations. Whitney Enriquez DO Signed in PatientKeeper by Whitney Enriquez DO on 11/13/22 at 07:07 at 0707ATTENTION EDITS and/or ADDENDA must be made in Patient Keeper for this note. Edits and ammendments created in [facility] are not visible in Patient Keeper or the legal medical record (HPF). [facility] #: [id number] OF REPORTCLClinical tbqx9209-78-82U20:02:00P.TU-[id number] ailable for patient qbaaYOHDLUOCKEIEWO7818-59-94K54:07:41 [facility] 2022-11-12 17:22:00 [id number] OqFqCn6IWJzaKw16gyYU7aj3/p6O7 oaW2U4P0usfsSnkmrNGX0rYpVPD4224-22-62B12:22:47979 7-0006 [facility] [address] [place], [place] [address]KBUINJW NAME: KIMBRELY STRICKLAND ADMIT DATE: 11/12/22ACCOUNT NO: [id number] ROOM NO: [facility] AGE: 81 REPORT TYPE: eELECTROCARDIOGRAM SEX: F ADMITTING PHYSICIAN: Margarita Zhong MD ATTENDING PHYSICIAN: Margarita Zhong MD Order:[id number] Reason : Test Date/Time Stamp:SatNov 12 2022 17:22:15Blood Pressure : / mmHGVent. Rate : 074 BPM Atrial Rate : 074 BPM P-R Int : 206 ms QRS Dur : 076 ms QT Int : 380 ms P-R-T Axes : 051 036 050 degrees QTc Int : 421 ms Normal sinus rhythmNormal ECGConfirmed by ALEXA FRYE, RICKEY Fonseca ([id number]) on 11/14/2022 8:45:39 AM Referred By: Self Referred Confirmed by:RICKEY ROSAS MD at 0845 PATIENT NAME: KIMBERLY STRICKLAND .[id number] AVAvailable for patient shynJDDQAWZVTACEWC4590-06-96B05:46:07 [facility] 2022-11-12 16:58:00 [id number] +tOgWJS6BRP4X7KDL9fPvYLn6iNyU v/LDN5YLE9GBcTaMUNCH4h2cUPP3503-42-12A83:58:00 [facility] ([facility])EMERGENCY PROVIDER REPORTREPORT#:[id number] REPORT STATUS: SignedDATE:11/12/22 TIME: 1657 PATIENT: KIMBERLY STRICKLAND UNIT #: [id number]#: [id number] ROOM: [facility] BED: 8AGE: 81 SEX: F PCP PHYS: Zander Arambula MDSERVICE AUTHOR: Ashu Stover MD * ALL edits or amendments must be made on the electronic/computer document * HPI-General Illness Free Text HPI NotesFree Text HPI NotesPatient walked in after driving in from out of town. Patient states she is Samy Somers. Patient states she had recent colonoscopy and GI work-up. She has been dealing with constipation over the last 2 months. The patient states she been taking laxatives without relief. Denies any pain or vomiting. No GI bleeding. Denies any prior abdominal surgeries. Patient was told she had a colon mass that was believed to be cancer. She was then referred to a colorectal surgeon here in [place] and was advised to come immediately to [place] due to his possible obstructive symptoms. GeneralInitial Greet Date/Time 11/12/221651 PresentationChief Complaint __ (colon mass) Review of Systems Review of SystemsConstitutionalDenies: Chills, Fever. RespiratoryDenies: Cough, non-productive, Cough, productive, Dyspnea on exertion, Hemoptysis, Pleuritic pain, Shortness of breath. CardiovascularDenies: Chest pain, Palpitations. GIReports: Constipation. Denies: Abdominal pain, Hematochezia, Nausea, Vomiting. NeurologicDenies: Headache, Lightheaded. Past Medical History - AdultStated Complaint POSS. COLON CANCER DXAllergiesCoded Allergies:Penicillins (Severe, RASH, HIVES 11/12/22) Review of Nursing Notes Rapid assess notes rev Physical Exam Vital SignsVital SignsFirst Documented: Result Date Time Pulse Ox 99 11/12 1647 B/P 167/76 11/12 1647 B/P Mean 106 11/12 1647 O2 Delivery Room air 11/12 1647 Temp 36.8 11/12 1647 Pulse 89 11/12 1647 Resp 17 11/12 164 Last Documented: Result Date Time Pulse Ox 99 11/12 1650 B/P 160/86 11/12 1650 B/P Mean 110 11/12 1650 Temp 36.3 / 1650 Pulse 89 / 1650 O2 Delivery Room air 11/12 1647 Resp 17 11/12 1647 Review of Vital Signs Reviewed Physical ExamGeneral/Const General/Const Awake, No acute distressEars/Nose/Throat Ears/Nose/Throat Mucous membranes moistResp/Chest Respiratory/Chest No respiratory distressCardiovascular Cardiovascular Heart rate NLAbdomen/GI Abdomen/GI Soft, No guarding, No reboundNeurologic Neurologic Oriented X3 Interpretation Diagnostics Lab Results InterpretationResultsLaboratory Tests 11/12/221721:[Embedded Image Not Available]Laboratory Tests: 11/12 1721 Chemistry Sodium (136 - 145 mmol/L) 138 Potassium (3.5 - 5.1 mmol/L) 5.2 H Chloride (98 - 107 mmol/l) 104 Carbon Dioxide (20 - 31 mmol/L) 23 BUN (9 - 23 mg/dL) 10 Creatinine (0.55 - 1.02 mg/dL) 0.90 Glomerular Filtr Rate (>60 mL/min) >=60 max estimate Glucose (74 - 106 ng/dL) 101 Calcium (8.7 - 10.4 mg/dL) 9.1 Total Bilirubin (0.3 - 1.2 mg/mL) 0.8 Direct Bilirubin (<0.3 mg/dL) 0.2 AST (<34 I/U) 59 H ALT (10 - 49 U/L) 15 Total Alk Phosphatase (46 - 116 U/L) 48.0 Total Protein (5.7 - 8.2 mg/dL) 8.2 Albumin (3.2 - 4.8 mg/dL) 4.8 Lipase (12 - 53 U/L) 57 H Coagulation PT (10.3 - 12.9 SECONDS) 12.5 INR (0.9 - 1.11 INR UNIT) 1.06 PTT ([place]) (23.8 - 34.8 SECONDS) 34.2 Hematology WBC (4.8 - 10.8 x10 3/uL) 5.6 RBC (4.20 - 5.40 x10 6/uL) 4.80 Hgb (12.0 - 16.0 g/dL) 11.9 L Hct (37.0 - 47.0 %) 38.7 MCV (81.0 - 99.0 fL) 80.6 L MCH (27 - 31 pg) 24.8 L MCHC (33 - 36.5 G/DL) 30.7 L RDW (12.9 - 16.9 %) 27.4 H Plt Count (150 - 440 x10 3/uL) 175 MPV (8.9 - 12.4 fL) TNP Neut % (Auto) (42.2 - 75.2 %) 64.1 Lymph % (Auto) (20.5 - 51.1 %) 24.5 Campbell % (Auto) (1.7 - 9.3 %) 9.5 H Eos % (Auto) (0.0 - 7.0 %) 1.1 Baso % (Auto) (0 - 2.5 %) 0.4 Neut # (Auto) (1.80 - 7.70 x10 3/uL) 3.59 Lymph # (Auto) (1.00 - 4.80 x10 3/uL) 1.37 Campbell # (Auto) (0.00 - 0.80 x10 3/uL) 0.53 Eos # (Auto) (0.00 - 0.45 x10 3/uL) 0.06 Baso # (Auto) (0.0 - 0.20 x10 3/uL) 0.02 Recent Impressions:RADIOLOGY - XR CHEST 1 V 11/12 1700 Report Impression - Status: SIGNED Entered: 11/12/2022 171 IMPRESSION: No acute radiographic abnormality.Impression By: Maryellen Urbina M.D. Lab Imaging StatementLaboratory radiographic studies reviewed and considered in the medical decision-making. Re-Evaluation MDM ED CourseMedication(s) OrderedMedication(s) Ordered:Central Nervous System Agents Sig/Norma Start time Last Medication Dose Route Stop Time Status Admin Acetaminophen 650 MG Q4H PRN PRN 11/12 1730 AC PO 11/13 1620 Morphine Sulfate 4 MG Q4H PRN PRN 11/12 1730 AC IV 11/13 1620 Electrolytic, Caloric, And Henny Sig/Norma Start time Last Medication Dose Route Stop Time Status Admin Sodium Chloride 1,000 ML ONCE ONE 11/12 1730 AC 11/12 IV 11/13 0329 1726 Gastrointestinal Drugs Sig/Norma Start time Last Medication Dose Route Stop Time Status Admin Ondansetron HCl 4 MG Q6H PRN PRN 11/12 1730 AC IV 11/13 1620 ConsultationConsultation Referral/Consult Name Zander Arambula MD Supply Chain Assistant Called General 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 school 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 Discussed with data management consultant, Requested further eval, Will see patient Requested Call Time 1703 Requested Call Date 11/12/22 Call Returned Call returned Call Returned Time 1704 Call Returned Date 11/12/22 Patient Discharge Departure Vital Signs/ConditionVital SignsFirst Documented: Result Date Time Pulse Ox 99 11/12 1647 B/P 167/76 06/05 1647 B/P Mean 106 /05 1647 O2 Delivery Room air 11/12 1647 Temp 36.8 06/ 1647 Pulse 89 06/ 1647 Resp 17 11/12 1647 Last Documented: Result Date Time Pulse Ox 99 06 1650 B/P 160/86 06/05 1650 B/P Mean 110 06/05 1650 Temp 36.3 06/05 1650 Pulse 89 06/05 1650 O2 Delivery Room air 11/12 1647 Resp 17 11/12 1647 All vital signs available at the time of this entry have been reviewed. Condition Stable Clinical ImpressionClinical ImpressionPrimary Impression: Colonic mass Disposition DecisionHospitalize Hosp Physician Name Margarita Zhong MD Hosp Physician Hospitalist Request Time 1719 Request Date 11/12/22 )( Accepts Hospitalization Yes )( Reason for Hospitalizationcolon mass, needs surgery )( Accepted Time 1720 )( Accepted Date 11/12/22 Call Information will see patient at 1812RPT #:[id number] OF REPORTEDEmergency department evyluc5557-16-11H17:58:00P.[id number] ilable for patient sdtmLKEDMEBEAMLVDU6125-07-75D17:13:01 [facility]
[2023-07-04] MEDS ORDERED: ONDANSETRON 4 MG/2 ML VIAL IV PRN (19:58)
[2023-07-04] MEDS: QUETIAPINE 25 MG TAB PO SCH (20:44)
[2023-07-04] MEDS: NA CHLORIDE 0.9% 1,000 ML IV SCH (20:45)
[2023-07-04 20:51] LABS: Absolute Lymphocytes (CBC) 0.6 K/uL (0.7-4.9); Hematocrit 41.8 % (36.0-45.0); Lymphocytes % 10.3 % (15.3-44.8); MPV 8.9 fL (7.6-11.3); Platelets 201 thou/uL (152-406); RBC Red Blood Cell Count 4.59 M/uL (3.86-4.86)
[2023-07-04 21:03] LABS: Albumin 2.8 g/dL (3.4-5.0); Bilirubin Total 1.1 mg/dL (0.2-1.0); Magnesium 1.8 mg/dL (1.6-2.4); Protein, Total 6.8 g/dL (6.4-8.2)
[2023-07-04 21:16] LABS: Platelet Estimate ADEQ; White Blood Cell Scan OK (OK)
[2023-07-04 21:17] LABS: Blood Morphology Comment NOT SEEN (NOT SEEN)
[2023-07-04 21:35] VITALS: BMI 22.8
[2023-07-05 03:21] LABS: Carcinoembryonic Antigen 26.3 ng/mL (0-5.0)
[2023-07-05] MEDS: NA CHLORIDE 0.9% 1,000 ML IV SCH ×2 (06:36→17:31)
--- NOTE | 2023-07-05 09:48 | RAD REPORT ---
EXAM DESCRIPTION: CT - Abdomen Pelvis W Contrast - 07/05/2023 9:06 am CLINICAL HISTORY: elevated liver function COMPARISON: Stone Protocol dated 05/19/2019; Thorax Wo Con dated 07/05/2023 TECHNIQUE: Thin cut axial CT imaging of the abdomen and pelvis was performed following intravenous a dministration of 100 mL Isovue 300. Multiplanar reformats were generated and reviewed. Patient flores pizarro underwent contrast enhanced imaging of the abdomen only. The patient was then brought back for im aging of the chest, abdomen, and pelvis, at which point some contrast excretion in the left renal col lecting system was noted. All CT scans are performed using dose optimization technique as appropriate and may include automated exposure control or mA/KV adjustment according to patient size. FINDINGS: Lungs are evaluated separately on dedicated CT of the chest of the same day. The liver demonstrates a peripheral right liver lobe 1.6 cm lobulated lesion demonstrating fluid sign al intensity, suggestive of a cyst although it is more prominent than on the prior exam. Adrenal glan ds, spleen, and pancreas show no suspicious findings, with mild nodularity of the left adrenal gland, stable in appearance. Gallbladder and biliary tree are also without suspicious finding. There is severe right hydronephrosis and hydroureter, with delayed contrast excretion on the right. T here is abrupt transition of the caliber of the ureter at the level of the upper pelvis, with no evid ence of an obstructing calculus. A nonobstructing left renal mid to lower pole 5 mm calculus is noted . The opacified aspects of the urinary tracts are unremarkable Moderately dilated small bowel loops throughout the abdomen, with air-fluid levels. Sequelae of proxi mal colonic resection. The transition point appears to be along a segment of small bowel in the right flank with attenuated caliber leading to the ileocolic anastomosis. A segment of intermediate length of nodular colonic wall thickening at the level of the proximal transverse colon,, demonstrating het erogeneous enhancement on the initial images of the abdomen, see series 3 image 55. Within the adjace nt mesentery and paracolic gutter, and adherent to the right psoas muscle at and below that region, t here are numerous soft tissue nodular deposits, the largest measuring 2.5 x 2.6 cm, as seen on series 203, image 82. Some of these may approximate the level of the urethral caliber transition, as seen o n axial image 83 among others. Mildly hyperenhancing lobulated nodular soft tissue deposit along the right anterior abdominal wall musculature measuring 2.4 cm in greatest dimension on series 203, image 89. No free air, free fluid or inflammatory stranding. No suspicious lymphadenopathy. The urinary bl adder is without significant finding. Healing displaced fractures of the superior and inferior left pubic rami, both at their pubic bone an d lateral junctions. Adjacent myositis ossifications. Healing left sacral ala and iliac wing fracture . Sclerotic, mildly expansile, appearance of the left iliac wing, may indicate changes of healing, ve rsus an underlying pathologic lesion. IMPRESSION: Long segments of small bowel dilation with air-fluid levels concerning for obstruction. Transition point appears to be along a short segment of nondistended small bowel, which leads to the ileocolic anastomosis. Nodular thickening and heterogeneous enhancement of the transverse colon just distal to the anastomos is. Multiple soft tissue density deposits in the adjacent mesentery and paracolic gutter. Findings ra ise concern for local recurrence. Nodular enhancing soft tissue deposit along the right lower anterior abdominal wall muscles, raises c oncern for local dissemination as well. Severe right hydronephrosis and hydroureter with abrupt transition of the right ureteral caliber at t he level of the upper pelvis. This may relate to a stricture or obstruction secondary to mass effect by local spread of malignancy. Nonobstructing left mid to lower renal pole 5 mm calculus. Fluid density peripheral right liver lobe 0.6 cm cyst, favored to be benign. Displaced healing fractures of the superior and inferior left pubic rami as well as nondisplaced heal ing fractures of the left sacral ala and pubic bone. Questionable underlying metastatic lesion along the left iliac wing. Lungs are evaluated separately on dedicated CT of the chest of the same day. The findings were communicated to Jarocho Ghosh on 07/05/2023 at 09:27 hours.
--- NOTE | 2023-07-05 10:02 | RAD REPORT ---
EXAM DESCRIPTION: CT - Thorax Con - 07/05/2023 9:06 am CLINICAL HISTORY: r/o abd pain COMPARISON: Stone Protocol dated 05/19/2019 TECHNIQUE: Axial thin cut images of the chest were obtained without IV contrast. Multiplanar reforma ts were generated and reviewed. All CT scans are performed using dose optimization technique as appropriate and may include automated exposure control or mA/KV adjustment according to patient size. FINDINGS: Bilateral pulmonary nodules, the largest in the subpleural posterior right lower lobe lucia uring 1.4 cm, and the largest on the left is within the upper segment of the left lower lobe on axial image 13 measuring 1.3 cm. Additional 8 mm nodules in the left lower lobe superiorly on axial image 27 measuring 9 mm, subpleural left lower lobe more dependently on axial image 39 measuring 8 mm, and in the peripheral right upper lobe on axial image 15 measuring 8 mm. Multiple other smaller nodules n ot exceeding 6 mm seen bilaterally. Many of these nodules are new since the prior abdominal CT within the included lower aspects of the lungs Dependent atelectatic changes and a trace right pleural effu susan. No pneumothorax. No abnormal mediastinal or hilar masses or lymphadenopathy seen. No significant aortic or pulmonary a rtery findings. Assessment is limited in the absence of IV contrast. No chest wall mass or abnormal axillary lymphadenopathy. Evaluation of the solid abdominal structures was performed separately on dedicated CT of the abdomen and pelvis. IMPRESSION: Multiple bilateral pulmonary nodules as above, concerning for pulmonary metastases. No suspicious adenopathy or consolidation. Trace right layering pleural effusion. Abdominal structures were evaluated separately on dedicated CT of the abdomen and pelvis of the same day.
--- NOTE | 2023-07-05 13:36 | PN ---
Date of Progress Note: 07/05/2023 Subjective: The patient was seen this morning for followup. Her was with her at bedside. Objective: Vital Signs: Last vital signs, temperature 96.7, pulse 113, respiratory rate 16, blood p ressure 101/63, oxygen saturation 92%. HEENT: Unremarkable. Lungs: Clear to auscultation. Heart: Sounds normal. Abdomen: Soft. Bowel sounds normal. No guarding, rigidity, distention. Minimal right lower quadra nt tenderness. No rebound tenderness. Extremities: No leg edema. Labs: No new labs today. CT scan of the abdomen and pelvis was ordered but unfortunately only CT sc an of the abdomen was done as per my discussion with the radiologist, and after communicating with brandee rascon, the patient will be sent down for a CT scan of the pelvis to complete this study as well as I have ordered a CT scan of the chest to be done today. Finding of the CAT scan of abdomen shows some abno rmality in the right lower quadrant, not sure whether the patient is having beginning of bowel obstru ction or ileus, and once we have remaining study done, we will communicate with radiologist for luke milner. Impression: 1.Colon cancer. 2.Right lower quadrant abdominal pain. 3.Volume depletion. 4.Senile dementia. 5.Hypertension. 6.Hyperlipidemia. 7.Type 2 diabetes mellitus. 8.Chronic obstructive pulmonary disease. Plan: We will go ahead and continue current IV fluid. Await further CAT scan of the pelvis and CAT scan of the chest result. Her CEA level is elevated. Once we get all these findings, we will also request consultation from our general surgeon. Details were discussed with the patient's and the patient this morning. BLU/MODL Voice ID: [id number] Report ID: [id number]
[2023-07-05 15:42] LABS: SARS-CoV-2 Antigen Rapid Res Negative (Negative)
--- NOTE | 2023-07-05 16:42 | CON ---
Date of Consultation: 07/05/2023 Reason For Consultation: Abdominal pain. History Of Present Illness: The patient is an 82-year-old female who presented to Dr. Ghosh's office with abdominal pain, tenderness, nausea, vomiting. The pain was more on the right side and in the ri ght back. She was admitted and CAT scan was ordered and I was consulted. The patient had what appea rs to be a right hemicolectomy for colon cancer done in November at the [facility] by Dr. Zander Aramblua. P ostoperatively, she was advised to be seen by the oncologist, which they declined to do. She has not had any followup or treatment since the surgery. She did have a recent fall and pelvic pain and had a superior-inferior pubic rami fracture earlier this month. She is recovering from that, but this p ain is different, and she was brought in to see Dr. Ghosh who admitted her yesterday. Today, she is f eeling better. She has no nausea or vomiting. She is passing gas. She did have a small bowel movem ent today. She is tolerating sips of clear liquids. She was somewhat confused and review of systems is somewhat limited because of that. There is no sore throat, runny nose, cough, headaches, or dizz iness. No chest pain. No fevers or chills. Review of Systems: Otherwise, unremarkable. Past Medical History: Significant for type 2 diabetes, hypertension, COPD, hyperlipidemia, and colon cancer. Past Surgical History: Right hemicolectomy. Allergies: INCLUDE PENICILLIN. Social History: The patient does not smoke or drink alcohol. Family History: Significant for diabetes, hypertension, and dementia. Physical Examination: Vital Signs: Stable. Heart rate is in the one-teens and she is afebrile. General: She is awake and alert, confused. Head and Neck: No JVD. No neck masses. Throat clear. Neck is supple. Chest: Clear. Heart: S1, S2. Abdomen: Slightly distended but soft. Hypoactive bowel sounds. Tenderness diffusely, but no reboun d rigidity or guarding. The tenderness is minimal. Extremities: Adequately perfused. Nontender. Neuro: Nonfocal. There is no evidence of any hernia. Diagnostic Data: Her white count is 6, H and H is 14 and 41.8, platelets are 201. Chemistry reviewe d. BUN and creatinine are 35 and 1.09. Her CEA is 26.3, alkaline phosphatase is 167. CT of the abd omen and pelvis reviewed, as well as, chest CT reviewed with Dr. Arriaga. The chest CT shows multiple bilateral pulmonary nodules concerning for pulmonary mets. Trace right layering pleural effusion. C T of the abdomen and pelvis shows long segments of small bowel dilatation with air-fluid levels duy rning for obstruction. Transition point appears to be long with short-segment of the nondistended sm all bowel, which leads to the ileocolic anastomosis. Nodule thickening and heterogeneous enhancement of the transverse colon just distal to the anastomosis. Multiple soft tissue densities deposit in t he adjacent mesentery and paracolic gutter. Findings raised concern for local recurrence, nodular en hancement, soft tissue deposit along the right lower anterior abdominal wall muscles raises concern f or local dissemination as well. Severe right hydronephrosis and hydroureter with abrupt transition a t the right ureteral caliber at the level of the upper pelvis. This may be related to a stricture or obstruction secondary to a mass effect by local spread or malignancy. There is a questionable under lying metastatic lesion along the left iliac wing. Assessment: 82-year-old female with the history of colon cancer, who now presents with likely carcin omatosis causing a partial small bowel obstruction, right hydroureter and right hydronephrosis. Recommendation: Clinically patient appears to be improving and having bowel movements and flatus. T herefore, I think we can let the patient have some clear liquids today and observe her. As far as th e severe right hydroureter and hydronephrosis, she needs to be addressed by urologist. Unfortunately , we do not have a urologist available at our facility, right now. Therefore, I discussed the case w ith Dr. Ghosh and I have contacted Dr. Arambula and waiting for him to call us back and once we have that conversation, patient will require transfer to another facility where her hydroureter and hydronephro sis issues can be addressed and at the same time, Dr. Arambula can address her GI issues. Again, plan of care was discussed in detail with the patient, the , and Dr. Ghosh. /MODL Voice ID: [id number] Report ID: [id number]
[2023-07-05] MEDS ORDERED: MAGNES/ALUMIN/SIMET 30ML UCUP PO PRN (16:56)
[2023-07-05] MEDS ORDERED: SODIUM CHLORIDE 0.9% 10ML INJ IV PRN (16:57)
[2023-07-05] MEDS ORDERED: ENOXAPARIN 30 MG/0.3 ML SQ SCH (17:00)
[2023-07-05] MEDS: PANTOPRAZOLE 40 MG INJ IVP SCH (17:32)
--- NOTE | 2023-07-05 18:51 | HP ---
Date of Admission: 07/05/2023 Chief Complaint: Abdominal pain, nausea, vomiting. History Of Present Illness: This is an 82-year-old very pleasant female patient, who was admitted to our hospital on June 12, 2023, and was discharged on June 20, 2023, to go to [facility] Her last hospital stay was because of fall and pelvis fracture. The patient stayed at [facility] particular facility and she came home last week about 7 or 8 days ago. Today, she was brought into office by her with complaints of nausea, vomiting, and right lower quadrant abdominal pain f or last 2 days. She had vomiting for about 5 times in last 24 hours. No fever. Her appetite is kalani y low and she lost 10 pounds in the last 2 to 3 weeks or so. She did not eat anything today and she was brought into office after she was evaluated. She was admitted to the hospital. Allergies: TO PENICILLIN, DETAILS UNKNOWN. Medications: Aspirin 81 mg daily, metformin 500 mg daily, metoprolol succinate 25 mg daily, rosuvast atin 10 mg daily, and Seroquel 25 mg daily at bedtime. Review of Systems: GI: As mentioned above. Constitutional: As mentioned above. All other systems reviewed and negative. Past Medical History: Recent fall and injury that caused left-sided superior and inferior pubic rami fracture. Otherwise, past medical history is significant for senile dementia, colon cancer involvin g transverse colon, for which she had resection done on November 12, 2022, and after the surgery for colon cancer, she was recommended to follow up with oncologist and the patient and her decided not to, so she did not have any followup or care postoperatively with oncologists. Past medical history also significant for urgent incontinence, overactive bladder, COPD, hypertension, hyperlipidemia, ty pe 2 diabetes mellitus. Past Surgical History: Significant for partial resection of colon due to colon cancer on November 12, done at [facility]. Family History: Not pertinent. Social History: Prior history of smoking, not at present time. Use of alcohol negative. Physical Examination: Vital Signs: When she came into office today, her supine blood pressure was 100/62 with pulse 112 an d sitting blood pressure was 98/54 with pulse 128 per minute. Her temperature 97.6, respiratory rate 18, weight 136.8 pounds, height 64 inches. General: Awake, alert, oriented, not in distress. HEENT: Head atraumatic, normocephalic. Conjunctivae nonerythematous. Sclerae white. Mouth, no thr ush or edema noted. Ears/Nose, no mass, lesion, discharge noted. Neck: Supple. No JVD, lymph nodes, bruit, thyromegaly noted. Lungs: Bilateral good equal air entry. Clear to auscultation. No rhonchi. No rales. Heart: Normal heart sounds, no murmur or gallop. Abdomen: Soft. No guarding, rigidity. No rebound tenderness. No hepatosplenomegaly. No bruit. B owel sounds normoactive. She does have mild tenderness in the right lower quadrant. Extremities: No leg edema. No calf tenderness. Skin: No rash, ulcer, cellulitis. Lymphatics: No lymph node enlargement in neck, supraclavicular, infraclavicular region. Neuro: No focal neurological deficit. Chest: Unremarkable. External Genitalia: Deferred. Rectal: Deferred. Laboratory Data: White count 6, hemoglobin 14, platelets 201. Sodium 132, potassium 4, chloride 96, bicarb 27, BUN 35, creatinine 1.09, glucose 102. Liver function tests unremarkable except total parviz irubin 1.1, alkaline phosphatase 167, serum albumin 2.8, lipase 19. CEA level 26.3. Impression: 1.Colon cancer, transverse colon. 2.Abdominal pain, right lower quadrant. 3.Nausea with vomiting. 4.Volume depletion. 5.Senile dementia. 6.Type 2 diabetes mellitus. 7.Hypertension. 8.Hyperlipidemia. 9.Chronic obstructive pulmonary disease. Plan: We will go ahead and admit the patient to hospital for further evaluation and management of th is problem. The patient is appropriate for inpatient and is [facility]. We will go ahead and get a CT scan of the abdomen and pelvis with contrast and give her IV fluid hydration. Give symptomatic treatment for nausea and vomiting with Zofran and we will continue home medication which is Seroquel tonight. We will not give any antihypertensive medication or statin the rapy at this point and there is no need for any diabetes medication at this time. Depending on CAT s can finding, we will decide further plan of treatment. Details were discussed with the patient and h er . BLU/JACQUES Voice ID: [id number]
[2023-07-05] MEDS: QUETIAPINE 25 MG TAB PO SCH (20:09)
[2023-07-06] MEDS: NA CHLORIDE 0.9% 1,000 ML IV SCH ×2 (03:00→12:47)
[2023-07-06 07:58] LABS: Absolute Lymphocytes (CBC) 0.7 K/uL (0.7-4.9); Hematocrit 37.7 % (36.0-45.0); MCV 91.3 fL (80-100); MPV 8.6 fL (7.6-11.3); Platelets 163 thou/uL (152-406); RBC Red Blood Cell Count 4.13 M/uL (3.86-4.86)
[2023-07-06] MEDS: PANTOPRAZOLE 40 MG INJ IVP SCH (08:06)
[2023-07-06 08:07] LABS: Magnesium 2.1 mg/dL (1.6-2.4); Potassium 3.6 mEq/L (3.5-5.1)
[2023-07-06 12:56] VITALS: BP 129/74; TEMP 98.2
--- NOTE | 2023-07-07 04:12 | DS ---
Date of Discharge: 07/06/2023 Disposition: The patient will be transferred via ground ambulance to go to [facility]. Physical Examination: HEENT: Unremarkable. Lungs: Clear to auscultation. Heart: Sounds normal. Abdomen: Soft. Bowel sounds normal. No guarding, rigidity, tenderness, distention. Extremities: No leg edema. Laboratory Data: Upon admission, white count 6, hemoglobin 14, and platelet count 201. Today, white count 5.3, hemoglobin 12.7, platelets 163. Chemistry upon admission: Sodium 132, potassium 4, chlo ride 96, bicarb 27, BUN 35, creatinine 1.09, glucose 102. Liver function tests unremarkable. CEA le tiki 26.3. Today, sodium 140, potassium 3.6, chloride 106, bicarb 23, , creatinine 0.60, gl ucose [address] scan of abdomen and pelvis has shown evidence of wh at we are concerned about is local recurrence of the colon cancer at the surgical site and around the surgical site as well as a possibility of pulmonary metastasis because of multiple pulmonary nodules . There is also evidence of partial small bowel obstruction. Hospital Course: This is an 82-year-old pleasant female patient admitted to the hospital with abdomi nal pain, nausea, vomiting. Please see dictated H and P for more information. After patient was jeri luated at the office, decision was made to admit her to the hospital and the patient was admitted wit h this abdominal pain, nausea, vomiting, and poor oral intake. After she was admitted, workup was do ne in form of routine labs as well as CAT scan. CAT scan had shown evidence of recurrence of her col on cancer around the surgical site and also evidence of distal metastasis with pulmonary nodules. Th e patient had surgery done for colon cancer in form of partial colectomy with end-to-end anastomosis on November 12, 2022, and after surgery, she was recommended to go to oncologist for further treatment and the patient and her decided not to pursue any further treatment, so she never saw any oncolo gist as per her decision. During this hospitalization, we did consult Dr. Peacock and he evaluated her and also reviewed CAT scan and our plan is to transfer her to [facility] for higher level of care. Dr. Arambula was contacted by Dr. Peacock and he has accepted the patient and the patient will be transferred today to [facility]. I did talk to the accepting hospitalist and details were provided. Her CAT scan also has shown obstruction of the right ureter, which we are concerned a bout due to this colon cancer and local spread. The patient will need higher level of care for all t hese different reasons and the patient is willing to go to [facility] as recommended, and today, she dajuan l be transferred in stable condition via ground ambulance. I have informed the patient and her husba nd that once she comes home, she should come see me within matter a few days at the office, so we can start planning her outpatient management. The patient and her were made aware of findings o f the CAT scan. Final Diagnoses: 1.Colon cancer, transverse colon. 2.Abdominal pain, right lower quadrant. 3. . 4.Hyperlipidemia. 5.Chronic obstructive pulmonary disease. BLU/MODL Voice ID: [id number] Report ID: [id number]
== END 2023-07-06 14:00 | disposition short-term general hospital (02) | DRG 694 ==
LOC: 2ND 19:10 → INTOOBSV 19:10 → OBSVTOIN 07-05 10:07
PROVIDERS: ADMIT Internal Medicine; ATTEND Internal Medicine
DX: N13.30 Unspecified hydronephrosis (principal); C18.4 Malignant neoplasm of transverse colon; K56.600 Partial intestinal obstruction, unspecified as to cause; C78.00 Secondary malignant neoplasm of unspecified lung; E86.9 Volume depletion, unspecified; E78.5 Hyperlipidemia, unspecified; E11.9 Type 2 diabetes mellitus without complications; J44.9 Chronic obstructive pulmonary disease, unspecified; F03.90 Unspecified dementia, unspecified severity, without behavioral disturbance, psychotic disturbance, mood disturbance, and anxiety; R91.8 Other nonspecific abnormal finding of lung field; Z88.0 Allergy status to penicillin; Z11.52 Encounter for screening for COVID-19; Z90.49 Acquired absence of other specified parts of digestive tract; Z79.82 Long term (current) use of aspirin; Z79.84 Long term (current) use of oral hypoglycemic drugs; Z85.038 Personal history of other malignant neoplasm of large intestine
CPT/HCPCS: 36415; 71250; 74177; 80048; 80053; 82378; 83690; 83735; 85025; 87811; C9113; G0378; J1650; J7030

== ENCOUNTER 2023-07-25 06:31 | Day surgery (SDC) | payer OTHER ==
[2023-07-25] MEDS: NA CHLORIDE 0.9% 1,000 ML ONE (07:05)
[2023-07-25] MEDS ORDERED: propofoL 200 MG/20 ML VIAL IV ONE ×2 (07:13→08:13)
[2023-07-25] MEDS ORDERED: LIDOCAINE 2% MPF 5 ML VIAL ONE (07:13)
[2023-07-25] MEDS ORDERED: FENTANYL CITR 100 MCG/2 ML ONE (07:13)
[2023-07-25] MEDS ORDERED: ONDANSETRON 4 MG/2 ML VIAL ONE (07:13)
[2023-07-25] MEDS ORDERED: NS 0.9% VIAL 20 ML ONE (07:24)
[2023-07-25] MEDS ORDERED: HEPARIN 5000 UNIT/ML 1 ML VIAL ONE (07:24)
[2023-07-25] MEDS: CEFAZOLIN SODIUM 2 GM/VIAL ONE (07:50)
[2023-07-25] MEDS: LIDOCAINE 1% MPF 30 ML VIAL ONE (08:13)
[2023-07-25] MEDS ORDERED: dexAMETHasone 4 MG/ML VIAL ONE (08:13)
--- NOTE | 2023-07-25 08:54 | P.OP ---
Date of Service: 07/25/23 Preop diagnosis: Metastatic colon cancer Postop diagnosis: Same Procedure performed: Placement of right IJ Port-A-Cath, utilization of ultrasound and fluoroscopy Surgeon: Rajendra Peacock MD Steamfitter Supervisor: Abigail JACKSON Estimated blood loss: Minimal Specimen: None Findings: Normal anatomy Anesthesia: MAC Complications: None Drains: None Fluids and blood products: Nonapplicable Disposition: Recovery room Operative note: Patient brought to the OR and placed in supine position. MAC anesthesia begun. Patient prepped and draped in the usual sterile fashion. Lidocaine 1% infiltrated locally. Ultrasound machine used to identify the right internal jugular vein. 18-gauge needle used to access the right internal jugular vein. Guidewire passed and position confirmed with fluoroscopy. Seldinger technique used. Tip of the catheter placed in the SVC right atrial junction. Catheter cut to appropriate size and attached to the Port-A-Cath device. Port-A-Cath device attached to the subcutaneous tissue with 3-0 Vicryl. 3-0 chromic used to reapproximate subcutaneous tissue and close skin. Port flushed with heparin and packed with heparin with good blood flow. Sterile dressing applied. Patient awakened and taken to recovery room in good general condition. A chest x-ray has been ordered to confirm placement in the recovery room. CC: Dr. Hill's office
--- NOTE | 2023-07-25 09:28 | RAD REPORT ---
EXAM DESCRIPTION: DEVONJossue Single View07/25/2023 9:19 am CLINICAL HISTORY: Device placement/central venous catheter placement IMPRESSION: Central venous catheter with its tip in the superior vena cava No pneumothorax
--- NOTE | 2023-07-25 09:32 | RAD REPORT ---
EXAM DESCRIPTION: RAD - Fluoroscopy <1 Hour - 07/25/2023 8:43 am CLINICAL HISTORY: Device placement central venous catheter placement FINDINGS: A central venous catheter was placed into the superior vena cava. 5 fluoroscopic spot imag es are submitted. Fluoroscopy time .7 minutes The examination was performed by Dr. Peacock
[2023-07-25 10:14] VITALS: TEMP 97.9
[2023-07-25] MEDS ORDERED: HYDROCODONE/APAP 5/325 MG TAB ONE (10:40)
[2023-07-25] MEDS: HYDROCODONE/APAP 5/325 MG TAB PO PRN (10:41)
[2023-07-25 10:54] VITALS: BP 144/91; O2SAT 99
--- NOTE | 2023-07-25 14:41 | EKG ---
Test Date: 2023-07-24 Test Time: 16:25:08 [employer]obile T[employer] Builder: SEGUNDO MEASUREMENT RESULTS: Intervals: Rate: 99 IA: 190 QRSD: 76 QT: 342 QTc: 438 [place]: P: 61 IA: 190 QRS: -18 T: 41 INTERPRETIVE STATEMENTS: Normal sinus rhythm Inferior infarct, age undetermined Anterolateral infarct, age undetermined Abnormal ECG Compared to ECG 10/22/2022 16:21:01 Myocardial infarct finding now present Electronically Signed On 07-25-23 14:39:44 REFRIGERATING TECHNICIAN by Berry Garcia
== END 2023-07-25 11:07 | disposition home or self-care (01) ==
LOC: OR 06:31
PROVIDERS: ATTEND Surgery
PROC: 0JH60WZ Insertion of Totally Implantable Vascular Access Device into Chest Subcutaneous Tissue and Fascia, Open Approach (ICD-10-PCS; principal; 2023-07-25 07:30)
DX: C18.9 Malignant neoplasm of colon, unspecified (principal)
CPT/HCPCS: 71045; 76000; 93005; A4216; C1788; J1100; J1644; J2001; J2405; J2704; J3010; J7030

== ENCOUNTER 2023-08-04 09:00 | Inpatient (IN) | payer OTHER ==
[2023-08-04] MEDS ORDERED: FAMOTIDINE 20 MG/2 ML VIAL IV ONE (09:11)
[2023-08-04] MEDS ORDERED: NA CHLORIDE 0.9% 1,000 ML ONE ×2 (09:11→09:40)
[2023-08-04] MEDS ORDERED: CEFTRIAXONE 1000 MG/VIAL ONE (09:11)
[2023-08-04] MEDS ORDERED: METOPROLOL XL 50 MG TAB PO ONE (09:39)
[2023-08-04] MEDS ORDERED: METOPROLOL TARTRATE 5 MG/5 ML INJ IV ONE (09:40)
[2023-08-04 09:48] LABS: Absolute Lymphocytes (CBC) 0.6 K/uL (0.7-4.9); Hematocrit 42.9 % (36.0-45.0); Lymphocytes % 8.5 % (15.3-44.8); MCV 94.8 fL (80-100); MPV 8.7 fL (7.6-11.3); Platelets 178 thou/uL (152-406); RBC Red Blood Cell Count 4.52 M/uL (3.86-4.86)
[2023-08-04 09:58] LABS: SARS-CoV-2 Antigen Rapid Res Negative (Negative)
[2023-08-04 10:14] LABS: Albumin 2.5 g/dL (3.4-5.0); Bilirubin Direct 0.4 mg/dL (0-0.2); Bilirubin Indirect, Calculated 0.6 mg/dL (0.2-0.8); Magnesium 1.8 mg/dL (1.6-2.4); Potassium 3.7 mEq/L (3.5-5.1); Protein, Total 6.6 g/dL (6.4-8.2); Troponin High Sensitivity 9.9 pg/mL (<58.9)
[2023-08-04 10:17] LABS: Protime INR 1.77
--- NOTE | 2023-08-04 10:38 | EDPHYS ---
Physician Documentation [facility] Name: Holli Strickland Age: 82 yrs Sex: Female : 1940 Arrival Date: 08/04/2023 Time: 09:00 Bed 18 Private MD: ED Physician Reji Germain HPI: 08/04 10:07 This 82 yrs old Female presents to ER via EMS with complaints of General shruti Weakness. 10:07 The patient has shortness of breath at rest, with light activity. Onset: The shruti symptoms/episode began/occurred 1 day(s) ago. Duration: The symptoms are continuous, and are steadily getting worse. The patient's shortness of breath has no apparent modifying factors. The patient presents with a history of irregular heart beat, heart racing. Context: The symptoms occur at rest. Modifying factors: The symptoms are aggravated by nothing. The symptoms are alleviated by nothing. weak, hr is fast. Severity of symptoms: At their worst the symptoms were mild moderate in the emergency department the symptoms are unchanged. Historical: - Allergies: 09:05 Omnicef; kc6 09:05 PENICILLINS; kc6 - PMHx: 09:05 Diabetes - NIDDM; Hyperlipidemia; Hypertension; Alzheimer's disease; Dementia; kc6 09:08 colon cancer; kc6 - PSHx: 09:05 L knee replacement; kc6 - Immunization history:: Adult Immunizations up to date. - Social history:: Smoking status: Patient denies any tobacco usage or history of. - Family history:: not pertinent. ROS: 10:07 Constitutional: Negative for fever, chills, and weight loss, Eyes: Negative for injury, shruti pain, redness, and discharge, ENT: Negative for injury, pain, and discharge, Neck: Negative for injury, pain, and swelling, Respiratory: Negative for shortness of breath, cough, wheezing, and pleuritic chest pain, Abdomen/GI: Negative for abdominal pain, nausea, vomiting, diarrhea, and constipation, Back: Negative for injury and pain, : Negative for injury, bleeding, discharge, and swelling, MS/Extremity: Negative for injury and deformity, Skin: Negative for injury, rash, and discoloration, Psych: Negative for depression, anxiety, suicide ideation, homicidal ideation, and hallucinations, Allergy/Immunology: Negative for hives, rash, and allergies, Endocrine: Negative for neck swelling, polydipsia, polyuria, polyphagia, and marked weight changes, Hematologic/Lymphatic: Negative for swollen nodes, abnormal bleeding, and unusual bruising, 10:07 Cardiovascular: Positive for palpitations, 10:07 Neuro: Positive for weakness, Exam: 10:07 Constitutional: This is a well developed, well nourished patient who is awake, alert, shruti and in no acute distress. Head/Face: Normocephalic, atraumatic. Eyes: Pupils equal round and reactive to light, extra-ocular motions intact. Lids and lashes normal. Conjunctiva and sclera are non-icteric and not injected. Cornea within normal limits. Periorbital areas with no swelling, redness, or edema. ENT: Nares patent. No nasal discharge, no septal abnormalities noted. Tympanic membranes are normal and external auditory canals are clear. Oropharynx with no redness, swelling, or masses, exudates, or evidence of obstruction, uvula midline. Mucous membranes moist. Neck: Trachea midline, no thyromegaly or masses palpated, and no cervical lymphadenopathy. Supple, full range of motion without nuchal rigidity, or vertebral point tenderness. No Meningismus. Chest/axilla: Normal chest wall appearance and motion. Nontender with no deformity. No lesions are appreciated. Respiratory: Lungs have equal breath sounds bilaterally, clear to auscultation and percussion. No rales, rhonchi or wheezes noted. No increased work of breathing, no retractions or nasal flaring. Abdomen/GI: Soft, non-tender, with normal bowel sounds. No distension or tympany. No guarding or rebound. No evidence of tenderness throughout. Back: No spinal tenderness. No costovertebral tenderness. Full range of motion. Female : Normal external genitalia. Skin: Warm, dry with normal turgor. Normal color with no rashes, no lesions, and no evidence of cellulitis. MS/ Extremity: Pulses equal, no cyanosis. Neurovascular intact. Full, normal range of motion. Neuro: Awake and alert, GCS 15, oriented to person, place, time, and situation. Cranial nerves II-XII grossly intact. Motor strength 5/5 in all extremities. Sensory grossly intact. Cerebellar exam normal. Normal gait. Psych: Awake, alert, with orientation to person, place and time. Behavior, mood, and affect are within normal limits. 10:07 Cardiovascular: Rate: tachycardic, actual rate is 125 bpm, Rhythm: irregularly irregular, Pulses: Pulses are 4+ in bilateral radial, brachial, femoral, popliteal, posterior tibial and and dorsalis pedis arteries.. Heart sounds: normal, Edema: is not appreciated, JVD: is not appreciated, 10:07 ECG was reviewed by the Attending Physician. Vital Signs: 09:03 BP 156 / 101; Pulse 122; Resp 16 S; Temp 98(O); Pulse Ox 95% on R/A; Weight 61.23 kg kc6 (R); Height 5 ft. 4 in. (R); 09:50 BP 139 / 89; Pulse 80; Resp 16 S; Pulse Ox 97% on R/A; kc6 11:40 BP 139 / 98; Pulse 85; Resp 20 S; Pulse Ox 96% on R/A; kc6 09:03 Body Mass Index 23.17 (61.23 kg, 162.56 cm) kc6 MDM: 09:03 Patient medically screened. [facility] 10:14 Differential diagnosis: Anemia Anxiety Reaction asthma, Bronchitis CHF exacerbation, shruti Chronic Obstructive Pulmonary Disease arrythmia, dehydration, Myocardial Infarction pneumonia, Pneumothorax pulmonary edema, Sepsis Unstable Angina. Antibiotic administration: Not indicated. Differential Diagnosis altered mental status, sepsis, flu. Immunization status: Pneumococcal vaccine: within last 5 years. Influenza vaccine: within last 5 years. Data reviewed: vital signs, nurses notes, halfway records, lab test result(s), EKG, radiologic studies, CT scan. Consideration of Admission/Observation Patient was admitted/placed on observation. Escalation of care including admission/observation considered. I considered the following discharge prescriptions or medication management in the emergency department Medications were administered in the Emergency Department. See MAR. Independent interpretation of the following test(s) in the Emergency Department EKG: See my EKG interpretation above. Test considered but Not performed: Ultrasound no abd usg. Historians other than the Patient: Spouse/Significant Other: well informed. Care significantly affected by the following chronic conditions: Diabetes, Hypertension, Obesity, Cancer, alzheimers and hyperlipemia. 08/04 09:05 Order name: Basic Metabolic Panel; Complete Time: 10:32 [facility] 08/04 09:05 Order name: CBC with Diff; Complete Time: 10:32 [facility] 08/04 09:05 Order name: LFT's; Complete Time: 10:32 [facility] 08/04 09:05 Order name: Magnesium; Complete Time: 10:32 shruti 08/04 09:05 Order name: NT PRO-BNP; Complete Time: 10:32 08/04 09:05 Order name: PT-INR; Complete Time: 10:32 08/04 09:05 Order name: Troponin HS; Complete Time: 10:32 shruti 08/04 09:05 Order name: Lipase; Complete Time: 10:32 [facility] 08/04 09:05 Order name: Blood Culture Adult (2) 08/04 09:05 Order name: SARS RAPID; Complete Time: 10:32 [facility] 08/04 09:05 Order name: Flu; Complete Time: 10:32 [facility] 08/04 09:26 Order name: TSH; Complete Time: 10:32 [facility] 08/04 10:34 Order name: Urinalysis w/ reflexes 08/04 10:34 Order name: Urine Culture [facility] 08/04 09:05 Order name: XRAY Chest (1 view) 08/04 09:05 Order name: Chest Abdomen Pelvis W Con CT; Complete Time: 11:26 [facility] 08/04 09:05 Order name: EKG; Complete Time: 09:06 [facility] 08/04 10:44 Order name: CONS Physician Consult EDNC 08/04 09:05 Order name: Cardiac monitoring; Complete Time: 09:20 [facility] 08/04 09:05 Order name: EKG - Nurse/Tech; Complete Time: 09:20 [facility] 08/04 09:05 Order name: IV Saline Lock; Complete Time: 09:37 [facility] 08/04 09:05 Order name: Labs collected and sent; Complete Time: 09:37 [facility] 08/04 09:05 Order name: O2 Per Protocol; Complete Time: 09:09 [facility] 08/04 09:05 Order name: O2 Sat Monitoring; Complete Time: 09:09 [facility] 08/04 09:51 Order name: Labs - recollect needed: recollect blue top under filled/ per Alexandra; eb Complete Time: 10:05 EC:07 Rate is 138 beats/min. Rhythm is irregularly irregular. QRS [place] is Normal. [place] interval shruti is normal. QRS interval is normal. QT interval is normal. No Q waves. T waves are Normal. No ST changes noted. Clinical impression: Atrial Fibrillation and No evidence of ischemia. Interpreted by me. Reviewed by me. Administered Medications: 09:26 Not Given (Duplicate Order): rocephin1 grams IV at per protocol once; Given slow IV shruti push per pharmacy instructions 09:50 Drug: NS 0.9% IV 1000 ml IV at 1 bolus Per protocol; 1000 mL bolus Route: IV; Rate: 1 kc6 bolus; Site: left forearm; 12:06 Follow up: Response: No adverse reaction; IV Status: Completed infusion; IV Intake: kc6 1000ml 09:50 Drug: Famotidine IVP 20 mg IVP once; dilute with 10 mL 0.9% NaCl; give over 2 minutes kc6 Route: IVP; Site: left forearm; 10:05 Follow up: Response: No adverse reaction kc6 09:50 Drug: Metoprolol IVP 5 mg IVP once; Hold for SBP <100 or HR <60. Route: IVP; Site: left kc6 forearm; 10:05 Follow up: Response: No adverse reaction; Blood pressure is lowered; Cardiac rhythm kc6 changed 09:50 Drug: Metoprolol PO 50 mg PO once Route: PO; kc6 10:05 Follow up: Response: No adverse reaction; Blood pressure is lowered; Cardiac rhythm kc6 changed 09:52 Not Given (Other Intervention Used): metoprolol5 mg IVP once; Hold for SBP <100 or HR kc6 <60. 11:38 Drug: levofloxacin IVPB 500 mg 100 ml IVPB once over 60 mins Volume: 100 ml; Route: kc6 IVPB; Infused Over: 60 mins; Site: left forearm; Disposition Summary: 08/04/23 10:37 Hospitalization Ordered Notes: Hospitalization Status: Inpatient Admission shruti Provider: Gabriel Ghosh cha Location: Telemetry/[facility] (Inpatient) shruti Condition: Stable shruti Problem: new shruti Symptoms: have improved shruti Bed/Room Type: Standard shruti Room Assignment: 421(08/04/23 11:31) eb Diagnosis - Paroxysmal atrial fibrillation - with RVR shruti - Weakness shruit - Fracture of lumbar vertebra - compression fx, L3 with retropulsion shruti Forms: - Medication Reconciliation Form shruti - SBAR form shruti - Leadership Thank You Letter shruti Signatures: Dispatcher [employer] Reji Ruiz MD MD cha Botello, Elizabeth eb Campbell, Kaitlyn, RN RN kc6 Corrections: (The following items were deleted from the chart) 11:31 10:37 shruti jauregui
--- NOTE | 2023-08-04 10:38 | ER ---
Nurse's Notes [facility] Name: Holli Strickland Age: 82 yrs Sex: Female : 1940 Arrival Date: 08/04/2023 Time: 09:00 Bed 18 Private MD: Diagnosis: Paroxysmal atrial fibrillation-with RVR;Weakness;Fracture of lumbar vertebra-compression fx, L3 with retropulsion Presentation: 08/04 09:03 Chief complaint: EMS states: pt reports abdominal pain and generalized weakness with kc6 blood in urine. BGL en route 112. Coronavirus screen: At this time, the client does not indicate any symptoms associated with coronavirus-19. Ebola Screen: No symptoms or risks identified at this time. Initial Sepsis Screen: Does the patient meet any 2 criteria? Altered Mental Status. HR > 90 bpm. Does the patient have a suspected source of infection? No. Patient's initial sepsis screen is negative. Risk Assessment: Do you want to hurt yourself or someone else? Patient reports no desire to harm self or others. Onset of symptoms was August 04, 2023. 09:03 Method Of Arrival: EMS: [facility] 6 09:03 Acuity: FREDRICK 3 kc6 Triage Assessment: 09:05 General: Appears in no apparent distress. comfortable, well groomed, well developed, kc6 Behavior is calm, cooperative, appropriate for age. Pain: Complains of pain in abdomen. EENT: No signs and/or symptoms were reported regarding the EENT system. Neuro: Level of Consciousness is awake, alert, obeys commands, Oriented to person, place, Appropriate for age. Cardiovascular: Denies chest pain, Heart tones S1 S2 present Capillary refill < 3 seconds Rhythm is atrial fibrillation with rapid ventricular response. Respiratory: Airway is patent Trachea midline Respiratory effort is even, unlabored, Respiratory pattern is regular, symmetrical. GI: Abdomen is round non-distended, Bowel sounds present X 4 quads. Reports constipation, Patient currently denies diarrhea, nausea, vomiting. : Reports blood in urine. Derm: No signs and/or symptoms reported regarding the dermatologic system. Skin is intact, is healthy with good turgor, Skin is pink, warm \T\ dry. Musculoskeletal: No signs and/or symptoms reported regarding the musculoskeletal system. Circulation, motion, and sensation intact. Capillary refill < 3 seconds, Range of motion: intact in all extremities. Historical: - Allergies: 09:05 Omnicef; kc6 09:05 PENICILLINS; kc6 - PMHx: 09:05 Diabetes - NIDDM; Hyperlipidemia; Hypertension; Alzheimer's disease; Dementia; kc6 09:08 colon cancer; kc6 - PSHx: 09:05 L knee replacement; kc6 - Immunization history:: Adult Immunizations up to date. - Social history:: Smoking status: Patient denies any tobacco usage or history of. - Family history:: not pertinent. Screenin:08 [facility] ED Fall Risk Assessment (Adult) History of falling in the last 3 months, kc6 including since admission Yes- fall prone (multiple falls) (3 pts) Confusion or Disorientation Yes (5 pts) Intoxicated or Sedated No (0 pts) Impaired Gait Yes (1 pt) Mobility Assist Device Used Yes (1 pt) Altered Elimination Yes (1 pt) Score/Fall Risk Level 3 or more points = High Risk. Abuse screen: Denies threats or abuse. Denies injuries from another. Nutritional screening: No deficits noted. Tuberculosis screening: No symptoms or risk factors identified. Assessment: 09:08 Reassessment: please see triage assessment. kc6 09:50 Reassessment: Patient appears in no apparent distress at this time. No changes from [facility] previously documented assessment. Patient and/or family updated on plan of care and expected duration. Pain level reassessed. 10:50 Reassessment: Patient appears in no apparent distress at this time. No changes from 6 previously documented assessment. Patient and/or family updated on plan of care and expected duration. Pain level reassessed. 11:40 Reassessment: Patient appears in no apparent distress at this time. No changes from 6 previously documented assessment. Patient and/or family updated on plan of care and expected duration. Pain level reassessed. attempted to call report to 4th floor. no answer at this time. 11:55 Reassessment: attempted to call report to 4th floor. no answer at this time. kc6 12:05 Reassessment: spoke with warehouse trainer. stated if I'm not able to call report in kc6 15min to take the pt upstairs. Vital Signs: 09:03 BP 156 / 101; Pulse 122; Resp 16 S; Temp 98(O); Pulse Ox 95% on R/A; Weight 61.23 kg kc6 (R); Height 5 ft. 4 in. (R); 09:50 BP 139 / 89; Pulse 80; Resp 16 S; Pulse Ox 97% on R/A; kc6 11:40 BP 139 / 98; Pulse 85; Resp 20 S; Pulse Ox 96% on R/A; kc6 09:03 Body Mass Index 23.17 (61.23 kg, 162.56 cm) kc6 Vitals: 09:20 Cardiac Rhythm Assessment Atrial fibrillation W/rapid ventricular response. kc6 09:50 Cardiac Rhythm Assessment Atrial fibrillation. kc6 ED Course: 09:03 Patient arrived in ED. kc6 09:03 Reji Germain MD is Attending Physician. shruti 09:05 Triage completed. kc6 09:05 Arm band placed on. kc6 09:08 Patient has correct armband on for positive identification. Placed in gown. Bed in low kc6 position. Call light in reach. Side rails up X2. Adult w/ patient. Client placed on continuous cardiac and pulse oximetry monitoring. NIBP monitoring applied. steno typist on. 09:08 Patient maintains SpO2 saturation greater than 95% on room air. kc6 09:09 Cindy Garcias, RN is Primary Nurse. kc6 09:19 XRAY Chest (1 view) In Process Unspecified. EDMS 09:20 Flu Sent. kc6 09:20 SARS RAPID Sent. kc6 09:37 Troponin HS Sent. bc6 09:37 PT-INR Sent. bc6 09:37 NT PRO-BNP Sent. bc6 09:37 Magnesium Sent. bc6 09:37 LFT's Sent. bc6 09:37 CBC with Diff Sent. bc6 09:37 Basic Metabolic Panel Sent. bc6 09:37 Lipase Sent. bc6 09:37 Blood Culture Adult (2) Sent. bc6 09:37 TSH Sent. bc6 09:37 Inserted saline lock: 22 gauge in left forearm, using aseptic technique. Blood bc6 collected. 10:35 Gabriel Ghosh MD is Hospitalizing Provider. shruti 10:44 Chest Abdomen Pelvis W Con CT In Process Unspecified. EDMS 11:30 Urine Culture Sent. bc6 11:30 Urinalysis w/ reflexes Sent. bc6 Administered Medications: 09:26 Not Given (Duplicate Order): rocephin1 grams IV at per protocol once; Given slow IV shruti push per pharmacy instructions 09:50 Drug: NS 0.9% IV 1000 ml IV at 1 bolus Per protocol; 1000 mL bolus Route: IV; Rate: 1 kc6 bolus; Site: left forearm; 12:06 Follow up: Response: No adverse reaction; IV Status: Completed infusion; IV Intake: kc6 1000ml 09:50 Drug: Famotidine IVP 20 mg IVP once; dilute with 10 mL 0.9% NaCl; give over 2 minutes kc6 Route: IVP; Site: left forearm; 10:05 Follow up: Response: No adverse reaction kc6 09:50 Drug: Metoprolol IVP 5 mg IVP once; Hold for SBP <100 or HR <60. Route: IVP; Site: left kc6 forearm; 10:05 Follow up: Response: No adverse reaction; Blood pressure is lowered; Cardiac rhythm kc6 changed 09:50 Drug: Metoprolol PO 50 mg PO once Route: PO; kc6 10:05 Follow up: Response: No adverse reaction; Blood pressure is lowered; Cardiac rhythm kc6 changed 09:52 Not Given (Other Intervention Used): metoprolol5 mg IVP once; Hold for SBP <100 or HR kc6 <60. 11:38 Drug: levofloxacin IVPB 500 mg 100 ml IVPB once over 60 mins Volume: 100 ml; Route: kc6 IVPB; Infused Over: 60 mins; Site: left forearm; Intake: 12:06 IV: 1000ml; Total: 1000ml. kc6 Outcome: 10:37 Decision to Hospitalize by Provider. [facility] 12:56 Patient left the ED. kc6 Signatures: Dispatcher [employer] EDReji Marte MD MD cha Campbell, Kaitlyn RN RN kc6 Tania Alaniz 6
--- NOTE | 2023-08-04 11:09 | RAD REPORT ---
EXAM DESCRIPTION: CT - Chest Abdomen Pelvis W Cont - 08/04/2023 10:42 am CLINICAL HISTORY: Chest and abdominal pain COMPARISON: June 2023 TECHNIQUE: Computed axial tomography of the chest, abdomen and pelvis was obtained. 100 cc Isovue-30 0 was administered intravenously. Oral contrast was not requested. This limits evaluation of bowel. All CT scans are performed using dose optimization technique as appropriate and may include automated exposure control or mA/KV adjustment according to patient size. FINDINGS: Bilateral pulmonary nodules. Some mildly enlarged. No mediastinal or hilar lymphadenopathy. No pleural effusion. No pericardial effusion. Moderate dilatation of small bowel. Right hemicolectomy. Possible soft tissue proximal right colon. S everal mesenteric/paracolic nodules without significant change. Soft tissue nodule right lower anteri or abdominal wall Marked right hydronephrosis with cortical thinning. Right ureter dilated to the level of the upper pe lvis. Hepatic cysts. The spleen, pancreas and adrenals unremarkable Development of a compression fracture L3 vertebral body estimated to be 35%. Retropulsion of fracture fragment into the spinal canal results in an approximately 30% narrowing of the thecal sac Development of compression fracture L4 vertebral body estimated 55%. Retropulsion of fracture fragmen t into the spinal canal results in an approximately 35% narrowing of thecal sac Subacute pelvic fractures. Left ilium lesion. Possible L3 lesion IMPRESSION: Mild enlargement of bilateral pulmonary metastases Small bowel obstruction. Possible mass proximal right colon Marked right hydronephrosis. Possible obstructing mass obstructing right ureter upper pelvis Mesenteric, pericolic, anterior abdominal subcutaneous fat, abdominal wall metastases Development of a compression fracture L3 vertebral body estimated to be 35%. Retropulsion of fracture fragment into the spinal canal results in an approximately 30% narrowing of the thecal sac Development of compression fracture L4 vertebral body estimated 55%. Retropulsion of fracture fragmen t into the spinal canal results in an approximately 35% narrowing of thecal sac
[2023-08-04] MEDS ORDERED: Levofloxacin500mg IV 500 MG/100 ML BAG IV ONE (11:32)
--- NOTE | 2023-08-04 11:45 | RAD REPORT ---
EXAM DESCRIPTION: Alejandrina Single View08/04/2023 9:18 am CLINICAL HISTORY: cough COMPARISON: July 25, 2023 FINDINGS: Bilateral pulmonary nodules. The heart is normal size. Central venous line in place
[2023-08-04 12:18] LABS: Specific Gravity 1.028 (1.005-1.030); Urine Bacteria 20-50 /HPF (<20); Urine Bilirubin NEGATIVE (Negative); Urine Blood 3+ (OVER) (Negative); Urine Clarity Extremely Turbid (Clear); Urine Color Dark-Brown (Yellow); Urine Glucose NEGATIVE (Negative); Urine Mucus 2+ /HPF (None Seen); Urine Protein 1+ (Negative); Urine RBC >50 /HPF (None Seen); Urine Urobilinogen Normal (Normal); Urine pH 5.5 (5.0-7.0)
[2023-08-04] MEDS ORDERED: ACETAMINOPHEN 325 MG TABLET PO PRN (17:56)
[2023-08-04] MEDS ORDERED: ONDANSETRON 4 MG/2 ML VIAL IV PRN (17:56)
[2023-08-04] MEDS: QUETIAPINE 25 MG TAB PO SCH (20:33)
[2023-08-04] MEDS: APIXABAN 5 MG TABLET PO SCH (20:33)
[2023-08-04] MEDS: METOPROLOL TAR 50 MG TAB PO SCH (20:34)
[2023-08-04] MEDS: NA CHLORIDE 0.9% 1,000 ML IV SCH (20:34)
[2023-08-04] MEDS: SMZ./TMP. 800/160 MG TABLET PO SCH (20:34)
[2023-08-04] MEDS: HYDROCODONE/APAP 5/325 MG TAB PO PRN (20:39)
[2023-08-04] MEDS: FAMOTIDINE 20 MG/2 ML VIAL IV SCH (21:00)
[2023-08-05 06:06] LABS: Absolute Lymphocytes (CBC) 0.6 K/uL (0.7-4.9); Hematocrit 40.2 % (36.0-45.0); Lymphocytes % 9.9 % (15.3-44.8); MPV 8.7 fL (7.6-11.3); Platelets 170 thou/uL (152-406); RBC Red Blood Cell Count 4.28 M/uL (3.86-4.86)
[2023-08-05 06:15] LABS: Potassium 4.1 mEq/L (3.5-5.1)
--- NOTE | 2023-08-05 14:28 | EKG ---
Test Date: 2023-08-05 Test Time: 07:44:46 Technician Test Systems: SESAR MEASUREMENT RESULTS: Intervals: Rate: 87 MS: 188 QRSD: 68 QT: 342 QTc: 411 [place]: P: 31 MS: 188 QRS: -27 T: 64 INTERPRETIVE STATEMENTS: Sinus rhythm with premature atrial complexes Low voltage QRS Inferior infarct, age undetermined Possible Anterolateral infarct, age undetermined Abnormal ECG Compared to ECG 07/24/2023 16:25:08 Atrial premature complex(es) now present Low QRS voltage now present Myocardial infarct finding still present Electronically Signed On 08-05-23 14:26:01 [employer]E GOODS MARKER by Berry Garcia
--- NOTE | 2023-08-05 14:32 | EKG ---
Test Date: 2023-08-04 Test Time: 09:16:50 C Python Developer: ROBERTA MEASUREMENT RESULTS: Intervals: Rate: 138 [place]: QRSD: 72 QT: 280 QTc: 424 [place]: P: [place]: QRS: -9 T: 73 INTERPRETIVE STATEMENTS: Atrial fibrillation with rapid ventricular response Inferior infarct, age undetermined Anterior infarct, age undetermined Abnormal ECG Compared to ECG 07/24/2023 16:25:08 Sinus rhythm no longer present Myocardial infarct finding still present Electronically Signed On 08-05-23 14:27:31 ENVIRONMENTAL SERVICES ASSOCIATE by Berry Garcia
[2023-08-06 05:27] VITALS: BMI 23.1
--- NOTE | 2023-08-06 08:24 | HP ---
Date of Admission: 08/04/2023 Chief Complaint: Weakness. History Of Present Illness: This is an 82-year-old very pleasant female patient, who has advanced co janina cancer. She was diagnosed as having colon cancer in November of last year and at that time, she had surgery done in the form of partial colectomy with end-to-end anastomosis in [place]. After the surg suzi, the patient and her , they both decided not to seek any further care with oncologists, wh ich was suggested to them for consideration of chemotherapy type of treatment, but they elected not t o follow up with oncologists and not to pursue any further treatment. Unfortunately, in last month o r so, we have now diagnosed her as having worsening of this colon cancer with metastatic disease now. The patient has agreed to see Dr. Hill and she was evaluated by her for initial appointment jaja godoy and Dr. Hill did call and talked to me and informed me that she has advised the patient and her hus band to come back to see her in couple of weeks to reevaluate and see whether her condition deteriora hemal in 2 weeks' wait time or not and if it does, then she would not consider any intervention like ch emotherapy and she would recommend hospice care and all those details were discussed with Dr. Hill la . The patient was also diagnosed as having right-sided hydronephrosis due to this colon cance r with local extension of the disease causing obstructive uropathy and her decided not to hav e any kind of intervention like nephrostomy tube placement, which was once again recommended while sh e was in the hospital in [place] during her last hospital stay. In last 1 week, she was having gross hematuria with tea and coffee-colored urine. She is having very poor appetite and significant gener alized weakness to the extent that she is mostly staying in bed, has hard time getting up and moving around, not able to get out of the bed on her own, and recently had 1 fall at home without any injury , and had to call police to help her get up from the floor. Her appetite is very poor and ev er since she saw Dr. Hill, reports that her condition has significantly started to decline. She was also diagnosed with DVT of leg in [place] and was started on Eliquis for treatment of DVT. W ith all these complaints, brought her to the emergency room because of worsening generalized weakness and very poor appetite and after she was evaluated, I was contacted requesting admission to the hospital. She was noted to have atrial fibrillation. She denies any chest pain or shortness of breath. Allergies: TO PENICILLIN, DETAILS UNKNOWN. Medications: Eliquis 5 mg 2 times a day and Seroquel 25 mg daily at bedtime. Review of Systems: Constitutional: As mentioned above. Genitourinary: As mentioned above. All other systems reviewed and negative. Past Medical History: Significant for type 2 diabetes mellitus, COPD, hypertension, hyperlipidemia, DVT of left leg, anemia, overactive bladder, colon cancer involving transverse colon. Past Surgical History: Significant for partial colectomy with end-to-end anastomosis done in November of 2022. Family History: Not pertinent except sister has dementia, diabetes, and hypertension. Social History: Prior history of smoking, not at present time. Use of alcohol negative. Physical Examination: Vital Signs: Temperature 97.7, pulse 82, respiratory rate 18, blood pressure 142/91, oxygen saturati on 94% on room air, height 5 feet 4 inches, weight 135 pounds. General: Awake, alert, oriented, not in distress. HEENT: Head atraumatic, normocephalic. Conjunctivae nonerythematous. Sclerae white. Mouth, no thr ush or edema noted. Ears/Nose, no mass, lesion, discharge noted. Neck: Supple. No JVD, lymph nodes, bruit, thyromegaly noted. Lungs: Bilateral good equal air entry. Clear to auscultation. No rhonchi. No rales. Heart: Normal heart sounds, no murmur or gallop. Abdomen: Soft, bowel sounds normal. No guarding, rigidity, tenderness, mass, hepatosplenomegaly, dis tention, or bruit noted. Extremities: No leg edema. No calf tenderness. Skin: No rash, ulcer, cellulitis. Lymphatics: No lymph node enlargement in neck, supraclavicular, infraclavicular region. Neuro: No focal neurological deficit. Chest: Unremarkable. External Genitalia: Deferred. Rectal: Deferred. Laboratory Data: Yesterday, white count 6.8, hemoglobin 14, platelets 178. Today, white count 6.4, hemoglobin 13.3, platelets 170. Chemistry yesterday, sodium 138, potassium 3.7, chloride 107, bicarb 21, BUN 16, creatinine 0.52, glucose 100. Liver function tests unremarkable. Troponin 9.9 on the f irst set, 11.7 on the second set. TSH 1.120. This morning, sodium 140, potassium 4.1, chloride 110, bicarb 22, BUN 20, creatinine 0.39, glucose 116. Urinalysis; leukocyte esterase 25, rbc more than 5 0, bacteria 20-50, wbc more than 50. Urine culture is pending. EKG showing atrial fibrillation. Impression: 1.Atrial fibrillation, paroxysmal. 2.Chronic anticoagulation therapy. 3.Deep venous thrombosis, left leg, left femoral vein. 4.Failure to thrive. 5.Colon cancer, transverse colon. 6.Hypertension. 7.Hyperlipidemia. 8.Type 2 diabetes mellitus. 9.Chronic obstructive pulmonary disease. 10.Dementia. Plan: We will go ahead and admit the patient to hospital for further evaluation and management of th is problem. The patient has gross hematuria and her urine is coffee colored. She has hydronephrosis on the right side, which was detected on basis of prior evaluation with a CAT scan and this is due t o local extension from her colon cancer affecting her urinary tract. Her overall condition has decli jairon lately with poor appetite and increasing generalized weakness, and I did discuss all these detail s with the patient and her . Her performance status is very poor and at this point undergoing any kind of chemotherapy will cause more harm than the benefit, and all these details were discussed with the patient as well as the patient's . The patient's understands all these deta ils and agrees to go ahead and start hospice care. Also, discussed advance directives and as per efrain maieron made by the patient and , DNR order was written in the chart. Consultation was requeste d from Social Service to assist the patient with hospice care arrangements. She has a Port-A-Cath, w hich was placed on an outpatient basis, which will need to be removed as I understand prior to going home with the hospice care. Overall, prognosis is very poor, and her hospice diagnosis will be colon cancer. For her diabetes and hypothyroidism, she does not require any intervention. The patient wa s taking metoprolol 25 mg daily at home, which was recently discontinued and during this hospitalizat ion, we have started her on metoprolol for heart rate control for atrial fibrillation, and I have dis cussed with to use that metoprolol 25 mg prescription she has, but instead of 1 pill daily gi ve her 1 tablet 2 times a day to restart that metoprolol 25 mg daily as she was taking before. I hav e discontinued Eliquis considering gross hematuria because now at this point, the risk of complicatio ns related to anticoagulation therapy is lot more than the benefit, but at the same time I also discu ssed with the patient's and the patient regarding potential complications related to atrial f ibrillation if we do not do any anticoagulation therapy, which will be possibility of blood clot and stroke, which could be life-threatening and understands this very well. But at this time, th ere is no other choice but to stop anticoagulation therapy, and I have ordered Eliquis to be disconti nued. Possible discharge tomorrow. I have also canceled Cardiology consult because there is no need for any cardiac intervention for her. BLU/MODL Voice ID: [id number]
[2023-08-06] MEDS: NA CHLORIDE 0.9% 500 ML ONE (12:35)
[2023-08-06] MEDS ORDERED: propofoL 200 MG/20 ML VIAL IV ONE (13:27)
[2023-08-06] MEDS ORDERED: ONDANSETRON 4 MG/2 ML VIAL ONE (13:28)
[2023-08-06] MEDS ORDERED: LIDOCAINE 2% MPF 5 ML VIAL ONE (13:28)
[2023-08-06] MEDS: LIDOCAINE HCL/EPINEPHRINE 20 ML MDV ONE (14:47)
--- NOTE | 2023-08-06 14:59 | P.OP ---
Preoperative diagnosis: Requested Removal of Port a Cath Postoperative diagnosis: Requested Removal of Port a Cath Primary procedure: Removal of Portacath Anesthesia: MAC + Local Estimated blood loss: <1cc Specimen: Port for ID only Findings: no issues Complications: None Transferred to: Recovery Room Condition: Good
[2023-08-06 16:33] VITALS: BP 118/69; TEMP 98
[2023-08-06 16:56] VITALS: O2SAT 91
--- NOTE | 2023-08-06 23:20 | DS ---
Date of Discharge: 08/06/2023 Disposition: Discharged to go home with hospice care. Discharge Medications And Instructions: 1.Continue Seroquel 25 mg daily at bedtime. 2.Continue metoprolol succinate 25 mg daily. 3.The patient to be admitted to hospice upon discharge and comfort care orders per hospice. Hospital Course: An 82-year-old female patient, who was admitted to the hospital with generalized we akness. Please see dictated H and P for more details. The patient was evaluated. She was admitted to the hospital. For last 1 week, she has been having gross hematuria the patient's husba nd and she was taking Eliquis 5 mg 2 times a day. Started to have recent DVT of left leg, which was diagnosed while she was in [place]. When she came into our hospital, she had new onset atrial fibril lation. So, she needs anticoagulation therapy for DVT of leg as well as atrial fibrillation, but now unfortunately for last 1 week, she has gross hematuria which we noted during this hospitalization an d with that, use of any anticoagulation therapy is contraindicated, off using anticoagulation therapy is more than the benefit, and all these details were discussed with the patient's and the sandra ortiz, and it was recommended to stop anticoagulation therapy. The patient is having ongoing abdomin al pain. She has very poor appetite and increasing generalized weakness to the extent that last esmer ral days, she has been staying in the bed and not able to get up or move around. With all this worse ely condition, we did talk about hospice care and the patient's and the patient is agreeable for hospice care, so we did consult Social Service to make arrangements for the patient to go home w ith the hospice care and today after all the arrangements were completed, she was discharged to go [facility] in stable condition. Her overall prognosis is very poor. Rapid decline is to be expected once sloan begum goes home. She had a Port-A-Cath which was placed on outpatient basis per her oncologist, Dr. Hill , and Port-A-Cath was removed today prior to discharge. Final Diagnoses: 1.Atrial fibrillation, paroxysmal. 2.Deep vein thrombosis, left leg, left femoral vein. 3.Failure to thrive. 4.Colon cancer, transverse colon. 5.Hypertension. 6.Hyperlipidemia. 7.Type 2 diabetes mellitus. 8.Chronic obstructive pulmonary disease. 9.Senile dementia. BLU/MODL Voice ID: [id number] Report ID: [id number]
--- NOTE | 2023-08-07 02:15 | OP ---
Date of Procedure: 08/06/2023 Surgeon: Monty Gilmore MD, Preoperative Diagnosis: Request removal of Port-A-Cath. Postoperative Diagnosis: Request removal of Port-A-Cath. Procedure Performed: Removal of Port-A-Cath. Anesthesia: MAC plus local with 0.25% Marcaine. Estimated Blood Loss: 1 mL. Specimens: Port for ID only. Findings: No issues. Complications: None. Disposition: The patient was transferred to the recovery room in good condition. Procedure In Detail: After informed consent was obtained, the patient was brought to the operating r oom, prepped and draped in the usual sterile fashion. After adequate anesthesia was achieved, I anes thetized an area of the right chest wall down to subcutaneous tissues, ultimately opening of a previo us port incision using a knife. The previously placed sutures were removed in their entirety using M haider. At this point, the port was located and brought to the visual field and 2 Prolene sutures were cut, which were holding the catheter in the anterior position. After these were removed, the c atheter was held, the patient was placed in steep Trendelenburg position. Catheter was removed at th is point. Pressure held for approximately 3 minutes. The patient remained in Trendelenburg position . The patient was positioned back in neutral position. No additional hemostatic measures were requi red. I irrigated the port pocket at this point and then closed the deep dermal plane using interrupt ed 3-0 Vicryl sutures. Skin was closed with a 4-0 Monocryl in a running fashion. Dermabond placed o kalani top. The patient tolerated the procedure without evidence of complication, transferred to PACU i n good condition. All counts were correct at the end of the case. TK/MODL Voice ID: [id number] Report ID: [id number]
== END 2023-08-06 18:51 | disposition hospice, home (50) | DRG 309 ==
LOC: ER 09:00 → ERHOLD 10:39 → 4TH 12:19
PROVIDERS: ADMIT Internal Medicine; ATTEND Internal Medicine
PROC: 0JPT0WZ Removal of Totally Implantable Vascular Access Device from Trunk Subcutaneous Tissue and Fascia, Open Approach (ICD-10-PCS; principal; 2023-08-06 16:45)
DX: I48.0 Paroxysmal atrial fibrillation (principal); C18.4 Malignant neoplasm of transverse colon; N13.30 Unspecified hydronephrosis; I10 Essential (primary) hypertension; E11.9 Type 2 diabetes mellitus without complications; E03.9 Hypothyroidism, unspecified; E78.5 Hyperlipidemia, unspecified; J44.9 Chronic obstructive pulmonary disease, unspecified; G30.9 Alzheimer's disease, unspecified; F02.80 Dementia in other diseases classified elsewhere, unspecified severity, without behavioral disturbance, psychotic disturbance, mood disturbance, and anxiety; R31.0 Gross hematuria; R62.7 Adult failure to thrive; Z66 Do not resuscitate; Z88.8 Allergy status to other drugs, medicaments and biological substances; Z51.5 Encounter for palliative care; Z88.0 Allergy status to penicillin; Z11.52 Encounter for screening for COVID-19; Z79.01 Long term (current) use of anticoagulants; Z90.49 Acquired absence of other specified parts of digestive tract; Z68.22 Body mass index [BMI] 22.0-22.9, adult; Z96.652 Presence of left artificial knee joint; Z79.899 Other long term (current) drug therapy; Z86.718 Personal history of other venous thrombosis and embolism
CPT/HCPCS: 36415; 71045; 71260; 74177; 80048; 80076; 81001; 82947; 83690; 83735; 83880; 84443; 84484; 85025; 85610; 87040; 87086; 87088; 87804; 87811; 88300; 93005; 96361; 96374; 96375; 99285; J0696; J2001; J2405; J2704; J7030; J7040; Q9967